=== PATIENT | female | born 1970 | race Caucasian/White ===

== ENCOUNTER 2020-08-29 05:15 | Emergency (ER) | payer OTHER, SELFPAY ==
[2020-08-29 05:47] VITALS: BP 111/71; PULSE 72; RESP 16; TEMP 36.7; O2SAT 99; BMI 33.6
--- NOTE | 2020-08-29 06:23 | ED.URI ---
HPI - URI/Sore Throat General Chief Complaint: Upper Respiratory Symptoms Stated Complaint: Covid symptoms/Asthma Time Seen by Provider: 08/29/20 06:23 Source: patient Mode of arrival: ambulatory Limitations: no limitations History of Present Illness MD elicited complaint: cough, rhinorrhea and nasal congestion Pertinent past history: asthma Onset (ago): day(s) (3) Consistency: constant Severity: moderate Description of mucous: clear Able to tolerate fluids by mouth: Yes Exacerbating factors: nothing Relieving factors: nothing Context: sick contacts (possible works at [employer] and has 2 co workers positive in his area) Associated symptoms: chills, myalgias, headache, rhinorrhea and ear pain Treatments prior to arrival: none Related Data Previous Rx's Medication Instructions Recorded loratadine 10 mg capsule 10 mg PO DAILY 90 Days #90 cap 08/28/20 Allergies Allergy/AdvReac Type Severity Reaction Status Date / Time No Known Allergies Allergy Verified 08/29/20 05:35 N.K.D.A. Allergy Unknown Unknown Uncoded 08/29/20 05:35 Review of Systems Review of Systems: Constitutional : positive Fever, positive Chills, positive fatigue, positive Malaise ENT/Mouth : positive sore throat, positive runny nose Eyes: No Discharge Cardiovascular : No Chest Pain, No SOB Respiratory : positive Cough, No Sputum Gastrointestinal : No Nausea, No Vomiting, No Diarrhea Genitourinary : No Dysuria, No Urinary Frequency Musculoskeletal : positive Myalgia Skin : No rash Neuro : No Headache PMFSH Past Medical History Medical History (Updated 08/29/20 @ 06:33 by Inna Lundberg DO) Asthma Sacroiliac inflammation Social History Social History (Updated 08/29/20 @ 06:34 by Inna Lundberg DO) Smoking Status: Never smoker Use of substances other than those prescribed or required for medical reasons: No Advance Directives: No Physical Exam Vital Signs: Vital Signs: Vital Signs Temp Pulse Resp BP Pulse Ox 08/29/20 05:47 98.1 F 72 16 111/71 99 Body Mass Index 33.6 Appearance: Alert. Oriented X3. No acute distress. Eyes: Pupils equal, round and reactive to light. ENT: Pharynx normal. Ears normal Neck: Normal inspection. Neck supple. CVS: Normal heart rate and rhythm. Pulses normal. Respiratory: No respiratory distress. Breath sounds normal. Abdomen: Soft and nontender. Skin: Skin warm and dry. Normal skin color. Normal skin turgor. Extremities: No lower extremity edema. No calf ttp Neuro: Oriented X 3. No motor deficit. No sensory deficit. MDM - URI/Sore Throat MDM Narrative Medical decision making narrative: 49 yo female not toxic, clear lungs 99% on RA, viral syndrome in nature with positive contacts at this time will need COVID swab and discussed precautions. Discharge Plan Discharge Clinical Impression: Upper respiratory infection Patient Disposition: Home, Self-Care Instructions: Viral Syndrome (ED), COVID-19 (Coronavirus Disease 2019) (ED) Additional Instructions: you were tested for COVID we will call you with results in 2 to 4 days, wear a mask, socially distance Prescriptions: No Action loratadine 10 mg capsule 10 mg PO DAILY 90 Days Qty: 90 RF: 0 Referrals: Bang Wilson, CARPET OR RUG LAYER HELPER-BC [Primary Care Provider] - 2 days (if not better)
== END 2020-08-29 06:55 | disposition home or self-care (01) ==
PROVIDERS: Emergency Provider Emergency Medicine; PCP Nurse Practitioner Family
DX: J06.9 Acute upper respiratory infection, unspecified (principal); Z20.828 Contact with and (suspected) exposure to other viral communicable diseases
CPT/HCPCS: 87635; 99283

== ENCOUNTER 2020-10-17 09:37 | Outpatient (REF) | payer OTHER, SELFPAY ==
--- NOTE | 2020-10-17 09:42 | XR_ITS ---
EXAMINATION: RIGHT KNEE X-RAY CLINICAL INFORMATION: Pain COMPARISON: Previous x-ray June 2018 TECHNIQUE: 4 views right knee FINDINGS: Bone alignment is normal. No fracture or dislocation is seen. There are osteophytes at the patellofemoral joint. Joint spaces are otherwise normal. There is a small joint effusion. XR/XR ankle RT min 3V IMPRESSION: Degenerative changes at the patellofemoral joint and small joint effusion. EXAMINATION: Right ankle x-ray CLINICAL INFORMATION: Pain COMPARISON: None. TECHNIQUE: 3 views right ankle FINDINGS: Bone alignment is normal. No fracture or dislocation is seen. There are small osteophytes at the medial tibiotalar joint. The ankle mortise is otherwise normal. There is a small sclerotic density in the right distal tibia probably representing a bone island. There are calcaneal spurs. Soft tissues are otherwise unremarkable. IMPRESSION: Small osteophytes at the medial tibiotalar joint and calcaneal spurs.
--- NOTE | 2020-10-17 09:42 | XR_ITS ---
EXAMINATION: RIGHT KNEE X-RAY CLINICAL INFORMATION: Pain COMPARISON: Previous x-ray June 2018 TECHNIQUE: 4 views right knee FINDINGS: Bone alignment is normal. No fracture or dislocation is seen. There are osteophytes at the patellofemoral joint. Joint spaces are otherwise normal. There is a small joint effusion. XR/XR knee RT 4V IMPRESSION: Degenerative changes at the patellofemoral joint and small joint effusion. EXAMINATION: Right ankle x-ray CLINICAL INFORMATION: Pain COMPARISON: None. TECHNIQUE: 3 views right ankle FINDINGS: Bone alignment is normal. No fracture or dislocation is seen. There are small osteophytes at the medial tibiotalar joint. The ankle mortise is otherwise normal. There is a small sclerotic density in the right distal tibia probably representing a bone island. There are calcaneal spurs. Soft tissues are otherwise unremarkable. IMPRESSION: Small osteophytes at the medial tibiotalar joint and calcaneal spurs.
== END 2020-10-17 09:38 | disposition home or self-care (01) ==
LOC: HO.HMGCX 09:37
PROVIDERS: PCP Nurse Practitioner Family; Visit Provider Nurse Practitioner Family
DX: M25.571 Pain in right ankle and joints of right foot (principal); M25.561 Pain in right knee
CPT/HCPCS: 73564; 73610

== ENCOUNTER 2020-11-13 10:35 | Inpatient (IN) | payer OTHER, SELFPAY ==
[2020-11-13 10:57] VITALS: BP 108/70; PULSE 75; RESP 18; TEMP 36.8; O2SAT 96; BMI 34.2
--- NOTE | 2020-11-13 11:40 | ED_ITS ---
HPI - Nausea/Vomiting/Diarrhea General Chief complaint: Nausea/Vomiting/Diarrhea Stated complaint: vomiting Time Seen by Provider: 11/13/20 11:38 Source: patient Mode of arrival: ambulatory Limitations: no limitations History of Present Illness HPI Narrative: THIS IS 50 YEARS OLD FEMALE PATIENT WITH CHIEF COMPLAINT NO NAUSEA VOMITING EPIGASTRIC PAIN MD elicited complaint: nausea and vomiting Onset (ago): day(s) (THREE DAYS) Description of vomiting: watery Associated nausea: Yes Associated abdominal pain: Yes Location of pain: epigastric Quality: cramping Related Data Home Medications Medication Instructions Recorded Confirmed atorvastatin 1 tab PO BEDTIME 11/13/20 11/13/20 baclofen 1 tab PO TID 11/13/20 11/13/20 cyclobenzaprine 5 mg PO BEDTIME 11/13/20 11/13/20 furosemide 40 mg PO DAILY 11/13/20 11/13/20 gabapentin 1 - 2 tab PO TID 11/13/20 11/13/20 insulin aspart U-100 [Novolog 2 - 14 unit SUBCUT QIDAS 11/13/20 11/13/20 Flexpen U-100 Insulin] sertraline 3 mg PO DAILY 11/13/20 11/13/20 Previous Rx's Medication Instructions Recorded loratadine 10 mg capsule 10 mg PO DAILY 90 Days #90 cap 08/28/20 Lactobacillus acidophilus 300 mg PO DAILY 30 Days #30 cap 09/01/20 hydrochlorothiazide 25 mg tablet 25 mg PO QAM #90 tab 10/30/20 albuterol sulfate 90 mcg/actuation 2 puff INHALATION Q6H PRN 30 Days 11/09/20 aerosol inhaler #8.5 g Allergies Allergy/AdvReac Type Severity Reaction Status Date / Time No Known Allergies Allergy Verified 09/28/20 12:54 Review of Systems Review of Systems: Yes all other systems are reviewed and are negative Cardiovascular: Cardiovascular: Reports no additional cardiovascular complaints Respiratory: Respiratory: Reports no additional respiratory complaints Gastrointestinal: Gastrointestinal: Reports nausea Neurologic: Reports system reviewed and no additional complaints, except as documented PMF Past Medical History Medical History (Updated 11/13/20 @ 16:09 by Fara Buitrago NP) Asthma Diabetes mellitus FH: HTN (hypertension) Hyperlipidemia Right sided sciatica Sacroiliac inflammation Surgical History History of back surgery History of bilateral tubal ligation Family History Family History (Updated 09/28/20 @ 12:58 by Celina Riojas, IGNACIO, DENTAL PRACTITIONER) Father Cancer Alzheimer's disease Mother HTN (hypertension) Diabetes mellitus Asthma Depression Stroke Cancer Maternal Grandfather No problems noted. Maternal Grandmother No problems noted. Paternal Grandfather No problems noted. Paternal Grandmother No problems noted. Brother No problems noted. Brother No problems noted. Sister Asthma Son No problems noted. Son No problems noted. Daughter No problems noted. Social History Social History Smoking Status: Former smoker Use of substances other than those prescribed or required for medical reasons: No Advance Directives: No Advance Directives Information Provided: Yes Physical Exam Vital Signs: Vital Signs: Last Vital Signs Temp 98.4 F 11/13/20 17:20 Pulse 66 11/14/20 06:44 Resp 16 11/14/20 06:44 BP 100/69 11/14/20 06:44 Pulse Ox 99 11/14/20 06:44 Body Mass Index 34.2 Const: Other: PATIENT IS NOT IN DISTRESS SHE APPEAR COMFORTABLE IN THE STRETCHER Orientation/consciousness: oriented to person, oriented to place, oriented to time and patient oriented x3 HENMT: Head: Yes normal to inspection Eyes: General: appearance normal, both eyes and all related structures Neck: Neck: Yes normal visual inspection, Yes full ROM and Yes no lymphadenopathy Chest: Chest palpation & inspection: normal inspection of the chest and normal palpation of entire chest wall Resp: Effort & Inspection: normal respiratory effort and able to speak in complete sentences Auscultation: clear to auscultation bilaterally Cardio: Jugular venous distension: no JVD Rate: regular rate GI: Inspection: Yes normal to inspection Palpation (GI): Soft to palpation and Tenderness to palpation present (GI) in the epigastrum Skin: General skin exam: no rashes or lesions noted Neuro: General: oriented to person, oriented to place, oriented to time and patient oriented x3 MDM - Nausea/Vomiting/Diarrhea Lab Data Result diagrams: 11/14/20 06:43 11/14/20 06:43 Labs: Lab Results 11/13/20 11/13/20 11/13/20 Range/Units 12:08 12:08 14:29 WBC 11.7 H (4.8-10.8) X10*3/uL RBC 4.85 (4.20-5.50) X10*6/uL Hgb 14.0 (12.0-16.0) g/dl Hct 40.8 (37-47) % MCV 84.1 (80-98) fL MCH 28.9 (27.0-33.0) pg MCHC 34.3 (31.0-35.0) g/dl RDW 12.8 (11.0-16.0) % Plt Count 322 (160-400) X10*3/uL MPV 10.7 (9.4-12.3) fL Immature Gran % (Auto) 0.3 (0.0-0.4) % Neut % (Auto) 74.6 H (45-73) % Lymph % (Auto) 16.1 L (20-40) % [place] % (Auto) 6.6 (2-11) % Eos % (Auto) 2.1 (0-4) % Baso % (Auto) 0.3 (0-2) % Lymph # (Auto) 1.9 (1.2-4.9) X10*3/uL [place] # (Auto) 0.8 (0.1-1.2) X10*3/uL Eos # (Auto) 0.3 (0.0-0.4) X10*3/uL Baso # (Auto) 0.0 (0.0-0.2) X10*3/uL Abs Immat Gran (auto) 0.03 (0.00-0.03) X10*3/uL Absolute Neuts (auto) 8.7 H (2.0-8.3) X10*3/uL Absolute Nucleated RBC 0.000 (0.0-0.012) X10*3/uL Nucleated RBC % (auto) 0.0 (0.0-0.2) /100WBC Sodium 140 (135-145) mmol/L Potassium 2.2 L* 2.3 L* (3.3-5.1) mmol/l Chloride 98 (96-108) mmol/L Carbon Dioxide 29 (22-29) mmol/L Anion Gap 15 (12-20) BUN 53 H (9-16) mg/dL Creatinine 1.52 H (0.5-1.4) mg/dL Estim Creat Clear Calc 37.5 Estimated GFR 36 POC Glucose (60-115) mg/dL Random Glucose 195 H (60-115) mg/dL Calcium 9.7 (8.4-10.2) mg/dL Magnesium 2.8 H (1.6-2.6) mg/dL Total Bilirubin 0.3 (0.0-1.0) mg/dL Direct Bilirubin < 0.2 (0.0-0.5) mg/dL AST 16 (5-31) U/L ALT 26 (0-31) U/L Alkaline Phosphatase 153 H (39-117) U/L Total Protein 8.2 H (6.5-8.0) g/dL Albumin 4.6 (3.5-5.0) g/dL Lipase 89 H (8-78) U/L Urine Color Urine Appearance Urine pH (5.0-8.0) Ur Specific [place] (1.005-1.025) Urine Protein (NEG-TRACE) MG/DL Urine Glucose (UA) (NEG) MG/DL Urine Ketones (NEG) MG/DL Urine Blood (NEG) Urine Nitrite (NEG) Ur Leukocyte Esterase (NEG) Urine Opiates Screen (Not Detect) Ur Barbiturates Screen (Not Detect) Ur Phencyclidine Scrn (Not Detect) Ur Amphetamines Screen (Not Detect) U Benzodiazepines Scrn (Not Detect) Urine Cocaine Screen (Not Detect) U Marijuana (THC) Screen (Not Detect) COVID-19 (MARK) (Negative) COVID-19 Clin Com 11/13/20 11/13/20 11/13/20 Range/Units 14:30 15:05 15:51 WBC (4.8-10.8) X10*3/uL RBC (4.20-5.50) X10*6/uL Hgb (12.0-16.0) g/dl Hct (37-47) % MCV (80-98) fL MCH (27.0-33.0) pg MCHC (31.0-35.0) g/dl RDW (11.0-16.0) % Plt Count (160-400) X10*3/uL MPV (9.4-12.3) fL Immature Gran % (Auto) (0.0-0.4) % Neut % (Auto) (45-73) % Lymph % (Auto) (20-40) % [place] % (Auto) (2-11) % Eos % (Auto) (0-4) % Baso % (Auto) (0-2) % Lymph # (Auto) (1.2-4.9) X10*3/uL [place] # (Auto) (0.1-1.2) X10*3/uL Eos # (Auto) (0.0-0.4) X10*3/uL Baso # (Auto) (0.0-0.2) X10*3/uL Abs Immat Gran (auto) (0.00-0.03) X10*3/uL Absolute Neuts (auto) (2.0-8.3) X10*3/uL Absolute Nucleated RBC (0.0-0.012) X10*3/uL Nucleated RBC % (auto) (0.0-0.2) /100WBC Sodium (135-145) mmol/L Potassium (3.3-5.1) mmol/l Chloride (96-108) mmol/L Carbon Dioxide (22-29) mmol/L Anion Gap (12-20) BUN (9-16) mg/dL Creatinine (0.5-1.4) mg/dL Estim Creat Clear Calc Estimated GFR POC Glucose (60-115) mg/dL Random Glucose (60-115) mg/dL Calcium (8.4-10.2) mg/dL Magnesium (1.6-2.6) mg/dL Total Bilirubin (0.0-1.0) mg/dL Direct Bilirubin (0.0-0.5) mg/dL AST (5-31) U/L ALT (0-31) U/L Alkaline Phosphatase (39-117) U/L Total Protein (6.5-8.0) g/dL Albumin (3.5-5.0) g/dL Lipase (8-78) U/L Urine Color STRAW Urine Appearance CLEAR Urine pH 7.0 (5.0-8.0) Ur Specific [place] 1.010 (1.005-1.025) Urine Protein NEG (NEG-TRACE) MG/DL Urine Glucose (UA) NEG (NEG) MG/DL Urine Ketones NEG (NEG) MG/DL Urine Blood NEG (NEG) Urine Nitrite NEG (NEG) Ur Leukocyte Esterase NEG (NEG) Urine Opiates Screen Not Detected (Not Detect) Ur Barbiturates Screen Not Detected (Not Detect) Ur Phencyclidine Scrn Not Detected (Not Detect) Ur Amphetamines Screen Not Detected (Not Detect) U Benzodiazepines Scrn Not Detected (Not Detect) Urine Cocaine Screen POSITIVE H (Not Detect) U Marijuana (THC) Screen Not Detected (Not Detect) COVID-19 (MARK) Negative (Negative) COVID-19 Clin Com See Note 11/13/20 11/13/20 11/14/20 Range/Units 21:09 22:57 06:43 WBC 7.2 (4.8-10.8) X10*3/uL RBC 4.16 L (4.20-5.50) X10*6/uL Hgb 12.0 (12.0-16.0) g/dl Hct 36.0 L (37-47) % MCV 86.5 (80-98) fL MCH 28.8 (27.0-33.0) pg MCHC 33.3 (31.0-35.0) g/dl RDW 13.2 (11.0-16.0) % Plt Count 253 (160-400) X10*3/uL MPV 10.6 (9.4-12.3) fL Immature Gran % (Auto) 0.4 (0.0-0.4) % Neut % (Auto) 60.4 (45-73) % Lymph % (Auto) 28.2 (20-40) % [place] % (Auto) 7.4 (2-11) % Eos % (Auto) 3.3 (0-4) % Baso % (Auto) 0.3 (0-2) % Lymph # (Auto) 2.0 (1.2-4.9) X10*3/uL [place] # (Auto) 0.5 (0.1-1.2) X10*3/uL Eos # (Auto) 0.2 (0.0-0.4) X10*3/uL Baso # (Auto) 0.0 (0.0-0.2) X10*3/uL Abs Immat Gran (auto) 0.03 (0.00-0.03) X10*3/uL Absolute Neuts (auto) 4.3 (2.0-8.3) X10*3/uL Absolute Nucleated RBC 0.000 (0.0-0.012) X10*3/uL Nucleated RBC % (auto) 0.0 (0.0-0.2) /100WBC Sodium 141 (135-145) mmol/L Potassium 3.1 L D (3.3-5.1) mmol/l Chloride 109 H (96-108) mmol/L Carbon Dioxide 25 (22-29) mmol/L Anion Gap 10 L (12-20) BUN 37 H (9-16) mg/dL Creatinine 1.22 (0.5-1.4) mg/dL Estim Creat Clear Calc 46.8 Estimated GFR 46 POC Glucose 118 H (60-115) mg/dL Random Glucose 129 H (60-115) mg/dL Calcium 8.1 L D (8.4-10.2) mg/dL Magnesium (1.6-2.6) mg/dL Total Bilirubin (0.0-1.0) mg/dL Direct Bilirubin (0.0-0.5) mg/dL AST (5-31) U/L ALT (0-31) U/L Alkaline Phosphatase (39-117) U/L Total Protein (6.5-8.0) g/dL Albumin (3.5-5.0) g/dL Lipase (8-78) U/L Urine Color Urine Appearance Urine pH (5.0-8.0) Ur Specific [place] (1.005-1.025) Urine Protein (NEG-TRACE) MG/DL Urine Glucose (UA) (NEG) MG/DL Urine Ketones (NEG) MG/DL Urine Blood (NEG) Urine Nitrite (NEG) Ur Leukocyte Esterase (NEG) Urine Opiates Screen (Not Detect) Ur Barbiturates Screen (Not Detect) Ur Phencyclidine Scrn (Not Detect) Ur Amphetamines Screen (Not Detect) U Benzodiazepines Scrn (Not Detect) Urine Cocaine Screen (Not Detect) U Marijuana (THC) Screen (Not Detect) COVID-19 (MARK) (Negative) COVID-19 Clin Com 11/14/20 11/14/20 11/14/20 Range/Units 06:43 06:48 07:55 WBC (4.8-10.8) X10*3/uL RBC (4.20-5.50) X10*6/uL Hgb (12.0-16.0) g/dl Hct (37-47) % MCV (80-98) fL MCH (27.0-33.0) pg MCHC (31.0-35.0) g/dl RDW (11.0-16.0) % Plt Count (160-400) X10*3/uL MPV (9.4-12.3) fL Immature Gran % (Auto) (0.0-0.4) % Neut % (Auto) (45-73) % Lymph % (Auto) (20-40) % [place] % (Auto) (2-11) % Eos % (Auto) (0-4) % Baso % (Auto) (0-2) % Lymph # (Auto) (1.2-4.9) X10*3/uL [place] # (Auto) (0.1-1.2) X10*3/uL Eos # (Auto) (0.0-0.4) X10*3/uL Baso # (Auto) (0.0-0.2) X10*3/uL Abs Immat Gran (auto) (0.00-0.03) X10*3/uL Absolute Neuts (auto) (2.0-8.3) X10*3/uL Absolute Nucleated RBC (0.0-0.012) X10*3/uL Nucleated RBC % (auto) (0.0-0.2) /100WBC Sodium 142 (135-145) mmol/L Potassium 3.2 L (3.3-5.1) mmol/l Chloride 113 H (96-108) mmol/L Carbon Dioxide 21 L (22-29) mmol/L Anion Gap 11 L (12-20) BUN 30 H (9-16) mg/dL Creatinine 0.86 (0.5-1.4) mg/dL Estim Creat Clear Calc 66.3 Estimated GFR > 60 POC Glucose 126 H 116 H (60-115) mg/dL Random Glucose 130 H (60-115) mg/dL Calcium 8.1 L (8.4-10.2) mg/dL Magnesium (1.6-2.6) mg/dL Total Bilirubin (0.0-1.0) mg/dL Direct Bilirubin (0.0-0.5) mg/dL AST (5-31) U/L ALT (0-31) U/L Alkaline Phosphatase (39-117) U/L Total Protein (6.5-8.0) g/dL Albumin (3.5-5.0) g/dL Lipase (8-78) U/L Urine Color Urine Appearance Urine pH (5.0-8.0) Ur Specific [place] (1.005-1.025) Urine Protein (NEG-TRACE) MG/DL Urine Glucose (UA) (NEG) MG/DL Urine Ketones (NEG) MG/DL Urine Blood (NEG) Urine Nitrite (NEG) Ur Leukocyte Esterase (NEG) Urine Opiates Screen (Not Detect) Ur Barbiturates Screen (Not Detect) Ur Phencyclidine Scrn (Not Detect) Ur Amphetamines Screen (Not Detect) U Benzodiazepines Scrn (Not Detect) Urine Cocaine Screen (Not Detect) U Marijuana (THC) Screen (Not Detect) COVID-19 (MARK) (Negative) COVID-19 Clin Com ECG Data ECG interpretation time: 14:26 Pacemaker model: NORMAL SINUS RHYTHM A RATE 74 NO ISCHEMIC CHANGES Discharge Plan Discharge Clinical Impression: Hypokalemia, Renal failure, Vomiting Patient Disposition: Admitted As Inpatient
[2020-11-13] MEDS: 0.9 % Sodium Chloride 1,000 ML 999 ML IVCONT ×3 (12:09→14:42)
[2020-11-13] MEDS: ondansetron HCL 4 MG/2 ML VIAL IVPUSH (12:14)
[2020-11-13 12:16] LABS: Basophils Percent Auto 0.3 % (0-2); Eosinophils Absolute Auto 0.3 X10*3/uL (0.0-0.4); Eosinophils Percent Auto 2.1 % (0-4); Hematocrit 40.8 % (37-47); Imm Gran Abs Auto 0.03 X10*3/uL (0.00-0.03); Imm Gran Pct Auto 0.3 % (0.0-0.4); Lymphocytes Absolute Auto 1.9 X10*3/uL (1.2-4.9); Lymphocytes Percent Auto 16.1 % (20-40); MANUAL DIFF FLAG NO; Mean Corpuscular HGB Conc 34.3 g/dl (31.0-35.0); Mean Corpuscular Hemoglobin 28.9 pg (27.0-33.0); Mean Corpuscular Volume 84.1 fL (80-98); Mean Platelet Volume 10.7 fL (9.4-12.3); Monocytes Absolute Auto 0.8 X10*3/uL (0.1-1.2); Monocytes Percent Auto 6.6 % (2-11); Neutrophils Absolute Auto 8.7 X10*3/uL (2.0-8.3); Neutrophils Percent Auto 74.6 % (45-73); Platelet Count 322 X10*3/uL (160-400); Red Blood Count 4.85 X10*6/uL (4.20-5.50); Red Cell Distribution Width 12.8 % (11.0-16.0); White Blood Count 11.7 X10*3/uL (4.8-10.8)
[2020-11-13 12:43] LABS: Alanine Aminotransferase 26 U/L (0-31); Albumin Level 4.6 g/dL (3.5-5.0); Alkaline Phosphatase 153 U/L (39-117); Aspartate Amino Transferase 16 U/L (5-31); Blood Urea Nitrogen 53 mg/dL (9-16); Calcium 9.7 mg/dL (8.4-10.2); Creatinine Clr Calc Pharmacy 37.5; Estimated Glomerular Filt Rate 36; Glucose Random 195 mg/dL (60-115); Total Protein 8.2 g/dL (6.5-8.0)
--- NOTE | 2020-11-13 12:53 | PC.NURSE ---
pt reports that nausea has improved some, no vomiting while in the ed
[2020-11-13 13:03] LABS: Anion Gap 15 (12-20); Bilirubin Direct < 0.2 mg/dL (0.0-0.5); Bilirubin Total 0.3 mg/dL (0.0-1.0); Carbon Dioxide 29 mmol/L (22-29); Chloride 98 mmol/L (96-108); Lipase 89 U/L (8-78); Sodium 140 mmol/L (135-145)
[2020-11-13 13:12] LABS: Potassium 2.2 mmol/l (3.3-5.1)
--- NOTE | 2020-11-13 13:14 | ECG_ITS ---
Test Reason : NAUSEA Blood Pressure : / mmHG Vent. Rate : 074 BPM Atrial Rate : 074 BPM P-R Int : 158 ms QRS Dur : 110 ms QT Int : 476 ms P-R-T Axes : 050 -06 039 degrees QTc Int : 528 ms Normal sinus rhythm Prolonged QT Abnormal ECG When compared with ECG of 25-OCT-2017 07:21, QT has lengthened Referred By: Jose Alejandro Proctor Electronically Signed By:JESSICA RHOADES
--- NOTE | 2020-11-13 13:16 | CT_ITS ---
EXAMINATION: CT ABDOMEN AND PELVIS WITHOUT CONTRAST CLINICAL INFORMATION: Diverticulitis COMPARISON: None TECHNIQUE: Multidetector volumetric imaging was performed from the superior aspect of the liver through the pubic symphysis. Sagittal and coronal reformatted images were obtained on the technologist's workstation. This CT examination was performed using dose optimization techniques as appropriate, variously including the following: *Automated exposure control *Adjustment of mA and/or kV according to patient size (this includes techniques or standardized protocols for targeted exams where dose is matched to indication/reason for exam; i.e. extremities or head) *Use of iterative reconstruction technique DLP: 673 mGy-cm FINDINGS: LUNG BASES: The visualized lung bases are unremarkable. LIVER, GALLBLADDER, AND BILIARY TREE: The liver is normal in size, shape, and attenuation. No focal hepatic lesion or biliary ductal dilatation is present. The gallbladder is unremarkable with no evidence of radiopaque gallstones, gallbladder wall thickening, or obvious pericholecystic inflammatory changes. PANCREAS: Unremarkable. SPLEEN: Unremarkable. ADRENAL GLANDS: Unremarkable. KIDNEYS AND URETERS: The kidneys are normal in size, shape, and attenuation. No hydronephrosis, hydroureter, or calculi seen. No perinephric stranding. BLADDER: Unremarkable. GASTROINTESTINAL TRACT: The small and large bowel are unremarkable. The appendix is unremarkable. ABDOMINAL WALL: No significant hernia is appreciated. LYMPH NODES: Normal. VASCULAR: Unremarkable. PELVIC VISCERA: Unremarkable. OSSEOUS STRUCTURES: Unremarkable. CT/CT abdomen pelvis wo con IMPRESSION: No significant abnormality. No inflammatory changes.
[2020-11-13] MEDS: Potassium Chloride/H20 10 MEQ/100 ML PIGGYBACK 100 MEQ IV ×5 (13:23→22:49)
[2020-11-13] MEDS: Potassium Chloride ER 20 MEQ TAB.ER.PRT PO (13:23)
[2020-11-13 13:26] VITALS: BP 97/62; PULSE 72; RESP 16; O2SAT 96
[2020-11-13 14:36] LABS: Glucose Urine UA NEG (NEG); Leukocyte Esterase Urine NEG (NEG); Nitrite Urine NEG (NEG); Urine Blood NEG (NEG); Urine Ketones NEG (NEG); Urine Protein NEG (NEG-TRACE)
[2020-11-13 14:37] LABS: Appearance Urine CLEAR; Color Urine STRAW
[2020-11-13 14:45] VITALS: BP 93/53; PULSE 73; RESP 16; O2SAT 99
[2020-11-13 14:59] LABS: Magnesium 2.8 mg/dL (1.6-2.6)
[2020-11-13 15:11] LABS: Potassium 2.3 mmol/l (3.3-5.1)
--- NOTE | 2020-11-13 16:01 | PM.IMHP ---
History of Present Illness Date of Service: 11/13/20 <Fara Buitrago NP - Last Filed: 11/13/20 16:18> Chief Complaint: Vomiting <Fara Buitrago NP - Last Filed: 11/13/20 16:18> 50 year old women presenting with nausea and vomiting since . She reported that she had a take out sandwich and after that began to have vomiting. She then developed epigastric pain. She denied fever, chills, diarrhea, alcohol use. In the ED, abd CT was negative for acute abnormality, normal LFT's, potassium was low at 2.2 initially. Creatinine was also mildly elevated. She had been taking Ibuprofen multiple times a day over the last 2 weeks due to back pain. Her blood pressure was noted to be on the lower side with SBP 80-90's. She was given 3 liters of IV fluids as well as oral and IV potassium. She will be admitted for management of gastritis and hypokalemia. <Fara Buitrago NP - Last Filed: 11/13/20 16:18> Review of Systems Review of Systems: Denies any recent fever chills or decrease in appetite respiratory denies any shortness of breath coverage production cardiovascular is adjustment of any PND or edema gastrointestinal See HPI genitourinary denies any dysuria frequency or hematuria musculoskeletal denies any joint pain or swelling neuropsych denies any weakness or seizures all other systems reviewed are negative <Fara Buitrago NP - Last Filed: 11/13/20 16:18> Neurologic: Reports system reviewed and no additional complaints, except as documented <Fara Buitrago NP - Last Filed: 11/13/20 16:18> [facility] Medical History: Medical History (Updated 11/23/20 @ 09:33 by KAREN Jimenez) Asthma Diabetes mellitus FH: HTN (hypertension) Hyperlipidemia Right sided sciatica Sacroiliac inflammation <Fara Buitrago NP - Last Filed: 11/13/20 16:18> Family History: Family History (Updated 09/28/20 @ 12:58 by IGNACIO Palm, [facility]) Father Cancer Alzheimer's disease Mother HTN (hypertension) Diabetes mellitus Asthma Depression Stroke Cancer Maternal Grandfather No problems noted. Maternal Grandmother No problems noted. Paternal Grandfather No problems noted. Paternal Grandmother No problems noted. Brother No problems noted. Brother No problems noted. Sister Asthma Son No problems noted. Son No problems noted. Daughter No problems noted. <Fara Buitrago NP - Last Filed: 11/13/20 16:18> Surgical History: Surgical History History of back surgery History of bilateral tubal ligation <Fara Buitrago NP - Last Filed: 11/13/20 16:18> Social History: Social History Smoking Status: Former smoker <Fara Buitrago NP - Last Filed: 11/13/20 16:18> Meds Allergies/Adverse reactions: Allergies Allergy/AdvReac Type Severity Reaction Status Date / Time No Known Allergies Allergy Verified 09/28/20 12:54 <Fara Buitrago NP - Last Filed: 11/13/20 16:18> Home medications: Home Medications Medication Instructions Recorded Confirmed Type atorvastatin 1 tab PO BEDTIME 11/13/20 11/13/20 History baclofen 1 tab PO TID 11/13/20 11/13/20 History cyclobenzaprine 5 mg PO BEDTIME 11/13/20 11/13/20 History gabapentin 1 - 2 tab PO TID 11/13/20 11/13/20 History insulin aspart U-100 [Novolog 2 - 14 unit SUBCUT QIDACHS 11/13/20 11/13/20 History Flexpen U-100 Insulin] sertraline 3 mg PO DAILY 11/13/20 11/13/20 History <Fara Buitrago NP - Last Filed: 11/13/20 16:18> Physical Exam Vital Signs and Narrative: Vital Signs: Last Vital Signs Temp 98.3 F 11/13/20 10:57 Pulse 73 11/13/20 14:45 Resp 16 11/13/20 14:45 BP 93/53 L 11/13/20 14:45 Pulse Ox 99 11/13/20 14:45 Body Mass Index 34.2 <Fara Buitrago NP - Last Filed: 11/13/20 16:18> Appearing in no acute distress head is normocephalic atraumatic eyes pupils are PERRLA sclera is anicteric mouth throat mucous membranes are intact and moist neck is supple no lymphadenopathy, no JVD noted lung sounds are clear to auscultation heart regular rate rhythm, clear S1, S2 positive bowel sounds, abdomen is soft, nontender neuro patient is alert x3, no focal deficits <Fara Buitrago NP - Last Filed: 11/13/20 16:18> Results Labs CBC and Chem 7: : 11/14/20 06:43 11/14/20 06:43 <Fara Buitrago NP - Last Filed: 11/13/20 16:18> Labs: Laboratory Results - last 24 hr 11/13/20 11/13/20 11/13/20 12:08 12:08 14:30 MCV 84.1 MCH 28.9 MCHC 34.3 RDW 12.8 Plt Count 322 MPV 10.7 Immature Gran % (Auto) 0.3 Neut % (Auto) 74.6 H Lymph % (Auto) 16.1 L [place] % (Auto) 6.6 Eos % (Auto) 2.1 Baso % (Auto) 0.3 Lymph # (Auto) 1.9 [place] # (Auto) 0.8 Eos # (Auto) 0.3 Baso # (Auto) 0.0 Abs Immat Gran (auto) 0.03 Absolute Neuts (auto) 8.7 H Absolute Nucleated RBC 0.000 Nucleated RBC % (auto) 0.0 Anion Gap 15 Estim Creat Clear Calc 37.5 Estimated GFR 36 Random Glucose 195 H Calcium 9.7 Magnesium 2.8 H Total Bilirubin 0.3 Direct Bilirubin < 0.2 AST 16 ALT 26 Alkaline Phosphatase 153 H Total Protein 8.2 H Albumin 4.6 Lipase 89 H Urine Color STRAW Urine Appearance CLEAR Urine pH 7.0 Ur Specific [place] 1.010 Urine Protein NEG Urine Glucose (UA) NEG Urine Ketones NEG Urine Blood NEG Urine Nitrite NEG Ur Leukocyte Esterase NEG <Fara Buitrago NP - Last Filed: 11/13/20 16:18> Imaging Radiologist's Impressions: Impressions Abdomen/Pelvis CT 11/13/20 13:16 IMPRESSION: No significant abnormality. No inflammatory changes. <Fara Buitrago NP - Last Filed: 11/13/20 16:18> Assessment and Plan (1) Hypokalemia: Status: Resolved <Fara Buitrago NP - Last Filed: 11/13/20 16:18> (2) Vomiting: Status: Resolved <Fara Buitrago NP - Last Filed: 11/13/20 16:18> 50 year old women admitted with likely NSAID induced gastritis and hypokalemia. Gastritis. NSAID use at home for back pain. Add PPI, IV fluids. Avoid Nsaids, alcohol. Hypokalemia. Likely from fluid loss vomiting. Replete and follow BMP. Normal mag. Hypotension. Soft blood pressures, hold antihypertensives, IV fluids. Diabetes. Sliding scale, ADA diet. Asthma. No exacerbation. Albuterol. HLD. Continue statin. DVT prophylaxis with mechanical compression boots. Discussed with Dr. Mendoza Full code. <Fara Buitrago NP - Last Filed: 11/13/20 16:18>
[2020-11-13 16:02] LABS: COVID-19 Test Negative (Negative)
[2020-11-13 16:25] LABS: Amphetamine Screen Urine Not Detected (Not Detect); Barbiturates, Urine Not Detected (Not Detect); Benzodiazepines Screen Urine Not Detected (Not Detect); Cannabinoid Screen Urine Not Detected (Not Detect); Cocaine Screen Urine POSITIVE (Not Detect); Opiate Screen Urine Not Detected (Not Detect); Phencyclidine Screen Urine Not Detected (Not Detect)
--- NOTE | 2020-11-13 17:19 | PM.EVENT ---
Event Note Date of Service: 11/13/20 Event Note: Patient seen and examined. Case discussed with Fara Buitrago NP. Agree with her history and physical. This is a 50-year-old female with multiple medical problems who presents to the hospital with complaints of intractable nausea and vomiting of 3 days duration. She has been taking 600 mg of ibuprofen 4 times a day for the last 2-3 weeks for headaches. She denies any rectal bleeding, melena nor any hematemesis or coffee-grounds. She reports feeling significant improvement after fluids and antiemetics in the emergency room. Assessment and plan Gastritis likely secondary to heavy NSAID use PPI and antiemetics. IV fluids. If no improvement will need Gastroenterology evaluation and probable endoscopy. Soft blood pressure, no symptoms of hypotension. Likely hypovolemic from poor oral intake. Aggressive fluid resuscitation. Hypokalemia, severe with EKG changes (Prolonged QT) --- aggressive repletion with 40meq IV and 40 PO now (received only 20+10 in the ED); Mag Normal; Recheck K this evening. Monitor on tele Remainder per H&P
[2020-11-13 17:20] VITALS: BP 110/64; PULSE 70; RESP 18; TEMP 36.9; O2SAT 100
[2020-11-13] MEDS: Potassium Chloride ER 20 MEQ TAB.ER.PRT 40 MEQ PO (17:50)
--- NOTE | 2020-11-13 19:47 | ECG_ITS ---
Test Reason : PROLONGED QT Blood Pressure : / mmHG Vent. Rate : 066 BPM Atrial Rate : 066 BPM P-R Int : 150 ms QRS Dur : 108 ms QT Int : 456 ms P-R-T Axes : 053 -06 036 degrees QTc Int : 478 ms Normal sinus rhythm Normal ECG When compared with ECG of 13-NOV-2020 14:20, QT has shortened Referred By: Fara Buitrago Electronically Signed By:Willie Brewer
[2020-11-13] MEDS: Omeprazole 20 MG CAPSULE.DR PO (20:11)
[2020-11-13 20:16] VITALS: BP 110/76; PULSE 71; RESP 16; O2SAT 100
[2020-11-13 21:53] LABS: Anion Gap 10 (12-20); Blood Urea Nitrogen 37 mg/dL (9-16); Calcium 8.1 mg/dL (8.4-10.2); Carbon Dioxide 25 mmol/L (22-29); Chloride 109 mmol/L (96-108); Creatinine Clr Calc Pharmacy 46.8; Estimated Glomerular Filt Rate 46; Glucose Random 129 mg/dL (60-115); Potassium 3.1 mmol/l (3.3-5.1); Sodium 141 mmol/L (135-145)
[2020-11-13] MEDS: Gabapentin 600 MG TABLET PO (22:49)
[2020-11-13] MEDS: Baclofen 10 MG TABLET PO (22:49)
[2020-11-13] MEDS: Cyclobenzaprine HCl 5 MG TABLET PO (22:49)
[2020-11-13] MEDS: Atorvastatin Calcium 40 MG TABLET PO (22:49)
[2020-11-13] MEDS: 0.9 % Sodium Chloride 1,000 ML 100 ML IVCONT (22:50)
[2020-11-13 23:01] LABS: Glucose, Whole Blood 118 mg/dL (60-115)
[2020-11-13 23:33] VITALS: BP 106/65; PULSE 70; RESP 16; O2SAT 98
[2020-11-14] MEDS: Potassium Chloride/H20 10 MEQ/100 ML PIGGYBACK 100 MEQ IV (01:05)
[2020-11-14] MEDS: 0.9 % Sodium Chloride Flush 3 ML SYRINGE IVFLUSH ×2 (01:06→09:01)
--- NOTE | 2020-11-14 04:10 | PC.NURSE ---
THROUGHOUT THIS SHIFT, PATIENT HAS NEEDED REPEATED ENCOURAGEMENT REGARDING DISCOMFORT WHILE RECEIVING IV POTASSIUM. EACH POTASSIUM CHLORIDE BAG INFUSED WITH NORMAL SALINE 500ML AND ICE APPLIED TO IV SITE FOR COMFORT. PATIENT REPEATEDLY USING CALL MAZARIEGOS CRYING OUT. IV ACCESS IS PATENT AND FUNCTIONAL WITHOUT REDNESS, SWELLING, OR OTHER EVIDENCE OF INFILTRATION/MALFUNCTION. ALL BAGS INFUSED AT SLOWER RATE VIA IV PUMP. ED PROVIDER AND HOSPITALIST AWARE OF PATIENT'S REPEATED COMPLAINTS AND SLOWED POTASSIUM INFUSION RATE. PATIENT HAD BEEN WATCHING TV QUIETLY OTHERWISE THROUGHOUT THE SHIFT. PT SLEEPING AT THIS TIME, WILL CONTINUE TO MONITOR.
[2020-11-14 06:44] VITALS: BP 100/69; PULSE 66; RESP 16; O2SAT 99
[2020-11-14] MEDS: 0.9 % Sodium Chloride 1,000 ML 100 ML IVCONT (06:50)
[2020-11-14] MEDS: Omeprazole 20 MG CAPSULE.DR PO (06:50)
[2020-11-14 06:52] LABS: Glucose, Whole Blood 126 mg/dL (60-115)
[2020-11-14 06:55] LABS: Basophils Percent Auto 0.3 % (0-2); Eosinophils Absolute Auto 0.2 X10*3/uL (0.0-0.4); Eosinophils Percent Auto 3.3 % (0-4); Imm Gran Abs Auto 0.03 X10*3/uL (0.00-0.03); Imm Gran Pct Auto 0.4 % (0.0-0.4); Lymphocytes Percent Auto 28.2 % (20-40); MANUAL DIFF FLAG NO; Mean Corpuscular HGB Conc 33.3 g/dl (31.0-35.0); Mean Corpuscular Hemoglobin 28.8 pg (27.0-33.0); Mean Corpuscular Volume 86.5 fL (80-98); Mean Platelet Volume 10.6 fL (9.4-12.3); Monocytes Absolute Auto 0.5 X10*3/uL (0.1-1.2); Monocytes Percent Auto 7.4 % (2-11); Neutrophils Absolute Auto 4.3 X10*3/uL (2.0-8.3); Neutrophils Percent Auto 60.4 % (45-73); Platelet Count 253 X10*3/uL (160-400); Red Blood Count 4.16 X10*6/uL (4.20-5.50); Red Cell Distribution Width 13.2 % (11.0-16.0); White Blood Count 7.2 X10*3/uL (4.8-10.8)
[2020-11-14 07:23] LABS: Anion Gap 11 (12-20); Blood Urea Nitrogen 30 mg/dL (9-16); Calcium 8.1 mg/dL (8.4-10.2); Carbon Dioxide 21 mmol/L (22-29); Chloride 113 mmol/L (96-108); Creatinine Clr Calc Pharmacy 66.3; Estimated Glomerular Filt Rate > 60; Glucose Random 130 mg/dL (60-115); Potassium 3.2 mmol/l (3.3-5.1); Sodium 142 mmol/L (135-145)
[2020-11-14 07:59] LABS: Glucose, Whole Blood 116 mg/dL (60-115)
[2020-11-14] MEDS: Sertraline HCL 100 MG TABLET PO (08:08)
[2020-11-14] MEDS: Gabapentin 600 MG TABLET PO (08:09)
[2020-11-14] MEDS: Baclofen 10 MG TABLET PO (08:09)
--- NOTE | 2020-11-14 08:54 | PC.NURSE ---
pt ate all of bkfst
[2020-11-14 09:01] VITALS: BP 98/65; PULSE 68; RESP 17; O2SAT 97
[2020-11-14] MEDS: Lactated Ringers 1,000 ML 100 ML IVCONT (09:01)
--- NOTE | 2020-11-14 09:41 | HO.PM.IMPN ---
Subjective Subjective Date of Service: 11/14/20 Interval History: seen and examined this AM awaiting bed in the ED denies n/v abdominal pain denies symptoms of hypotension hoping she can go home later today ROS General - no fevers or chills Cardiovascular - no chest pain Respiratory - no shortness of breath or cough Abdominal- no abdominal pain, nausea, vomiting, diarrhea Physical Exam Vital Signs: Vital Signs: Last Vital Signs Temp 98.4 F 11/13/20 17:20 Pulse 68 11/14/20 09:01 Resp 17 11/14/20 09:01 BP 98/65 11/14/20 09:01 Pulse Ox 97 11/14/20 09:01 Body Mass Index 34.2 Const: Other: General - no acute distress, appears comfortable Cardiovascular - regular rate and rhythm, S1-S2 Lungs - normal respiratory effort, clear to auscultation bilaterally, no wheezing Abdomen - soft, nontender, no rebound or guarding Extremities - no edema bilaterally Neuro - awake and alert, no focal deficits Objective Data Current Medications Generic Name Dose Route Start Last Admin Trade Name Adityaq PRN Reason Stop Dose Admin Acetaminophen 650 mg 11/13/20 20:36 Acetaminophen 325 Mg Tablet PO Q6H PRN Pain, Mild (Pain Scale 1-3) Albuterol Sulfate 2 puff 11/13/20 20:36 Albuterol Sulfate 90 Mcg 8 Gm Inhaler INHALE Q6H PRN shortness of breath or wheezing Atorvastatin Calcium 40 mg 11/13/20 21:00 11/13/20 22:49 Atorvastatin Calcium 40 Mg Tablet PO 40 mg BEDTIME MOIRA Administration Baclofen 10 mg 11/13/20 21:00 11/14/20 08:09 Baclofen 10 Mg Tablet PO 10 mg TID MOIRA Administration Cyclobenzaprine HCl 5 mg 11/13/20 21:00 11/13/20 22:49 Cyclobenzaprine Hcl 5 Mg Tablet PO 5 mg BEDTIME MOIRA Administration Gabapentin 600 - 1,200 mg 11/13/20 21:00 11/14/20 08:09 Gabapentin 600 Mg Tablet PO 600 mg TID MOIRA Administration Lactated Ringer's 1,000 mls @ 100 mls/hr 11/14/20 07:45 11/14/20 09:01 Lr IVCONT 100 mls/hr .Q10H MOIRA Administration Insulin Human Lispro 0 unit 11/13/20 21:00 11/14/20 07:20 Insulin Lispro 100 Unit/Ml 3 Ml Vial SUBCUT Not Given QIDACHS [facility] Protocol Omeprazole 20 mg 11/13/20 17:26 11/14/20 06:50 Omeprazole 20 Mg Capsule. PO 20 mg BID@0630,1630 MOIRA Administration Ondansetron HCl 4 mg 11/13/20 20:36 Ondansetron Hcl 4 Mg/2 Ml Vial IVPUSH Q8H PRN Nausea and Vomiting Sertraline HCl 3 mg 11/14/20 09:00 11/14/20 08:08 Sertraline Hcl 100 Mg Tablet PO 3 mg DAILY MOIRA Administration Sodium Chloride 3 ml 11/14/20 00:00 11/14/20 09:01 0.9 % Sodium Chloride Flush 3 Ml Syringe IVFLUSH 3 ml QSHIFT MOIRA Administration Labs CBC & Chem 7: 11/14/20 06:43 11/14/20 06:43 Assessment and Plan (1) Hypokalemia: Status: Acute Assessment and Plan: This is a 50-year-old diabetic who presented to the hospital with complaints of 3 days of intractable nausea and vomiting and epigastric pain. She reported about 2 weeks of daily NSAID use prior to this. 1. Intractable nausea, vomiting and abdominal pain Suspect gastritis from NSAID use Significant improvement with initiation of PPI Tolerating diet 2. Severe hypokalemia with EKG changes Improved with IV and oral repletion Will recheck EKG to see if QT has improved PO K this morning 3. Hypotension likely hypovoluemic no evidence of sepsis hold antihypertensives 4. DM sliding scale diabetic diet 5. ALEX resolved with IVF due to hypovoluemia Full Code DVT pptx, mechanical due to gastrits and potential for bleeding 6.
[2020-11-14] MEDS: Potassium Chloride ER 20 MEQ TAB.ER.PRT 60 MEQ PO (10:39)
--- NOTE | 2020-11-14 12:38 | PM.DS ---
DS: Providers Provider Date of admission: 11/13/20 16:17 Date of discharge: 11/14/20 Primary care physician: ANDREA ReddyP- Admitting clinician: Sumeet Mendoza Attending physician on admission: Sumeet Mendoza Consults: None Attending physician on discharge: Sumeet Mendoza Discharging clinician: Sumeet Mendoza DS: Diagnosis Discharge Diagnosis (1) Gastritis: Status: Acute (2) Renal failure: Status: Acute (3) Hypokalemia: Status: Acute (4) Hypotension: Status: Acute DS: Medications Discharge Medications Home Medications: Home Medications Medication Instructions Recorded Confirmed atorvastatin 1 tab PO BEDTIME 11/13/20 11/13/20 baclofen 1 tab PO TID 11/13/20 11/13/20 cyclobenzaprine 5 mg PO BEDTIME 11/13/20 11/13/20 gabapentin 1 - 2 tab PO TID 11/13/20 11/13/20 insulin aspart U-100 [Novolog 2 - 14 unit SUBCUT QIDACHS 11/13/20 11/13/20 Flexpen U-100 Insulin] sertraline 3 mg PO DAILY 11/13/20 11/13/20 Previous Rx's Medication Instructions Recorded loratadine 10 mg capsule 10 mg PO DAILY 90 Days #90 cap 08/28/20 Lactobacillus acidophilus 300 mg PO DAILY 30 Days #30 cap 09/01/20 albuterol sulfate 90 mcg/actuation 2 puff INHALATION Q6H PRN 30 Days 11/09/20 aerosol inhaler #8.5 g omeprazole magnesium [Prilosec OTC] 20 mg PO BID #60 tab 11/14/20 DS: Summary Hospital Course Hospital Course: 50 year old women presenting with nausea and vomiting since . She reported that she had a take out sandwich and after that began to have vomiting. She then developed epigastric pain. She denied fever, chills, diarrhea, alcohol use. Sge reported using NSAID over the last 2 weeks for back pain. In the ED, abd CT was negative for acute abnormality, normal LFT's, potassium was low at 2.2 initially. Creatinine was also mildly elevated. She had been taking Ibuprofen multiple times a day over the last 2 weeks due to back pain. Her blood pressure was noted to be on the lower side with SBP 80-90's. She was given 3 liters of IV fluids as well as oral and IV potassium. She will be admitted for management of gastritis and hypokalemia. Gastritis. Treated with ppi, IV fluids. No more nausea or vomiting episodes. Encouraged to avoid NSAIDs. Hypokalemia. Potassium initially 2.2, today 3.2. Received multiple doses of oral 2 potassium with good effect. Received 1 dose of 60 mEq this morning and will have a follow-up is BMP in 1 week. ALEX. Resolved.Secondary to attending, dehydration. Hypotension. No dizziness or lightheadedness. Held Lasix and hydrochlorothiazide, continue to hold and follow-up with primary care provider. Continue all other medications. Discussed with Dr. Mendoza Time Spent with Patient Time attestation: Total time spent providing and/or coordinating discharge services: Quality: AMI Clinical Trial Participant: No Physical Exam Vital Signs: Vital Signs: Last Vital Signs Temp 98.4 F 11/13/20 17:20 Pulse 68 11/14/20 09:01 Resp 17 11/14/20 09:01 BP 98/65 11/14/20 09:01 Pulse Ox 97 11/14/20 09:01 Body Mass Index 34.2 Appearing in no acute distress head is normocephalic atraumatic eyes pupils are PERRLA sclera is anicteric mouth throat mucous membranes are intact and moist neck is supple no lymphadenopathy, no JVD noted lung sounds are clear to auscultation heart regular rate rhythm, clear S1, S2 positive bowel sounds, abdomen is soft, nontender neuro patient is alert x3, no focal deficits DS: Data Data Completed and Pending Labs on day of discharge: Laboratory Last Values WBC 7.2 X10*3/uL (4.8-10.8) 11/14/20 06:43 RBC 4.16 X10*6/uL (4.20-5.50) L 11/14/20 06:43 Hgb 12.0 g/dl (12.0-16.0) 11/14/20 06:43 Hct 36.0 % (37-47) L 11/14/20 06:43 MCV 86.5 fL (80-98) 11/14/20 06:43 MCH 28.8 pg (27.0-33.0) 11/14/20 06:43 MCHC 33.3 g/dl (31.0-35.0) 11/14/20 06:43 RDW 13.2 % (11.0-16.0) 11/14/20 06:43 Plt Count 253 X10*3/uL (160-400) 11/14/20 06:43 MPV 10.6 fL (9.4-12.3) 11/14/20 06:43 Immature Gran % (Auto) 0.4 % (0.0-0.4) 11/14/20 06:43 Neut % (Auto) 60.4 % (45-73) 11/14/20 06:43 Lymph % (Auto) 28.2 % (20-40) 11/14/20 06:43 [place] % (Auto) 7.4 % (2-11) 11/14/20 06:43 Eos % (Auto) 3.3 % (0-4) 11/14/20 06:43 Baso % (Auto) 0.3 % (0-2) 11/14/20 06:43 Lymph # (Auto) 2.0 X10*3/uL (1.2-4.9) 11/14/20 06:43 [place] # (Auto) 0.5 X10*3/uL (0.1-1.2) 11/14/20 06:43 Eos # (Auto) 0.2 X10*3/uL (0.0-0.4) 11/14/20 06:43 Baso # (Auto) 0.0 X10*3/uL (0.0-0.2) 11/14/20 06:43 Abs Immat Gran (auto) 0.03 X10*3/uL (0.00-0.03) 11/14/20 06:43 Absolute Neuts (auto) 4.3 X10*3/uL (2.0-8.3) 11/14/20 06:43 Absolute Nucleated RBC 0.000 X10*3/uL (0.0-0.012) 11/14/20 06:43 Nucleated RBC % (auto) 0.0 /100WBC (0.0-0.2) 11/14/20 06:43 Sodium 142 mmol/L (135-145) 11/14/20 06:43 Potassium 3.2 mmol/l (3.3-5.1) L 11/14/20 06:43 Chloride 113 mmol/L (96-108) H 11/14/20 06:43 Carbon Dioxide 21 mmol/L (22-29) L 11/14/20 06:43 Anion Gap 11 (12-20) L 11/14/20 06:43 BUN 30 mg/dL (9-16) H 11/14/20 06:43 Creatinine 0.86 mg/dL (0.5-1.4) 11/14/20 06:43 Estim Creat Clear Calc 66.3 11/14/20 06:43 Estimated GFR > 60 11/14/20 06:43 POC Glucose 116 mg/dL (60-115) H 11/14/20 07:55 Random Glucose 130 mg/dL (60-115) H 11/14/20 06:43 Calcium 8.1 mg/dL (8.4-10.2) L 11/14/20 06:43 Magnesium 2.8 mg/dL (1.6-2.6) H 11/13/20 12:08 Total Bilirubin 0.3 mg/dL (0.0-1.0) 11/13/20 12:08 Direct Bilirubin < 0.2 mg/dL (0.0-0.5) 11/13/20 12:08 AST 16 U/L (5-31) 11/13/20 12:08 ALT 26 U/L (0-31) 11/13/20 12:08 Alkaline Phosphatase 153 U/L (39-117) H 11/13/20 12:08 Total Protein 8.2 g/dL (6.5-8.0) H 11/13/20 12:08 Albumin 4.6 g/dL (3.5-5.0) 11/13/20 12:08 Lipase 89 U/L (8-78) H 11/13/20 12:08 Urine Color STRAW 11/13/20 14:30 Urine Appearance CLEAR 11/13/20 14:30 Urine pH 7.0 (5.0-8.0) 11/13/20 14:30 Ur Specific [place] 1.010 (1.005-1.025) 11/13/20 14:30 Urine Protein NEG MG/DL (NEG-TRACE) 11/13/20 14:30 Urine Glucose (UA) NEG MG/DL (NEG) 11/13/20 14:30 Urine Ketones NEG MG/DL (NEG) 11/13/20 14:30 Urine Blood NEG (NEG) 11/13/20 14:30 Urine Nitrite NEG (NEG) 11/13/20 14:30 Ur Leukocyte Esterase NEG (NEG) 11/13/20 14:30 Urine Opiates Screen Not Detected (Not Detect) 11/13/20 15:51 Ur Barbiturates Screen Not Detected (Not Detect) 11/13/20 15:51 Ur Phencyclidine Scrn Not Detected (Not Detect) 11/13/20 15:51 Ur Amphetamines Screen Not Detected (Not Detect) 11/13/20 15:51 U Benzodiazepines Scrn Not Detected (Not Detect) 11/13/20 15:51 Urine Cocaine Screen POSITIVE (Not Detect) H 11/13/20 15:51 U Marijuana (THC) Screen Not Detected (Not Detect) 11/13/20 15:51 COVID-19 (MARK) Negative (Negative) 11/13/20 15:05 COVID-19 Clin Com See Note 11/13/20 15:05 Discharge Plan Discharge Anticipated Discharge Date/Time: 11/14/20 12:12 Patient Disposition: Home, Self-Care Referrals: Bang Wilson, [employer] [Primary Care Provider] - 2 days Discharge Medications: New omeprazole magnesium [Prilosec OTC] 20 mg tablet,delayed release (DR/EC) 20 mg PO BID Qty: 60 RF: 0 Continued loratadine 10 mg capsule 10 mg PO DAILY 90 Days Qty: 90 RF: 0 Lactobacillus acidophilus [Acidophilus] Capsule 300 mg PO DAILY 30 Days Qty: 30 RF: 4 albuterol sulfate [ProAir HFA] 90 mcg/actuation HFA aerosol inhaler 2 puff inhalation Q6H PRN (Reason: shortness of breath or wheezing) 30 Days Qty: 8.5 RF: 4 insulin aspart U-100 [Novolog Flexpen U-100 Insulin] 100 unit/mL (3 mL) insulin pen 2 - 14 unit subcut QIDACHS RF: 0 gabapentin 600 mg tablet 1 - 2 tab PO TID RF: 0 baclofen 10 mg tablet 1 tab PO TID RF: 0 sertraline 100 mg tablet 3 mg PO DAILY RF: 0 cyclobenzaprine 5 mg tablet 5 mg PO BEDTIME RF: 0 atorvastatin 40 mg tablet 1 tab PO BEDTIME RF: 0 Discontinued hydrochlorothiazide 25 mg tablet 25 mg PO QAM Qty: 90 RF: 3 furosemide 40 mg tablet 40 mg PO DAILY RF: 0 Discharge Orders: Discharge Order (Routine); Ordered 11/14/20 Ordered By: Fara Buitrago Diet: advance to usual diet Activity on Discharge: As tolerated Other Ambulatory Orders: Basic Metabolic Panel (Routine) Timeframe: 1 Week Facility: [facility] - Location: Laboratory Ordered By: Fara Buitrago Visit Report Forms: Patient Portal Discharge page Care Plan Goals: Full recovery from renal failure and hypokalemia Health Concerns: Renal failure and hypokalemia Plan of Treatment: Follow up with your primary care provider. Stay hydrated. Avoid Nonsteroidal anti-inflammatory drugs such as Motrin, Ibuprofen, Advil, Naprosen. Check lab work in 1 week.
== END 2020-11-14 12:48 | disposition home or self-care (01) | DRG 392 ==
LOC: HO.ED 11-14 11:45 → HO.IMC 11-14 12:10
PROVIDERS: Nurse Practitioner Acute Care; Admitting Provider Family Medicine; Emergency Provider Emergency Medicine; PCP Nurse Practitioner Family; Visit Provider Family Medicine
DX: K29.70 Gastritis, unspecified, without bleeding (principal); N17.9 Acute kidney failure, unspecified; T39.315A Adverse effect of propionic acid derivatives, initial encounter; Y92.009 Unspecified place in unspecified non-institutional (private) residence as the place of occurrence of the external cause; E87.6 Hypokalemia; E78.5 Hyperlipidemia, unspecified; J45.909 Unspecified asthma, uncomplicated; I95.9 Hypotension, unspecified; Z20.828 Contact with and (suspected) exposure to other viral communicable diseases; Z87.891 Personal history of nicotine dependence; Z79.4 Long term (current) use of insulin; Z79.899 Other long term (current) drug therapy
CPT/HCPCS: 36415; 74176; 80048; 80076; 80307; 81003; 82947; 83690; 83735; 84132; 85025; 87635; 93005; 96361; 96374; 96375; 99284; 99285; J2405

== ENCOUNTER 2020-12-06 16:38 | Outpatient (REF) | payer OTHER, SELFPAY | END 2020-12-06 16:39 | disposition home or self-care (01) | LOC: HO.LAB 16:38 | PROVIDERS: Visit Provider Internal Medicine | DX: Z20.822 Contact with and (suspected) exposure to COVID-19 (principal) | CPT/HCPCS: 36415; C9803; U0003 ==

== ENCOUNTER 2020-12-26 10:57 | Outpatient (REF) | payer OTHER, SELFPAY ==
[2020-12-26 13:46] LABS: MANUAL DIFF FLAG NO
[2020-12-26 13:52] LABS: Basophils Percent Auto 0.4 % (0-2); Eosinophils Absolute Auto 0.2 X10*3/uL (0.0-0.4); Eosinophils Percent Auto 2.9 % (0-4); Hematocrit 40.4 % (37-47); Hemoglobin 12.8 g/dl (12.0-16.0); Imm Gran Abs Auto 0.04 X10*3/uL (0.00-0.03); Imm Gran Pct Auto 0.5 % (0.0-0.4); Lymphocytes Absolute Auto 1.8 X10*3/uL (1.2-4.9); Lymphocytes Percent Auto 22.8 % (20-40); Mean Corpuscular HGB Conc 31.7 g/dl (31.0-35.0); Mean Corpuscular Hemoglobin 28.3 pg (27.0-33.0); Mean Corpuscular Volume 89.4 fL (80-98); Mean Platelet Volume 11.3 fL (9.4-12.3); Monocytes Absolute Auto 0.5 X10*3/uL (0.1-1.2); Monocytes Percent Auto 6.4 % (2-11); Neutrophils Absolute Auto 5.3 X10*3/uL (2.0-8.3); Platelet Count 271 X10*3/uL (160-400); Red Blood Count 4.52 X10*6/uL (4.20-5.50); White Blood Count 7.9 X10*3/uL (4.8-10.8)
[2020-12-26 14:09] LABS: Amylase 48 U/L (28-100); Lipase 36 U/L (8-78)
[2020-12-26 14:13] LABS: Alanine Aminotransferase 22 U/L (0-31); Alkaline Phosphatase 128 U/L (39-117); Anion Gap 12 (12-20); Aspartate Amino Transferase 14 U/L (5-31); Bilirubin Total 0.4 mg/dL (0.0-1.0); Blood Urea Nitrogen 13 mg/dL (9-16); Calcium 8.9 mg/dL (8.4-10.2); Carbon Dioxide 27 mmol/L (22-29); Chloride 104 mmol/L (96-108); Estimated Glomerular Filt Rate > 60; Glucose Random 89 mg/dL (60-115); Potassium 4.1 mmol/L (3.3-5.1); Sodium 139 mmol/L (135-145); Total Protein 6.9 g/dL (6.5-8.0)
== END 2020-12-26 10:58 | disposition home or self-care (01) ==
LOC: HO.HMGCLDS 10:57
PROVIDERS: Absent Provider Nurse Practitioner Acute Care; PCP Nurse Practitioner Family; Visit Provider Nurse Practitioner Family
DX: E87.6 Hypokalemia (principal); N19 Unspecified kidney failure; R10.9 Unspecified abdominal pain
CPT/HCPCS: 36415; 80053; 82150; 83690; 85025

== ENCOUNTER 2021-05-05 10:52 | Outpatient (REF) | payer OTHER, SELFPAY ==
--- NOTE | ~2021-05-05 | MM_ITS ---
EXAMINATION: MM SCREENING DIGITAL BREAST TOMOSYNTHESIS, BILATERAL CLINICAL INFORMATION: Screening. Asymptomatic. The lifetime risk of breast cancer based on the Tyrer-Cuzick Model is 4.8%. COMPARISON: Mammography: November 10, 2019 and studies dating back to January 28, 2014 TECHNIQUE: Digital breast tomosynthesis is performed in both the craniocaudal and mediolateral oblique views along with computer-aided detection (CAD). Synthesized 2D images are generated from the tomosynthesis. FINDINGS: There are scattered areas of fibroglandular density (ACR BI-RADS breast composition Category b). There are no significant masses, abnormal calcifications, or other abnormalities. MM/MM tomosynthesis screening BI IMPRESSION: There are no significant changes from prior study. ASSESSMENT: BI-RADS 1: Negative RECOMMENDATION: Routine annual mammography screening. This patient's information was entered into a reminder system with a target due date for their next mammogram.
== END 2021-05-05 10:53 | disposition home or self-care (01) ==
LOC: HO.MAMMO 10:52
PROVIDERS: Visit Provider Nurse Practitioner Family
DX: Z12.31 Encounter for screening mammogram for malignant neoplasm of breast (principal)
CPT/HCPCS: 77063; 77067

== ENCOUNTER 2021-06-09 09:06 | Outpatient (REF) | payer OTHER, SELFPAY ==
--- NOTE | ~2021-06-09 | XR_ITS ---
EXAMINATION: RIGHT WRIST. CLINICAL INFORMATION: Pain right wrist. COMPARISON: Right wrist 07/05/2020. TECHNIQUE: Right wrist 3 views. 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 No visible acute fracture, dislocation or subluxation seen. The soft tissues are normal. XR/XR hand wrist RT IMPRESSION: Unremarkable right wrist exam. No change from 07/05/2020.
--- NOTE | ~2021-06-09 | XR_ITS ---
EXAMINATION: XR FOOT, RIGHT CLINICAL INFORMATION: S99.929A - Unspecified injury of right foot. COMPARISON: None TECHNIQUE: AP, lateral, and oblique views of the right foot. FINDINGS: There is no visible fracture or dislocation. No destructive process. Bony mineralization is normal. The subtalar joint is unremarkable. There are moderate posterior and plantar calcaneal spurs. There is small subchondral cyst first metatarsal head with tiny lateral spur. No erosive change. XR/XR foot RT min 3V IMPRESSION: Moderate posterior and plantar calcaneal spurs. No erosive arthropathy.
== END 2021-06-09 09:07 | disposition home or self-care (01) ==
LOC: HO.HMGCX 09:06
PROVIDERS: PCP Nurse Practitioner Family; Visit Provider Nurse Practitioner Family
DX: S99.921A Unspecified injury of right foot, initial encounter (principal); M25.531 Pain in right wrist
CPT/HCPCS: 73110; 73130; 73630

== ENCOUNTER 2021-07-14 14:03 | Outpatient (REF) | payer OTHER, SELFPAY | END 2021-07-14 14:04 | disposition home or self-care (01) | LOC: HO.LNP 14:03 | PROVIDERS: Visit Provider Hospitalist | DX: Z20.822 Contact with and (suspected) exposure to COVID-19 (principal); J01.90 Acute sinusitis, unspecified | CPT/HCPCS: U0003; U0005 ==

== ENCOUNTER → 2021-07-19 09:27 | Outpatient (BNVA) | payer OTHER, SELFPAY | PROVIDERS: PCP Nurse Practitioner Family; Referring Provider Nurse Practitioner Family; Visit Provider Physician Assistant | DX: K21.9 Gastro-esophageal reflux disease without esophagitis (principal) | CPT/HCPCS: 99202 ==

== ENCOUNTER 2021-08-25 08:15 | Emergency (ER) | payer OTHER, SELFPAY ==
--- NOTE | ~2021-08-25 | XR_ITS ---
EXAMINATION: XR CHEST CLINICAL INFORMATION: Shortness of breath, cough, asthma. COMPARISON: Most recent chest radiograph dated 03/29/2020. TECHNIQUE: Frontal view of the chest was obtained. FINDINGS: The lungs are clear. The cardiomediastinal silhouette is normal in size. There is no pleural effusion or pneumothorax. No acute osseous abnormality. XR/XR chest 1V IMPRESSION: No acute cardiopulmonary findings.
[2021-08-25 09:18] VITALS: BP 123/67; PULSE 83; RESP 16; TEMP 36.5; O2SAT 97; BMI 34.1
--- NOTE | 2021-08-25 09:49 | ED_ITS ---
HPI - Asthma General Chief Complaint: Asthma Stated Complaint: asthma Time Seen by Provider: 08/25/21 09:43 Source: patient Mode of arrival: ambulatory History of Present Illness HPI Narrative: 50-year-old female with a past medical history of asthma, diabetes, HTN, hyperlipidemia, presenting to the ED complaining of productive cough, wheezing, SOB, and chest discomfort when coughing s/p receiving 2nd dose of Moderna COVID vaccine on Saturday. Admits has been using albuterol inhaler q.4 hours without relief. Also reports myalgias, chills, ear pain, and sore throat. Denies fever, recent travel, LE edema, history blood clots, cigarette smoking, calf pain MD complaint: asthma attack and shortness of breath Related Data Home Medications Medication Instructions Recorded Confirmed atorvastatin 40 mg tablet 1 tab PO BEDTIME 11/13/20 07/19/21 baclofen 10 mg tablet 1 tab PO TID 11/13/20 07/19/21 cyclobenzaprine 5 mg tablet 5 mg PO BEDTIME 11/13/20 07/19/21 gabapentin 600 mg tablet 1 - 2 tab PO TID 11/13/20 07/19/21 alprazolam 1 mg tablet 1 mg PO 02/23/21 07/19/21 benzonatate 100 mg capsule 100 mg PO Q8H PRN 02/23/21 07/19/21 blood sugar diagnostic #10 ea 02/23/21 07/19/21 calcium carbonate 500 mg calcium 500 mg PO TID 02/23/21 07/19/21 (1,250 mg) tablet cholecalciferol (vitamin D3) 50 50 mcg PO DAILY 02/23/21 07/19/21 mcg (2,000 unit) capsule furosemide 40 mg tablet 40 mg PO DAILY PRN 02/23/21 07/19/21 hydrochlorothiazide 25 mg tablet 25 mg PO QAM 02/23/21 07/19/21 ibuprofen 600 mg tablet 600 mg PO TID 02/23/21 07/19/21 oxycodone 5 mg tablet 0 mg PO 02/23/21 07/19/21 pen needle, diabetic 32 gauge x #50 ea 02/23/21 07/19/21 1/4 prednisone 10 mg tablet 20 mg PO QAM 02/23/21 07/19/21 sumatriptan succinate 100 mg tablet 100 mg PO 02/23/21 07/19/21 Previous Rx's Medication Instructions Recorded Lactobacillus acidophilus 300 mg PO DAILY 30 Days #30 cap 09/01/20 (Acidophilus) albuterol sulfate 90 mcg/actuation 2 puff INHALATION Q6H PRN 30 Days 11/17/20 aerosol inhaler (ProAir HFA) #8.5 g [id number]-zdlsyfwap-eiqoqqoby 3.5 4 drp OTIC (EAR) RIGHT QID 10 Days 01/18/21 mg/mL-10,000 unit/mL-1 % ear #10 ml solution insulin aspart U-100 100 unit/mL 2 - 14 unit SUBCUT TID 30 Days #15 02/02/21 (3 mL) subcutaneous pen (Novolog ml Flexpen U-100 Insulin aspart) ferrous sulfate 325 mg (65 mg 325 mg PO DAILY 90 Days #90 tab 03/08/21 iron) tablet famotidine 40 mg tablet (Pepcid) 40 mg PO BEDTIME #30 tab 05/19/21 omeprazole 40 mg capsule,delayed 40 mg PO DAILY #30 cap 05/19/21 release cetirizine 10 mg tablet 10 mg PO BID #180 tab 05/30/21 amoxicillin 875 mg-potassium 1 tab PO BID 7 Days #14 tab 06/09/21 clavulanate 125 mg tablet amoxicillin 875 mg-potassium 1 tab PO BID #20 tab 07/14/21 clavulanate 125 mg tablet (Augmentin) prednisone 20 mg tablet 20 mg PO .COMPLEX #18 tab 07/14/21 bisacodyl 5 mg tablet,delayed 10 mg PO ONCE 1 Days #2 tab 08/09/21 release (Dulcolax (bisacodyl)) polyethylene glycol 3350 17 238 g PO ONCE 1 Days #238 g 08/09/21 gram/dose oral powder (Miralax) albuterol sulfate 90 mcg/actuation 2 puff INHALATION Q4-6H PRN #6.7 g 08/25/21 aerosol inhaler benzonatate 100 mg capsule 100 mg PO TID PRN #14 cap 08/25/21 (Tessalon Perles) Allergies Allergy/AdvReac Type Severity Reaction Status Date / Time No Known Allergies Allergy Verified 07/19/21 09:37 Review of Systems Review of Systems: Constitutional: No Fever, + Chills, No Night Sweats, + Fatigue, + Malaise ENT/Mouth: + Ear Pain, No Nasal Congestion, No Sinus Pain, No Hoarseness, + sore throat, + Rhinorrhea, No Swallowing Difficulty Eyes: No Eye Pain, No Discharge, No Vision Changes Cardiovascular: + Chest Pain when coughing + SOB, No Dyspnea on Exertion, No Edema, No Palpitations Respiratory: + Cough, + Sputum, + Wheezing, No Smoke Exposure, No Dyspnea Gastrointestinal: No Nausea, No Vomiting, No Abdominal pain Genitourinary: No irregular bleeding, No Dysuria, No Hematuria,No Flank Pain Musculoskeletal: No joint pain, No Myalgias Skin: No Skin Lesions, No rash Neuro: No Weakness, No Numbness, No Dizziness, No Headache Yes all other systems are reviewed and are negative [facility] Past Medical History Attestation statement: The following information was validated with the patient. Medical History Asthma Diabetes mellitus FH: HTN (hypertension) Hyperlipidemia Right sided sciatica Sacroiliac inflammation Surgical History History of back surgery History of bilateral tubal ligation Family History Family History Father Cancer Alzheimer's disease Mother HTN (hypertension) Diabetes mellitus Asthma Depression Stroke Cancer Maternal Grandfather No problems noted. Maternal Grandmother No problems noted. Paternal Grandfather No problems noted. Paternal Grandmother No problems noted. Brother No problems noted. Brother No problems noted. Sister Asthma Son No problems noted. Son No problems noted. Daughter No problems noted. Social History Social History (Updated 07/19/21 @ 10:05 by Chika Luque PA-C) Household Members: Spouse and Children Alcohol intake: current Alcohol intake frequency: does not drink Patient Tobacco Use Status: Never used Tobacco Advance Directives: No Patient : No Current occupational status: unemployed Physical Exam Vital Signs: Vital Signs: Last Vital Signs Temp 97.7 F 08/25/21 09:18 Pulse 72 08/25/21 10:10 Resp 16 08/25/21 09:18 BP 123/67 08/25/21 09:18 Pulse Ox 97 08/25/21 09:18 Body Mass Index 34.1 Const: General: cooperative, healthy appearing and no acute distress Orientation/consciousness: patient oriented x3 Limitations: no limitations HENMT: Head: Yes normal to inspection Ears: hearing grossly normal bilaterally, external ears normal and TM's normal bilaterally General nose exam: Normal external nose present Face and sinus: Yes normal facial exam Eyes: General: appearance normal, both eyes and all related structures EOM: EOMs intact bilaterally Neck: Neck: Yes normal visual inspection Resp: Effort & Inspection: normal respiratory effort Auscultation: clear to auscultation bilaterally, no rales, no rhonchi and no wheezes Cardio: Rate: regular rate Heart sounds: S1 normal heart sound present and S2 normal heart sound present GI: Inspection: Yes normal to inspection Palpation (GI): Soft to palpation, nontender, no guarding and not rigid Skin: Rashes: no rashes Wounds: no wounds Neuro: General: patient oriented x3 Gait exam (Neuro): Normal gait present Extrem: General: Yes normal to inspection, Yes no pedal edema and Yes no calf tenderness Course Course Course Narrative: -COVID-19 negative. CXR unremarkable MDM - Asthma MDM Narrative Medical decision making narrative: 50-year-old female with a past medical history of asthma, diabetes, HTN, hyperlipidemia, presenting to the ED complaining of productive cough, wheezing, SOB, and chest discomfort when coughing s/p receiving 2nd dose of Moderna COVID vaccine on Saturday. On exam VSS, NAD, lungs CTA, no pedal edema/calf tenderness. Concern for vaccine side effect vs viral syndrome/COVID-19 vs asthma exacerbation. Rule out pneumonia. Low concern for PE/ACS Plan: EKG, CXR, COVID-19 testing, [facility] Medical Records Attestation: I reviewed the patient's medical records. Lab Data Attestation: I reviewed the patient's lab results. 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 You tested negative for COVID-19. Continue to use your asthma medications at home Tessalon Camron is for cough Please follow-up with your primary care doctor Rest Take Tylenol and Motrin Stay hydrated If her symptoms persist or worsen, a dull constant worsening shortness of breath, chest pain, or fever unresolved medications please return to the ED Prescriptions: New albuterol sulfate 90 mcg/actuation HFA aerosol inhaler 2 puff inhalation Q4-6H PRN (Reason: shortness of breath or wheezing) Qty: 6.7 RF: 0 benzonatate [Tessalon Perles] 100 mg capsule 100 mg PO TID PRN (Reason: cough) Qty: 14 RF: 0 No Action Lactobacillus acidophilus [Acidophilus] Capsule 300 mg PO DAILY 30 Days Qty: 30 RF: 4 albuterol sulfate [ProAir HFA] 90 mcg/actuation HFA aerosol inhaler 2 puff inhalation Q6H PRN (Reason: shortness of breath or wheezing) 30 Days Qty: 8.5 RF: 4 alnrmnvo-badilrdbp-GQ 3.5-10,000-1 mg/mL-unit/mL-% solution 4 drp otic (ear) right QID 10 Days Qty: 10 RF: 0 insulin aspart U-100 [Novolog Flexpen U-100 Insulin] 100 unit/mL (3 mL) insulin pen 2 - 14 unit subcut TID 30 Days Qty: 15 RF: 3 cetirizine 10 mg tablet 10 mg PO BID Qty: 180 RF: 1 polyethylene glycol 3350 [Miralax] 17 gram/dose powder 238 g PO ONCE 1 Days Qty: 238 RF: 0 bisacodyl [Dulcolax (bisacodyl)] 5 mg tablet,delayed release (DR/EC) 10 mg PO ONCE 1 Days Qty: 2 RF: 0 gabapentin 600 mg tablet 1 - 2 tab PO TID RF: 0 baclofen 10 mg tablet 1 tab PO TID RF: 0 cyclobenzaprine 5 mg tablet 5 mg PO BEDTIME RF: 0 atorvastatin 40 mg tablet 1 tab PO BEDTIME RF: 0 furosemide 40 mg tablet 40 mg PO DAILY PRN (Reason: edema) RF: 0 hydrochlorothiazide 25 mg tablet 25 mg PO QAM RF: 0 prednisone 10 mg tablet 20 mg PO QAM RF: 0 oxycodone 5 mg tablet 0 mg PO RF: 0 (DME) FreeStyle Lite Strips Strip See Rx Instructions ea Not Applicable QID Qty: 10 RF: 0 alprazolam 1 mg tablet 1 mg PO RF: 0 sumatriptan succinate 100 mg tablet 100 mg PO RF: 0 (DME) pen needle, diabetic 32 gauge x 1/4 needle See Rx Instructions ea subcut QID Qty: 50 RF: 0 calcium carbonate 500 mg calcium (1,250 mg) tablet 500 mg PO TID RF: 0 cholecalciferol (vitamin D3) 50 mcg (2,000 unit) capsule 50 mcg PO DAILY RF: 0 ibuprofen 600 mg tablet 600 mg PO TID RF: 0 benzonatate 100 mg capsule 100 mg PO Q8H PRN (Reason: cough) RF: 0 famotidine [Pepcid] 40 mg tablet 40 mg PO BEDTIME Qty: 30 RF: 0 omeprazole 40 mg capsule,delayed release(DR/EC) 40 mg PO DAILY Qty: 30 RF: 3 amoxicillin-pot clavulanate 875-125 mg tablet 1 tab PO BID 7 Days Qty: 14 RF: 0 ferrous sulfate 325 mg (65 mg iron) tablet 325 mg PO DAILY 90 Days Qty: 90 RF: 1 prednisone 20 mg tablet 20 mg PO .COMPLEX Qty: 18 RF: 0 amoxicillin-pot clavulanate [Augmentin] 875-125 mg tablet 1 tab PO BID Qty: 20 RF: 0 Referrals: Bang Wilson, [employer]OPRESS OPERATOR-BC [Primary Care Provider] - 2 days
[2021-08-25 10:10] VITALS: PULSE 72; O2SAT 96
[2021-08-25] MEDS: Albuterol/Iprat 2.5/0.5MG 3 ML AMPUL.NEB INHALE (10:10)
--- NOTE | 2021-08-25 10:25 | ECG_ITS ---
Test Reason : Cp when coughing Blood Pressure : / mmHG Vent. Rate : 083 BPM Atrial Rate : 083 BPM P-R Int : 140 ms QRS Dur : 094 ms QT Int : 416 ms P-R-T Axes : 058 -11 022 degrees QTc Int : 488 ms Normal sinus rhythm RSR' or QR pattern in V1 suggests right ventricular conduction delay Left axis deviation Borderline ECG When compared with ECG of 13-NOV-2020 20:09, No significant change was found Heart rate has increased Referred By: Mady Thayer Electronically Signed By:LUIS ARMANDO KOEHLER MD
[2021-08-25 10:27] LABS: COVID-19 Test Negative (Negative)
== END 2021-08-25 11:29 | disposition home or self-care (01) ==
PROVIDERS: Physician Assistant; Emergency Provider Emergency Medicine; PCP Nurse Practitioner Family
DX: B34.9 Viral infection, unspecified (principal); J45.909 Unspecified asthma, uncomplicated; I10 Essential (primary) hypertension; E11.9 Type 2 diabetes mellitus without complications; Z20.822 Contact with and (suspected) exposure to COVID-19; Z79.899 Other long term (current) drug therapy
CPT/HCPCS: 36415; 71045; 87635; 93005; 94640; 99283; 99284

== ENCOUNTER 2021-09-20 09:30 | Day surgery (SDC) | payer OTHER, SELFPAY ==
[2021-09-13 15:05] VITALS: BMI 35.1
--- NOTE | 2021-09-19 10:31 | HO.ANESPROP2 ---
Documented by User: Mimi Up NP 09/19/21 12:05 HPI - Anesthesia Eval Consult details Narrative: 50yo F for Upper Endoscopy and Colonoscopy chronic steroids - 20mg QOD PMFSH Active Problems Active Problems: All Active Problems (Updated 09/13/21 @ 15:05 by Helena Deluna, [place]) Urinary incontinence in female (Acute) Cervical radiculopathy (Acute) Knee pain, right (Acute) Ankle pain, right (Acute) Gastritis (Acute) Hypotension (Acute) Otitis media (Acute) Hypokalemia (Acute) Abdominal pain (Acute) Otitis externa (Acute) Acute sinusitis (Acute) Environmental allergies (Acute) Otitis media (Acute) Toe injury (Acute) Wrist pain (Acute) Acute sinusitis (Acute) Acid reflux (Acute) Colonoscopy planned (Acute) Past Medical History Medical History Asthma Diabetes mellitus FH: HTN (hypertension) Hyperlipidemia Right sided sciatica Sacroiliac inflammation Family History Family History Father Cancer Alzheimer's disease Mother HTN (hypertension) Diabetes mellitus Asthma Depression Stroke Cancer Maternal Grandfather No problems noted. Maternal Grandmother No problems noted. Paternal Grandfather No problems noted. Paternal Grandmother No problems noted. Brother No problems noted. Brother No problems noted. Sister Asthma Son No problems noted. Son No problems noted. Daughter No problems noted. Surgical History Surgical History History of back surgery History of bilateral tubal ligation Social History Social History Household Members: Spouse and Children Alcohol intake: current Alcohol intake frequency: holidays/special occasions only Patient Tobacco Use Status: Never used Tobacco Are you DNR?: No Advance Directives: No Advance Directives Information Provided: Yes Advance Directives on File: No Current occupational status: unemployed Meds Allergies Allergy/AdvReac Type Severity Reaction Status Date / Time No Known Allergies Allergy Verified 09/13/21 15:04 Home Medications Medication Instructions Recorded Confirmed Last Taken Type atorvastatin 40 mg tablet 1 tab PO BEDTIME 11/13/20 09/13/21 Unknown History baclofen 10 mg tablet 1 tab PO TID 11/13/20 09/13/21 11/12/20 History cyclobenzaprine 5 mg tablet 5 mg PO BEDTIME 11/13/20 09/13/21 11/12/20 History gabapentin 600 mg tablet 1 - 2 tab PO TID 11/13/20 09/13/21 09/20/21 History alprazolam 1 mg tablet 1 mg PO BEDTIME 02/23/21 09/13/21 Unknown History blood sugar diagnostic #10 ea 02/23/21 07/19/21 Unknown History cholecalciferol (vitamin D3) 50 50 mcg PO DAILY 02/23/21 09/13/21 Unknown History mcg (2,000 unit) capsule furosemide 40 mg tablet 40 mg PO DAILY PRN 02/23/21 09/13/21 Unknown History hydrochlorothiazide 25 mg tablet 25 mg PO QAM 02/23/21 09/13/21 Unknown History pen needle, diabetic 32 gauge x #50 ea 02/23/21 07/19/21 Unknown History / prednisone 10 mg tablet 20 mg PO Q OTHER DAY 02/23/21 09/13/21 09/20/21 History sumatriptan succinate 100 mg tablet 100 mg PO DAILY PRN 02/23/21 09/13/21 Unknown History Exam Exam Date and Time: September 19, 2021 1031 Height,Weight and Vital Signs: Height 4 ft 10 in Weight 76.204 kg Assessment and Plan Assessment Anesthesia Assessment: Chart Reviewed Documented by User: Ruthie Hutchinson MD 09/20/21 11:20 [facility] Past Medical History Medical History Asthma Diabetes mellitus FH: HTN (hypertension) Hyperlipidemia Right sided sciatica Sacroiliac inflammation Functional capacity: independent ambulation Family History Family History Father Cancer Alzheimer's disease Mother HTN (hypertension) Diabetes mellitus Asthma Depression Stroke Cancer Maternal Grandfather No problems noted. Maternal Grandmother No problems noted. Paternal Grandfather No problems noted. Paternal Grandmother No problems noted. Brother No problems noted. Brother No problems noted. Sister Asthma Son No problems noted. Son No problems noted. Daughter No problems noted. Family history of problems with anesthesia: No Surgical History Surgical History History of back surgery History of bilateral tubal ligation History of Problems with Anesthesia: No Social History Social History Household Members: Spouse and Children Alcohol intake: current Alcohol intake frequency: holidays/special occasions only Patient Tobacco Use Status: Never used Tobacco Are you DNR?: No Advance Directives: No Advance Directives Information Provided: Yes Advance Directives on File: No Current occupational status: unemployed Meds Allergies Allergy/AdvReac Type Severity Reaction Status Date / Time No Known Allergies Allergy Verified 09/13/21 15:04 Home Medications Medication Instructions Recorded Confirmed Last Taken Type atorvastatin 40 mg tablet 1 tab PO BEDTIME 11/13/20 09/13/21 Unknown History baclofen 10 mg tablet 1 tab PO TID 11/13/20 09/13/21 11/12/20 History cyclobenzaprine 5 mg tablet 5 mg PO BEDTIME 11/13/20 09/13/21 11/12/20 History gabapentin 600 mg tablet 1 - 2 tab PO TID 11/13/20 09/13/21 09/20/21 History alprazolam 1 mg tablet 1 mg PO BEDTIME 02/23/21 09/13/21 Unknown History blood sugar diagnostic #10 ea 02/23/21 07/19/21 Unknown History cholecalciferol (vitamin D3) 50 50 mcg PO DAILY 02/23/21 09/13/21 Unknown History mcg (2,000 unit) capsule furosemide 40 mg tablet 40 mg PO DAILY PRN 02/23/21 09/13/21 Unknown History hydrochlorothiazide 25 mg tablet 25 mg PO QAM 02/23/21 09/13/21 Unknown History pen needle, diabetic 32 gauge x #50 ea 02/23/21 07/19/21 Unknown History 1/4 prednisone 10 mg tablet 20 mg PO Q OTHER DAY 02/23/21 09/13/21 09/20/21 History sumatriptan succinate 100 mg tablet 100 mg PO DAILY PRN 02/23/21 09/13/21 Unknown History Exam Airway Mallampati Class: III TM Dist: >3cm Neck ROM: Full Heart: RRR Lungs: CTA Assessment and Plan Final Anesthetic Review Family History of Problems with Anesthesia: No History of Problems with Anesthesia: No ASA Class: II Final Preanesthetic Review: No Changes in Pt Med Stat Patient Risk: Low Procedure Risk: Low Anesthetic Plan Anesthetic Plan: MAC: Disposition: Standard PACU
[2021-09-20 09:45] VITALS: BP 125/89; PULSE 82; RESP 16; TEMP 36.1; O2SAT 98
[2021-09-20] MEDS: Lactated Ringers 1,000 ML 100 ML IVCONT (10:04)
--- NOTE | 2021-09-20 10:32 | P.HPSUR_ITS ---
Pre-Procedural Eval Section A Date of Service: 09/20/21 Section B Chief Complaint: screening,reflux disease Relevant Family History (Specify if Yes): No Relevant Social History: None Present Medications: see Short Stay Collaborative assessment Medical History: Significant History (Asthma Diabetes mellitus FH: HTN (hypertension) Hyperlipidemia Right sided sciatica Sacroiliac inflammation) History of Previous Operations: Relevant previous surgery/procedure and date(s) (tubal ligation) Allergies: Allergies Allergy/AdvReac Type Severity Reaction Status Date / Time No Known Allergies Allergy Verified 09/13/21 15:04 Review of Systems Sugical H&P ROS: Negative: Constitution, Cardiovascular, Respiratory, Neurological, Psychiatric, Hem-Onc, Allergic/Immunologic, Gastrointestinal, Genitourinary, Musculoskeletal, Integumentary, Endocrine and Eyes/Ears/Nose/Th roat Exam Surgical H&P Exam: Normal: HEENT, Normal: Heart, Normal: Lungs, Normal: Extremities, Normal: Abdomen, Normal: Skin and Normal: Neurological Plan Diagnosis/Plan: Unchanged I have reviewed the history and physical and performed a pertinent physical examination on my patient. No changes have occurred unless specified.
--- NOTE | 2021-09-20 10:44 | PM.OP ---
Brief Operative Note Date of Service: 09/20/21 Pre-op diagnosis: GERD, colon screening Post-op diagnosis: same Procedure: see op note Surgeon: Jessica Ramos MD Anesthesia: MAC Was an Highway Maintenance Crew Worker used for this Procedure?: No Estimated blood loss (mL): 0 Condition: stable Disposition: PACU
--- NOTE | 2021-09-20 10:45 | W.PM.OPN ---
Operative Note Operative Note Date of Service: 09/20/21 Narrative: Operative Information Procedure Description: EGD, Colonoscopy FLEXIBLE TRANSORAL UPPER GASTROINTESTINAL ENDOSCOPY AND COLONOSCOPY PROCEDURE NOTE UPPER ENDOSCOPY Consent: Indications for the procedure and potential complications of bleeding, perforation, reaction to medications and missed diagnosis were discussed with the patient and informed consent was obtained. Instrument: Olympus GIF H 190 J mid size upper endoscope Monitoring: Vital signs and clinical assessment, continuous EKG monitoring, Pulse oximetry, Carbon Dioxide monitoring and blood pressure monitoring were done throughout the procedure. Procedure: The patient was placed in the left lateral decubitis position and pre-procedure medications were administered and a bite block was placed. The endoscope was inserted into the mouth and advanced under direct vision to the third part of duodenum. A careful inspection was made as the upper endoscope was withdrawn including a retroflexed examination of the proximal stomach; Findings and interventions are described below. Findings: Larynx:normal Esophagus: GE junction at 35 cm, diaphragm hiatus at 35 cm, esophageal inlet patch noted in proximal esophagus, islands of salmon pink tissue at the GEJ, bx taken fro suspected barretts esophagus, random esophagus bx also taken Stomach: Patchy erythema. Biopsies were obtained. Grade 2 flap valve on retroflexed examination of the cardia. Duodenum: Normal bulb and descending duodenum, Intervention: Biopsies as noted above COLONOSCOPY Instrument: Olympus variable stiffness pediatric scope 190L Colonoscopy Monitoring: Vital signs and clinical assessment, continuous EKG monitoring, Pulse oximetry, Carbon Dioxide monitoring and blood pressure monitoring were done throughout the procedure. Colon withdrawal time was 13 minutes. Procedure: The patient was placed in the left lateral decubitis position and pre-procedure medications were administered. After a digital rectal examination of the ano-rectum, the video colonoscope was inserted into the rectum and advanced through the colon to the cecum/TI. The colonoscope was slowly withdrawn in a retrograde panoramic fashion and the colon mucosa was carefully examined including a retroflexed view of the rectum. Findings and interventions are described below. Procedure Difficulty:easy Findings: Terminal Ileum-normal Cecum:normal Ascending Colon: normal Transverse Colon -normal Descending Colon:normal Sigmoid Colon: normal Rectum: Retroflexion with small internal hemorrhoids, grade I, 4-5 mm sessile polyp removed with forceps Anorectum - normal Colon preparation: [place] Bowel Preparation Scale Right colon; 1 Transverse colon: 2 Left colon; 2 (borderline 2) (0 = Unprepared colon segment with mucosa not seen due to solid stool that cannot be cleared. 1 = Portion of mucosa of the colon segment seen, but other areas of the colon segment not well seen due to staining, residual stool and/or opaque liquid. 2 = Minor amount of residual staining, small fragments of stool and/or opaque liquid, but mucosa of colon segment seen well. 3 = Entire mucosa of colon segment seen well with no residual staining, small fragments of stool or opaque liquid) Impression and Post Procedure Diagnosis: Endoscopy Findings: suspected barretts gastritis Colonoscopy Findings: internal hemorrhoids polyp Plan: Await Pathology results Repeat Colonoscopy in 5 years due to prep or earlier if clinically indicated High fiber diet leaflet avoid straining at stool, epsom salts and sitz bath, anusol supps or cream if barretts confirmed then repeat EGD in 1-2 yrs with WATS brushings, optimize reflux control Above findings were reviewed with the patient and relevant handouts were provided if indicated.
[2021-09-20 11:30] VITALS: BP 151/91; PULSE 83; RESP 16; TEMP 36.3; O2SAT 96
[2021-09-20 11:35] VITALS: BP 123/80; PULSE 68; RESP 16; O2SAT 100
[2021-09-20 11:40] VITALS: BP 106/86; PULSE 74; RESP 16; O2SAT 100
[2021-09-20 11:50] VITALS: BP 133/93; PULSE 97; RESP 16; TEMP 36.1; O2SAT 97
[2021-09-21 06:03] LABS: Glucose, Whole Blood 116 mg/dL (60-115)
== END 2021-09-20 12:47 | disposition home or self-care (01) ==
PROVIDERS: PCP Nurse Practitioner Family; Visit Provider Internal Medicine Gastroenterology
PROC: (CPT 45380; principal; 2021-09-20 10:20)
DX: Z12.11 Encounter for screening for malignant neoplasm of colon (principal); K62.1 Rectal polyp; K64.0 First degree hemorrhoids; K21.9 Gastro-esophageal reflux disease without esophagitis; K29.50 Unspecified chronic gastritis without bleeding; K22.70 Barrett's esophagus without dysplasia; Q39.8 Other congenital malformations of esophagus; K44.9 Diaphragmatic hernia without obstruction or gangrene; J45.909 Unspecified asthma, uncomplicated; E78.5 Hyperlipidemia, unspecified; I10 Essential (primary) hypertension; E11.9 Type 2 diabetes mellitus without complications; Z79.4 Long term (current) use of insulin; Z79.899 Other long term (current) drug therapy
CPT/HCPCS: 45380; 43239; 82947; 88305; 88342; J2370

== ENCOUNTER 2021-10-07 12:15 | Outpatient (REF) | payer OTHER, SELFPAY ==
[2021-10-07 13:22] LABS: Appearance Urine CLEAR; Color Urine YELLOW; Glucose Urine UA NEG (NEG); Leukocyte Esterase Urine NEG (NEG); Nitrite Urine NEG (NEG); PH 6.5 (5.0-8.0); Specific Gravity - Urine 1.025 (1.005-1.025); UACC Culture Trigger NO; Urine Blood 3+ (NEG); Urine Ketones NEG (NEG); Urine Protein TRACE MG/DL (NEG-TRACE)
[2021-10-07 13:32] LABS: Mucus Urine TRACE /LPF; RBC Urine 30-49 /HPF (0); Squamous Epithelial Cell Urine 1+ /LPF; WBC Urine 0 /HPF (0-4)
[2021-10-07 13:36] LABS: Creatinine Urine 214.81 mg/dL; Microalbum/Creatinine Ratio Ur 12.1 ug/mg cr
[2021-10-07 13:39] LABS: Estimated Average Glucose 126 mg/dL; Hemoglobin A1C 150.5027 umol/L
[2021-10-07 14:04] LABS: Alanine Aminotransferase 125 U/L (0-31); Albumin Level 4.4 g/dL (3.5-5.0); Alkaline Phosphatase 200 U/L (39-117); Anion Gap 15 (12-20); Aspartate Amino Transferase 67 U/L (5-31); Bilirubin Total 0.5 mg/dL (0.0-1.0); Blood Urea Nitrogen 21 mg/dL (9-16); Calcium 9.6 mg/dL (8.4-10.2); Carbon Dioxide 29 mmol/L (22-29); Chloride 100 mmol/L (96-108); Cholesterol 236 mg/dL; Estimated Glomerular Filt Rate 51; Glucose Fasting 105 mg/dL (60-99); HDL Cholesterol 42 mg/dL; LDL Cholesterol Calculated 120 mg/dl; Potassium 3.1 mmol/L (3.3-5.1); Sodium 141 mmol/L (135-145); TSH reflex Free T4 1.76 uIU/mL (0.32-4.0); Total Protein 7.8 g/dL (6.5-8.0); Triglycerides 372 mg/dL
[2021-10-07 14:34] LABS: Vitamin D 25-OH Total 24.3 ng/mL (>30)
== END 2021-10-07 12:16 | disposition home or self-care (01) ==
LOC: HO.HMGCLDS 12:15
PROVIDERS: PCP Nurse Practitioner Family; Visit Provider Nurse Practitioner Family
DX: Z00.00 Encounter for general adult medical examination without abnormal findings (principal); E11.9 Type 2 diabetes mellitus without complications; Z78.0 Asymptomatic menopausal state
CPT/HCPCS: 36415; 80053; 80061; 81001; 81003; 82043; 82306; 83036; 84443

== ENCOUNTER 2021-11-02 09:47 | Outpatient (REF) | payer OTHER, SELFPAY ==
--- NOTE | ~2021-11-02 | US_ITS ---
EXAMINATION: US ABDOMEN COMPLETE CLINICAL INFORMATION: Abnormal levels as well as serum enzymes. COMPARISON: CT abdomen and pelvis 11/13/2020. Abdominal ultrasound 01/12/2020. TECHNIQUE: Real-time imaging of the abdominal viscera. FINDINGS: PANCREAS: Normal. ABDOMINAL AORTA: The proximal, mid, and distal segments are normal in caliber. INFERIOR VENA CAVA: Visualized portions are normal. LIVER: Normal. The liver is normal in size. The liver contour is normal. Parenchymal echogenicity is normal. No focal hepatic lesion. There is no intrahepatic biliary duct dilatation seen. GALLBLADDER: The gallbladder is physiologically distended without evidence of stones, sludge, wall thickening or pericholecystic fluid. Again demonstrated is a polyp in the gallbladder, which now measures 0.4 cm, previously 0.2 cm. COMMON BILE DUCT: Normal in caliber measuring 0.4 cm in diameter. RIGHT KIDNEY: Normal. No hydronephrosis. No renal calculi or focal parenchymal lesions. The kidney measures 10.0 cm in maximum dimension. LEFT KIDNEY: No hydronephrosis. No renal calculi or focal parenchymal lesions. The kidney measures 10.8 cm in maximum dimension. SPLEEN: Normal. The spleen measures 9.2 cm in maximum dimension. FREE FLUID: None. US/US abdomen complete IMPRESSION: Gallbladder polyp measures 4 mm, previously 2 mm. Otherwise normal abdominal ultrasound.
== END 2021-11-02 09:48 | disposition home or self-care (01) ==
LOC: HO.US 09:47
PROVIDERS: PCP Nurse Practitioner Family; Visit Provider Nurse Practitioner Family
DX: R74.8 Abnormal levels of other serum enzymes (principal)
CPT/HCPCS: 76700

== ENCOUNTER 2021-11-21 11:36 | Outpatient (REF) | payer OTHER, SELFPAY ==
[2021-11-22 14:38] LABS: CT PCR NOT DETECTED (Not Detect.); NG PCR NOT DETECTED (Not Detect.)
[2021-11-23 09:10] LABS: BV Int Neg Control Negative (Negative)
[2021-11-23 09:11] LABS: BV Int Pos Control Positive (Positive)
[2021-11-25 16:31] LABS: HPV mRNA E6/E7 rflx Not Detected (Not Detected)
== END 2021-11-21 11:37 | disposition home or self-care (01) ==
LOC: HO.LAB 11:36
PROVIDERS: Visit Provider Advanced Practice Midwife
DX: Z01.419 Encounter for gynecological examination (general) (routine) without abnormal findings (principal); N95.1 Menopausal and female climacteric states; Z11.3 Encounter for screening for infections with a predominantly sexual mode of transmission; Z11.8 Encounter for screening for other infectious and parasitic diseases; Z11.51 Encounter for screening for human papillomavirus (HPV); Z11.59 Encounter for screening for other viral diseases; E11.9 Type 2 diabetes mellitus without complications; E78.5 Hyperlipidemia, unspecified; Z79.52 Long term (current) use of systemic steroids; Z79.899 Other long term (current) drug therapy
CPT/HCPCS: 87480; 87491; 87510; 87591; 87624; 87660; 88142

== ENCOUNTER → 2021-12-05 10:55 | Outpatient (BNVA) | payer OTHER, SELFPAY | PROVIDERS: PCP Nurse Practitioner Family; Visit Provider Physician Assistant | DX: K29.00 Acute gastritis without bleeding (principal); K59.00 Constipation, unspecified | CPT/HCPCS: 99212 ==

== ENCOUNTER → 2021-12-26 08:35 | Outpatient (BNVA) | payer OTHER, SELFPAY | PROVIDERS: PCP Nurse Practitioner Family; Visit Provider Obstetrics & Gynecology | DX: R87.610 Atypical squamous cells of undetermined significance on cytologic smear of cervix (ASC-US) (principal) | CPT/HCPCS: 57454 ==

== ENCOUNTER 2021-12-28 08:48 | Outpatient (REF) | payer OTHER, SELFPAY ==
[2021-12-28 09:26] LABS: Binax Internal Control QC Valid; Binax Now Covid-19 Ag Negative (Negative)
== END 2021-12-28 08:49 | disposition home or self-care (01) ==
LOC: HO.HMGCLDS 08:48
PROVIDERS: Visit Provider Physician Assistant
DX: Z13.89 Encounter for screening for other disorder (principal)

== ENCOUNTER 2022-01-09 12:43 | Outpatient (REF) | payer OTHER, SELFPAY | END 2022-01-09 12:44 | disposition home or self-care (01) | LOC: HO.LNP 12:43 | PROVIDERS: PCP Nurse Practitioner Family; Visit Provider Obstetrics & Gynecology | DX: R87.610 Atypical squamous cells of undetermined significance on cytologic smear of cervix (ASC-US) (principal) | CPT/HCPCS: 88305 ==

== ENCOUNTER → 2022-01-15 14:28 | Outpatient (BNVA) | payer OTHER, SELFPAY | PROVIDERS: Visit Provider Obstetrics & Gynecology | DX: R87.610 Atypical squamous cells of undetermined significance on cytologic smear of cervix (ASC-US) (principal); R87.810 Cervical high risk human papillomavirus (HPV) DNA test positive; E11.9 Type 2 diabetes mellitus without complications; I10 Essential (primary) hypertension; E78.5 Hyperlipidemia, unspecified; Z98.51 Tubal ligation status | CPT/HCPCS: Q3014 ==

== ENCOUNTER 2022-01-24 09:00 | Outpatient (REF) | payer OTHER, SELFPAY ==
[2022-01-24 11:16] LABS: Appearance Urine CLEAR; Color Urine YELLOW; Glucose Urine UA NEG (NEG); Leukocyte Esterase Urine NEG (NEG); Nitrite Urine NEG (NEG); Specific Gravity - Urine 1.015 (1.005-1.025); Urine Blood NEG (NEG); Urine Ketones NEG (NEG); Urine Protein NEG (NEG-TRACE)
[2022-01-24 11:42] LABS: Hematocrit 40.3 % (37.0-47.0); Hemoglobin 13.6 g/dl (12.0-16.0); Mean Corpuscular HGB Conc 33.7 g/dl (31.0-35.0); Mean Corpuscular Hemoglobin 28.6 pg (27.0-33.0); Mean Corpuscular Volume 84.7 fL (80.0-98.0); Platelet Count 343 X10*3/uL (160-400); Red Blood Count 4.76 X10*6/uL (4.20-5.50); Red Cell Distribution Width 12.8 % (11.0-16.0)
[2022-01-24 12:06] LABS: Alanine Aminotransferase 36 U/L (0-31); Albumin Level 4.3 g/dL (3.5-5.0); Alkaline Phosphatase 185 U/L (39-117); Anion Gap 14 (12-20); Aspartate Amino Transferase 23 U/L (5-31); Bilirubin Direct < 0.2 mg/dL (0.0-0.5); Bilirubin Total 0.4 mg/dL (0.0-1.0); Blood Urea Nitrogen 25 mg/dL (9-16); C Reactive Protein 1.28 mg/dL (< or = 0.50); Calcium 10.1 mg/dL (8.4-10.2); Carbon Dioxide 30 mmol/L (22-29); Chloride 97 mmol/L (96-108); Cholesterol 317 mg/dL; Estimated Glomerular Filt Rate 42; Glucose Fasting 129 mg/dL (60-99); HDL Cholesterol 46 mg/dL; LDL Cholesterol Calculated 210 mg/dl; Sodium 138 mmol/L (135-145); Total Protein 7.8 g/dL (6.5-8.0); Triglycerides 308 mg/dL
[2022-01-24 12:16] LABS: Thyroid Stimulating Hormone 1.36 uIU/mL (0.32-4.0)
[2022-01-24 12:21] LABS: HBc Num1 0.27 S/CO (0.00-0.79); Hepatitis A Antibody IgM 0.52 Index (0-0.79); Hepatitis B Core Antibody Nonreactive (Nonreactive); ~HepC Num1 0.19 S/CO (0.00-0.79); ~Hepatitis A Antibody IgM Nonreactive (Nonreactive); ~Hepatitis B Surface Antibody NONREACTIVE (Nonreactive); ~Hepatitis C Antibody Nonreactive (Nonreactive)
[2022-01-24 12:26] LABS: HBsAGNum1 0.19 S/CO (0.00-0.99); Hepatitis B Surface Antigen Negative (Negative)
[2022-01-24 12:29] LABS: TSH reflex Free T4 1.51 uIU/mL (0.32-4.0)
== END 2022-01-24 09:01 | disposition home or self-care (01) ==
LOC: HO.LAB 09:00
PROVIDERS: PCP Nurse Practitioner Family; Visit Provider Internal Medicine
DX: Z00.00 Encounter for general adult medical examination without abnormal findings (principal); R10.9 Unspecified abdominal pain; E87.6 Hypokalemia; R74.8 Abnormal levels of other serum enzymes
CPT/HCPCS: 36415; 80053; 80061; 81003; 82248; 84443; 85027; 86140; 86704; 86706; 86709; 86803; 87340

== ENCOUNTER → 2022-01-30 11:00 | Outpatient (BNVA) | payer OTHER, SELFPAY | PROVIDERS: PCP Nurse Practitioner Family; Referring Provider Nurse Practitioner Family; Visit Provider Physician Assistant | DX: K21.9 Gastro-esophageal reflux disease without esophagitis (principal); R10.9 Unspecified abdominal pain | CPT/HCPCS: 99212 ==

== ENCOUNTER → 2022-03-07 10:24 | Outpatient (BNVA) | payer OTHER, SELFPAY | PROVIDERS: PCP Nurse Practitioner Family; Referring Provider Nurse Practitioner Family; Visit Provider Surgery | DX: K82.4 Cholesterolosis of gallbladder (principal); E11.9 Type 2 diabetes mellitus without complications; K29.00 Acute gastritis without bleeding; R32 Unspecified urinary incontinence; K59.00 Constipation, unspecified | CPT/HCPCS: 99202 ==

== ENCOUNTER → 2022-03-20 09:18 | Outpatient (REF) | payer OTHER, SELFPAY ==
--- NOTE | 2022-03-20 09:47 | CA_ITS ---
Transthoracic Echocardiogram Patient (Last, First, Middle): Robert Babcock, Gender: Female Date of : 1970 Age: 51 Procedure Date: 03/20/2022 Procedure Type: Transthoracic Echocardiogram Location: OP Height: 147.32 cm Weight: 72.58 kg BSA: 1.66 m2 Heart Rate: bpm BP: 118 / 56 mmHg Unit Aide Tech: Referring MD: Bang Wilson [facility] Global Safety Officer: Macario Oscar MD Symptoms: R01.1 - Cardiac murmur, unspecified Study Quality: Fair ECG Rhythm: Sinus Conclusions: - Essentially normal study Findings Left Ventricle Normal left ventricular size, thickness, and systolic function. The visually estimated ejection fraction is between 60-65%. Spectral Doppler is indicative of a normal filling pattern. Right Ventricle Normal right ventricular cavity size and systolic function. Atria Both atria are normal in size. Interatrial shunt cannot be excluded. Aortic Valve Normal aortic valve structure and function. There is no aortic valve stenosis. There is no aortic valve regurgitation. Mitral Valve Normal mitral valve structure and function. There is trace mitral valve regurgitation. There is no mitral valve stenosis. Pulmonic Valve The pulmonic valve was not well visualized. Tricuspid Valve There is trace tricuspid valve regurgitation. Normal right atrial pressure. There is no evidence of pulmonary hypertension. Great Vessels All visible segments of the aorta are normal in size. The pulmonary artery was not well visualized. Venous The inferior vena cava is normal in size and collapses greater than 50% with inspiration. Pericardium/Pleural There is no evidence of pericardial effusion. Measurements 2D Linear Measurements IVSd: 1.08 0.6-0.9/0.6-1.0 cm LVIDd: 3.68 3.9-5.3/4.2-5.9 cm LVIDd Index: 2.22 2.4-3.2/2.2-3.1 cm/m2 LVIDs: 2.20 2.0-3.6 cm LVPWd: 1.02 0.7-1.1 cm Ao Root: 2.80 2.1-3.5 cm LA Diam: 3.20 2.7-3.8/3.0-4.0 cm LAIDs Index: 1.93 1.5-2.3 cm/m2 LV Mass: 149.00 67-162/88-224 g LV Mass Index: 89.76 43-95/49-115 g/m2 LVOT Diam: 2.10 3.0+(-)1.3 cm Mitral Valve MV Pk E: 0.51 MV PK A: 0.53 MV Decel Time: 213.00 E/A: 1.00 E'Lateral: 6.42 E'Medial: 4.57 E/E' Med: 11.20 E/E' Lat: 8.00 PHT: 62.00 MVA PHT: 3.55 Decel Noble: 2.42 Aortic Valve AoV Pk Myron: 1.38 AoV Mn Myron: 0.83 AoV VTI: 0.24 AoV Pk Grad: 8.00 Aov Mn Grad: 3.00 JOMAR Cont.VTI: 2.71 LVOT LVOT Pk Myron: 0.88 LVOT Mn Myron: 0.61 LVOT VTI: 0.19 LVOT Pk Grad: 3.00 LVOT Mn Grad: 2.00 LVOT Diam: 2.10 LVOT Area: 3.46 Diastolic Function MV Pk E: 0.51 MV Pk A: 0.53 E/A: 1.00 E'Medial: 4.57 E/E' Med: 11.20 E' Laterial: 6.42 E/E' Lat: 8.00 Right Ventricle TAPSE (mm): 17.00 TVS' Myron: 9.00 Tricuspid Valve TR Pk Myron: 1.86 TR Pk Grad: 14.00 RA Press: 3.00 RVSP: 17.00 Great Vessels Aorta Ao Root-2D: 2.80 2.0-3.7 cm Ao Asc: 3.40 2.1-3.4 cm Pulmonary Valve PV Pk Myron: 1.07 Peak PV Grad: 5.00 Updated in Other Vendor System with Status of Final Macario Oscar MD electronically signed on 03/20/2022 6:02:19 PM with status of Final
== END ==
LOC: HO.CARD 09:18
PROVIDERS: PCP Nurse Practitioner Family; Visit Provider Nurse Practitioner Family
DX: R01.1 Cardiac murmur, unspecified (principal)
CPT/HCPCS: 93306; J2250; J3010

== ENCOUNTER → 2022-03-21 08:58 | Day surgery (SDC) | payer OTHER, SELFPAY ==
[2022-03-15 11:55] VITALS: BMI 34.0
--- NOTE | 2022-03-20 09:50 | P.CONAN_ITS ---
HPI - Anesthesia Eval Consult details Narrative: Cx'd DOS d/t +cocaine 51yo F for Cholecystectomy Laparoscopic,possible open,possible bile duct x-ray Chronic hypokalemia - daily K supplement Chronic steroids - prednisone 10mg QOD PMFSH Active Problems Active Problems: All Active Problems (Updated 03/01/22 @ 14:09 by Bang Wilson, [facility]) Systolic murmur (Acute) Elevated alkaline phosphatase level (Acute) Otitis externa of both ears (Acute) Abdominal pain (Acute) Dermatitis of ear canal (Acute) URI (upper respiratory infection) (Acute) ASCUS of cervix with negative high risk HPV (Acute) Constipation (Acute) Hx of abnormal cervical Pap smear (Acute) Well woman exam with routine gynecological exam (Acute) Perimenopausal (Acute) Gallbladder polyp (Acute) Hypokalemia (Acute) Elevated liver enzymes (Acute) Post-menopausal (Acute) Pain of back and left lower extremity (Acute) Diabetes mellitus (Acute) Physical exam (Acute) Urinary incontinence in female (Acute) Cervical radiculopathy (Acute) Knee pain, right (Acute) Ankle pain, right (Acute) Gastritis (Acute) Hypotension (Acute) Otitis media (Acute) Hypokalemia (Acute) Abdominal pain (Acute) Otitis externa (Acute) Acute sinusitis (Acute) Environmental allergies (Acute) Otitis media (Acute) Toe injury (Acute) Wrist pain (Acute) Acute sinusitis (Acute) Acid reflux (Acute) Colonoscopy planned (Acute) Past Medical History Medical History (Updated 03/20/22 @ 09:58 by Mimi Up NP) Asthma Diabetes mellitus FH: HTN (hypertension) Hyperlipidemia Hypokalemia Right sided sciatica Sacroiliac inflammation Family History Family History Father Cancer Alzheimer's disease Mother HTN (hypertension) Diabetes mellitus Asthma Depression Stroke Cancer Maternal Grandfather No problems noted. Maternal Grandmother No problems noted. Paternal Grandfather No problems noted. Paternal Grandmother No problems noted. Brother No problems noted. Brother No problems noted. Sister Asthma Son No problems noted. Son No problems noted. Daughter No problems noted. Family history of problems with anesthesia: No Surgical History Surgical History History of back surgery History of bilateral tubal ligation Hx of colonoscopy Hx of esophagogastroduodenoscopy History of Problems with Anesthesia: No Social History Social History Household Members: Spouse and Children Housing: House Alcohol intake: current Alcohol intake frequency: holidays/special occasions only Patient Tobacco Use Status: Never used Tobacco e-Cigarette/Vaping Use: Never Used service: No Current occupational status: disabled Cognitive needs: No Hearing needs: No Vision needs: No Meds Allergies Allergy/AdvReac Type Severity Reaction Status Date / Time No Known Allergies Allergy Verified 03/21/22 09:31 Home Medications Medication Instructions Recorded Confirmed Last Taken Type baclofen 10 mg tablet 1 tab PO TID 11/13/20 03/15/22 11/12/20 History cyclobenzaprine 5 mg tablet 5 mg PO BEDTIME 11/13/20 03/15/22 11/12/20 History gabapentin 600 mg tablet 1 - 2 tab PO TID 11/13/20 03/21/22 03/21/22 08:15 History alprazolam 1 mg tablet 1 mg PO BEDTIME 02/23/21 03/15/22 Unknown History blood sugar diagnostic #10 ea 02/23/21 01/24/22 Unknown History sumatriptan succinate 100 mg tablet 100 mg PO DAILY PRN 02/23/21 03/15/22 Unknown History lancets 28 gauge (FreeStyle 10/04/21 01/24/22 Unknown History Lancets) sertraline 100 mg tablet 100 mg PO QAM 01/04/22 03/15/22 03/21/22 08:15 History atorvastatin 40 mg tablet 40 mg PO BEDTIME 03/01/22 03/15/22 Unknown History prednisone 10 mg tablet 10 mg PO Q OTHER DAY tab 03/01/22 03/15/22 03/21/22 08:15 History Exam Exam Date and Time: March 20, 2022 0950 Height,Weight and Vital Signs: Height 4 ft 10 in Weight 73.936 kg Pertinent Lab Results Pertinent Lab Results: Laboratory Tests 01/24/22 09:19 WBC 12.0 H Hgb 13.6 Hct 40.3 Plt Count 343 Assessment and Plan Assessment Anesthesia Assessment: Chart Reviewed Final Anesthetic Review Family History of Problems with Anesthesia: No History of Problems with Anesthesia: No
--- NOTE | 2022-03-21 | ECG_ITS ---
Test Reason : preop Blood Pressure : / mmHG Vent. Rate : 076 BPM Atrial Rate : 076 BPM P-R Int : 148 ms QRS Dur : 102 ms QT Int : 458 ms P-R-T Axes : 041 -22 053 degrees QTc Int : 515 ms Normal sinus rhythm Moderate voltage criteria for LVH, may be normal variant ( R in aVL , Jossue product ) Prolonged QT Abnormal ECG When compared with ECG of 25-AUG-2021 10:25, No significant change was found Referred By: Mimi Up Electronically Signed By:MAHESH SALAS MD
[2022-03-21 09:40] VITALS: BMI 33.4
[2022-03-21 09:47] VITALS: BP 134/86; PULSE 81; RESP 16; TEMP 36.2; O2SAT 97
[2022-03-21 09:47] LABS: Glucose, Whole Blood 152 mg/dL (60-115)
[2022-03-21 09:50] LABS: Amphetamine Screen Urine Not Detected (Not Detect); Barbiturates, Urine Not Detected (Not Detect); Benzodiazepines Screen Urine Not Detected (Not Detect); Cannabinoid Screen Urine Not Detected (Not Detect); Cocaine Screen Urine POSITIVE (Not Detect); Fentanyl, urine Not Detected (Not Detect); Opiate Screen Urine Not Detected (Not Detect); Phencyclidine Screen Urine Not Detected (Not Detect)
--- NOTE | 2022-03-21 10:09 | MHC.SHP ---
Pre-Procedural Eval Section A Date of Service: 03/21/22 The patient is an INPATIENT: No The History & Physical has been completed within 30 days and I have reviewed it.: Yes Section B Chief Complaint: gallstones Allergies: Allergies Allergy/AdvReac Type Severity Reaction Status Date / Time No Known Allergies Allergy Verified 03/21/22 09:31 Plan I have reviewed the history and physical and performed a pertinent physical examination on my patient. No changes have occurred unless specified.
--- NOTE | 2022-03-21 10:15 | PC.NURSE ---
Addendum entered by Lena Merino 03/21/22 10:34: This nurse notified that after discussion with Dr. Mcneill, case cancelled due to risks with positive utox. Dr. Mattson aware that preop Heparin SQ was already given. Per her, this is okay. IV removed, patent tolerated well. Patient sent home. Original Note: Patient Utox came back positive for cocaine. Dr. Mcneill and Dr. Mattson made aware. Dr. Mattson at bedside to discuss with patient. Patient states I last did coke this weekend . Per Dr. Mattson, may proceed with procedure.
[2022-03-21] MEDS: Heparin Sodium,Porcine 5,000 UNIT/ML VIAL 5000 UNIT SUBCUT (10:17)
[2022-03-21] MEDS: Lactated Ringers 1,000 ML 100 ML IVCONT (10:25)
== END ==
PROVIDERS: Nurse Practitioner; PCP Nurse Practitioner Family; Visit Provider Surgery
DX: K82.4 Cholesterolosis of gallbladder (principal); Z53.09 Procedure and treatment not carried out because of other contraindication; E11.9 Type 2 diabetes mellitus without complications; I10 Essential (primary) hypertension
CPT/HCPCS: 80307; 82947; 93005; J2250; J3010

== ENCOUNTER → 2022-04-02 10:07 | Outpatient (BNVA) | payer OTHER, SELFPAY | PROVIDERS: PCP Nurse Practitioner Family; Referring Provider Nurse Practitioner Family; Visit Provider Surgery | DX: K82.4 Cholesterolosis of gallbladder (principal); R10.9 Unspecified abdominal pain; R74.8 Abnormal levels of other serum enzymes; E11.9 Type 2 diabetes mellitus without complications; F14.10 Cocaine abuse, uncomplicated | CPT/HCPCS: 99202 ==

== ENCOUNTER 2022-04-04 09:53 | Outpatient (REF) | payer OTHER, SELFPAY ==
[2022-04-04 10:08] LABS: MANUAL DIFF FLAG NO
[2022-04-04 11:06] LABS: Basophils Absolute Auto 0.1 X10*3/uL (0.0-0.2); Basophils Percent Auto 0.7 % (0-2); Eosinophils Absolute Auto 0.4 X10*3/uL (0.0-0.4); Eosinophils Percent Auto 4.3 % (0-4); Hematocrit 40.9 % (37.0-47.0); Hemoglobin 13.7 g/dl (12.0-16.0); Imm Gran Abs Auto 0.03 X10*3/uL (0.00-0.03); Imm Gran Pct Auto 0.3 % (0.0-0.4); Lymphocytes Percent Auto 21.8 % (20-40); Mean Corpuscular HGB Conc 33.5 g/dl (31.0-35.0); Mean Corpuscular Hemoglobin 28.6 pg (27.0-33.0); Mean Corpuscular Volume 85.4 fL (80.0-98.0); Mean Platelet Volume 11.1 fL (9.4-12.3); Monocytes Absolute Auto 0.6 X10*3/uL (0.1-1.2); Neutrophils Percent Auto 65.9 % (45-73); Platelet Count 293 X10*3/uL (160-400); Red Blood Count 4.79 X10*6/uL (4.20-5.50); Red Cell Distribution Width 12.5 % (11.0-16.0); White Blood Count 9.1 X10*3/uL (4.8-10.8)
[2022-04-04 11:27] LABS: Estimated Average Glucose 166 mg/dL; Hemoglobin A1c % 7.4 %
[2022-04-04 11:50] LABS: Alanine Aminotransferase 30 U/L (0-31); Albumin Level 4.1 g/dL (3.5-5.0); Alkaline Phosphatase 154 U/L (39-117); Anion Gap 14 (12-20); Aspartate Amino Transferase 18 U/L (5-31); Bilirubin Total 0.6 mg/dL (0.0-1.0); Blood Urea Nitrogen 20 mg/dL (9-16); Calcium 9.3 mg/dL (8.4-10.2); Carbon Dioxide 25 mmol/L (22-29); Chloride 102 mmol/L (96-108); Estimated Glomerular Filt Rate > 60; Glucose Fasting 145 mg/dL (60-99); Potassium 3.3 mmol/L (3.3-5.1); Sodium 138 mmol/L (135-145); Total Protein 7.3 g/dL (6.5-8.0)
[2022-04-04 11:54] LABS: TSH reflex Free T4 1.21 uIU/mL (0.32-4.0)
[2022-04-04 12:12] LABS: Gamma Glutamyl Transpeptidase 468 U/L (7-33)
== END 2022-04-04 09:54 | disposition home or self-care (01) ==
LOC: HO.LAB 09:53
PROVIDERS: PCP Nurse Practitioner Family; Visit Provider Surgery
DX: R10.9 Unspecified abdominal pain (principal); E11.9 Type 2 diabetes mellitus without complications; R74.8 Abnormal levels of other serum enzymes; E87.6 Hypokalemia; K82.4 Cholesterolosis of gallbladder
CPT/HCPCS: 36415; 80053; 82977; 83036; 84443; 85025

== ENCOUNTER 2022-05-10 08:49 | Outpatient (REF) | payer OTHER, SELFPAY ==
--- NOTE | ~2022-05-10 | US_ITS ---
EXAMINATION: US ABDOMEN LIMITED CLINICAL INFORMATION: Cholesterolosis of gallbladder. COMPARISON: Ultrasound abdomen complete 11/02/2021 and 01/12/2020. CT abdomen and pelvis 11/13/2020. TECHNIQUE: Real-time imaging of the right upper quadrant abdominal viscera. FINDINGS: PANCREAS: Normal. LIVER: Normal. The liver is normal in size. The liver contour is normal. Parenchymal echogenicity is normal. No focal hepatic lesion. There is no intrahepatic biliary duct dilatation seen. GALLBLADDER: There is a stable 4 mm gallbladder polyp present. The gallbladder is physiologically distended without evidence of stones, sludge, wall thickening or pericholecystic fluid. COMMON BILE DUCT: Normal in caliber measuring 0.3 cm in diameter. RIGHT KIDNEY: Normal. No hydronephrosis. No renal calculi or focal parenchymal lesions. The kidney measures 10.4 cm in maximum dimension. FREE FLUID: None. US/US abdomen limited IMPRESSION: Stable 4 mm gallbladder polyp.
== END 2022-05-10 08:50 | disposition home or self-care (01) ==
LOC: HO.US 08:49
PROVIDERS: PCP Nurse Practitioner Family; Visit Provider Nurse Practitioner Family
DX: K82.4 Cholesterolosis of gallbladder (principal)
CPT/HCPCS: 76705

== ENCOUNTER 2022-06-21 11:58 | Outpatient (REF) | payer OTHER, SELFPAY ==
[2022-06-21 12:55] LABS: Influenza A PCR NEGATIVE (Negative); Influenza B PCR NEGATIVE (Negative); Resp Syncy Virus RNA Qual PCR NEGATIVE (Negative); SARS COV2 PCR INHOUSE NEGATIVE (Negative)
== END 2022-06-21 11:59 | disposition home or self-care (01) ==
LOC: HO.LNP 11:58
PROVIDERS: Visit Provider Internal Medicine
DX: Z20.822 Contact with and (suspected) exposure to COVID-19 (principal); R09.89 Other specified symptoms and signs involving the circulatory and respiratory systems
CPT/HCPCS: 0241U

== ENCOUNTER 2022-07-20 08:08 | Outpatient (REF) | payer OTHER, SELFPAY ==
--- NOTE | ~2022-07-20 | CT_ITS ---
EXAMINATION: CT HEAD WITHOUT CONTRAST CLINICAL INFORMATION: Headache. COMPARISON: None TECHNIQUE: Contiguous axial imaging was performed from the skull base to vertex without intravenous administration of contrast. This CT examination was performed using dose optimization techniques as appropriate, variously including the following: *Automated exposure control *Adjustment of mA and/or kV according to patient size (this includes techniques or standardized protocols for targeted exams where dose is matched to indication/reason for exam; i.e. extremities or head) *Use of iterative reconstruction technique DLP: 677 mGy-cm FINDINGS: There is no acute intra-axial, extra-axial bleed, masses, collection or midline shift. No mass effect or edema. There is no acute infarction in evolution. The lateral ventricles are symmetrical in size and configuration without enlargement. Bone windows reveal no calvarial abnormality. Bilateral paranasal sinuses and mastoid air cells are well aerated. CT/CT head/brain wo IV con IMPRESSION: No acute intracranial process seen.
== END 2022-07-20 08:09 | disposition home or self-care (01) ==
LOC: HO.CT 08:08
PROVIDERS: Visit Provider Nurse Practitioner Family
DX: R51.9 Headache, unspecified (principal)
CPT/HCPCS: 70450

== ENCOUNTER 2022-10-23 12:45 | Outpatient (REF) | payer OTHER, SELFPAY ==
[2022-10-23 14:17] LABS: Influenza A PCR NEGATIVE (Negative); Influenza B PCR NEGATIVE (Negative); Resp Syncy Virus RNA Qual PCR NEGATIVE (Negative); SARS COV2 PCR INHOUSE NEGATIVE (Negative)
== END 2022-10-23 12:46 | disposition home or self-care (01) ==
LOC: HO.LNP 12:45
PROVIDERS: Visit Provider Physician Assistant
DX: Z20.822 Contact with and (suspected) exposure to COVID-19 (principal)
CPT/HCPCS: 0241U

== ENCOUNTER 2022-11-27 10:37 | Outpatient (REF) | payer OTHER, SELFPAY ==
--- NOTE | ~2022-11-27 | MM_ITS ---
EXAMINATION: MM SCREENING DIGITAL BREAST TOMOSYNTHESIS, BILATERAL CLINICAL INFORMATION: Screening. Asymptomatic. The lifetime risk of breast cancer based on the Tyrer-Cuzick Model is 5%. COMPARISON: Mammography: 05/05/2021, 11/10/2019, 10/08/2018 TECHNIQUE: Digital breast tomosynthesis is performed in both the craniocaudal and mediolateral oblique views along with computer-aided detection (CAD). Synthesized 2D images are generated from the tomosynthesis. FINDINGS: There are scattered areas of fibroglandular density (ACR BI-RADS breast composition Category b). There are no significant masses, abnormal calcifications, or other abnormalities. Parenchymal pattern is similar to prior studies. There is no developing density or architectural abnormality. The axilla and skin contours are unremarkable. No significant changes. MM/MM tomosynthesis screening BI IMPRESSION: No mammographic evidence of malignancy. ASSESSMENT: BI-RADS 1: Negative RECOMMENDATION: Routine annual mammography screening. This patient's information was entered into a reminder system with a target due date for their next mammogram.
== END 2022-11-27 10:38 | disposition home or self-care (01) ==
LOC: HO.MAMMO 10:37
PROVIDERS: PCP Nurse Practitioner Family; Visit Provider Nurse Practitioner Family
DX: Z12.31 Encounter for screening mammogram for malignant neoplasm of breast (principal)
CPT/HCPCS: 77063; 77067

== ENCOUNTER 2023-01-02 11:02 | Outpatient (REF) | payer OTHER, SELFPAY | END 2023-01-02 11:03 | disposition home or self-care (01) | LOC: HO.LAB 11:02 | PROVIDERS: Visit Provider Nurse Practitioner Family | DX: Z13.89 Encounter for screening for other disorder (principal) ==

== ENCOUNTER 2023-01-02 17:34 | Outpatient (REF) | payer OTHER, SELFPAY ==
[2023-01-02 18:31] LABS: Influenza A PCR NEGATIVE (Negative); Influenza B PCR NEGATIVE (Negative); Resp Syncy Virus RNA Qual PCR NEGATIVE (Negative); SARS COV2 PCR INHOUSE NEGATIVE (Negative)
== END 2023-01-02 17:35 | disposition home or self-care (01) ==
LOC: HO.LNP 17:34
PROVIDERS: Visit Provider Nurse Practitioner Family
DX: Z20.822 Contact with and (suspected) exposure to COVID-19 (principal); R05.9 Cough, unspecified
CPT/HCPCS: 0241U

== ENCOUNTER 2023-02-20 09:35 | Outpatient (REF) | payer OTHER, SELFPAY ==
[2023-02-20 15:08] LABS: CT PCR NOT DETECTED (Not Detect.); NG PCR NOT DETECTED (Not Detect.)
[2023-02-21 09:18] LABS: BV Int Neg Control Negative (Negative); BV Int Pos Control Positive (Positive)
[2023-02-21 22:23] LABS: HPV mRNA E6/E7 rflx Not Detected (Not Detected)
== END 2023-02-20 09:36 | disposition home or self-care (01) ==
LOC: HO.LNP 09:35
PROVIDERS: PCP Nurse Practitioner Family; Visit Provider Advanced Practice Midwife
DX: Z01.419 Encounter for gynecological examination (general) (routine) without abnormal findings (principal); E11.9 Type 2 diabetes mellitus without complications; N93.9 Abnormal uterine and vaginal bleeding, unspecified; R87.610 Atypical squamous cells of undetermined significance on cytologic smear of cervix (ASC-US); Z98.51 Tubal ligation status; Z87.42 Personal history of other diseases of the female genital tract; Z79.4 Long term (current) use of insulin; Z79.899 Other long term (current) drug therapy; Z20.2 Contact with and (suspected) exposure to infections with a predominantly sexual mode of transmission; Z12.39 Encounter for other screening for malignant neoplasm of breast
CPT/HCPCS: 0353U; 87480; 87510; 87624; 87660; 88142

== ENCOUNTER 2023-03-07 13:13 | Outpatient (REF) | payer OTHER, SELFPAY ==
--- NOTE | ~2023-03-07 | US_ITS ---
EXAMINATION: US PELVIS CLINICAL INFORMATION: Abnormal uterine and vaginal bleeding. COMPARISON: CT abdomen and pelvis 11/13/2020. TECHNIQUE: Ultrasound of the pelvis is performed using both transabdominal and transvaginal transducers along with Doppler. Transvaginal imaging is performed due to inadequate visualization transabdominally. FINDINGS: Uterus: The uterus is anteverted and measures 8.0 x 3.3 x 3.7 cm. Nabothian cysts in the cervix. The double wall endometrial thickness is 8 mm. The uterus is smooth in contour and has normal myometrial echogenicity. There is a 1.2 cm posterior broad-based subserosal fundal fibroid. Adnexa: Both ovaries are visualized. There is normal color flow to the adnexa. There is no ovarian torsion. There is no pelvic ascites or fluid collection. Right ovary measures 1.5 x 1.1 x 1.4 cm. Volume 1.2 mL. Left ovary measures 1.9 x 1.3 x 2.0 cm. Volume 2.6 mL. US/US pelvic and transvaginal IMPRESSION: 1.2 cm uterine fibroid.
== END 2023-03-07 13:14 | disposition home or self-care (01) ==
LOC: HO.US 13:13
PROVIDERS: PCP Nurse Practitioner Family; Visit Provider Advanced Practice Midwife
DX: N93.9 Abnormal uterine and vaginal bleeding, unspecified (principal); Z87.42 Personal history of other diseases of the female genital tract; Z98.51 Tubal ligation status
CPT/HCPCS: 76830; 76856

== ENCOUNTER 2023-04-01 07:13 | Outpatient (REF) | payer OTHER, SELFPAY ==
[2023-04-01 07:27] LABS: MANUAL DIFF FLAG NO
[2023-04-01 08:04] LABS: Basophils Absolute Auto 0.1 X10*3/uL (0.0-0.2); Basophils Percent Auto 0.5 % (0-2); Eosinophils Absolute Auto 0.1 X10*3/uL (0.0-0.4); Eosinophils Percent Auto 0.4 % (0-4); Hematocrit 40.9 % (37.0-47.0); Hemoglobin 13.3 g/dl (12.0-16.0); Imm Gran Abs Auto 0.06 X10*3/uL (0.00-0.03); Imm Gran Pct Auto 0.5 % (0.0-0.4); Lymphocytes Absolute Auto 1.6 X10*3/uL (1.2-4.9); Lymphocytes Percent Auto 13.9 % (20-40); Mean Corpuscular HGB Conc 32.5 g/dl (31.0-35.0); Mean Corpuscular Hemoglobin 28.2 pg (27.0-33.0); Mean Corpuscular Volume 86.7 fL (80.0-98.0); Mean Platelet Volume 10.7 fL (9.4-12.3); Monocytes Absolute Auto 0.6 X10*3/uL (0.1-1.2); Neutrophils Percent Auto 79.7 % (45-73); Platelet Count 305 X10*3/uL (160-400); Red Blood Count 4.72 X10*6/uL (4.20-5.50); Red Cell Distribution Width 13.3 % (11.0-16.0); White Blood Count 11.2 X10*3/uL (4.8-10.8)
[2023-04-01 08:38] LABS: Estimated Average Glucose 154 mg/dL
[2023-04-01 08:44] LABS: Alanine Aminotransferase 32 U/L (0-31); Albumin Level 3.9 g/dL (3.5-5.0); Alkaline Phosphatase 171 U/L (39-117); Anion Gap 12 (12-20); Aspartate Amino Transferase 21 U/L (5-31); Bilirubin Total 0.3 mg/dL (0.0-1.0); Blood Urea Nitrogen 15 mg/dL (9-16); Calcium 9.2 mg/dL (8.4-10.2); Carbon Dioxide 28 mmol/L (22-29); Chloride 105 mmol/L (96-108); Cholesterol 270 mg/dL; Estimated Glomerular Filt Rate > 60; Glucose Fasting 134 mg/dL (60-99); HDL Cholesterol 40 mg/dL; Potassium 5.2 mmol/L (3.3-5.1); Sodium 140 mmol/L (135-145); Total Protein 6.8 g/dL (6.5-8.0); Triglycerides 465 mg/dL
[2023-04-01 09:00] LABS: TSH reflex Free T4 0.87 uIU/mL (0.32-4.0)
== END 2023-04-01 07:14 | disposition home or self-care (01) ==
LOC: HO.LAB 07:13
PROVIDERS: PCP Nurse Practitioner Family; Visit Provider Nurse Practitioner Family
DX: E11.9 Type 2 diabetes mellitus without complications (principal)
CPT/HCPCS: 36415; 80053; 80061; 83036; 84443; 85025

== ENCOUNTER 2023-05-16 09:11 | Outpatient (REF) | payer OTHER, SELFPAY | END 2023-05-16 09:12 | disposition home or self-care (01) | LOC: HO.LNP 09:11 | PROVIDERS: PCP Nurse Practitioner Family; Visit Provider Advanced Practice Midwife | DX: N93.9 Abnormal uterine and vaginal bleeding, unspecified (principal) | CPT/HCPCS: 58100; 81025; 88305; 99212 ==

== ENCOUNTER 2023-05-23 08:32 | Outpatient (AMB) | payer OTHER, SELFPAY ==
[2023-05-23 08:36] VITALS: BMI 34.3
--- NOTE | 2023-05-23 08:36 | A.OFFVIS_ITS ---
Intake Vital Signs 05/23/23 08:36 Height 4 ft 10 in Weight 164 lb 4 oz BMI 34.3 Blood Pressure Location Lt brachial Position Sitting Intake Visit Reasons: EMB follow up/Per Viry Cable Technician Required: No Accompanied by: Self / Same As Patient Allergies mold Allergy (Mild, Verified 05/23/23 08:37) Unknown blue cheese Allergy (Mild, Uncoded 05/23/23 08:37) itchy throat HPI EMB follow up/Per Viry HPI Details Patient is here to discuss her endometrial biopsy results her endometrial biopsy was done last week. There was very scant sampling obtained at the time she has had irregular bleeding and is concerned she has of small fibroid and the lining of her uterus was thin on ultrasound done in February. She is tired of the irregular bleeding and would like to just have everything taken out discussion as taken place about possibility if everything is okay with a the biopsy of using a Mirena IU S but she would like to discuss more fully what her options are with Dr. Bender. I did review the ultrasound with her again in detail and I also reviewed the endometrial biopsy results which so scant sampling though currently benign findings and no atypia however it is insufficient for a full evaluation. I discussed with the patient that it really would be recommended for us to repeat it so that we do our best not to miss anything. She is in agreement with this plan but she is leaving for [place] this coming week and will be away for 3 weeks she is in agreement with coming back and having an endometrial biopsy repeated at that time and since she wants to discuss further options down the road with Dr. Bender and she has had a biopsy with him in the past her the appointment will be made with Dr. Bender when she returns from [place] all of the issues were discussed to the best of my ability and patient had no further questions. She is not bleeding now the bleeding stops soon after the biopsy and before the next visit she is going to take extra Tylenol before coming she can not take ibuprofen. [facility] Medical History Asthma Diabetes mellitus FH: HTN (hypertension) Hyperlipidemia Hypokalemia Right sided sciatica Sacroiliac inflammation Surgical History History of back surgery History of bilateral tubal ligation Hx of colonoscopy Hx of esophagogastroduodenoscopy Family History Father Cancer Alzheimer's disease Mother HTN (hypertension) Diabetes mellitus Asthma Depression Stroke Cancer Maternal Grandfather No problems noted. Maternal Grandmother No problems noted. Paternal Grandfather No problems noted. Paternal Grandmother No problems noted. Brother No problems noted. Brother No problems noted. Sister Asthma Son No problems noted. Son No problems noted. Daughter No problems noted. Social History Household Members: Spouse and Children Housing: House Alcohol intake: current Alcohol intake frequency: holidays/special occasions only Patient Tobacco Use Status: Never used Tobacco e-Cigarette/Vaping Use: Never Used Second Hand Smoke Exposure: No service: No Current occupational status: disabled Cognitive needs: No Hearing needs: No Vision needs: No Female Reproductive History Menstrual Age of Menarche: 10 Date of last menstrual period: 04/29/23 Date of last pap smear: 02/18/23 Physical Exam Vital Signs: BMI result Body Mass Index 34.3 Results Reviewed Results Reviewed: Name:?Robert Babcock Age/Sex: 52/F Attending: Viry Ojeda CNM : 1970 Submitted by: Viyr Ojeda CNM Copies to: Bang Wilson [facility]- MR #: [id number] ? Status: DEP REF Collected: 05/16/23 Location: [facility] Received: 05/16/23 Diagnosis Endometrium, biopsy:? Scant superficial fragments of benign endometrium and inflamed endocervical/lower uterine segment endometrium; no atypia identified.? See comment. COMMENT:? The endometrium is not well represented.? Consider resampling, as clinically appropriate. Clinical History AUB Microscopic Description Microscopic sections reviewed. Material Received Endometrial bx Gross Description Received in formalin is a 0.5 cc aggregate of pal-red wispy soft tissue within mixed clotted blood, filtered and entirely submitted in cassette A1.? (DTL) Copies To ?? LilipiaBang dan [facility]- ?? [address] ?? [place] [address] ?? [phone] ?? Viry Ojeda [facility] ?? [address] ?? [place] [address] ?? [phone] NOTE:? Some or all of the immunohistochemical tests reported herein may have been developed and their performance characteristics determined by [facility].? They have not been cleared or approved by the U.S. Food and Drug Administration (FDA).? However, the FDA has determined that such clearance or approval is not necessary.? This laboratory is certified under the Clinical Laboratory Improvement Amendments of 1988 (CLIA) as qualified to perform high complexity clinical laboratory testing. Electronically Signed By: Rome Vyas MD ? 05/17/23 1211 Assessment & Plan Assessment & Plan (1) Abnormal uterine bleeding (AUB): Code(s): N93.9 - Abnormal uterine and vaginal bleeding, unspecified (2) History of bilateral tubal ligation: Code(s): Z98.51 - Tubal ligation status (3) Fibroids: Comment: 1.2 cm seen on ultrasound 03/07/2023. Code(s): D21.9 - Benign neoplasm of connective and other soft tissue, unspecified Plan Patient is here to discuss her endometrial biopsy results her endometrial biopsy was done last week. There was very scant sampling obtained at the time she has had irregular bleeding and is concerned she has of small fibroid and the lining of her uterus was thin on ultrasound done in February. She is tired of the irregular bleeding and would like to just have everything taken out discussion as taken place about possibility if everything is okay with a the biopsy of using a Mirena IU S but she would like to discuss more fully what her options ar e with Dr. Bender. I did review the ultrasound with her again in detail and I also reviewed the endometrial biopsy results which so scant sampling though currently benign findings and no atypia however it is insufficient for a full evaluation. I discussed with the patient that it really would be recommended for us to repeat it so that we do our best not to miss anything. She is in agreement with this plan but she is leaving for [place] this coming week and will be away for 3 weeks she is in agreement with coming back and having an endometrial biopsy repeated at that time and since she wants to discuss further options down the road with Dr. Bender and she has had a biopsy with him in the past her the appointment will be made with Dr. Bender when she returns from [place] all of the issues were discussed to the best of my ability and patient had no further questions. She is not bleeding now the bleeding stops soon after the biopsy and before the next visit she is going to take extra Tylenol before coming she can not take ibuprofen. Coding Level of Care Code Est Pt Level 3 (02304) Diagnoses Abnormal uterine bleeding (AUB) N93.9 History of bilateral tubal ligation Z98.51 Fibroids D21.9
== END 2023-05-23 09:33 | disposition home or self-care (01) ==
LOC: HO.HWS 08:32
PROVIDERS: PCP Nurse Practitioner Family; Visit Provider Advanced Practice Midwife
DX: N93.9 Abnormal uterine and vaginal bleeding, unspecified (principal); Z98.51 Tubal ligation status; D21.9 Benign neoplasm of connective and other soft tissue, unspecified
CPT/HCPCS: 99213

== ENCOUNTER → 2023-05-23 08:32 | Outpatient (BNVA) | payer OTHER, SELFPAY | PROVIDERS: PCP Nurse Practitioner Family; Visit Provider Advanced Practice Midwife | DX: N93.9 Abnormal uterine and vaginal bleeding, unspecified (principal); D21.9 Benign neoplasm of connective and other soft tissue, unspecified; Z98.51 Tubal ligation status | CPT/HCPCS: 99212 ==

== ENCOUNTER 2023-06-14 08:14 | Outpatient (REF) | payer OTHER, SELFPAY ==
[2023-06-14 11:24] LABS: Appearance Urine Cloudy; Color Urine Yellow; Glucose Urine UA Negative (Negative); Leukocyte Esterase Urine Trace (Negative); Nitrite Urine Negative (Negative); PH 7.5 (5.0-9.0); UMIC TRIGGER UACC YES; Urine Blood Negative (Negative); Urine Ketones Negative (Negative); Urine Protein Negative (Neg-Trace)
[2023-06-14 11:30] LABS: Bacteria Urine None Seen (None Seen); Hyaline Casts Urine 0-2 /LPF (0-2); RBC Urine 0-2 /HPF (0-2); Squamous Epithelial Cell Urine 0-2 /HPF (0-2); WBC Urine 0-5 /HPF (0-5)
[2023-06-14 13:49] LABS: Microalbumin Urine < 5.0 mg/L
[2023-06-14 19:39] LABS: Amphetamine Screen Urine Not Detected (Not Detect); Barbiturates, Urine Not Detected (Not Detect); Benzodiazepines Screen Urine Not Detected (Not Detect); Cannabinoid Screen Urine Not Detected (Not Detect); Cocaine Screen Urine Not Detected (Not Detect); Fentanyl, urine Not Detected (Not Detect); Opiate Screen Urine Not Detected (Not Detect); Phencyclidine Screen Urine Not Detected (Not Detect)
== END 2023-06-14 08:15 | disposition home or self-care (01) ==
LOC: HO.HMGCLNP 08:14
PROVIDERS: PCP Nurse Practitioner Family; Visit Provider Nurse Practitioner Family
DX: E11.9 Type 2 diabetes mellitus without complications (principal); F33.9 Major depressive disorder, recurrent, unspecified; F19.11 Other psychoactive substance abuse, in remission
CPT/HCPCS: 80307; 81001; 82043

== ENCOUNTER 2023-07-02 10:29 | Outpatient (AMB) | payer OTHER, SELFPAY ==
--- NOTE | 2023-07-02 10:55 | MHC.PC.OV ---
Vital Signs 07/02/23 10:58 Height 4 ft 10 in Weight 162 lb BMI 33.9 BP 136/88 Blood Pressure Location Lt brachial Position Sitting Pulse 91 Pulse Source Pulse Oximeter Pulse Oximetry (%) 99 Oxygen Delivery Method Room Air Intake Visit Reasons: 3M follow up Allergies mold Allergy (Mild, Verified 07/02/23 12:10) Unknown blue cheese Allergy (Mild, Uncoded 07/02/23 12:10) itchy throat Tobacco use date assessed: 07/02/23 Dental Screening Dental Screen Date: 07/02/23 Did you have a dental visit in the last 12 months?: No Did you have a dental problem in the last 6 months where you did not have access to dental care?: No Was dental information given to patient?: Patient has dentist HPI 3M follow up HPI Details Pt is a diabetic, on a statin. A1C in office today is 6.8. Microalbumin is up to date. Denies polyuria, polydipsia, does report intermittent neuropathy to her left foot. Pt denies any signs and symptoms of hypoglycemia and does know how to correct it. Pt has not checked her blood sugar in over a week, but before this it was in the 90s. Eye exam is scheduled. Pt c/o lower back pain with radicular symptoms to her buttocks. She has had a previous xr, missing results. Pt has also been to PT with no relief. Will order MRI. Denies any signs of cauda equina. [facility] Medical History Asthma Diabetes mellitus FH: HTN (hypertension) Hyperlipidemia Hypokalemia Right sided sciatica Sacroiliac inflammation Surgical History History of back surgery History of bilateral tubal ligation Hx of colonoscopy Hx of esophagogastroduodenoscopy Family History Father Cancer Alzheimer's disease Mother HTN (hypertension) Diabetes mellitus Asthma Depression Stroke Cancer Maternal Grandfather No problems noted. Maternal Grandmother No problems noted. Paternal Grandfather No problems noted. Paternal Grandmother No problems noted. Brother No problems noted. Brother No problems noted. Sister Asthma Son No problems noted. Son No problems noted. Daughter No problems noted. Social History Household Members: Spouse and Children Housing: House Alcohol intake: current Alcohol intake frequency: holidays/special occasions only Patient Tobacco Use Status: Never used Tobacco e-Cigarette/Vaping Use: Never Used Second Hand Smoke Exposure: No service: No Current occupational status: disabled Cognitive needs: No Hearing needs: No Vision needs: No Female Reproductive History Menstrual Age of Menarche: 10 Questionnaire Thrive Questionnaire Date Thrive assessed: 01/02/23 JESSI-7 AMB Questionnaire JESSI-7 Date JESSI - 7 assessed: 01/02/23 Source: Developed by Drs. Jaylen oJhns, Cary Chavez, Omar Olmedo and colleagues, with an educational [place] from [employer]. Review of Systems Const Reports as per HPI Physical exam (Primary Care) Vital Signs: Last Vital Signs Pulse 91 07/02/23 10:58 BP 136/88 07/02/23 10:58 Pulse Ox 99 07/02/23 10:58 Oxygen Delivery Method Room Air 07/02/23 10:58 BMI result Body Mass Index 33.9 Tobacco/Smoking Status: Tobacco use Status Tobacco use date assessed 07/02/23 07/02/23 11:05 Patient Tobacco Use Status Never used Tobacco 07/02/23 10:56 e-Cigarette/Vaping Use Never Used 07/02/23 10:56 Thrive Assessment: Date of Thrive Assessment Date Thrive assessed 01/02/23 07/02/23 10:56 Const General: cooperative Nutritional Appearance: obese Orientation/consciousness: patient oriented x3 Resp Effort & Inspection: normal respiratory effort Auscultation: clear to auscultation bilaterally Cardio Rate: regular rate Rhythm: regular rhythm Heart sounds: S1 normal heart sound present and S2 normal heart sound present Back/Spine/Pelvis Other: with heel walking, exacerbation of lower back pain with radicular symptoms down LLE. Same noted with pt in supine position, performing knee to chest raises and entire LLE raises (radiculopathy noted) Neuro General: patient oriented x3 Extrem Other: bilat feet: + sensation with use of monofilament, feet intact Psych Appearance: grossly normal Mental Status: mental status grossly normal Speech and movement: Normal speech and movement present Affect: normal affect Attitude: cooperative Thought process: Normal thought process present Thought content: Normal thought content present Insight: Good insight present (Psych) Judgement: Good judgement present (Psych) Results AMB Hemoglobin A1c AMB Hemoglobin A1c 6.8 % Last Edit by Thelma Landa CMA on 07/02/23 11:24 Results Reviewed Results Reviewed: Laboratory Last Values Hgb A1c (Clinic) 6.8 % (4.0-6.0) H 07/02/23 11:22 Assessment and Plan Assessment & Plan (1) Diabetes mellitus: Code(s): E11.9 - Type 2 diabetes mellitus without complications (2) Pain of back and left lower extremity: Code(s): M54.9 - Dorsalgia, unspecified; M79.605 - Pain in left leg Plan The patient agreed to the use of a pesticide use medical coordinator for this encounter. Scribed for ALICIA Dawkins by Daphnie Neumann pesticide use medical coordinator, on 07/02/2023 at 11:05 EST. Orders: Orders Comprehensive [place]. Panel Fast Today E11.9 - Type 2 diabetes mellitus without complications Lipid Panel Today E11.9 - Type 2 diabetes mellitus without complications Complete Blood Count Auto Diff Today E11.9 - Type 2 diabetes mellitus without complications UA CC w/rflx Micro + Cult Today E11.9 - Type 2 diabetes mellitus without complications MR lumbar spine wo con Today M54.9 - Dorsalgia, unspecified, M79.605 - Pain in left leg AMB Hemoglobin A1c Today E11.9 - Type 2 diabetes mellitus without complications Medications: Refilled albuterol sulfate 90 mcg/actuation 2 puffs inhalation Q6H PRN 6.7 grams 0RF shortness of breath or wheezing insulin aspart U-100 (Novolog FlexPen U-100 Insulin aspart) 2 - 14 units (0.02 - 0.14 mL) subcut TID 15 mL 3RF 30 days Coding Level of Care Code Est Pt Level 3 (06588) Diagnoses Diabetes mellitus E11.9 Pain of back and left lower extremity M54.9; M79.605
[2023-07-02 10:58] VITALS: BP 136/88; PULSE 91; O2SAT 99; BMI 33.9
== END 2023-07-02 12:04 | disposition home or self-care (01) ==
PROVIDERS: PCP Nurse Practitioner Family; Visit Provider Nurse Practitioner Family
DX: E11.9 Type 2 diabetes mellitus without complications (principal); M54.9 Dorsalgia, unspecified; M79.605 Pain in left leg
CPT/HCPCS: 83036; 99213

== ENCOUNTER 2023-07-08 11:29 | Outpatient (AMB) | payer OTHER, SELFPAY ==
--- NOTE | 2023-07-08 11:55 | A.OFFVIS_ITS ---
Intake Vital Signs 07/08/23 11:56 Height 4 ft 10 in Weight 164 lb BMI 34.3 BP 135/82 Blood Pressure Location Lt brachial Position Sitting Pulse 72 Intake Visit Reasons: Follow up Abnormal levels of other serum enzymes Intake Note: Patient follow up for abnormal lab results. Patient denies any GI issues. Special Investigation Unit Investigator Required: No Accompanied by: Self / Same As Patient Allergies mold Allergy (Mild, Verified 07/08/23 11:54) Unknown blue cheese Allergy (Mild, Uncoded 07/02/23 12:10) itchy throat Medication List - Last Reconciled 07/08/23 by Chika Luque PA-C albuterol sulfate 5 mg inhalation Q4H PRN albuterol sulfate 90 mcg/actuation 2 puffs inhalation Q6H PRN alprazolam 1 mg PO BEDTIME baclofen 1 tab PO TID bisacodyl (Dulcolax (bisacodyl)) 10 mg FL DAILY PRN blood sugar diagnostic As directed blood sugar diagnostic (Freestyle [employer] strips) bid blood sugar diagnostic (Freestyle [employer] Test Strips) bid blood-glucose meter (Freestyle [employer] meter) bid testing cetirizine 10 mg PO BID cholecalciferol (vitamin D3) 50 mcg PO DAILY 90 days clotrimazole 1% mL topical cyclobenzaprine 10 mg PO BEDTIME PRN docusate sodium (Colace) 100 mg PO DAILY 90 days ferrous sulfate 325 mg PO DAILY 90 days fluticasone propionate 50 mcg/actuation (Allergy Relief (fluticasone)) 1 spray intranasal Q12H 30 days furosemide 40 mg PO DAILY PRN 90 days gabapentin 1 - 2 tabs PO TID hydrochlorothiazide 25 mg PO QAM insulin aspart U-100 (Novolog FlexPen U-100 Insulin aspart) 2 - 14 units (0.02 - 0.14 mL) subcut TID 30 days Lactobacillus acidophilus (Acidophilus capsule) 300 mg PO DAILY 30 days lancets (FreeStyle Lancets) As directed lansoprazole 30 mg PO DAILY methylcellulose (laxative) (Citrucel) 500 mg PO BID ondansetron HCl 4 mg PO Q8H PRN 7 days pen needle, diabetic As directed polyethylene glycol 3350 (Miralax) 17 grams PO DAILY potassium chloride ER 10 mEq PO DAILY 30 days rosuvastatin 40 mg PO DAILY sertraline 100 mg PO QAM sumatriptan succinate 100 mg PO DAILY PRN HPI HPI Comments History of Present Illness Details A 52 y/o female here -firstly she wants her GB removed- she says she was to have it done last year and cx- Hx GB polyp 4mm Elevated alk phos Though Barretts not confirmed repeat EGD from 2020 She is following with associate property manager-for abnormal bleeding Appetite is good her bowels are normal Blood sugars fluctuate PPI for acid reflux fairly good coverage-intermittent right upper quadrant pain she says is the same pain she had when she saw the surgeon She is not typically use ondansetron for nausea She has no GI or general complaints otherwise No nausea, vomiting, hematemesis, hematochezia fever chills PFSH Medical History (Updated 07/08/23 @ 13:30 by Chika Luque PA-C) Asthma Diabetes mellitus Esophagitis FH: HTN (hypertension) Hyperlipidemia Hypokalemia Right sided sciatica Sacroiliac inflammation Surgical History History of back surgery History of bilateral tubal ligation Hx of colonoscopy Hx of esophagogastroduodenoscopy Family History Father Cancer Alzheimer's disease Mother HTN (hypertension) Diabetes mellitus Asthma Depression Stroke Cancer Maternal Grandfather No problems noted. Maternal Grandmother No problems noted. Paternal Grandfather No problems noted. Paternal Grandmother No problems noted. Brother No problems noted. Brother No problems noted. Sister Asthma Son No problems noted. Son No problems noted. Daughter No problems noted. Social History Household Members: Spouse and Children Housing: House Alcohol intake: current Alcohol intake frequency: holidays/special occasions only Patient Tobacco Use Status: Never used Tobacco e-Cigarette/Vaping Use: Never Used Second Hand Smoke Exposure: No service: No Current occupational status: disabled Cognitive needs: No Hearing needs: No Vision needs: No Female Reproductive History Menstrual Age of Menarche: 10 Review of Systems Const All systems reviewed & are unremarkable except as noted in HPI and below Card Denies chest pain and Denies dyspnea Resp Denies dyspnea GI Reports abdominal pain (Intermittent right upper quadrant, comes and goes), Denies change in bowel habits and Denies heartburn Reports abnormal menses Physical Exam Vital Signs: Last Vital Signs Pulse 72 07/08/23 11:56 BP 135/82 07/08/23 11:56 BMI result Body Mass Index 34.3 Const General: cooperative, healthy appearing, comfortable and no acute distress Orientation/consciousness: patient oriented x3 Limitations: no limitations Resp Effort & Inspection: normal respiratory effort and able to speak in complete sentences Auscultation: clear to auscultation bilaterally, no rales, no rhonchi and no wheezes Cardio Rate: regular rate Rhythm: regular rhythm Heart sounds: Murmur heart sound present (?) GI Palpation (GI): Soft to palpation and nontender Auscultation: normal bowel sounds Skin General skin exam: no rashes or lesions noted Neuro General: patient oriented x3 Extrem General: Yes full ROM Psych Appearance: well kempt Mental Status: mental status grossly normal Speech and movement: Normal speech and movement present and Clear speech present Affect: normal affect Attitude: cooperative Thought process: Normal thought process present Thought content: Normal thought content present Insight: Good insight present (Psych) Judgement: Good judgement present (Psych) Results Reviewed Results Reviewed: 09/2021- Dr. Ramos Endoscopy Findings: suspected barretts gastritis Colonoscopy Findings: internal hemorrhoids polyp Plan: Await Pathology results Repeat Colonoscopy in 5 years due to prep or earlier if clinically indicated High fiber diet leaflet avoid straining at stool, epsom salts and sitz bath, anusol supps or cream if barretts confirmed then repeat EGD in 1-2 yrs with WATS brushings, optimize reflux control raisa:?Robert Babcock Age/Sex: 50/F Attending: Jessica Ramos MD : 1970 Submitted by: Jessica Ramos MD Copies to: Bang Wilson [facility] MR #: [id number] ? Status: [facility] Collected: 09/20/21 Location: [facility] Received: 09/20/21 Diagnosis A.? Stomach, biopsy:? Antral-type and oxyntic mucosa with mild chronic inactive inflammation; no Helicobacter organisms seen. B.? GE junction, biopsy: - Cardiac-type mucosa with moderate chronic inactive inflammation; no intestinal metaplasia seen. - Active esophagitis (maximum eosinophil count 15 per high powered field). C.? Esophagus, random, biopsy:? Squamous epithelium within normal limits; no inflammation seen. D.? Rectum, polypectomy:? Hyperplastic mucosal polyp with prominent lymphoid aggregate. Above findings were reviewed with the patient and relevant handouts US/US abdomen limited IMPRESSION: Stable 4 mm gallbladder polyp.- saw Dr. Mcneill- 03/2022 Assessment & Plan Assessment & Plan (1) Gallbladder polyp: Comment: 4mm Code(s): K82.4 - Cholesterolosis of gallbladder Plan: Update ultrasound- (2) Gastritis: Comment: Continue PPI avoid culprits Code(s): K29.70 - Gastritis, unspecified, without bleeding Qualifiers: Chronicity: acute Gastritis bleeding: without bleeding Gastritis type: unspecified gastritis Qualified Code(s): K29.00 - Acute gastritis without bleeding (3) Elevated alkaline phosphatase level: Code(s): R74.8 - Abnormal levels of other serum enzymes Plan: Abdominal ultrasound (4) Esophagitis: Code(s): K20.90 - Esophagitis, unspecified without bleeding Plan: Continue PPI Reflux precautions Repeat EGD (5) Abdominal pain: Comment: Return 1-2 years for repeat EGD-sooner if indicated Continue PPI Code(s): R10.9 - Unspecified abdominal pain Orders: Orders EDG - GI Use Only Today K20.90 - Esophagitis, unspecified without bleeding US abdomen complete Today K29.70 - Gastritis, unspecified, without bleeding, K82.4 - Cholesterolosis of gallbladder, R74.8 - Abnormal levels of other serum enzymes Referrals General Surgery Referral K82.4 - Cholesterolosis of gallbladder, R10.9 - Unspecified abdominal pain Patient Instructions: 52-year-old female-follows up with acid reflux,-EGD 2020-no Pugh's confirmed however may be sampling error was recommended repeat EGD Discussed procedure, rare risk a need for escorted She will take half dose insulin evening before as well no diabetes medication morning of procedure she agrees to proceed Reflux precaution Continue usual medication Will send her back to surgery she would like to rediscuss plan with surgeon Coding Level of Care Code Est Pt Level 3 (76877) Diagnoses Gallbladder polyp K82.4 Gastritis K29.00 Chronicity: acute Gastritis bleeding: without bleeding Gastritis type: unspecified gastritis Elevated alkaline phosphatase level R74.8 Esophagitis K20.90 Abdominal pain R10.9 Time Spent (min) 35
[2023-07-08 11:56] VITALS: BP 135/82; PULSE 72; BMI 34.3
== END 2023-07-08 14:39 | disposition home or self-care (01) ==
PROVIDERS: PCP Nurse Practitioner Family; Visit Provider Physician Assistant
DX: K82.4 Cholesterolosis of gallbladder (principal); K29.00 Acute gastritis without bleeding; R74.8 Abnormal levels of other serum enzymes; K20.90 Esophagitis, unspecified without bleeding; R10.9 Unspecified abdominal pain
CPT/HCPCS: 99213

== ENCOUNTER → 2023-07-08 11:29 | Outpatient (BNVA) | payer OTHER, SELFPAY | PROVIDERS: PCP Nurse Practitioner Family; Visit Provider Physician Assistant | DX: K82.4 Cholesterolosis of gallbladder (principal); R74.8 Abnormal levels of other serum enzymes; K29.00 Acute gastritis without bleeding; K20.90 Esophagitis, unspecified without bleeding; R10.11 Right upper quadrant pain | CPT/HCPCS: 99212 ==

== ENCOUNTER 2023-07-25 07:55 | Outpatient (AMB) | payer OTHER, SELFPAY ==
--- NOTE | 2023-07-25 07:56 | MHC.OFFVIS ---
Intake Vital Signs 07/25/23 08:02 Height 4 ft 10 in Weight 163 lb 2.273 oz BMI 34.1 BP 126/74 Intake Visit Reasons: EMB per Viry/DO NOT RS Gallery Or Museum Attendant Required: No Information Interpreted: non-clinical & clinical Guest Relations Associate: Guest Relations Associate Present (Danielle PIERRE) Accompanied by: Self / Same As Patient Allergies mold Allergy (Mild, Verified 07/25/23 08:04) Unknown blue cheese Allergy (Mild, Uncoded 07/25/23 08:04) itchy throat Is last menstrual period known: Yes Last menstrual period: 09/08/20 Post menopausal: Yes Patient : No Do you need a note to return to daycare/school/sports/work: Yes (for surgery on saturday) HPI HPI Comments History of Present Illness Details Patient is presenting referred from Ana Ojeda CNM for endometrial biopsy, last EMB showed insufficient tissue for diagnosis under presented of the endometrium. The patient has been having irregular menstrual cycle over the last few months the following workup was done over the last few months: H&H= 13.3/40.9 GC and chlamydia were negative. Endometrial biopsy pathology showed : Scant superficial fragments of benign endometrium and inflamed endocervical/ lower uterine segment endometrium; no atypia identified. See comment. COMMENT: The endometrium is not well represented. Consider resampling, as clinically appropriate Co testing was done was negative. Mammogram in 12/03 was BI-RADS 1. Pelvic ultrasound showed the following: Uterus: The uterus is anteverted and measures 8.0 x 3.3 x 3.7 cm. Nabothian cysts in the cervix. The double wall endometrial thickness is 8 mm. The uterus is smooth in contour and has normal myometrial echogenicity. There is a 1.2 cm posterior broad-based subserosal fundal fibroid. Adnexa: Both ovaries are visualized. There is normal color flow to the adnexa. There is no ovarian torsion. There is no pelvic ascites or fluid collection. Right ovary measures 1.5 x 1.1 x 1.4 cm. Volume 1.2 mL. Left ovary measures 1.9 x 1.3 x 2.0 cm. Volume 2.6 mL PFSH Medical History Esophagitis Hypokalemia Hyperlipidemia FH: HTN (hypertension) Diabetes mellitus Right sided sciatica Asthma Sacroiliac inflammation Surgical History Hx of esophagogastroduodenoscopy Hx of colonoscopy History of back surgery History of bilateral tubal ligation Family History Father Cancer Alzheimer's disease Mother HTN (hypertension) Diabetes mellitus Asthma Depression Stroke Cancer Maternal Grandfather No problems noted. Maternal Grandmother No problems noted. Paternal Grandfather No problems noted. Paternal Grandmother No problems noted. Brother No problems noted. Brother No problems noted. Sister Asthma Son No problems noted. Son No problems noted. Daughter No problems noted. Social History Household Members: Spouse and Children Housing: House Alcohol intake: current Alcohol intake frequency: holidays/special occasions only Patient Tobacco Use Status: Never used Tobacco e-Cigarette/Vaping Use: Never Used Second Hand Smoke Exposure: No service: No Current occupational status: disabled Cognitive needs: No Hearing needs: No Vision needs: No Female Reproductive History Menstrual Age of Menarche: 10 Date of last menstrual period: 09/08/20 Total pregnancies: 2 Full term: 2 Review of Systems Card Reports as per HPI and Reports no additional complaints Resp Reports as per HPI and Reports no additional complaints GI Reports as per HPI and Reports no additional complaints Reports as per HPI Physical Exam Vital Signs: Last Vital Signs BP 126/74 07/25/23 08:02 BMI result Body Mass Index 34.1 Const General: cooperative, healthy appearing and comfortable Chest Chest palpation & inspection: normal inspection of the chest and normal palpation of entire chest wall Breast/axilla inspection: normal inspection of the breasts and normal inspection of the axillae Breast/axilla palpation: normal palpation of the breasts, normal palpation of the axillae and no axillary lymphadenopathy Resp Effort & Inspection: normal respiratory effort Auscultation: clear to auscultation bilaterally Percussion: percussion normal Cardio Palpation: normal PMI Rate: regular rate Rhythm: regular rhythm Heart sounds: no murmurs and no rubs Peripheral pulses: Peripheral pulses 2+ throughout GI Inspection: Yes normal to inspection Palpation (GI): Soft to palpation, nontender, no guarding, not rigid and No hepatosplenomegaly present Percussion: Yes normal to percussion Auscultation: normal bowel sounds Rectal Exam - Female: deferred Assessment & Plan Assessment & Plan (1) Abnormal uterine bleeding (AUB): Code(s): N93.9 - Abnormal uterine and vaginal bleeding, unspecified Plan: Attempted an office endometrial biopsy, the patient asked to abort the procedure secondary to pain. Recommended hysteroscopy D&C possible polypectomy/myomectomy. Discussed with the patient the procedure , all benefits and risks including but not limited to inability to complete the procedure , bleeding, infection, possible need for blood transfusion with all its risk ( HIV,syphilis, Hepatitis, anaphylaxis shock, others..), injury to bladder, rectum, possible need for laparoscopy/laparotomy or hysterectomy. The patient verbalized understanding and signed the consent. Instructions given the patient to schedule a 2 week postoperative appointment Coding Level of Care Code Est Pt Level 3 (56957) Diagnoses Abnormal uterine bleeding (AUB) N93.9
[2023-07-25 08:02] VITALS: BP 126/74; BMI 34.1
== END 2023-07-25 08:30 | disposition home or self-care (01) ==
PROVIDERS: PCP Nurse Practitioner Family; Visit Provider Obstetrics & Gynecology
DX: N93.9 Abnormal uterine and vaginal bleeding, unspecified (principal)
CPT/HCPCS: 99213

== ENCOUNTER → 2023-07-25 07:55 | Outpatient (BNVA) | payer OTHER, SELFPAY | PROVIDERS: PCP Nurse Practitioner Family; Visit Provider Obstetrics & Gynecology | DX: N93.9 Abnormal uterine and vaginal bleeding, unspecified (principal) | CPT/HCPCS: 99212 ==

== ENCOUNTER 2023-08-01 08:21 | Outpatient (AMB) | payer OTHER, SELFPAY ==
--- NOTE | 2023-08-01 08:26 | MHC.OFFVIS ---
Intake Vital Signs 08/01/23 08:36 Height 4 ft 10 in Weight 159 lb 2 oz BMI 33.3 BP 122/70 Blood Pressure Location Lt brachial Position Sitting Intake Visit Reasons: Cholesterolosis of gallbladder Intake Note: Patient is seen in office for evaluation and treatment of cholesterolosis of the gallbladder. 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: No Accompanied by: Self / Same As Patient Allergies mold Allergy (Mild, Verified 08/01/23 08:32) Unknown blue cheese Allergy (Mild, Uncoded 08/01/23 08:32) itchy throat Medication List - Last Reconciled 08/01/23 by Bang Mcdaniels MD albuterol sulfate 5 mg inhalation Q4H PRN albuterol sulfate 90 mcg/actuation 2 puffs inhalation Q6H PRN alprazolam 1 mg PO BEDTIME baclofen 1 tab PO TID bisacodyl (Dulcolax (bisacodyl)) 10 mg DE DAILY PRN blood sugar diagnostic As directed blood sugar diagnostic (Freestyle [employer] strips) bid blood sugar diagnostic (Freestyle [employer] Test Strips) bid blood-glucose meter (Freestyle [employer] meter) bid testing cetirizine 10 mg PO BID cholecalciferol (vitamin D3) 50 mcg PO DAILY 90 days clotrimazole 1% mL topical cyclobenzaprine 10 mg PO BEDTIME PRN docusate sodium (Colace) 100 mg PO DAILY 90 days ferrous sulfate 325 mg PO DAILY 90 days fluticasone propionate 50 mcg/actuation (Allergy Relief (fluticasone)) 1 spray intranasal Q12H 30 days furosemide 40 mg PO DAILY PRN 90 days gabapentin 1 - 2 tabs PO TID hydrochlorothiazide 25 mg PO QAM insulin aspart U-100 (Novolog FlexPen U-100 Insulin aspart) 2 - 14 units (0.02 - 0.14 mL) subcut TID 30 days Lactobacillus acidophilus (Acidophilus capsule) 300 mg PO DAILY 30 days lancets (FreeStyle Lancets) As directed lansoprazole 30 mg PO DAILY methylcellulose (laxative) (Citrucel) 500 mg PO BID ondansetron HCl 4 mg PO Q8H PRN 7 days pen needle, diabetic As directed polyethylene glycol 3350 (Miralax) 17 grams PO DAILY potassium chloride ER 10 mEq PO DAILY 30 days rosuvastatin 40 mg PO DAILY sertraline 100 mg PO QAM sumatriptan succinate 100 mg PO DAILY PRN HPI HPI Comments History of Present Illness Details 52-year-old female patient presenting with complaints of epigastric and right upper quadrant abdominal pain associated with nausea and vomiting. The symptoms occur almost every other day and seem to be made worse with eating. She has avoided fried/greasy foods but continues to have the abdominal pain. Pain is also associated with diarrhea without bleeding. Workup with ultrasound of the abdomen revealed a 4 mm gallbladder wall polyp. This has not changed significantly in the past year. She is due for a follow-up ultrasound next week. She presents to discuss possible laparoscopic cholecystectomy. She denies a previous history of abdominal surgery. [facility] Medical History Esophagitis Hypokalemia Hyperlipidemia FH: HTN (hypertension) Diabetes mellitus Right sided sciatica Asthma Sacroiliac inflammation Surgical History Hx of esophagogastroduodenoscopy Hx of colonoscopy History of back surgery History of bilateral tubal ligation Family History Father Cancer Alzheimer's disease Mother HTN (hypertension) Diabetes mellitus Asthma Depression Stroke Cancer Maternal Grandfather No problems noted. Maternal Grandmother No problems noted. Paternal Grandfather No problems noted. Paternal Grandmother No problems noted. Brother No problems noted. Brother No problems noted. Sister Asthma Son No problems noted. Son No problems noted. Daughter No problems noted. Social History Household Members: Spouse and Children Housing: House Alcohol intake: current Alcohol intake frequency: holidays/special occasions only Patient Tobacco Use Status: Never used Tobacco e-Cigarette/Vaping Use: Never Used Second Hand Smoke Exposure: No service: No Current occupational status: disabled Cognitive needs: No Hearing needs: No Vision needs: No Female Reproductive History Menstrual Age of Menarche: 10 Review of Systems Const All systems reviewed & are unremarkable except as noted in HPI and below Denies chills, Denies fever(s), Denies headache(s), Denies poor appetite and Denies weakness ENT Denies headache(s) Card Denies chest pain, Denies irregular heart rhythm, Denies palpitations and Denies dyspnea Resp Denies cough, Denies excessive phlegm production and Denies dyspnea GI Reports abdominal pain, Denies bloating, Denies change in bowel habits, Denies constipation, Denies heartburn, Reports diarrhea, Reports nausea, Reports vomiting and Denies hematemesis Denies urinary frequency Musc Reports back pain, Denies muscle weakness and Denies numbness Skin/Breast Denies changing lesions and Denies unusual bruising Neuro Denies headache(s), Denies numbness, Denies paresthesias and Denies weakness Psych Denies anxiety and Denies depression Endo Denies palpitations Guero/Lymph Denies lymphadenopathy Physical Exam Const General: cooperative and no acute distress Nutritional Appearance: well nourished Orientation/consciousness: patient oriented x3 Limitations: no limitations HEENT Head: Yes normocephalic and Yes atraumatic Ears: hearing grossly normal bilaterally Resp Effort & Inspection: normal respiratory effort, no audible wheezes, no cough and no respiratory distress Cardio Jugular venous distension: no JVD GI Inspection: Yes normal to inspection Palpation (GI): Soft to palpation, Tenderness to palpation present (GI) in the epigastrum and in the RUQ; Smyth's sign negative and with no rebound tenderness, no guarding and not rigid Percussion: Yes normal to percussion Auscultation: normal bowel sounds Rectal Exam - Female: deferred Skin Other: Warm, dry, no rash Neuro General: patient oriented x3 Extrem General: Yes no clubbing, cyanosis or edema Assessment & Plan Assessment & Plan (1) Recurrent biliary colic: Code(s): K80.50 - Calculus of bile duct without cholangitis or cholecystitis without obstruction (2) Gallbladder polyp: Comment: 4mm Code(s): K82.4 - Cholesterolosis of gallbladder Plan 52-year-old female patient presenting with a symptomatic gallbladder polyp with complaints of epigastric and right upper quadrant abdominal pain associated with nausea/vomiting/diarrhea. Workup with ultrasound revealed a gallbladder wall polyp which does not appear suspicious. Patient has requested cholecystectomy as her symptoms appear to be worsening. I reviewed the procedure, risks, and alternatives and she consents to a laparoscopic or possible open cholecystectomy. Coding Level of Care Code New Pt Level 4 (12264) Diagnoses Recurrent biliary colic K80.50 Gallbladder polyp K82.4
[2023-08-01 08:36] VITALS: BP 122/70; BMI 33.3
== END 2023-08-01 08:42 | disposition home or self-care (01) ==
PROVIDERS: PCP Nurse Practitioner Family; Referring Provider Physician Assistant; Visit Provider Surgery
DX: K80.50 Calculus of bile duct without cholangitis or cholecystitis without obstruction (principal)
CPT/HCPCS: 99204

== ENCOUNTER → 2023-08-01 08:21 | Outpatient (BNVA) | payer OTHER, SELFPAY | PROVIDERS: PCP Nurse Practitioner Family; Referring Provider Physician Assistant; Visit Provider Surgery ==

== ENCOUNTER 2023-08-15 08:56 | Emergency (ER) | payer OTHER, SELFPAY ==
[2023-08-15 09:13] VITALS: BP 137/89; PULSE 87; RESP 18; TEMP 36.7; O2SAT 96; BMI 32.6
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
[2023-08-15 11:24] VITALS: BP 140/89; PULSE 77; RESP 18; O2SAT 98
== END 2023-08-15 11:25 | disposition home or self-care (01) ==
PROVIDERS: Emergency Provider Emergency Medicine; PCP Nurse Practitioner Family
DX: S06.0X0A Concussion without loss of consciousness, initial encounter (principal); S13.4XXA Sprain of ligaments of cervical spine, initial encounter; V43.62XA Car passenger injured in collision with other type car in traffic accident, initial encounter; M79.641 Pain in right hand; E11.9 Type 2 diabetes mellitus without complications; I10 Essential (primary) hypertension; Z79.899 Other long term (current) drug therapy; Z79.4 Long term (current) use of insulin; Y93.89 Activity, other specified; Y92.410 Unspecified street and highway as the place of occurrence of the external cause; Y99.9 Unspecified external cause status
CPT/HCPCS: 70450; 72125; 73130; 99283; 99284

== ENCOUNTER 2023-08-22 08:02 | Outpatient (AMB) | payer OTHER, SELFPAY ==
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
[2023-08-22 08:09] VITALS: BP 122/72; PULSE 76; TEMP 36.6; O2SAT 96; BMI 33.2
== END 2023-08-22 08:24 | disposition home or self-care (01) ==
PROVIDERS: PCP Nurse Practitioner Family; Visit Provider Physician Assistant
DX: M54.2 Cervicalgia (principal); F07.81 Postconcussional syndrome
CPT/HCPCS: 99213

== ENCOUNTER 2023-09-02 08:14 | Outpatient (AMB) | payer OTHER, SELFPAY ==
[2023-09-02 09:02] VITALS: BP 128/70; PULSE 83; TEMP 36.7; O2SAT 97; BMI 33.6
--- NOTE | 2023-09-02 09:02 | MHC.OFFWIV ---
Intake Vital Signs 09/02/23 09:02 Height 4 ft 10 in Weight 161 lb BMI 33.6 BP 128/70 Blood Pressure Location Rt brachial Position Sitting Pulse 83 Pulse Source Pulse Oximeter Temp 98.1 F Pulse Oximetry (%) 97 Oxygen Delivery Method Room Air Intake Visit Reasons: EP, headache Intake Note: pt is here today for headache Patient Tobacco Use Status: Never used Tobacco Allergies mold Allergy (Mild, Verified 09/02/23 09:43) Unknown blue cheese Allergy (Mild, Uncoded 09/02/23 09:43) itchy throat Medication List - Last Reconciled 09/02/23 by Brandon Peacock MD acetaminophen (Tylenol) 650 mg (2 x 325 mg) PO QID PRN albuterol sulfate 5 mg inhalation Q4H PRN albuterol sulfate 90 mcg/actuation 2 puffs inhalation Q6H PRN alprazolam 1 mg PO BEDTIME baclofen 1 tab PO TID bisacodyl (Dulcolax (bisacodyl)) 10 mg AR DAILY PRN blood sugar diagnostic As directed blood sugar diagnostic (Freestyle [employer] strips) bid blood sugar diagnostic (Freestyle [employer] Test Strips) bid blood-glucose meter (Freestyle [employer] meter) bid testing cetirizine 10 mg PO BID cholecalciferol (vitamin D3) 50 mcg PO DAILY 90 days clotrimazole 1% 1 appl topical DAILY cyclobenzaprine 10 mg PO BEDTIME PRN docusate sodium (Colace) 100 mg PO DAILY 90 days ferrous sulfate 325 mg PO DAILY 90 days fluticasone propionate 50 mcg/actuation (Allergy Relief (fluticasone)) 1 spray intranasal Q12H 30 days furosemide 40 mg PO DAILY PRN 90 days gabapentin 1 - 2 tabs PO TID hydrochlorothiazide 25 mg PO QAM insulin aspart U-100 (Novolog FlexPen U-100 Insulin aspart) 2 - 14 units (0.02 - 0.14 mL) subcut TID 30 days Lactobacillus acidophilus (Acidophilus capsule) 300 mg PO DAILY 30 days lancets (FreeStyle Lancets) As directed lansoprazole 30 mg PO DAILY lidocaine 5% 1 patch topical DAILY PRN methylcellulose (laxative) (Citrucel) 500 mg PO BID ondansetron HCl 4 mg PO Q8H PRN 7 days pen needle, diabetic As directed polyethylene glycol 3350 (Miralax) 17 grams PO DAILY potassium chloride ER 10 mEq PO DAILY 30 days rosuvastatin 40 mg PO DAILY sertraline 100 mg PO QAM sumatriptan succinate 100 mg PO DAILY PRN Do you need a note to return to daycare/school/sports/work: No HPI EP, headache HPI Details Patient presents for a sick visit. Reporting symptoms of sinus congestion, sore throat and difficulty swallowing. Low-grade fever. No family member is sick. No recent travel. Patient reports symptoms of malaise and fatigue. [facility] Medical History Neck pain Heart murmur Depression Esophagitis Hypokalemia Hyperlipidemia FH: HTN (hypertension) Diabetes mellitus Right sided sciatica Asthma Sacroiliac inflammation Surgical History Hx of esophagogastroduodenoscopy Hx of colonoscopy History of back surgery History of bilateral tubal ligation Family History Father Cancer Alzheimer's disease Mother HTN (hypertension) Diabetes mellitus Asthma Depression Stroke Cancer Maternal Grandfather No problems noted. Maternal Grandmother No problems noted. Paternal Grandfather No problems noted. Paternal Grandmother No problems noted. Brother No problems noted. Brother No problems noted. Sister Asthma Son No problems noted. Son No problems noted. Daughter No problems noted. Social History Household Members: Spouse and Children Housing: House Alcohol intake: current Alcohol intake frequency: holidays/special occasions only Patient Tobacco Use Status: Never used Tobacco e-Cigarette/Vaping Use: Never Used Second Hand Smoke Exposure: No service: No Current occupational status: disabled Cognitive needs: No Hearing needs: No Vision needs: No Female Reproductive History Menstrual Age of Menarche: 10 Physical Exam Vital Signs: Last Vital Signs Temp 98.1 F 09/02/23 09:02 Pulse 83 09/02/23 09:02 BP 128/70 09/02/23 09:02 Pulse Ox 97 09/02/23 09:02 Oxygen Delivery Method Room Air 09/02/23 09:02 BMI result Body Mass Index 33.6 Const General: cooperative and healthy appearing Nutritional Appearance: well nourished Orientation/consciousness: patient oriented x3 Limitations: no limitations HEENT Head: Yes normal to inspection Eyes General: appearance normal, both eyes and all related structures Neck Neck: Yes normal visual inspection Chest Chest palpation & inspection: normal palpation of entire chest wall Resp Effort & Inspection: normal respiratory effort Neuro General: patient oriented x3 Assessment & Plan Assessment & Plan (1) URI (upper respiratory infection): Code(s): J06.9 - Acute upper respiratory infection, unspecified Plan: Increase fluid intake. Tylenol for aches and pains. If symptoms worsen, follow-up here for a recheck. Flonase added to the regimen. No antibiotics needed. Coding Level of Care Code Est Pt Level 3 (88144) Diagnoses URI (upper respiratory infection) J06.9
== END 2023-09-02 09:53 | disposition home or self-care (01) ==
PROVIDERS: PCP Nurse Practitioner Family; Visit Provider Internal Medicine
DX: J06.9 Acute upper respiratory infection, unspecified (principal)
CPT/HCPCS: 99213

== ENCOUNTER 2023-09-04 10:56 | Outpatient (AMB) | payer OTHER, SELFPAY ==
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
[2023-09-04 11:00] VITALS: BP 130/100; PULSE 84; O2SAT 97
[2023-09-04 12:00] VITALS: BP 128/84
== END 2023-09-04 14:32 | disposition home or self-care (01) ==
PROVIDERS: PCP Nurse Practitioner Family; Visit Provider Nurse Practitioner Family
DX: S13.4XXA Sprain of ligaments of cervical spine, initial encounter (principal); V89.2XXA Person injured in unspecified motor-vehicle accident, traffic, initial encounter; R51.9 Headache, unspecified
CPT/HCPCS: 99213

== ENCOUNTER 2023-09-19 10:00 | Outpatient (AMB) | payer OTHER, SELFPAY ==
--- NOTE | 2023-09-19 10:02 | AM.OFFWIN_ITS ---
Intake Vital Signs 09/19/23 10:03 Height 4 ft 10 in Weight 162 lb BMI 33.9 BP 126/82 Blood Pressure Location Rt brachial Position Sitting Pulse 76 Pulse Source Pulse Oximeter Temp 97.8 F Temp Source Temporal Artery Scan Pulse Oximetry (%) 98 Intake Visit Reasons: EP Rt ear pain/chills/lft leg pain Intake Note: pt is here for c/o left ear pain, chills and left leg pain Patient Tobacco Use Status: Never used Tobacco Allergies mold Allergy (Mild, Verified 09/19/23 10:05) Unknown blue cheese Allergy (Mild, Uncoded 09/04/23 11:01) itchy throat Do you need a note to return to daycare/school/sports/work: Yes HPI EP Rt ear pain/chills/lft leg pain HPI Details 52-year-old female patient presents toda y with right ear pain x3 days. Reports having the chills, however no fever. Denies any shortness of breath or other sick symptoms. Also would like to discuss her left knee pain. This has been ongoing for several weeks. Pain is all over the front of her knee, and is worsened particularly with stairs. No prior injury. [facility] Medical History Neck pain Heart murmur Depression Esophagitis Hypokalemia Hyperlipidemia FH: HTN (hypertension) Diabetes mellitus Right sided sciatica Asthma Sacroiliac inflammation Surgical History Hx of esophagogastroduodenoscopy Hx of colonoscopy History of back surgery History of bilateral tubal ligation Family History Father Cancer Alzheimer's disease Mother HTN (hypertension) Diabetes mellitus Asthma Depression Stroke Cancer Maternal Grandfather No problems noted. Maternal Grandmother No problems noted. Paternal Grandfather No problems noted. Paternal Grandmother No problems noted. Brother No problems noted. Brother No problems noted. Sister Asthma Son No problems noted. Son No problems noted. Daughter No problems noted. Social History Household Members: Spouse and Children Housing: House Alcohol intake: current Alcohol intake frequency: holidays/special occasions only Patient Tobacco Use Status: Never used Tobacco e-Cigarette/Vaping Use: Never Used Second Hand Smoke Exposure: No service: No Current occupational status: disabled Cognitive needs: No Hearing needs: No Vision needs: No Female Reproductive History Menstrual Age of Menarche: 10 Review of Systems Const All systems reviewed & are unremarkable except as noted in HPI and below Physical Exam Const General: cooperative, healthy appearing, comfortable and no acute distress HEENT Head: Yes normal to inspection Ears: hearing grossly normal bilaterally, external ears normal, TM normal on the left and TM abnormal (right TM bulging, erythematous) General nose exam: Normal external nose present Mouth: Normal oral and palatal mucosa present Throat: Yes posterior oropharynx normal Neck Neck: Yes no lymphadenopathy Resp Effort & Inspection: normal respiratory effort and able to speak in complete sentences Auscultation: clear to auscultation bilaterally Cardio Jugular venous distension: no JVD Palpation: normal PMI Rate: regular rate Rhythm: regular rhythm Skin General skin exam: no rashes or lesions noted Extrem General: Yes capillary refill normal Left lower extremity: knee (Mild retropatellar tenderness, no swelling, normal, ligaments appear stable) Psych Appearance: grossly normal Mental Status: mental status grossly normal Speech and movement: Normal speech and movement present Assessment & Plan Assessment & Plan (1) Right nonsuppurative otitis media: Code(s): H65.91 - Unspecified nonsuppurative otitis media, right ear Plan: Augmentin for right OM. Reviewed indications, use, possible side effects. Advised Tylenol as needed. If she does not improve with treatment, she should return to the clinic for further evaluation. (2) Left anterior knee pain: Code(s): M25.562 - Pain in left knee Plan: She has some mild retropatellar tenderness. No injury. I am guessing she has a component osteoarthritis. X-ray ordered. Advised to follow with PCP. Recommended, ice, lidocaine topically as needed. Patient cannot take NSAIDs. Orders: Orders XR knee LT 2V Today M25.562 - Pain in left knee Medications: New amoxicillin-pot clavulanate 875-125 mg 1 tab PO BID 14 tabs 0RF 7 days H65.92 - Unspecified nonsuppurative otitis media, left ear Coding Level of Care Code Est Pt Level 3 (33505) Diagnoses Right nonsuppurative otitis media H65.91 Left anterior knee pain M25.562
[2023-09-19 10:03] VITALS: BP 126/82; PULSE 76; TEMP 36.6; O2SAT 98; BMI 33.9
== END 2023-09-19 10:16 | disposition home or self-care (01) ==
PROVIDERS: PCP Nurse Practitioner Family; Visit Provider Nurse Practitioner Family
DX: H65.91 Unspecified nonsuppurative otitis media, right ear (principal); M25.562 Pain in left knee
CPT/HCPCS: 99213

== ENCOUNTER 2023-09-24 08:00 | Outpatient (RCR) | payer OTHER, SELFPAY ==
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
--- NOTE | 2023-10-08 08:19 | MHC.OT.DC ---
[address] [phone] F: [phone] Occupational Therapy Discharge Note Patient Name: Robert aBbcock Provider: Bang Wilson Diagnosis: Pain in right hand Date of Surgery: Date of Evaluation: 09/20/23 Date of Discharge: Treatments to Date: 2 Cancellations to Date: 1 No Shows to Date: 3 Discharge Status: Visit Non-compliance Discharge Summary: Please see eval for details. Last visit 2 weeks ago. Pt with con't mild edema noted. Pt reports some dec in pain with MCP flexion block at night Electronically Signed By: Soniya Nicole OT CHT CLT Reviewed/agree with student documentation: Therapist: Please Sign and return to therapist, thank you for your referral.
== END 2023-10-08 08:20 | disposition home or self-care (01) ==
LOC: HO.OT 08:00
PROVIDERS: PCP Nurse Practitioner Family; Visit Provider Nurse Practitioner Family
DX: M79.641 Pain in right hand (principal)
CPT/HCPCS: 97035; 97110; 97165; 97760

== ENCOUNTER 2023-09-24 09:04 | Outpatient (REF) | payer OTHER, SELFPAY ==
--- NOTE | ~2023-09-24 | XR_ITS ---
EXAMINATION: XR KNEE, LEFT CLINICAL INFORMATION: Knee pain COMPARISON: None available. TECHNIQUE: Frontal, lateral and bilateral oblique views were acquired. Views of the left knee. FINDINGS: No fracture or bone lesion. Alignment is anatomic. Joint spaces are maintained. No abnormal soft tissue calcification. There is a small suprapatellar effusion. XR/XR knee LT 4V IMPRESSION: 1. Small suprapatellar effusion of the left knee.
== END 2023-09-24 09:05 | disposition home or self-care (01) ==
LOC: HO.HMGCX 09:04
PROVIDERS: PCP Nurse Practitioner Family; Visit Provider Nurse Practitioner Family
DX: M25.562 Pain in left knee (principal)
CPT/HCPCS: 73564

== ENCOUNTER 2023-10-01 07:09 | Outpatient (REF) | payer OTHER, SELFPAY ==
--- NOTE | ~2023-10-01 | MR_ITS ---
EXAMINATION: MR LUMBAR SPINE WITHOUT CONTRAST CLINICAL INFORMATION: Lower back pain COMPARISON: MRI lumbar spine 09/08/2020 TECHNIQUE: MRI of the lumbar spine was obtained using routine sequences without contrast. FINDINGS: Slight progression of grade 1 anterolisthesis of L4 on L5, previously trace and now measuring proximally 4 mm. No suspicious marrow signal or focal osseous lesion. Mild type II endplate marrow signal changes at L4-L5 The vertebral body heights are maintained. The intervertebral discs are of normal height and signal. The conus medullaris terminates at the level of T12-L1. The distal spinal cord is normal in appearance. The cauda equina nerve roots appear normal. No significant abnormalities of the paraspinal musculature. Limited evaluation of the intra-abdominal structures without significant abnormalities. The abdominal aorta is of normal contour and caliber. SPINAL LEVELS: T12-L1: No significant spinal canal or neural foraminal narrowing L1-L2: No significant spinal canal or neuroforaminal narrowing. L2-L3: No significant spinal canal or neuroforaminal narrowing. L3-L4: No significant spinal canal or neuroforaminal narrowing. Minimal disc bulge and mild facet arthropathy. L4-L5: Anterolisthesis with posterior disc uncovering, severe facet arthropathy. No significant central spinal canal stenosis. Stable subarticular zone narrowing. There is slight progression of moderate to severe bilateral neural foraminal narrowing. L5-S1: No significant spinal canal or neuroforaminal narrowing. Minimal disc bulge and mild facet arthropathy. MR/MR lumbar spine wo con IMPRESSION: 1. Slight progression of grade 1 anterolisthesis of L4 on L5 related to severe facet arthropathy. There is stable subarticular zone narrowing and slight worsening of moderate to severe bilateral neural foraminal narrowing at this level. 2. Otherwise mild degenerative changes of the lumbar spine have not significantly progressed compared to MRI from 09/08/2020.
== END 2023-10-01 07:10 | disposition home or self-care (01) ==
LOC: HO.MRI 07:09
PROVIDERS: PCP Nurse Practitioner Family; Visit Provider Nurse Practitioner Family
DX: M54.9 Dorsalgia, unspecified (principal); M79.605 Pain in left leg
CPT/HCPCS: 72148

== ENCOUNTER 2023-10-17 07:45 | Outpatient (AMB) | payer OTHER, SELFPAY ==
--- NOTE | 2023-10-17 07:48 | MHC.OFFVIS ---
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 She canceled previously and is here for rescheduling the procedure [facility] Medical History Neck pain Heart murmur Depression Esophagitis Hypokalemia Hyperlipidemia FH: HTN (hypertension) Diabetes mellitus Right sided sciatica Asthma Sacroiliac inflammation Surgical History Hx of esophagogastroduodenoscopy Hx of colonoscopy History of back surgery History of bilateral tubal ligation Family History Father Cancer Alzheimer's disease Mother HTN (hypertension) Diabetes mellitus Asthma Depression Stroke Cancer Maternal Grandfather No problems noted. Maternal Grandmother No problems noted. Paternal Grandfather No problems noted. Paternal Grandmother No problems noted. Brother No problems noted. Brother No problems noted. Sister Asthma Son No problems noted. Son No problems noted. Daughter No problems noted. Social History Household Members: Spouse and Children Housing: House Alcohol intake: current Alcohol intake frequency: holidays/special occasions only Patient Tobacco Use Status: Never used Tobacco e-Cigarette/Vaping Use: Never Used Second Hand Smoke Exposure: No service: No Current occupational status: disabled Cognitive needs: No Hearing needs: No Vision needs: No Female Reproductive History Menstrual Age of Menarche: 10 Date of last menstrual period: 09/08/20 Total pregnancies: 2 Full term: 2 Review of Systems Card Reports as per HPI and Reports no additional complaints Resp Reports as per HPI and Reports no additional complaints GI Reports as per HPI and Reports no additional complaints Reports as per HPI Physical Exam Const General: cooperative, healthy appearing and comfortable Chest Chest palpation & inspection: normal inspection of the chest and normal palpation of entire chest wall Breast/axilla inspection: normal inspection of the breasts and normal inspection of the axillae Breast/axilla palpation: normal palpation of the breasts, normal palpation of the axillae and no axillary lymphadenopathy Resp Effort & Inspection: normal respiratory effort Auscultation: clear to auscultation bilaterally Percussion: percussion normal Cardio Palpation: normal PMI Rate: regular rate Rhythm: regular rhythm Heart sounds: no murmurs and no rubs Peripheral pulses: Peripheral pulses 2+ throughout GI Inspection: Yes normal to inspection Palpation (GI): Soft to palpation, nontender, no guarding, not rigid and No hepatosplenomegaly present Percussion: Yes normal to percussion Auscultation: normal bowel sounds Rectal Exam - Female: deferred Assessment & Plan Assessment & Plan (1) Abnormal uterine bleeding (AUB): Code(s): N93.9 - Abnormal uterine and vaginal bleeding, unspecified Plan: Will schedule hysteroscopy D&C possible polypectomy/myomectomy. Discussed with the patient the procedure , all benefits and risks including but not limited to inability to complete the procedure , bleeding, infection, possible need for blood transfusion with all its risk ( HIV,syphilis, Hepatitis, anaphylaxis shock, others..), injury to bladder, rectum, possible need for laparoscopy/laparotomy or hysterectomy. The patient verbalized understanding and signed the consent. Instructions given the patient to schedule a 2 week postoperative appointment Coding Level of Care Code Est Pt Level 3 (15643) Diagnoses Abnormal uterine bleeding (AUB) N93.9
== END 2023-10-17 08:10 | disposition home or self-care (01) ==
PROVIDERS: PCP Nurse Practitioner Family; Visit Provider Obstetrics & Gynecology
DX: N93.9 Abnormal uterine and vaginal bleeding, unspecified (principal)
CPT/HCPCS: 99213

== ENCOUNTER → 2023-10-17 07:45 | Outpatient (BNVA) | payer OTHER, SELFPAY | PROVIDERS: PCP Nurse Practitioner Family; Visit Provider Obstetrics & Gynecology | DX: N93.9 Abnormal uterine and vaginal bleeding, unspecified (principal) | CPT/HCPCS: 99212 ==

== ENCOUNTER 2023-11-15 08:34 | Outpatient (AMB) | payer OTHER, SELFPAY ==
[2023-11-15 08:34] VITALS: BP 118/80; PULSE 84; TEMP 36.4; O2SAT 97; BMI 33.0
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
== END 2023-11-15 08:59 | disposition home or self-care (01) ==
PROVIDERS: PCP Nurse Practitioner Family; Visit Provider Nurse Practitioner Family
DX: H65.93 Unspecified nonsuppurative otitis media, bilateral (principal); M25.562 Pain in left knee
CPT/HCPCS: 99213

== ENCOUNTER 2023-11-15 08:54 | Outpatient (REF) | payer OTHER, SELFPAY | END 2023-11-15 08:55 | disposition home or self-care (01) | LOC: HO.XRAY 08:54 | PROVIDERS: PCP Nurse Practitioner Family; Visit Provider Nurse Practitioner Family | DX: M25.562 Pain in left knee (principal); H65.93 Unspecified nonsuppurative otitis media, bilateral; Z11.52 Encounter for screening for COVID-19; Z20.828 Contact with and (suspected) exposure to other viral communicable diseases | CPT/HCPCS: 0241U; 73560 ==

== ENCOUNTER 2023-11-25 15:40 | Outpatient (AMB) | payer OTHER, SELFPAY ==
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
[2023-11-25 15:50] VITALS: BP 130/98; PULSE 66; O2SAT 98
== END 2023-11-25 16:45 | disposition home or self-care (01) ==
PROVIDERS: PCP Nurse Practitioner Family; Visit Provider Nurse Practitioner Family
DX: M79.643 Pain in unspecified hand (principal); S13.4XXA Sprain of ligaments of cervical spine, initial encounter; V89.2XXA Person injured in unspecified motor-vehicle accident, traffic, initial encounter
CPT/HCPCS: 99213

== ENCOUNTER 2023-12-05 12:59 | Outpatient (AMB) | payer OTHER, SELFPAY ==
[2023-12-05 13:05] VITALS: BP 124/80; BMI 32.3
--- NOTE | 2023-12-05 13:05 | MHC.OFFVIS ---
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 Allergies mold Allergy (Mild, Verified 11/25/23 16:36) Unknown blue cheese Allergy (Mild, Uncoded 11/25/23 15:53) itchy throat Is last menstrual period known: Yes Last menstrual period: 09/08/20 Post menopausal: No Patient : No Do you need a note to return to daycare/school/sports/work: Yes (for surgery on saturday) HPI HPI Comments History of Present Illness Details Presenting to discuss the procedure hysteroscopy D&C possible polypectomy/myomectomy, the patient had EMB was insufficient tissues to rule out endometrial pathology, the patient was counseled about options of treatment including repeat EMB versus hysteroscopy D&C possible polypectomy/myomectomy and elected to proceed with the latter. No complaints PFSH Medical History Neck pain Heart murmur Depression Esophagitis Hypokalemia Hyperlipidemia FH: HTN (hypertension) Diabetes mellitus Right sided sciatica Asthma Sacroiliac inflammation Surgical History Hx of esophagogastroduodenoscopy Hx of colonoscopy History of back surgery History of bilateral tubal ligation Family History Father Cancer Alzheimer's disease Mother HTN (hypertension) Diabetes mellitus Asthma Depression Stroke Cancer Maternal Grandfather No problems noted. Maternal Grandmother No problems noted. Paternal Grandfather No problems noted. Paternal Grandmother No problems noted. Brother No problems noted. Brother No problems noted. Sister Asthma Son No problems noted. Son No problems noted. Daughter No problems noted. Social History Household Members: Spouse and Children Housing: House Alcohol intake: current Alcohol intake frequency: holidays/special occasions only Patient Tobacco Use Status: Never used Tobacco e-Cigarette/Vaping Use: Never Used Second Hand Smoke Exposure: No service: No Current occupational status: disabled Cognitive needs: No Hearing needs: No Vision needs: Yes Female Reproductive History Menstrual Age of Menarche: 10 Date of last menstrual period: 09/08/20 Total pregnancies: 2 Full term: 2 Review of Systems Card Reports as per HPI and Reports no additional complaints Resp Reports as per HPI and Reports no additional complaints GI Reports as per HPI and Reports no additional complaints Reports as per HPI Physical Exam Vital Signs: Last Vital Signs BP 124/80 12/05/23 13:05 BMI result Body Mass Index 32.3 Const General: cooperative, healthy appearing and comfortable Resp Effort & Inspection: normal respiratory effort Auscultation: clear to auscultation bilaterally Percussion: percussion normal Cardio Palpation: normal PMI Rate: regular rate Rhythm: regular rhythm Heart sounds: no murmurs and no rubs Peripheral pulses: Peripheral pulses 2+ throughout GI Inspection: Yes normal to inspection Palpation (GI): Soft to palpation, nontender, no guarding, not rigid and No hepatosplenomegaly present Percussion: Yes normal to percussion Auscultation: normal bowel sounds Rectal Exam - Female: deferred Assessment & Plan Assessment & Plan (1) Abnormal uterine bleeding (AUB): Code(s): N93.9 - Abnormal uterine and vaginal bleeding, unspecified Plan: Will schedule hysteroscopy D&C possible polypectomy/myomectomy. Discussed with the patient the procedure , all benefits and risks including but not limited to inability to complete the procedure , bleeding, infection, possible need for blood transfusion with all its risk ( HIV,syphilis, Hepatitis, anaphylaxis shock, others..), injury to bladder, rectum, possible need for laparoscopy/laparotomy or hysterectomy. The patient verbalized understanding and signed the consent. Instructions given the patient to schedule a 2 week postoperative appointment Coding Level of Care Code Est Pt Level 3 (39725) Diagnoses Abnormal uterine bleeding (AUB) N93.9
== END 2023-12-05 14:51 | disposition home or self-care (01) ==
PROVIDERS: PCP Nurse Practitioner Family; Visit Provider Obstetrics & Gynecology
DX: N93.9 Abnormal uterine and vaginal bleeding, unspecified (principal)
CPT/HCPCS: 99213

== ENCOUNTER → 2023-12-05 12:59 | Outpatient (BNVA) | payer OTHER, SELFPAY | PROVIDERS: PCP Nurse Practitioner Family; Visit Provider Obstetrics & Gynecology | DX: N93.9 Abnormal uterine and vaginal bleeding, unspecified (principal) | CPT/HCPCS: 99212 ==

== ENCOUNTER 2023-12-09 16:01 | Outpatient (REF) | payer OTHER, SELFPAY | END 2023-12-09 16:02 | disposition home or self-care (01) | LOC: HO.MAMMO 16:01 | PROVIDERS: PCP Nurse Practitioner Family; Visit Provider Nurse Practitioner Family | DX: Z12.31 Encounter for screening mammogram for malignant neoplasm of breast (principal) | CPT/HCPCS: 77063; 77067 ==

== ENCOUNTER → 2023-12-09 16:30 | Outpatient (BNV) | payer OTHER, SELFPAY | PROVIDERS: PCP Nurse Practitioner Family; Visit Provider Radiology Diagnostic Radiology | DX: Z12.31 Encounter for screening mammogram for malignant neoplasm of breast (principal) | CPT/HCPCS: 77063; 77067 ==

== ENCOUNTER 2023-12-17 08:05 | Outpatient (AMB) | payer OTHER, SELFPAY ==
[2023-12-17 08:13] VITALS: BP 122/80; PULSE 94; TEMP 36.6; O2SAT 96; BMI 33.9
--- NOTE | 2023-12-17 08:13 | AM.OFFWIN_ITS ---
Intake Vital Signs 12/17/23 08:13 Height 4 ft 10 in Weight 162 lb BMI 33.9 BP 122/80 Blood Pressure Location Lt brachial Position Sitting Pulse 94 Pulse Source Pulse Oximeter Temp 97.9 F Temp Source Oral Pulse Oximetry (%) 96 Intake Visit Reasons: EST/right knee swelling (lobby) Intake Note: pt is here for c.o right knee swelling for 2 weeks, pt denies injury Patient Tobacco Use Status: Never used Tobacco Allergies mold Allergy (Severe, Verified 12/17/23 08:34) itchy throat blue cheese Allergy (Severe, Uncoded 12/17/23 08:34) itchy throat Medication List - Last Reconciled 12/17/23 by Brandon Peacock MD acetaminophen (Tylenol) 650 mg (2 x 325 mg) PO QID PRN albuterol sulfate 5 mg inhalation Q4H PRN albuterol sulfate 90 mcg/actuation 2 puffs inhalation Q6H PRN alprazolam 1 mg PO BEDTIME bisacodyl (Dulcolax (bisacodyl)) 10 mg [place] DAILY PRN blood sugar diagnostic As directed blood sugar diagnostic (Freestyle [employer] strips) bid blood sugar diagnostic (Freestyle [employer] Test Strips) bid blood-glucose meter (Freestyle [employer] meter) bid testing cetirizine 10 mg PO BID cholecalciferol (vitamin D3) 50 mcg PO DAILY 90 days cyclobenzaprine 10 mg PO BEDTIME PRN docusate sodium (Colace) 100 mg PO DAILY 90 days ferrous sulfate 325 mg PO DAILY 90 days fluticasone propionate 50 mcg/actuation (Allergy Relief (fluticasone)) 1 spray intranasal Q12H 30 days fluticasone propionate 50 mcg/actuation (Children's Flonase Allergy Relief) 1 spray intranasal DAILY furosemide 40 mg PO DAILY PRN 90 days gabapentin 1 - 2 tabs PO TID hydrochlorothiazide 25 mg PO QAM insulin aspart U-100 (Novolog FlexPen U-100 Insulin aspart) 2 - 14 units (0.02 - 0.14 mL) subcut TID 30 days Lactobacillus acidophilus (Acidophilus capsule) 300 mg PO DAILY 30 days lancets (FreeStyle Lancets) As directed lansoprazole 30 mg PO DAILY lidocaine 5% 1 patch topical DAILY PRN losartan 25 mg PO DAILY magnesium oxide 400 mg PO DAILY magnesium oxide 400 mg PO DAILY methylcellulose (laxative) (Citrucel) 500 mg PO BID ondansetron HCl 4 mg PO Q8H PRN 7 days pen needle, diabetic As directed polyethylene glycol 3350 (Miralax) 17 grams PO DAILY potassium chloride ER 10 mEq PO DAILY 30 days riboflavin (vitamin B2) 400 mg PO DAILY rosuvastatin 40 mg PO DAILY sertraline 100 mg PO QAM sumatriptan succinate 150 mg PO DAILY PRN Do you need a note to return to daycare/school/sports/work: No HPI EST/right knee swelling (lobby) HPI Details 53-year-old female presents to [facility] for a sick visit. She has 2 complaints. Patient is complaining of pain and swelling in the right knee for the past few days. She has trouble bearing weight on the right leg. Does not recall any fall or injury. Walking with a limp. Pain is more pronounced on climbing stairs. She is also complaining of itchy ears for the past few days. No cold symptoms. [facility] Medical History (Updated 12/17/23 @ 08:41 by Brandon Peacock MD) Anxiety INGRID (obstructive sleep apnea) Neck pain Heart murmur Depression Esophagitis Hypokalemia Hyperlipidemia FH: HTN (hypertension) Diabetes mellitus Right sided sciatica Asthma Sacroiliac inflammation Surgical History (Updated 12/13/23 @ 16:24 by Helena Deluna RN) S/p bilateral carpal tunnel release Hx of esophagogastroduodenoscopy Hx of colonoscopy History of back surgery History of bilateral tubal ligation Family History Father Cancer Alzheimer's disease Mother HTN (hypertension) Diabetes mellitus Asthma Depression Stroke Cancer Maternal Grandfather No problems noted. Maternal Grandmother No problems noted. Paternal Grandfather No problems noted. Paternal Grandmother No problems noted. Brother No problems noted. Brother No problems noted. Sister Asthma Son No problems noted. Son No problems noted. Daughter No problems noted. Social History Household Members: Spouse and Children Housing: House Are you a primary client care coordinator to a significant other at home: No Do you presently have visiting nurse or other home services: No Alcohol intake: current Alcohol intake frequency: holidays/special occasions only Patient Tobacco Use Status: Never used Tobacco e-Cigarette/Vaping Use: Never Used Second Hand Smoke Exposure: No service: No Current occupational status: disabled Cognitive needs: No Hearing needs: No Vision needs: Yes Female Reproductive History Menstrual Age of Menarche: 10 Physical Exam Vital Signs: Last Vital Signs Temp 97.9 F 12/17/23 08:13 Pulse 94 12/17/23 08:13 BP 122/80 12/17/23 08:13 Pulse Ox 96 12/17/23 08:13 BMI result Body Mass Index 33.9 Const General: cooperative and healthy appearing Nutritional Appearance: well nourished Orientation/consciousness: patient oriented x3 Limitations: no limitations HEENT Other: Right and left ear canals: Ear canal is congested, no wax. Tympanic membrane is visualized Head: Yes normal to inspection Eyes General: appearance normal, both eyes and all related structures Neck Neck: Yes normal visual inspection Chest Chest palpation & inspection: normal palpation of entire chest wall Resp Effort & Inspection: normal respiratory effort Neuro General: patient oriented x3 Extrem Other: Patient was examined with a drape around her upper legs. And the knee is exposed. Right knee: Minimal swelling and tenderness along the joint line on the medial side. Full range of motion. Assessment & Plan Assessment & Plan (1) Bilateral external ear infections: Comment: Cortisporin ear drops prescribed. Code(s): H60.93 - Unspecified otitis externa, bilateral (2) Sprain of right knee: Code(s): S83.91XA - Sprain of unspecified site of right knee, initial encounter Plan Meloxicam called in. X-ray images of the right knee personally reviewed by me. pt has a knee brace Coding Level of Care Code Est Pt Level 4 (06562) Diagnoses Bilateral external ear infections H60.93 Sprain of right knee S83.91XA
== END 2023-12-17 08:59 | disposition home or self-care (01) ==
PROVIDERS: PCP Nurse Practitioner Family; Visit Provider Internal Medicine
DX: H60.93 Unspecified otitis externa, bilateral (principal); S83.91XA Sprain of unspecified site of right knee, initial encounter
CPT/HCPCS: 99214

== ENCOUNTER 2023-12-17 08:34 | Outpatient (REF) | payer OTHER, SELFPAY ==
--- NOTE | ~2023-12-17 | XR_ITS ---
EXAMINATION: XR KNEE, RIGHT CLINICAL INFORMATION: Sprain of unspecified site of right knee, initial encounter COMPARISON: None available. TECHNIQUE: Four views of the right knee. FINDINGS: There is mild soft tissue swelling inferior to the patella. There is increased density in Hoffa's fat pad. No fracture. Small joint effusion. Alignment is anatomic. Joint spaces are maintained. Tricompartment marginal osteophytes are noted. No abnormal soft tissue calcification. XR/XR knee RT 4V IMPRESSION: 1. No acute bony abnormality. 2. Small joint effusion. 3. Increased density in Hoffa's fat pad.
== END 2023-12-17 08:35 | disposition home or self-care (01) ==
LOC: HO.HMGCX 08:34
PROVIDERS: PCP Nurse Practitioner Family; Visit Provider Internal Medicine
DX: S83.91XA Sprain of unspecified site of right knee, initial encounter (principal)
CPT/HCPCS: 73564

== ENCOUNTER 2023-12-20 12:47 | Day surgery (SDC) | payer OTHER, SELFPAY ==
[2023-08-28 11:27] VITALS: BMI 34.1
--- NOTE | 2023-08-29 10:39 | HO.ANESPROP2 ---
HPI - Anesthesia Eval Consult details Narrative: 52yo F for D&C Hysteroscopy,poss myomectomy,poss polypectomy, 09/27/23 Hx of cancel d/t + utox PMFSH Active Problems Active Problems: All Active Problems (Updated 08/28/23 @ 11:25 by Maureen Anderson, [place]) Recurrent biliary colic (Acute) Fibroids (Acute) Leukocytosis (Acute) Women's annual routine gynecological examination (Acute) Breast cancer screening (Acute) Abnormal uterine bleeding (AUB) (Acute) Pharyngitis with viral syndrome (Acute) Cough (Acute) Sciatica (Acute) Viral syndrome (Acute) Chronic otitis media of right ear with effusion (Acute) Right otitis media (Acute) Depression, major, recurrent (Acute) New onset headache (Acute) Cocaine abuse (Acute) Systolic murmur (Acute) Elevated alkaline phosphatase level (Acute) Otitis externa of both ears (Acute) Abdominal pain (Acute) Dermatitis of ear canal (Acute) URI (upper respiratory infection) (Acute) ASCUS of cervix with negative high risk HPV (Acute) Constipation (Acute) Hx of abnormal cervical Pap smear (Acute) Well woman exam with routine gynecological exam (Acute) Perimenopausal (Acute) Gallbladder polyp (Acute) Elevated liver enzymes (Acute) Post-menopausal (Acute) Pain of back and left lower extremity (Acute) Physical exam (Acute) Colonoscopy planned (Acute) Acid reflux (Acute) Acute sinusitis (Acute) Wrist pain (Acute) Toe injury (Acute) Otitis media (Acute) Environmental allergies (Acute) Acute sinusitis (Acute) Otitis externa (Acute) Abdominal pain (Acute) Hypokalemia (Acute) Otitis media (Acute) Hypotension (Acute) Gastritis (Acute) Ankle pain, right (Acute) Knee pain, right (Acute) Cervical radiculopathy (Acute) Urinary incontinence in female (Acute) Neck pain (Acute) Esophagitis (Acute) Right sided sciatica (Acute) History of bilateral tubal ligation (Acute) Asthma (Acute) Diabetes mellitus (Acute) Past Medical History Medical History Neck pain Heart murmur Depression Esophagitis Hypokalemia Hyperlipidemia FH: HTN (hypertension) Diabetes mellitus Right sided sciatica Asthma Sacroiliac inflammation Family History Family History Father Cancer Alzheimer's disease Mother HTN (hypertension) Diabetes mellitus Asthma Depression Stroke Cancer Maternal Grandfather No problems noted. Maternal Grandmother No problems noted. Paternal Grandfather No problems noted. Paternal Grandmother No problems noted. Brother No problems noted. Brother No problems noted. Sister Asthma Son No problems noted. Son No problems noted. Daughter No problems noted. Family history of problems with anesthesia: No Surgical History Surgical History Hx of esophagogastroduodenoscopy Hx of colonoscopy History of back surgery History of bilateral tubal ligation History of Problems with Anesthesia: No Social History Social History Household Members: Spouse and Children Housing: House Alcohol intake: current Alcohol intake frequency: holidays/special occasions only Patient Tobacco Use Status: Never used Tobacco e-Cigarette/Vaping Use: Never Used Second Hand Smoke Exposure: No service: No Current occupational status: disabled Cognitive needs: No Hearing needs: No Vision needs: No Meds Allergies Allergy/AdvReac Type Severity Reaction Status Date / Time mold Allergy Mild Unknown Verified 09/04/23 11:01 blue cheese Allergy Mild itchy Uncoded 09/04/23 11:01 throat Home Medications Medication Instructions Recorded Confirmed Last Taken Type baclofen 10 mg tablet 1 tab PO TID 11/13/20 09/04/23 11/12/20 History gabapentin 600 mg tablet 1 - 2 tab PO TID 11/13/20 09/04/23 03/21/22 08:15 History alprazolam 1 mg tablet 1 mg PO BEDTIME 02/23/21 09/04/23 Unknown History blood sugar diagnostic #10 ea 02/23/21 09/04/23 Unknown History lancets 28 gauge (FreeStyle 10/04/21 09/04/23 Unknown History Lancets) sertraline 100 mg tablet 100 mg PO QAM 01/04/22 09/04/23 03/21/22 08:15 History clotrimazole 1 % topical solution 1 appl topical DAILY 10/23/22 09/04/23 Unknown History sumatriptan succinate 100 mg tablet 150 mg PO DAILY PRN Headache 09/04/23 09/04/23 Unknown History Exam Exam Date and Time: August 29, 2023 1039 Height,Weight and Vital Signs: Height 4 ft 10 in Weight 73.936 kg Assessment and Plan Assessment Anesthesia Assessment: Chart Reviewed Final Anesthetic Review Family History of Problems with Anesthesia: No History of Problems with Anesthesia: No
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
[2023-12-11 08:59] VITALS: BMI 32.4
--- NOTE | 2023-12-12 10:34 | P.CONAN_ITS ---
Documented by User: Mimi Up NP 12/19/23 09:23 HPI - Anesthesia Eval Consult details Narrative: 53yo F for Dilation and Curettage Hysteroscopy possible myometomy/polypectomy Previous DOS cancel for + utox PMFSH Active Problems Active Problems: All Active Problems (Updated 11/25/23 @ 16:22 by Bang Wilson, [facility]) Hand pain (Acute) Left knee pain (Acute) Headache (Acute) Whiplash injury (Acute) Recurrent biliary colic (Acute) Fibroids (Acute) Leukocytosis (Acute) Women's annual routine gynecological examination (Acute) Breast cancer screening (Acute) Abnormal uterine bleeding (AUB) (Acute) Pharyngitis with viral syndrome (Acute) Cough (Acute) Sciatica (Acute) Viral syndrome (Acute) Chronic otitis media of right ear with effusion (Acute) Right otitis media (Acute) Depression, major, recurrent (Acute) New onset headache (Acute) Cocaine abuse (Acute) Systolic murmur (Acute) Elevated alkaline phosphatase level (Acute) Otitis externa of both ears (Acute) Abdominal pain (Acute) Dermatitis of ear canal (Acute) URI (upper respiratory infection) (Acute) ASCUS of cervix with negative high risk HPV (Acute) Constipation (Acute) Hx of abnormal cervical Pap smear (Acute) Well woman exam with routine gynecological exam (Acute) Perimenopausal (Acute) Gallbladder polyp (Acute) Elevated liver enzymes (Acute) Post-menopausal (Acute) Pain of back and left lower extremity (Acute) Physical exam (Acute) Colonoscopy planned (Acute) Acid reflux (Acute) Acute sinusitis (Acute) Wrist pain (Acute) Toe injury (Acute) Otitis media (Acute) Environmental allergies (Acute) Acute sinusitis (Acute) Otitis externa (Acute) Abdominal pain (Acute) Hypokalemia (Acute) Otitis media (Acute) Hypotension (Acute) Gastritis (Acute) Ankle pain, right (Acute) Knee pain, right (Acute) Cervical radiculopathy (Acute) Urinary incontinence in female (Acute) Neck pain (Acute) Esophagitis (Acute) Right sided sciatica (Acute) History of bilateral tubal ligation (Acute) Asthma (Acute) Diabetes mellitus (Acute) Past Medical History Medical History (Updated 12/17/23 @ 08:41 by Brandon Peacock MD) Anxiety INGRID (obstructive sleep apnea) Neck pain Heart murmur Depression Esophagitis Hypokalemia Hyperlipidemia FH: HTN (hypertension) Diabetes mellitus Right sided sciatica Asthma Sacroiliac inflammation Family History Family History Father Cancer Alzheimer's disease Mother HTN (hypertension) Diabetes mellitus Asthma Depression Stroke Cancer Maternal Grandfather No problems noted. Maternal Grandmother No problems noted. Paternal Grandfather No problems noted. Paternal Grandmother No problems noted. Brother No problems noted. Brother No problems noted. Sister Asthma Son No problems noted. Son No problems noted. Daughter No problems noted. Family history of problems with anesthesia: No Surgical History Surgical History (Updated 12/13/23 @ 16:24 by Helena Deluna RN) S/p bilateral carpal tunnel release Hx of esophagogastroduodenoscopy Hx of colonoscopy History of back surgery History of bilateral tubal ligation History of Problems with Anesthesia: No Social History Social History Household Members: Spouse and Children Housing: House Are you a primary vehicle care specialist to a significant other at home: No Do you presently have visiting nurse or other home services: No Alcohol intake: current Alcohol intake frequency: holidays/special occasions only Patient Tobacco Use Status: Never used Tobacco e-Cigarette/Vaping Use: Never Used Second Hand Smoke Exposure: No Have you been hit, kicked, punched, or otherwise hurt by someone within the past year? If so, by whom?: No Are you DNR?: No Advance Directives: No Advance Directives Information Provided: Yes Advance Directives on File: No Recently lost weight without trying: No Nutrition Risks: No Nutritional Risk Patient : No FDLMP: unknown-irregular : No service: No Current occupational status: disabled Cognitive needs: No Hearing needs: No Vision needs: Yes Meds Allergies Allergy/AdvReac Type Severity Reaction Status Date / Time mold Allergy Severe itchy Verified 12/17/23 08:34 throat blue cheese Allergy Severe itchy Uncoded 12/17/23 08:34 throat Home Medications Medication Instructions Recorded Confirmed Last Taken Type gabapentin 600 mg tablet 1 - 2 tab PO TID 11/13/20 12/13/23 03/21/22 08:15 History alprazolam 1 mg tablet 1 mg PO BEDTIME 02/23/21 12/13/23 Unknown History blood sugar diagnostic #10 ea 02/23/21 11/25/23 Unknown History lancets 28 gauge (FreeStyle 10/04/21 11/25/23 Unknown History Lancets) sertraline 100 mg tablet 100 mg PO QAM 01/04/22 12/13/23 03/21/22 08:15 History sumatriptan succinate 100 mg tablet 150 mg PO DAILY PRN Headache 09/04/23 12/13/23 Unknown History Exam Height,Weight and Vital Signs: Height 4 ft 10 in Weight 70.307 kg Assessment and Plan Assessment Anesthesia Assessment: Chart Reviewed Final Anesthetic Review Family History of Problems with Anesthesia: No History of Problems with Anesthesia: No Documented by User: Roberta Bradley MD 12/20/23 13:19 [facility] Past Medical History Medical History (Updated 12/17/23 @ 08:41 by Brandon Peacock MD) Anxiety INGRID (obstructive sleep apnea) Neck pain Heart murmur Depression Esophagitis Hypokalemia Hyperlipidemia FH: HTN (hypertension) Diabetes mellitus Right sided sciatica Asthma Sacroiliac inflammation Family History Family History Father Cancer Alzheimer's disease Mother HTN (hypertension) Diabetes mellitus Asthma Depression Stroke Cancer Maternal Grandfather No problems noted. Maternal Grandmother No problems noted. Paternal Grandfather No problems noted. Paternal Grandmother No problems noted. Brother No problems noted. Brother No problems noted. Sister Asthma Son No problems noted. Son No problems noted. Daughter No problems noted. Surgical History Surgical History (Updated 12/13/23 @ 16:24 by Heelna Deluna RN) S/p bilateral carpal tunnel release Hx of esophagogastroduodenoscopy Hx of colonoscopy History of back surgery History of bilateral tubal ligation Social History Social History Household Members: Spouse and Children Housing: House Are you a primary vehicle care specialist to a significant other at home: No Do you presently have visiting nurse or other home services: No Alcohol intake: current Alcohol intake frequency: holidays/special occasions only Patient Tobacco Use Status: Never used Tobacco e-Cigarette/Vaping Use: Never Used Second Hand Smoke Exposure: No Have you been hit, kicked, punched, or otherwise hurt by someone within the past year? If so, by whom?: No Are you DNR?: No Advance Directives: No Advance Directives Information Provided: Yes Advance Directives on File: No Recently lost weight without trying: No Nutrition Risks: No Nutritional Risk Patient : No FDLMP: unknown-irregular : No service: No Current occupational status: disabled Cognitive needs: No Hearing needs: No Vision needs: Yes Meds Allergies Allergy/AdvReac Type Severity Reaction Status Date / Time mold Allergy Severe itchy Verified 12/17/23 08:34 throat blue cheese Allergy Severe itchy Uncoded 12/17/23 08:34 throat Home Medications Medication Instructions Recorded Confirmed Last Taken Type gabapentin 600 mg tablet 1 - 2 tab PO TID 11/13/20 12/13/23 03/21/22 08:15 History alprazolam 1 mg tablet 1 mg PO BEDTIME 02/23/21 12/13/23 Unknown History blood sugar diagnostic #10 ea 02/23/21 11/25/23 Unknown History lancets 28 gauge (FreeStyle 10/04/21 11/25/23 Unknown History Lancets) sertraline 100 mg tablet 100 mg PO QAM 01/04/22 12/13/23 03/21/22 08:15 History sumatriptan succinate 100 mg tablet 150 mg PO DAILY PRN Headache 09/04/23 12/13/23 Unknown History Exam Airway Mallampati Class: II TM Dist: >3cm Neck ROM: Full Partial: Lower Heart: rrr Lungs: cta Assessment and Plan Assessment Anesthesia Assessment: Anesthesia Plan Discussed Final Anesthetic Review NPO: Yes ASA Class: III Final Preanesthetic Review: No Changes in Pt Med Stat, Meds/Allgs Chart Reviewed and Consent Obtained/Reviewed Patient Risk: Intermediate Procedure Risk: Intermediate Anesthetic Plan Anesthetic Plan: GA Disposition: Standard PACU
[2023-12-20] VITALS (7 sets, daily range): BP systolic 119–157; BP diastolic 57–105; PULSE 71–81; RESP 15–16; TEMP 36.3–36.7; O2SAT 95–98; BMI 33.0
[2023-12-20 13:48] LABS: Glucose, Whole Blood 114 mg/dL (60-115)
[2023-12-20] MEDS: Lactated Ringers 1,000 ML 100 ML IVCONT (13:51)
--- NOTE | 2023-12-20 13:54 | PC.NURSE ---
pt admitted to cocaine use 1 week ago, unable to provide a urine sample for urine tox. ivf bolus started. dr riggs from anesthesia aware and ok'd to proceed without urine sample.
--- NOTE | 2023-12-20 14:10 | PC.NURSE ---
pt had about 600 ml ivf, not able to void
--- NOTE | 2023-12-20 14:28 | MHC.SHP ---
Pre-Procedural Eval Section A - 24 Hr Update-Section A only Date of Service: 12/20/23 Section B - Complete if H&P > 30 days Chief Complaint: Abnormal uterine and vaginal bleeding, unspecified Allergies: Allergies Allergy/AdvReac Type Severity Reaction Status Date / Time mold Allergy Severe itchy Verified 12/20/23 13:30 throat blue cheese Allergy Severe itchy Uncoded 12/17/23 08:34 throat Plan I have reviewed the history and physical and performed a pertinent physical examination on my patient. No changes have occurred unless specified. Time Spent With Patient Time: Total time managing care of this patient today ____ minutes.
--- NOTE | 2023-12-20 14:31 | PC.NURSE ---
1423 Dr. Bender requested bladder scan, completed with 87ml residual. and Dr. Mosqueda aware and confirmed OK to proceed without urine specimen. Dr. Bender anticipates draining bladder intraoperatively.
--- NOTE | 2023-12-20 15:14 | P.OP_ITS ---
Operative Note Operative Note Date of Service: 12/20/23 Narrative: Preop Diagnosis: Abnormal uterine bleeding Operation: Diagnostic Hysteroscopy, Dilataion & Curettage and polypectomy Post Op Diagnosis: Endometrial Polyp QBL: Minimal Anesthesia: GLMA Surgeon: Marino Bender MD Scheduling Specialist: None Complication: None Pathology: Endometrial Scrapings, Endometrial polyp Procedure: The patient was put in the dorsal lithotomy position, scrubbed, and draped in the usual manner. A sterile speculum was inserted in the patient's vagina. The anterior lip of the cervix was grasped with a single tooth tenaculum. The cervix was dilated up to 5 mm, then the scope was inserted in the patient's uterus. Inspection revealed endometrial polyp. The Myosure Reach device was used; it was introduced through the operative channel and polypectomy done with no complications. The scope was then taken out from the uterine cavity, sharp curettings was carried on with minimal amount of tissues retrieved. At the end of the procedure, all instruments were taken out of the patient uterine and vaginal cavity. The single tooth tenaculum was removed and homeostasis was assured using pressure,. The patient tolerated the procedure well and was transferred to the PACU in a stable condition.
--- NOTE | 2023-12-20 15:14 | PM.OP ---
Brief Operative Note Date of Service: 12/20/23 Pre-op diagnosis: Abnormal uterine bleeding Post-op diagnosis: same (Endometrial polyp) Procedure: Hysteroscopy D&C, Polypectomy Surgeon: Marino Bender MD Anesthesia: GLMA Was an Marketing And Outreach Coordinator used for this Procedure?: No Estimated blood loss (mL): 0 Pathology: other (Endometrial Scrapping. Polyp) Condition: stable Disposition: PACU
--- NOTE | 2023-12-20 15:23 | HO.ANESPROP2 ---
HPI - Anesthesia Eval Consult details Narrative: for D&C, hysteroscopy PMFSH Active Problems Active Problems: All Active Problems (Updated 12/20/23 @ 13:29 by Melania Bailey, RN) Hand pain (Acute) Left knee pain (Acute) Headache (Acute) Whiplash injury (Acute) Recurrent biliary colic (Acute) Fibroids (Acute) Leukocytosis (Acute) Women's annual routine gynecological examination (Acute) Breast cancer screening (Acute) Abnormal uterine bleeding (AUB) (Acute) Pharyngitis with viral syndrome (Acute) Cough (Acute) Sciatica (Acute) Viral syndrome (Acute) Chronic otitis media of right ear with effusion (Acute) Right otitis media (Acute) Depression, major, recurrent (Acute) New onset headache (Acute) Cocaine abuse (Acute) Systolic murmur (Acute) Elevated alkaline phosphatase level (Acute) Otitis externa of both ears (Acute) Abdominal pain (Acute) Dermatitis of ear canal (Acute) URI (upper respiratory infection) (Acute) ASCUS of cervix with negative high risk HPV (Acute) Constipation (Acute) Hx of abnormal cervical Pap smear (Acute) Well woman exam with routine gynecological exam (Acute) Perimenopausal (Acute) Gallbladder polyp (Acute) Elevated liver enzymes (Acute) Post-menopausal (Acute) Pain of back and left lower extremity (Acute) Physical exam (Acute) Colonoscopy planned (Acute) Acid reflux (Acute) Acute sinusitis (Acute) Wrist pain (Acute) Toe injury (Acute) Otitis media (Acute) Environmental allergies (Acute) Acute sinusitis (Acute) Otitis externa (Acute) Abdominal pain (Acute) Hypokalemia (Acute) Otitis media (Acute) Hypotension (Acute) Gastritis (Acute) Ankle pain, right (Acute) Knee pain, right (Acute) Cervical radiculopathy (Acute) Urinary incontinence in female (Acute) Neck pain (Acute) Esophagitis (Acute) Right sided sciatica (Acute) History of bilateral tubal ligation (Acute) Asthma (Acute) Diabetes mellitus (Acute) Past Medical History Medical History HTN (hypertension) Anxiety INGRID (obstructive sleep apnea) Neck pain Heart murmur Depression Esophagitis Hypokalemia Hyperlipidemia FH: HTN (hypertension) Diabetes mellitus Right sided sciatica Asthma Sacroiliac inflammation Patient : No (tubal) Family History Family History Father Cancer Alzheimer's disease Mother HTN (hypertension) Diabetes mellitus Asthma Depression Stroke Cancer Maternal Grandfather No problems noted. Maternal Grandmother No problems noted. Paternal Grandfather No problems noted. Paternal Grandmother No problems noted. Brother No problems noted. Brother No problems noted. Sister Asthma Son No problems noted. Son No problems noted. Daughter No problems noted. Family history of problems with anesthesia: No Surgical History Surgical History S/p bilateral carpal tunnel release Hx of esophagogastroduodenoscopy Hx of colonoscopy History of back surgery History of bilateral tubal ligation History of Problems with Anesthesia: No Social History Social History Household Members: Spouse and Children Housing: House Are you a primary director long term care to a significant other at home: No Do you presently have visiting nurse or other home services: No Alcohol intake: current Alcohol intake frequency: holidays/special occasions only Patient Tobacco Use Status: Never used Tobacco e-Cigarette/Vaping Use: Never Used Second Hand Smoke Exposure: No Have you been hit, kicked, punched, or otherwise hurt by someone within the past year? If so, by whom?: No Are you DNR?: No Advance Directives: No Advance Directives Information Provided: Yes Advance Directives on File: No Recently lost weight without trying: No Nutrition Risks: No Nutritional Risk Patient : No FDLMP: unknown-irregular : No service: No Current occupational status: disabled Cognitive needs: No Hearing needs: No Vision needs: Yes Meds Allergies Allergy/AdvReac Type Severity Reaction Status Date / Time mold Allergy Severe itchy Verified 12/20/23 13:30 throat blue cheese Allergy Severe itchy Uncoded 12/17/23 08:34 throat Active Medications: Current Medications Albuterol Sulfate (Albuterol Sulfate (0.083%) 2.5 Mg/3 Ml Vial.Neb) 2.5 mg INHALE ONCE PRN PRN Reason: Shortness of Breath/Wheezing Fentanyl (Fentanyl Citrate/Pf 100 Mcg/2 Ml Vial) 50 mcg IVPUSH Q5M PRN; Protocol PRN Reason: Pain, Severe (Pain Scale 7-10) Lactated Ringer's (Lr) 1,000 mls @ 100 mls/hr IVCONT .Q10H MOIRA Last Admin: 12/20/23 13:51 Dose: 100 mls/hr Oxycodone HCl (Oxycodone Hcl Immed Release 5 Mg Tablet) 5 mg PO ONCE PRN PRN Reason: Pain, Severe (Pain Scale 7-10) Home Medications Medication Instructions Recorded Confirmed Last Taken Type gabapentin 600 mg tablet 1 - 2 tab PO TID 11/13/20 12/20/23 12/20/23 07:00 History alprazolam 1 mg tablet 1 mg PO BEDTIME 02/23/21 12/20/23 Unknown History blood sugar diagnostic #10 ea 02/23/21 12/20/23 Unknown History lancets 28 gauge (FreeStyle 10/04/21 12/20/23 Unknown History Lancets) sertraline 100 mg tablet 100 mg PO QAM 01/04/22 12/20/23 12/20/23 07:00 History sumatriptan succinate 100 mg tablet 150 mg PO DAILY PRN Headache 09/04/23 12/20/23 Unknown History Exam Height,Weight and Vital Signs: Height 4 ft 10 in Weight 71.668 kg Last Vital Signs Temp 98.1 F 12/20/23 13:40 Pulse 81 12/20/23 13:40 Resp 15 12/20/23 13:40 BP 119/73 12/20/23 13:40 Pulse Ox 95 12/20/23 13:40 O2 Del Method Room Air 12/20/23 13:40 Pertinent Lab Results Pertinent Lab Results: Laboratory Tests 12/20/23 13:44 POC Glucose 114 Airway Mallampati Class: II TM Dist: >3cm Neck ROM: Full Partial: Lower Heart: ok Lungs: ok Assessment and Plan Assessment Anesthesia Assessment: Anesthesia Plan Discussed and Chart Reviewed Final Anesthetic Review Family History of Problems with Anesthesia: No History of Problems with Anesthesia: No NPO: Yes ASA Class: III Final Preanesthetic Review: No Changes in Pt Med Stat, Meds/Allgs Chart Reviewed, Consent Obtained/Reviewed and Anes Risks/Benef Reviewed Patient Risk: Intermediate Procedure Risk: Low Anesthetic Plan Anesthetic Plan: GA and Agree w/ Assess. and Plan Disposition: Standard PACU
== END 2023-12-20 16:16 | disposition home or self-care (01) ==
PROVIDERS: PCP Nurse Practitioner Family; Visit Provider Obstetrics & Gynecology
PROC: 0UDB8ZZ Extraction of Endometrium, Via Natural or Artificial Opening Endoscopic (ICD-10-PCS; CPT 58558; principal; 2023-12-20 14:50)
DX: N84.0 Polyp of corpus uteri (principal); N93.9 Abnormal uterine and vaginal bleeding, unspecified; E11.9 Type 2 diabetes mellitus without complications; E78.5 Hyperlipidemia, unspecified; Z79.02 Long term (current) use of antithrombotics/antiplatelets; Z79.4 Long term (current) use of insulin; Z79.899 Other long term (current) drug therapy
CPT/HCPCS: 58558; 82947; 88305

== ENCOUNTER → 2023-12-20 12:47 | Outpatient (BNV) | payer OTHER, SELFPAY | PROVIDERS: PCP Nurse Practitioner Family; Visit Provider Obstetrics & Gynecology | DX: N84.0 Polyp of corpus uteri (principal); N93.9 Abnormal uterine and vaginal bleeding, unspecified | CPT/HCPCS: 58558 ==

== ENCOUNTER → 2023-12-20 12:50 | Day surgery (SDC) | payer OTHER, SELFPAY ==
[2023-08-15 15:22] VITALS: BMI 33.2
--- NOTE | 2023-08-20 09:15 | HO.ANESPROP2 ---
HPI - Anesthesia Eval Consult details Narrative: 52yo F for Cholecystectomy Laparoscopic, poss open Previously cx'd for + tox screen Chronic hypokalemia - daily K supplement Chronic steroids - prednisone 10mg QOD PMFSH Active Problems Active Problems: All Active Problems (Updated 08/16/23 @ 00:02 by Background Charlie) Recurrent biliary colic (Acute) Fibroids (Acute) Leukocytosis (Acute) Women's annual routine gynecological examination (Acute) Breast cancer screening (Acute) Abnormal uterine bleeding (AUB) (Acute) Pharyngitis with viral syndrome (Acute) Cough (Acute) Sciatica (Acute) Viral syndrome (Acute) Chronic otitis media of right ear with effusion (Acute) Right otitis media (Acute) Depression, major, recurrent (Acute) New onset headache (Acute) Cocaine abuse (Acute) Systolic murmur (Acute) Elevated alkaline phosphatase level (Acute) Otitis externa of both ears (Acute) Abdominal pain (Acute) Dermatitis of ear canal (Acute) URI (upper respiratory infection) (Acute) ASCUS of cervix with negative high risk HPV (Acute) Constipation (Acute) Hx of abnormal cervical Pap smear (Acute) Well woman exam with routine gynecological exam (Acute) Perimenopausal (Acute) Gallbladder polyp (Acute) Elevated liver enzymes (Acute) Post-menopausal (Acute) Pain of back and left lower extremity (Acute) Physical exam (Acute) Colonoscopy planned (Acute) Acid reflux (Acute) Acute sinusitis (Acute) Wrist pain (Acute) Toe injury (Acute) Otitis media (Acute) Environmental allergies (Acute) Acute sinusitis (Acute) Otitis externa (Acute) Abdominal pain (Acute) Hypokalemia (Acute) Otitis media (Acute) Hypotension (Acute) Gastritis (Acute) Ankle pain, right (Acute) Knee pain, right (Acute) Cervical radiculopathy (Acute) Urinary incontinence in female (Acute) Esophagitis (Acute) Right sided sciatica (Acute) History of bilateral tubal ligation (Acute) Asthma (Acute) Diabetes mellitus (Acute) Past Medical History Medical History (Updated 08/16/23 @ 00:02 by Background Charlie) Heart murmur Depression Esophagitis Hypokalemia Hyperlipidemia FH: HTN (hypertension) Diabetes mellitus Right sided sciatica Asthma Sacroiliac inflammation Family History Family History Father Cancer Alzheimer's disease Mother HTN (hypertension) Diabetes mellitus Asthma Depression Stroke Cancer Maternal Grandfather No problems noted. Maternal Grandmother No problems noted. Paternal Grandfather No problems noted. Paternal Grandmother No problems noted. Brother No problems noted. Brother No problems noted. Sister Asthma Son No problems noted. Son No problems noted. Daughter No problems noted. Family history of problems with anesthesia: No Surgical History Surgical History Hx of esophagogastroduodenoscopy Hx of colonoscopy History of back surgery History of bilateral tubal ligation History of Problems with Anesthesia: No Social History Social History Household Members: Spouse and Children Housing: House Alcohol intake: current Alcohol intake frequency: holidays/special occasions only Patient Tobacco Use Status: Never used Tobacco e-Cigarette/Vaping Use: Never Used Second Hand Smoke Exposure: No service: No Current occupational status: disabled Cognitive needs: No Hearing needs: No Vision needs: No Meds Allergies Allergy/AdvReac Type Severity Reaction Status Date / Time mold Allergy Mild Unknown Verified 08/01/23 08:32 blue cheese Allergy Mild itchy Uncoded 08/01/23 08:32 throat Home Medications Medication Instructions Recorded Confirmed Last Taken Type baclofen 10 mg tablet 1 tab PO TID 11/13/20 08/15/23 11/12/20 History gabapentin 600 mg tablet 1 - 2 tab PO TID 11/13/20 08/15/23 03/21/22 08:15 History alprazolam 1 mg tablet 1 mg PO BEDTIME 02/23/21 08/15/23 Unknown History blood sugar diagnostic #10 ea 02/23/21 08/01/23 Unknown History sumatriptan succinate 100 mg tablet 100 mg PO DAILY PRN Headache 02/23/21 08/15/23 Unknown History lancets 28 gauge (FreeStyle 10/04/21 08/01/23 Unknown History Lancets) sertraline 100 mg tablet 100 mg PO QAM 01/04/22 08/15/23 03/21/22 08:15 History clotrimazole 1 % topical solution 1 appl topical DAILY 10/23/22 08/15/23 Unknown History Exam Exam Date and Time: August 20, 2023 0915 Height,Weight and Vital Signs: Height 4 ft 10 in Weight 72.121 kg Pertinent Lab Results Pertinent Lab Results: Laboratory Tests 04/01/23 07:24 WBC 11.2 H Hgb 13.3 Hct 40.9 Plt Count 305 BUN 15 Creatinine 0.73 Narrative Narrative: ECHO 2021 Conclusions: - Essentially normal study Assessment and Plan Assessment Anesthesia Assessment: Chart Reviewed Final Anesthetic Review Family History of Problems with Anesthesia: No History of Problems with Anesthesia: No
[2023-12-13 16:19] VITALS: BMI 32.6
[2023-12-13 16:20] VITALS: BMI 32.6
== END ==
PROVIDERS: PCP Nurse Practitioner Family; Visit Provider Surgery
DX: K80.50 Calculus of bile duct without cholangitis or cholecystitis without obstruction (principal); Z53.8 Procedure and treatment not carried out for other reasons

== ENCOUNTER 2023-12-31 13:56 | Outpatient (AMB) | payer OTHER, SELFPAY ==
--- NOTE | 2023-12-31 14:00 | MHC.OFFVIS ---
Intake Vital Signs 12/31/23 14:04 Height 4 ft 10 in Weight 154 lb BMI 32.2 BP 130/84 Intake Visit Reasons: post op Allergies mold Allergy (Severe, Verified 12/20/23 13:30) itchy throat blue cheese Allergy (Severe, Uncoded 12/17/23 08:34) itchy throat HPI HPI Comments History of Present Illness Details The patient is presenting post hysteroscopy D&C no complaints minimal vaginal bleeding no feverishness chills or abdominal pain. The pathology showed the following: A. Endometrial polyp, resection: Endometrial polyp fragments of benign endometrial polyp and benign endocervical polyp; no atypia or carcinoma. B. Endometrium, curettage: Very scant benign atrophic endometrium and benign endocervical glandular and squamous epithelium The following workup was done for AUB over the last few months: H&H= 13.3/40.9 GC and chlamydia were negative. Endometrial biopsy pathology showed : Scant superficial fragments of benign endometrium and inflamed endocervical/ lower uterine segment endometrium; no atypia identified. See comment. COMMENT: The endometrium is not well represented. Consider resampling, as clinically appropriate Co testing was done was negative. Mammogram in 12/04 was BI-RADS 1. Pelvic ultrasound showed the following: Uterus: The uterus is anteverted and measures 8.0 x 3.3 x 3.7 cm. Nabothian cysts in the cervix. The double wall endometrial thickness is 8 mm. The uterus is smooth in contour and has normal myometrial echogenicity. There is a 1.2 cm posterior broad-based subserosal fundal fibroid. Adnexa: Both ovaries are visualized. There is normal color flow to the adnexa. There is no ovarian torsion. There is no pelvic ascites or fluid collection. Right ovary measures 1.5 x 1.1 x 1.4 cm. Volume 1.2 mL. Left ovary measures 1.9 x 1.3 x 2.0 cm. Volume 2.6 mL PFSH Medical History HTN (hypertension) Anxiety INGRID (obstructive sleep apnea) Neck pain Heart murmur Depression Esophagitis Hypokalemia Hyperlipidemia FH: HTN (hypertension) Diabetes mellitus Right sided sciatica Asthma Sacroiliac inflammation Surgical History S/p bilateral carpal tunnel release Hx of esophagogastroduodenoscopy Hx of colonoscopy History of back surgery History of bilateral tubal ligation Family History Father Cancer Alzheimer's disease Mother HTN (hypertension) Diabetes mellitus Asthma Depression Stroke Cancer Maternal Grandfather No problems noted. Maternal Grandmother No problems noted. Paternal Grandfather No problems noted. Paternal Grandmother No problems noted. Brother No problems noted. Brother No problems noted. Sister Asthma Son No problems noted. Son No problems noted. Daughter No problems noted. Social History Household Members: Spouse and Children Housing: House Are you a primary memory care program resident to a significant other at home: No Do you presently have visiting nurse or other home services: No Alcohol intake: current Alcohol intake frequency: holidays/special occasions only Patient Tobacco Use Status: Never used Tobacco e-Cigarette/Vaping Use: Never Used Second Hand Smoke Exposure: No service: No Current occupational status: disabled Cognitive needs: No Hearing needs: No Vision needs: Yes Female Reproductive History Menstrual Age of Menarche: 10 Date of last menstrual period: 12/28/23 Review of Systems Const All systems reviewed & are unremarkable except as noted in HPI and below Reports as per HPI and Reports no additional complaints GI Reports no additional complaints Reports no additional complaints Physical Exam Vital Signs: Last Vital Signs BP 130/84 12/31/23 14:04 BMI result Body Mass Index 32.2 Assessment & Plan Assessment & Plan (1) Abnormal uterine bleeding (AUB): Code(s): N93.9 - Abnormal uterine and vaginal bleeding, unspecified Plan: Discussed with the patient the results of the work up done and options of treatment including but not limited to BCP's, cyclic Progesterone, Mirena IUD, endometrial ablation and hysterectomy. All pros, cons, risks and benefits of each option were discussed with the patient and the patient decided to go ahead with cyclic Provera, so a more detailed discussion re: Progesterone treatment including mechanism of action, benefits (regular menses, endometrial protection form unopposed estrogen and reduction in the risk of endometrial hyperplasia and/or cancer ...), risks (Thrombosis, mood changes, weight gain, breast soreness, ? increased breast ca, others). Instructions were given to use a back- up method for contraception since this is not a method control, take the medication 1 tablet daily starting day 15-24 and to schedule a 3 months follow-up appointment; patient verbalized understanding and agreed with the plan. Medications: New medroxyprogesterone (Provera) start Provera 1 tablet daily from day 15-24 cyclically every months, day 1 being 1st day of menses 10 mg PO DAILY 30 tabs 0RF 10 days Coding Level of Care Code Est Pt Level 3 (73528) Diagnoses Abnormal uterine bleeding (AUB) N93.9
[2023-12-31 14:04] VITALS: BP 130/84; BMI 32.2
== END 2023-12-31 14:39 | disposition home or self-care (01) ==
LOC: HO.HWS 13:56
PROVIDERS: PCP Nurse Practitioner Family; Visit Provider Obstetrics & Gynecology
DX: N93.9 Abnormal uterine and vaginal bleeding, unspecified (principal)
CPT/HCPCS: 99213

== ENCOUNTER → 2023-12-31 13:56 | Outpatient (BNVA) | payer OTHER, SELFPAY | PROVIDERS: PCP Nurse Practitioner Family; Visit Provider Obstetrics & Gynecology | DX: N93.9 Abnormal uterine and vaginal bleeding, unspecified (principal) | CPT/HCPCS: 99212 ==

== ENCOUNTER 2024-01-14 08:10 | Outpatient (AMB) | payer OTHER, SELFPAY ==
[2024-01-14 09:09] VITALS: BP 128/80; PULSE 94; TEMP 36.5; O2SAT 97; BMI 32.8
--- NOTE | 2024-01-14 09:09 | AM.OFFWIN_ITS ---
Intake Vital Signs 01/14/24 09:09 Height 4 ft 10 in Weight 157 lb BMI 32.8 BP 128/80 Blood Pressure Location Lt brachial Position Sitting Pulse 94 Pulse Source Pulse Oximeter Temp 97.7 F Temp Source Temporal Artery Scan Pulse Oximetry (%) 97 Oxygen Delivery Method Room Air Intake Visit Reasons: EST/pain belly button/ headaches ([phone]) Intake Note: pt is here today for pain belly button headache started1 week ago Patient Tobacco Use Status: Never used Tobacco Allergies mold Allergy (Severe, Verified 01/14/24 09:11) itchy throat blue cheese Allergy (Severe, Uncoded 12/17/23 08:34) itchy throat Do you need a note to return to daycare/school/sports/work: No HPI HPI Comments History of Present Illness Details Patient is a 53-year-old female here for a sick visit. Patient states that for the past week she has developed symptoms of intermittent abdominal pain. Patient has longstanding history of reflux. Denies chest pain, shortness a breath, dizziness, numbness, diarrhea, constipation She has a past medical history significant for diabetes type 2, hypertension, hyperlipidemia. Patient states that she also has an itchy left ear that feels full. She has been using [id number] ear drops with little effect. [facility] Medical History HTN (hypertension) Anxiety INGRID (obstructive sleep apnea) Neck pain Heart murmur Depression Esophagitis Hypokalemia Hyperlipidemia FH: HTN (hypertension) Diabetes mellitus Right sided sciatica Asthma Sacroiliac inflammation Surgical History S/p bilateral carpal tunnel release Hx of esophagogastroduodenoscopy Hx of colonoscopy History of back surgery History of bilateral tubal ligation Family History Father Cancer Alzheimer's disease Mother HTN (hypertension) Diabetes mellitus Asthma Depression Stroke Cancer Maternal Grandfather No problems noted. Maternal Grandmother No problems noted. Paternal Grandfather No problems noted. Paternal Grandmother No problems noted. Brother No problems noted. Brother No problems noted. Sister Asthma Son No problems noted. Son No problems noted. Daughter No problems noted. Social History Household Members: Spouse and Children Housing: House Are you a primary daycare provider to a significant other at home: No Do you presently have visiting nurse or other home services: No Alcohol intake: current Alcohol intake frequency: holidays/special occasions only Patient Tobacco Use Status: Never used Tobacco e-Cigarette/Vaping Use: Never Used Second Hand Smoke Exposure: No service: No Current occupational status: disabled Cognitive needs: No Hearing needs: No Vision needs: Yes Female Reproductive History Menstrual Age of Menarche: 10 Review of Systems Const Details: Constitutional : No Weight loss, No Fever, Admits some Chills, No Fatigue, No Malaise ENT/Mouth : No sore throat, No Rhinorrhea, Admits ear fullness. Eyes: No Eye Pain, No Swelling, No Redness Cardiovascular : No Chest Pain, No SOB, No Dyspnea on Exertion, No Orthopnea, No Edema, No Palpitations Respiratory : No Cough, No Sputum, No Wheezing Gastrointestinal : No Nausea, No Vomiting, No Diarrhea, No Constipation, Admits abdominal Pain, No Hematochezia, No Melena Genitourinary : No Dysuria, No Urinary Frequency, No Hematuria, Musculoskeletal : No joint pain, No Myalgias, No Joint Swelling Skin : No Skin Lesions, No rash Neuro : No Weakness, No Numbness, No Dizziness, No Headache Psych : No Anxiety/Panic, No Depression Heme/Lymph: No Bruising, No Bleeding,No Lymphadenopathy Endocrine : No Polyuria, No Polydipsia All other systems reviewed and are negative Physical Exam Vital Signs: Last Vital Signs Temp 97.7 F 01/14/24 09:09 Pulse 94 01/14/24 09:09 BP 128/80 01/14/24 09:09 Pulse Ox 97 01/14/24 09:09 Oxygen Delivery Method Room Air 01/14/24 09:09 BMI result Body Mass Index 32.8 Vital signs reviewed stable Const Other: Appearance: Alert.? Oriented X3.? No acute distress.? Head: Normocephalic, atraumatic. Eyes: Pupils equal, round and reactive to light.? ENT: Pharynx normal.?TM intact and pearly leone. Effusion with no erythema in left ear. Left ear canal has skin flaking. Neck: Normal inspection.? Neck supple.? CVS: Normal heart rate and rhythm.? Pulses normal.? Respiratory: No respiratory distress.? Breath sounds normal.? Abdomen: Tender to palpation LUQ and umbilical area. Skin: Skin warm and dry.? Normal skin color.? Normal skin turgor.? Extremities: No lower extremity edema.? No calf ttp. 5/5 strength to bilateral upper and lower extremities Back: No midline tenderness, no C-spine tenderness, full range of motion, no CVA tenderness bilaterally Neuro: Oriented X 3.? No motor deficit.? No sensory deficit. CN 2-12 intact Assessment & Plan Assessment & Plan (1) Abdominal pain: Comment: Will draw labs which will include CBC, CMP, ESR, lipase, amylase. Patient will be given dicyclomine. Patient has been instructed on the side effects of these medications Code(s): R10.9 - Unspecified abdominal pain Qualifiers: Abdominal location: periumbilical Qualified Code(s): R10.33 - Periumbilical pain Plan: Follow-up with PCP. (2) Sensation of fullness in left ear: Comment: Patient will be given prednisone to be taken as directed. Code(s): H93.8X2 - Other specified disorders of left ear Plan: Take your medications as prescribed. If you were prescribed antibiotics today, it is important that you take your medication to their entirety, do not skip any doses, do not finish them early. Follow-up with your primary care provider this week. Return to the emergency department with new or worsening symptoms. Such as fevers, chills, chest pain, shortness of breath, nausea, vomiting, dizziness, headache, vision changes, lethargy In case of emergency call 911 Plan Follow-up with PCP. Orders: Orders Complete Blood Count Auto Diff Today D72.829 - Elevated white blood cell count, unspecified Amylase Today R10.9 - Unspecified abdominal pain Lipase Today R10.9 - Unspecified abdominal pain Erythrocyte Sedimentation Rate Today R10.9 - Unspecified abdominal pain Comprehensive Met. Panel Today Z91.89 - Other specified personal risk factors, not elsewhere classified Medications: New dicyclomine 10 mg PO BID 14 caps 0RF prednisone 20 mg PO DAILY 5 tabs 0RF Coding Level of Care Code Est Pt Level 3 (62108) Diagnoses Periumbilical abdominal pain R10.33 Abdominal location: periumbilical Sensation of fullness in left ear H93.8X2 Time Spent (min) 20
== END 2024-01-14 11:45 | disposition home or self-care (01) ==
PROVIDERS: PCP Nurse Practitioner Family; Visit Provider Nurse Practitioner Primary Care
DX: R10.33 Periumbilical pain (principal); H93.8X2 Other specified disorders of left ear
CPT/HCPCS: 99213

== ENCOUNTER 2024-02-05 11:27 | Outpatient (AMB) | payer OTHER, SELFPAY ==
[2024-02-05 11:29] VITALS: BP 132/80; PULSE 78; O2SAT 98; BMI 33.4
--- NOTE | 2024-02-05 11:29 | A.OFFPC_ITS ---
Vital Signs 02/05/24 11:29 Height 4 ft 10 in Weight 160 lb BMI 33.4 BP 132/80 Blood Pressure Location Lt brachial Position Sitting Pulse 78 Pulse Source Pulse Oximeter Pulse Oximetry (%) 98 Oxygen Delivery Method Room Air Intake Visit Reasons: PE Intake Note: pt is here for annual exam Water Meter Reader Required: No Accompanied by: Self / Same As Patient Allergies mold Allergy (Severe, Verified 02/05/24 12:45) itchy throat blue cheese Allergy (Severe, Uncoded 02/05/24 12:45) itchy throat Medication List - Last Reconciled 02/05/24 by KOFI Serrano- acetaminophen (Tylenol) 650 mg (2 x 325 mg) PO QID PRN albuterol sulfate 5 mg inhalation Q4H PRN albuterol sulfate 90 mcg/actuation 2 puffs inhalation Q6H PRN alprazolam 1 mg PO BEDTIME blood sugar diagnostic As directed blood sugar diagnostic (Freestyle [employer] strips) bid blood sugar diagnostic (Freestyle [employer] Test Strips) bid blood-glucose meter (Freestyle [employer] meter) bid testing cetirizine 10 mg PO BID cholecalciferol (vitamin D3) 50 mcg PO DAILY 90 days cyclobenzaprine 10 mg PO BEDTIME PRN dicyclomine 10 mg PO BID docusate sodium (Colace) 100 mg PO DAILY 90 days ferrous sulfate 325 mg PO DAILY 90 days fluticasone propionate 50 mcg/actuation (Children's Flonase Allergy Relief) 1 spray intranasal DAILY furosemide 40 mg PO DAILY PRN 90 days gabapentin 1 - 2 tabs PO TID hydrochlorothiazide 25 mg PO QAM insulin aspart U-100 (Novolog FlexPen U-100 Insulin aspart) 2 - 14 units (0.02 - 0.14 mL) subcut TID 30 days Lactobacillus acidophilus (Acidophilus capsule) 300 mg PO DAILY 30 days lancets (FreeStyle Lancets) As directed lansoprazole 30 mg PO DAILY lidocaine 5% 1 patch topical DAILY PRN losartan 25 mg PO DAILY magnesium oxide 400 mg PO DAILY medroxyprogesterone (Provera) 10 mg PO DAILY 10 days meloxicam 15 mg PO DAILY methylcellulose (laxative) (Citrucel) 500 mg PO BID ondansetron HCl 4 mg PO Q8H PRN 7 days pen needle, diabetic As directed polyethylene glycol 3350 (Miralax) 17 grams PO DAILY potassium chloride ER 10 mEq PO DAILY 30 days prednisone 20 mg PO DAILY riboflavin (vitamin B2) 400 mg PO DAILY rosuvastatin 40 mg PO DAILY sertraline 100 mg PO QAM sumatriptan succinate 150 mg PO DAILY PRN Tobacco use date assessed: 11/25/23 Dental Screening Dental Screen Date: 02/05/24 Did you have a dental visit in the last 12 months?: Yes Did you have a dental problem in the last 6 months where you did not have access to dental care?: No Was dental information given to patient?: Patient has dentist HPI PE HPI Details Pt is here for a PE. Will order labs. Colon screen is up to date. Mammo is up to date. Has a plastic boat patcher. Pt is a diabetic, on an ARB and a statin. A1C in office today is 6.9. Microalbumin is up to date. Denies polyuria, polydipsia, and neuropathy. Pt denies any signs and symptoms of hypoglycemia and does know how to correct it. [facility] Medical History HTN (hypertension) Anxiety INGRID (obstructive sleep apnea) Neck pain Heart murmur Depression Esophagitis Hypokalemia Hyperlipidemia FH: HTN (hypertension) Diabetes mellitus Right sided sciatica Asthma Sacroiliac inflammation Surgical History S/p bilateral carpal tunnel release Hx of esophagogastroduodenoscopy Hx of colonoscopy History of back surgery History of bilateral tubal ligation Family History Father Cancer Alzheimer's disease Mother HTN (hypertension) Diabetes mellitus Asthma Depression Stroke Cancer Maternal Grandfather No problems noted. Maternal Grandmother No problems noted. Paternal Grandfather No problems noted. Paternal Grandmother No problems noted. Brother No problems noted. Brother No problems noted. Sister Asthma Son No problems noted. Son No problems noted. Daughter No problems noted. Social History Household Members: Spouse and Children Housing: House Are you a primary career development associate to a significant other at home: No Do you presently have visiting nurse or other home services: No Alcohol intake: current Alcohol intake frequency: holidays/special occasions only Patient Tobacco Use Status: Never used Tobacco e-Cigarette/Vaping Use: Never Used Second Hand Smoke Exposure: No service: No Current occupational status: disabled Cognitive needs: No Hearing needs: No Vision needs: Yes Female Reproductive History Menstrual Age of Menarche: 10 Questionnaire PHQ-9 Over the last 2 weeks, how often have you been bothered by any of the following problems? 32457 - PHQ-9 Billing: Patient declined-do not bill Source: Developed by Drs. Jaylen Johns, Cayr Chavez, Omar Olmedo and colleagues, with an educational orlando from [employer]. Thrive Questionnaire Date Thrive assessed: 11/25/23 I am a: Patient What is your living situation today?: I have a steady place to live Within the past 12 months, did the food you bought not last and you didn't have the money to get more?: Never true Within the past 12 months, did you worry whether your food would run out before you got money to buy more?: Never true Do you have trouble paying for medicines?: No Do you have trouble getting transportation to medical appointments?: No Do you have trouble paying your heating and electricity bill?: No Do you have trouble taking care of your child, family member or friend?: No Do you have trouble with day-to-day activities such as bathing, preparing meals, shopping, managing finances, etc.?: No Are you currently unemployed and looking for a job?: No Are you interested in more education?: No Please select the resources that you would like help with: None Currently or been in a relationship where the following occur: no concerns reported THRIVE Score: 0 AUDIT C Alcohol Use Questionnaire (AUDIT-C) 1. How often do you have a drink containing alcohol?: Monthly or less 2. How many drinks containing alcohol do you have on a typical day when you are drinking?: 1 or 2 3. How often do you have six or more drinks on one occasion?: Never Total Score: 1 Score Reviewed/Action Taken: Yes JESSI-7 AMB Questionnaire JESSI-7 Date JESSI - 7 assessed: 11/25/23 Source: Developed by Drs. Jaylen Johns, Cary Chavez, Omar Olmedo and colleagues, with an educational orlando from [employer]. JESSI-7 Assessment Billing JESSI-7 Assessment Tool: pt declined-do not bill Review of Systems Const Denies chills and Denies fever(s) Eyes Denies blurry vision ENT Denies vertigo, Denies dizziness and Denies sore throat Card Denies chest pain at rest, Denies chest pain with activity, Denies diaphoresis, Denies dyspnea and Denies dyspnea on exertion Resp Denies cough, Denies dyspnea, Denies dyspnea on exertion and Denies wheezing GI Denies abdominal pain, Denies melena, Denies hematochezia, Denies constipation, Denies diarrhea and Denies loose stools Denies hematuria Musc Denies numbness and Denies tingling Skin/Breast Denies lesions Neuro Denies vertigo, Denies dizziness, Denies numbness and Denies tingling Psych Denies anxiety, Denies depression, Denies homicidal ideation, Denies suicidal ideation and Denies other (substance abuse) Aller/Immun Denies wheezing Physical exam (Primary Care) Vital Signs: Last Vital Signs Pulse 78 02/05/24 11:29 BP 132/80 02/05/24 11:29 Pulse Ox 98 02/05/24 11:29 Oxygen Delivery Method Room Air 02/05/24 11:29 BMI result Body Mass Index 33.4 Tobacco/Smoking Status: Tobacco use Status Tobacco use date assessed 11/25/23 02/05/24 11:30 Patient Tobacco Use Status Never used Tobacco 02/05/24 11:30 e-Cigarette/Vaping Use Never Used 02/05/24 11:30 Thrive Assessment: Date of Thrive Assessment Date Thrive assessed 11/25/23 02/05/24 11:30 Currently or been in a relationship where the following occur: no concerns reported Const General: cooperative Nutritional Appearance: obese Orientation/consciousness: patient oriented x3 HENMT Head: Yes normal to inspection, Yes normocephalic and Yes atraumatic Ears: TM's normal bilaterally Eyes General: appearance normal, both eyes and all related structures Alignment and Position: alignment normal and position normal Neck Neck: Yes normal visual inspection and Yes no lymphadenopathy Thyroid: Thyroid normal Resp Effort & Inspection: normal respiratory effort Auscultation: clear to auscultation bilaterally Cardio Rate: regular rate Rhythm: regular rhythm Heart sounds: S1 normal heart sound present, S2 normal heart sound present and no murmurs GI Palpation (GI): Soft to palpation and nontender Auscultation: normal bowel sounds Skin Rashes: no rashes Neuro General: patient oriented x3, moves all extremities, no focal motor deficits and deep tendon reflexes 2+ bilaterally Romberg Test: Negative Extrem Other: bilat feet: + sensation with use of monofilament, feet intact Psych Appearance: grossly normal Mental Status: mental status grossly normal Speech and movement: Normal speech and movement present Affect: normal affect Attitude: cooperative Thought process: Normal thought process present Thought content: Normal thought content present Insight: Good insight present (Psych) Judgement: Good judgement present (Psych) Results AMB Hemoglobin A1c AMB Hemoglobin A1c 6.9 % Last Edit by Matty Farris CMA on 02/05/24 11: 49 Assessment and Plan Assessment & Plan (1) Physical exam: Code(s): Z00.00 - Encounter for general adult medical examination without abnormal findings Plan: Labs ordered (2) Diabetes mellitus: Comment: taking novolog insulin TID w/meals Code(s): E11.9 - Type 2 diabetes mellitus without complications Plan: Labs ordered Plan The patient agreed to the use of a certified ophthalmic medical technician for this encounter. Scribed for ALICIA Dawkins by Daphnie Neumann certified ophthalmic medical technician, on 02/05/2024 at 11:45 EST. Orders: Orders Complete Blood Count Auto Diff Today E11.9 - Type 2 diabetes mellitus without complications, Z00.00 - Encounter for general adult medical examination without abnormal findings TSH reflex Free T4 Today E11.9 - Type 2 diabetes mellitus without complications, Z00.00 - Encounter for general adult medical examination without abnormal findings Comprehensive [place]. Panel Fast Today E11.9 - Type 2 diabetes mellitus without complications, Z00.00 - Encounter for general adult medical examination without abnormal findings UA CC w/rflx Micro + Cult Today E11.9 - Type 2 diabetes mellitus without complications, Z00.00 - Encounter for general adult medical examination without abnormal findings Lipid Panel Today E11.9 - Type 2 diabetes mellitus without complications, Z00.00 - Encounter for general adult medical examination without abnormal findings AMB Hemoglobin A1c Today Z13.9 - Encounter for screening, unspecified Coding Level of Care Code Est Pt Prev Care 40-64y(35683) Diagnoses Physical exam Z00.00 Diabetes mellitus E11.9
== END 2024-02-05 12:03 | disposition home or self-care (01) ==
PROVIDERS: PCP Nurse Practitioner Family; Visit Provider Nurse Practitioner Family
DX: Z00.00 Encounter for general adult medical examination without abnormal findings (principal); E11.9 Type 2 diabetes mellitus without complications; Z13.9 Encounter for screening, unspecified
CPT/HCPCS: 83036; 99396

== ENCOUNTER 2024-03-09 08:13 | Outpatient (REF) | payer OTHER, SELFPAY ==
--- NOTE | ~2024-03-09 | US_ITS ---
EXAMINATION: US ABDOMEN COMPLETE CLINICAL INFORMATION: Cholesterolosis of gallbladder. COMPARISON: Limited abdominal ultrasound dated 05/10/2022; abdominal ultrasound dated 11/02/2021; CT abdomen and pelvis dated 11/13/2020. TECHNIQUE: Real-time imaging of the abdominal viscera. FINDINGS: PANCREAS: Normal. ABDOMINAL AORTA: The proximal, mid, and distal segments are normal in caliber. INFERIOR VENA CAVA: Visualized portions are normal. LIVER: Normal. The liver is normal in size. The liver contour is normal. Parenchymal echogenicity is normal. No focal hepatic lesion. There is no intrahepatic biliary duct dilatation seen. GALLBLADDER: A 4 mm nonmobile gallbladder polyp is seen. The gallbladder is physiologically distended without evidence of stones, sludge, wall thickening or pericholecystic fluid. COMMON BILE DUCT: Normal in caliber measuring 0.4 cm in diameter. RIGHT KIDNEY: There is an extrarenal pelvis, without la hydronephrosis. No renal calculi or focal parenchymal lesions. The kidney measures 10.2 cm in maximum dimension. LEFT KIDNEY: There is an extrarenal pelvis, without la hydronephrosis. No renal calculi or focal parenchymal lesions. The kidney measures 10.7 cm in maximum dimension. SPLEEN: Normal. The spleen measures 11.6 cm in maximum dimension. FREE FLUID: None. US/US abdomen complete IMPRESSION: A 4 mm nonmobile gallbladder polyp is incidentally noted. The examination is otherwise unremarkable.
== END 2024-03-09 08:14 | disposition home or self-care (01) ==
LOC: HO.US 08:13
PROVIDERS: PCP Nurse Practitioner Family; Visit Provider Physician Assistant
DX: K82.4 Cholesterolosis of gallbladder (principal); K29.70 Gastritis, unspecified, without bleeding; R74.8 Abnormal levels of other serum enzymes
CPT/HCPCS: 76700

== ENCOUNTER 2024-04-08 08:07 | Outpatient (AMB) | payer OTHER, SELFPAY ==
[2024-04-08 08:40] VITALS: BP 130/72; PULSE 81; TEMP 36.3; O2SAT 95; BMI 32.8
--- NOTE | 2024-04-08 08:40 | AM.OFFWIN_ITS ---
Intake Vital Signs 04/08/24 08:40 Height 4 ft 10 in Weight 157 lb BMI 32.8 BP 130/72 Blood Pressure Location Lt brachial Position Sitting Pulse 81 Pulse Source Pulse Oximeter Temp 97.3 F Temp Source Temporal Artery Scan Pulse Oximetry (%) 95 Oxygen Delivery Method Room Air Intake Visit Reasons: EST/ ear paain (lobby) Intake Note: pt is here today for ear pain started 1 week ago Patient Tobacco Use Status: Never used Tobacco Allergies mold Allergy (Severe, Verified 04/08/24 08:44) itchy throat blue cheese Allergy (Severe, Uncoded 02/05/24 12:45) itchy throat Do you need a note to return to daycare/school/sports/work: Yes HPI EST/ ear paain (lobby) HPI Details 53-year-old female patient presents toda with report of bilateral ear pain and pressure for the last week. She reports history of frequent ear infections. Has an ENT appointment in May. Denies any fever, chills, or upper respiratory symptoms. Takes cetirizine and Flonase regularly. [facility] Medical History HTN (hypertension) Anxiety INGRID (obstructive sleep apnea) Neck pain Heart murmur Depression Esophagitis Hypokalemia Hyperlipidemia FH: HTN (hypertension) Diabetes mellitus Right sided sciatica Asthma Sacroiliac inflammation Surgical History S/p bilateral carpal tunnel release Hx of esophagogastroduodenoscopy Hx of colonoscopy History of back surgery History of bilateral tubal ligation Family History Father Cancer Alzheimer's disease Mother HTN (hypertension) Diabetes mellitus Asthma Depression Stroke Cancer Maternal Grandfather No problems noted. Maternal Grandmother No problems noted. Paternal Grandfather No problems noted. Paternal Grandmother No problems noted. Brother No problems noted. Brother No problems noted. Sister Asthma Son No problems noted. Son No problems noted. Daughter No problems noted. Social History Household Members: Spouse and Children Housing: House Are you a primary care management coordinator to a significant other at home: No Do you presently have visiting nurse or other home services: No Alcohol intake: current Alcohol intake frequency: holidays/special occasions only Patient Tobacco Use Status: Never used Tobacco e-Cigarette/Vaping Use: Never Used Second Hand Smoke Exposure: No service: No Current occupational status: disabled Cognitive needs: No Hearing needs: No Vision needs: Yes Female Reproductive History Menstrual Age of Menarche: 10 Review of Systems Const All systems reviewed & are unremarkable except as noted in HPI and below Physical Exam Vital Signs: Last Vital Signs Temp 97.3 F 04/08/24 08:40 Pulse 81 04/08/24 08:40 BP 130/72 04/08/24 08:40 Pulse Ox 95 04/08/24 08:40 Oxygen Delivery Method Room Air 04/08/24 08:40 BMI result Body Mass Index 32.8 Const General: cooperative, healthy appearing and no acute distress HEENT Head: Yes normal to inspection Ears: hearing grossly normal bilaterally, external ears normal and TM abnormal wth effusion purulent bilateral, erythematous bilateral and with fluid behind the TM bilateral General nose exam: Normal external nose present Mouth: Normal oral and palatal mucosa present Throat: Yes posterior oropharynx normal Neck Neck: Yes no lymphadenopathy Resp Effort & Inspection: normal respiratory effort Auscultation: clear to auscultation bilaterally Cardio Rate: regular rate Rhythm: regular rhythm Skin General skin exam: no rashes or lesions noted Extrem General: Yes capillary refill normal and Yes no clubbing, cyanosis or edema Psych Appearance: grossly normal Mental Status: mental status grossly normal Speech and movement: Normal speech and movement present Assessment & Plan Assessment & Plan (1) Bilateral otitis media with effusion: Code(s): H65.93 - Unspecified nonsuppurative otitis media, bilateral Plan: Augmentin for b/l OM. Reviewed indications, use, possible side effects of medication. Encouraged to follow up as scheduled with ENT in May. May take Tylenol/Motrin as needed for any ongoing discomfort. Encouraged to continue allergy medication. If she does not improve with treatment prior to her ENT visit, she can certainly return to the clinic or follow up with PCP. She verbalizes understanding and agrees to plan. Work note provided. Medications: New amoxicillin-pot clavulanate 875-125 mg 1 tab PO BID 7 days 14 tabs 0RF H65.93 - Unspecified nonsuppurative otitis media, bilateral Coding Level of Care Code Est Pt Level 4 (12815) Diagnoses Bilateral otitis media with effusion H65.93
== END 2024-04-08 09:02 | disposition home or self-care (01) ==
PROVIDERS: PCP Nurse Practitioner Family; Visit Provider Nurse Practitioner Family
DX: H65.93 Unspecified nonsuppurative otitis media, bilateral (principal)
CPT/HCPCS: 99214

== ENCOUNTER 2024-04-30 08:07 | Outpatient (AMB) | payer OTHER, SELFPAY ==
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
[2024-04-30 08:10] VITALS: BP 132/74; PULSE 76; TEMP 36.6; O2SAT 98; BMI 32.8
== END 2024-04-30 08:46 | disposition home or self-care (01) ==
PROVIDERS: PCP Nurse Practitioner Family; Visit Provider Physician Assistant
DX: R07.81 Pleurodynia (principal); M25.511 Pain in right shoulder
CPT/HCPCS: 99214

== ENCOUNTER 2024-04-30 08:36 | Outpatient (REF) | payer OTHER, SELFPAY ==
--- NOTE | ~2024-04-30 | XR_ITS ---
EXAMINATION: PA AND LATERAL CHEST, RIGHT SHOULDER CLINICAL INFORMATION: Pleurodynia and right shoulder pain COMPARISON: Right shoulder 09/02/2015, chest radiograph 03/29/2020 TECHNIQUE: 3 views right shoulder, 2 views chest FINDINGS: No bone, joint or soft tissue abnormality seen in the right shoulder. The chest radiograph is unremarkable without evidence of infiltrates, effusions or lung masses. Heart size normal. Mild degenerative changes are seen in the spine. XR/XR shoulder RT min 2V IMPRESSION: 1. No acute intrathoracic disease. 2. No abnormality seen in the right shoulder.
--- NOTE | ~2024-04-30 | XR_ITS ---
EXAMINATION: PA AND LATERAL CHEST, RIGHT SHOULDER CLINICAL INFORMATION: Pleurodynia and right shoulder pain COMPARISON: Right shoulder 09/02/2015, chest radiograph 03/29/2020 TECHNIQUE: 3 views right shoulder, 2 views chest FINDINGS: No bone, joint or soft tissue abnormality seen in the right shoulder. The chest radiograph is unremarkable without evidence of infiltrates, effusions or lung masses. Heart size normal. Mild degenerative changes are seen in the spine. XR/XR chest 2V IMPRESSION: 1. No acute intrathoracic disease. 2. No abnormality seen in the right shoulder.
== END 2024-04-30 08:37 | disposition home or self-care (01) ==
LOC: HO.HMGCX 08:36
PROVIDERS: PCP Nurse Practitioner Family; Visit Provider Physician Assistant
DX: M25.511 Pain in right shoulder (principal); R07.81 Pleurodynia
CPT/HCPCS: 71046; 73030

== ENCOUNTER 2024-05-20 08:03 | Outpatient (AMB) | payer OTHER, SELFPAY ==
[2024-05-20 08:05] VITALS: BP 126/74; PULSE 84; TEMP 36.5; O2SAT 96; BMI 32.0
--- NOTE | 2024-05-20 08:05 | MHC.OFFWIV ---
Intake Vital Signs 05/20/24 08:05 Height 4 ft 10 in Weight 153 lb 4 oz BMI 32.0 BP 126/74 Blood Pressure Location Rt brachial Position Sitting Pulse 84 Pulse Source Pulse Oximeter Temp 97.7 F Temp Source Temporal Artery Scan Pulse Oximetry (%) 96 Intake Visit Reasons: EP rt lung pain/throbbing Intake Note: pt is here for right lung pain, throbbing Patient Tobacco Use Status: Never used Tobacco Allergies mold Allergy (Severe, Verified 05/20/24 08:07) itchy throat blue cheese Allergy (Severe, Uncoded 02/05/24 12:45) itchy throat Do you need a note to return to daycare/school/sports/work: No HPI HPI Comments History of Present Illness Details Patient is a 53-year-old female complaining of continued right shoulder pain, this is a continued issue that she is going to physical therapy for. She states she is currently going 2 days a week and has an appointment tomorrow. She states she has pain in her right upper shoulder that is worse with movement. She has had a few spinal surgeries and the pain has been there since the surgeries. She did come to this clinic on April 30 where we did a right shoulder x-ray and a chest x-ray and both x-rays showed nothing acute. She is also complaining of ear itchiness in both ears, she states she does take cetirizine daily which she has taken for years. [facility] Medical History HTN (hypertension) Anxiety INGRID (obstructive sleep apnea) Neck pain Heart murmur Depression Esophagitis Hypokalemia Hyperlipidemia FH: HTN (hypertension) Diabetes mellitus Right sided sciatica Asthma Sacroiliac inflammation Surgical History S/p bilateral carpal tunnel release Hx of esophagogastroduodenoscopy Hx of colonoscopy History of back surgery History of bilateral tubal ligation Family History Father Cancer Alzheimer's disease Mother HTN (hypertension) Diabetes mellitus Asthma Depression Stroke Cancer Maternal Grandfather No problems noted. Maternal Grandmother No problems noted. Paternal Grandfather No problems noted. Paternal Grandmother No problems noted. Brother No problems noted. Brother No problems noted. Sister Asthma Son No problems noted. Son No problems noted. Daughter No problems noted. Social History Household Members: Spouse and Children Housing: House Are you a primary customer care consultant to a significant other at home: No Do you presently have visiting nurse or other home services: No Alcohol intake: current Alcohol intake frequency: holidays/special occasions only Patient Tobacco Use Status: Never used Tobacco e-Cigarette/Vaping Use: Never Used Second Hand Smoke Exposure: No service: No Current occupational status: disabled Cognitive needs: No Hearing needs: No Vision needs: Yes Female Reproductive History Menstrual Age of Menarche: 10 Review of Systems Const All systems reviewed & are unremarkable except as noted in HPI and below Physical Exam Vital Signs: Last Vital Signs Temp 97.7 F 05/20/24 08:05 Pulse 84 05/20/24 08:05 BP 126/74 05/20/24 08:05 Pulse Ox 96 05/20/24 08:05 BMI result Body Mass Index 32.0 Const General: cooperative, healthy appearing and comfortable Orientation/consciousness: patient oriented x3 HEENT Head: Yes normal to inspection General nose exam: Normal external nose present Face and sinus: Yes normal facial exam Eyes General: appearance normal, both eyes and all related structures Resp Effort & Inspection: normal respiratory effort and able to speak in complete sentences Back/Spine/Pelvis Cervical Spine: other (surgical scar present) Neuro General: patient oriented x3 Extrem Right upper extremity: shoulder/upper arm Details: tenderness (posterior shoulder) and abnormal ROM Details: pain with active ROM Details: in internal rotation; no swelling, no abrasions, no lacerations, no ecchymosis and no deformity Assessment & Plan Assessment & Plan (1) Shoulder pain, right: Code(s): M25.511 - Pain in right shoulder Qualifiers: Chronicity: acute Qualified Code(s): M25.511 - Pain in right shoulder Plan: Educated patient on continuing physical therapy and perhaps increasing it to 3 times a week if physical therapy thinks she needs it based on her complaints. Explained she needs to talk to PT and explained to them where her pain is so they can help her appropriately. Educated patient that she needs to exhaust physical therapy's options and if she is still in pain, talk to her PCP about possible pain management referral. (2) Seasonal allergies: Code(s): J30.2 - Other seasonal allergic rhinitis Plan: Recommended changing daily allergy pill for a few weeks and seeing if that helps as she has been taking cetirizine for a very long time. Coding Level of Care Code Est Pt Level 3 (48784) Diagnoses Acute pain of right shoulder M25.511 Chronicity: acute Seasonal allergies J30.2
== END 2024-05-20 08:54 | disposition home or self-care (01) ==
PROVIDERS: PCP Nurse Practitioner Family; Visit Provider Physician Assistant
DX: M25.511 Pain in right shoulder (principal); J30.2 Other seasonal allergic rhinitis
CPT/HCPCS: 99213

== ENCOUNTER 2024-05-21 10:26 | Outpatient (AMB) | payer OTHER, SELFPAY ==
--- NOTE | 2024-05-21 10:31 | A.OFFVIS_ITS ---
Vital Signs 05/21/24 10:32 Height 4 ft 10 in Weight 152 lb 1.903 oz BMI 31.8 Intake Visit Reasons: Medication follow up Telephone Technician Required: Yes Telephone Technician Language: Craft Coordinator Services: Telephone Technician Present (in person) Telephone Technician Name: Danielle PIERRE Information Interpreted: non-clinical & clinical Accompanied by: Self / Same As Patient Allergies mold Allergy (Severe, Verified 05/21/24 10:32) itchy throat blue cheese Allergy (Severe, Uncoded 05/21/24 10:32) itchy throat Post menopausal: Yes HPI Comments Details: Presenting for follow-up Provera. The patient has not been taking Provera has not been amenorrheic over the last 6 months with hot flash, no other complaint PFSH Medical History HTN (hypertension) Anxiety INGRID (obstructive sleep apnea) Neck pain Heart murmur Depression Esophagitis Hypokalemia Hyperlipidemia FH: HTN (hypertension) Diabetes mellitus Right sided sciatica Asthma Sacroiliac inflammation Surgical History S/p bilateral carpal tunnel release Hx of esophagogastroduodenoscopy Hx of colonoscopy History of back surgery History of bilateral tubal ligation Family History Father Cancer Alzheimer's disease Mother HTN (hypertension) Diabetes mellitus Asthma Depression Stroke Cancer Maternal Grandfather No problems noted. Maternal Grandmother No problems noted. Paternal Grandfather No problems noted. Paternal Grandmother No problems noted. Brother No problems noted. Brother No problems noted. Sister Asthma Son No problems noted. Son No problems noted. Daughter No problems noted. Social History Household Members: Spouse and Children Housing: House Are you a primary housekeeper child care to a significant other at home: No Do you presently have visiting nurse or other home services: No Alcohol intake: current Alcohol intake frequency: holidays/special occasions only Patient Tobacco Use Status: Never used Tobacco e-Cigarette/Vaping Use: Never Used Second Hand Smoke Exposure: No service: No Current occupational status: disabled Cognitive needs: No Hearing needs: No Vision needs: Yes Female Reproductive History Menstrual Age of Menarche: 10 Review of Systems Const All systems reviewed & are unremarkable except as noted in HPI and below Reports as per HPI and Reports no additional complaints GI Reports no additional complaints Reports no additional complaints Physical Exam Vital Signs: BMI result Body Mass Index 31.8 Assessment & Plan Assessment & Plan (1) Menopause: Code(s): Z78.0 - Asymptomatic menopausal state Category: Medical Plan: Instructions given the patient to call in case of vaginal bleeding otherwise schedule annual exam. All questions answered, the patient verbalized understanding Coding Level of Care Code Est Pt Level 3 (54520) Diagnoses Menopause Z78.0
[2024-05-21 10:32] VITALS: BMI 31.8
== END 2024-05-21 10:57 | disposition home or self-care (01) ==
LOC: HO.HWS 10:26
PROVIDERS: PCP Nurse Practitioner Family; Visit Provider Obstetrics & Gynecology
DX: Z78.0 Asymptomatic menopausal state (principal)
CPT/HCPCS: 99213

== ENCOUNTER → 2024-05-21 10:26 | Outpatient (BNVA) | payer OTHER, SELFPAY | PROVIDERS: PCP Nurse Practitioner Family; Visit Provider Obstetrics & Gynecology | DX: Z78.0 Asymptomatic menopausal state (principal) | CPT/HCPCS: 99212 ==

== ENCOUNTER 2024-06-26 08:03 | Outpatient (AMB) | payer OTHER, SELFPAY ==
--- NOTE | 2024-06-26 08:04 | MHC.OFFWIV ---
Intake Vital Signs 06/26/24 08:06 Height 4 ft 10 in Weight 151 lb BMI 31.6 BP 120/80 Blood Pressure Location Rt brachial Position Sitting Pulse 80 Pulse Source Pulse Oximeter Pulse Oximetry (%) 98 Oxygen Delivery Method Room Air Intake Visit Reasons: EP- LT hip pain, RT ribs pain Intake Note: Patient here for lower back that radiates down the left leg. Patient Tobacco Use Status: Never used Tobacco Allergies mold Allergy (Severe, Verified 06/26/24 08:05) itchy throat blue cheese Allergy (Severe, Uncoded 06/26/24 08:05) itchy throat Do you need a note to return to daycare/school/sports/work: No HPI HPI Comments History of Present Illness Details 53 yo female patient who presents to the walk in clinic with c/o left lower back pain that radiates down to left hip and lower leg. She uses a walk for ambulation due to pain. States that she saw Ortho 2 years ago, had Steroid shots that did not work. Here today asking for imaging, since she believes she has pinched nerve. Currently receiving Physical therapy with no relief. [facility] Medical History HTN (hypertension) Anxiety INGRID (obstructive sleep apnea) Neck pain Heart murmur Depression Esophagitis Hypokalemia Hyperlipidemia FH: HTN (hypertension) Diabetes mellitus Right sided sciatica Asthma Sacroiliac inflammation Surgical History S/p bilateral carpal tunnel release Hx of esophagogastroduodenoscopy Hx of colonoscopy History of back surgery History of bilateral tubal ligation Family History Father Cancer Alzheimer's disease Mother HTN (hypertension) Diabetes mellitus Asthma Depression Stroke Cancer Maternal Grandfather No problems noted. Maternal Grandmother No problems noted. Paternal Grandfather No problems noted. Paternal Grandmother No problems noted. Brother No problems noted. Brother No problems noted. Sister Asthma Son No problems noted. Son No problems noted. Daughter No problems noted. Social History Household Members: Spouse and Children Housing: House Are you a primary health care marketing specialist to a significant other at home: No Do you presently have visiting nurse or other home services: No Alcohol intake: current Alcohol intake frequency: holidays/special occasions only Patient Tobacco Use Status: Never used Tobacco e-Cigarette/Vaping Use: Never Used Second Hand Smoke Exposure: No service: No Current occupational status: disabled Cognitive needs: No Hearing needs: No Vision needs: Yes Female Reproductive History Menstrual Age of Menarche: 10 Review of Systems Const All systems reviewed & are unremarkable except as noted in HPI and below Physical Exam Vital Signs: Last Vital Signs Pulse 80 06/26/24 08:06 BP 120/80 06/26/24 08:06 Pulse Ox 98 06/26/24 08:06 Oxygen Delivery Method Room Air 06/26/24 08:06 BMI result Body Mass Index 31.6 Const Orientation/consciousness: patient oriented x3 Skin General skin exam: no rashes or lesions noted Neuro General: patient oriented x3 and moves all extremities Extrem Other: Left sided hip/back tenderness with palpation. Limited ROM due to pain. Walks with a walker with slight limp Psych Speech and movement: Normal speech and movement present Assessment & Plan Assessment & Plan (1) Pain of back and left lower extremity: Code(s): M54.9 - Dorsalgia, unspecified; M79.605 - Pain in left leg Plan: Pt was seen at [facility] and would like to go back Acetaminophen for pain relief Continue with PT F/U with PCP. Medications: Refilled cyclobenzaprine 10 mg PO BEDTIME PRN 14 tabs 0RF muscle spasm M54.9 - Dorsalgia, unspecified, M79.605 - Pain in left leg acetaminophen (Tylenol) 650 mg (2 x 325 mg) PO QID PRN 60 tabs 0RF pain M54.9 - Dorsalgia, unspecified, M79.605 - Pain in left leg Coding Level of Care Code Est Pt Level 3 (85395) Diagnoses Pain of back and left lower extremity M54.9; M79.605 Time Spent (min) 15
[2024-06-26 08:06] VITALS: BP 120/80; PULSE 80; O2SAT 98; BMI 31.6
== END 2024-06-26 08:52 | disposition home or self-care (01) ==
PROVIDERS: PCP Nurse Practitioner Family; Visit Provider Nurse Practitioner Family
DX: M54.9 Dorsalgia, unspecified (principal); M79.605 Pain in left leg
CPT/HCPCS: 99213

== ENCOUNTER 2024-07-15 08:05 | Outpatient (AMB) | payer OTHER, SELFPAY ==
--- NOTE | 2024-07-15 08:08 | AM.OFFWIN_ITS ---
Intake Vital Signs 07/15/24 08:09 Height 4 ft 10 in Weight 154 lb BMI 32.2 BP 120/82 Blood Pressure Location Rt brachial Position Sitting Pulse 81 Pulse Source Pulse Oximeter Temp 98.6 F Temp Source Oral Pulse Oximetry (%) 98 Oxygen Delivery Method Room Air Intake Visit Reasons: EP sore throat/loss of voice/ear Intake Note: Sore throat, loss of voice and ear pain. Started Patient Tobacco Use Status: Never used Tobacco Allergies mold Allergy (Severe, Verified 07/15/24 08:26) itchy throat blue cheese Allergy (Severe, Uncoded 07/15/24 08:26) itchy throat Do you need a note to return to daycare/school/sports/work: Yes HPI EP sore throat/loss of voice/ear HPI Details This note is constructed using voice recognition software. While every effort has been made to ensure accuracy, supervisor painting shipyard errors may have been included. The patient is a 53 year old female who presents to the clinic today with 4 day history of cough, congestion, body aches, fever initially, bilateral ear pain, sore throat. She denies shortness of breath. [facility] Medical History HTN (hypertension) Anxiety INGRID (obstructive sleep apnea) Neck pain Heart murmur Depression Esophagitis Hypokalemia Hyperlipidemia FH: HTN (hypertension) Diabetes mellitus Right sided sciatica Asthma Sacroiliac inflammation Surgical History S/p bilateral carpal tunnel release Hx of esophagogastroduodenoscopy Hx of colonoscopy History of back surgery History of bilateral tubal ligation Family History Father Cancer Alzheimer's disease Mother HTN (hypertension) Diabetes mellitus Asthma Depression Stroke Cancer Maternal Grandfather No problems noted. Maternal Grandmother No problems noted. Paternal Grandfather No problems noted. Paternal Grandmother No problems noted. Brother No problems noted. Brother No problems noted. Sister Asthma Son No problems noted. Son No problems noted. Daughter No problems noted. Social History Household Members: Spouse and Children Housing: House Are you a primary career based intervention coordinator to a significant other at home: No Do you presently have visiting nurse or other home services: No Alcohol intake: current Alcohol intake frequency: holidays/special occasions only Patient Tobacco Use Status: Never used Tobacco e-Cigarette/Vaping Use: Never Used Second Hand Smoke Exposure: No service: No Current occupational status: disabled Cognitive needs: No Hearing needs: No Vision needs: Yes Female Reproductive History Menstrual Age of Menarche: 10 Review of Systems Const All systems reviewed & are unremarkable except as noted in HPI and below Physical Exam Vital Signs: Last Vital Signs Temp 98.6 F 07/15/24 08:09 Pulse 81 07/15/24 08:09 BP 120/82 07/15/24 08:09 Pulse Ox 98 07/15/24 08:09 Oxygen Delivery Method Room Air 07/15/24 08:09 BMI result Body Mass Index 32.2 Const General: cooperative, healthy appearing, comfortable and no acute distress Orientation/consciousness: patient oriented x3 Limitations: no limitations HEENT Head: Yes normal to inspection Ears: hearing grossly normal bilaterally, external ears normal and TM's normal bilaterally General nose exam: Normal external nose present, Normal nares present and No nasal discharge present Face and sinus: Yes normal facial exam and Yes sinuses nontender Mouth: Normal oral and palatal mucosa present and moist mucous membranes Throat: Yes tonsils normal, Yes uvula midline and Yes posterior oropharynx abnormal (Erythema) Eyes General: appearance normal, both eyes and all related structures Neck Neck: Yes normal visual inspection Resp Effort & Inspection: normal respiratory effort, able to speak in complete sentences, Actively coughing, no respiratory distress, not tachypneic, no tripod positioning and no use of accessory muscles Auscultation: clear to auscultation bilaterally Cardio Jugular venous distension: no JVD Rate: regular rate Rhythm: regular rhythm Heart sounds: S1 normal heart sound present, S2 normal heart sound present, no click, no gallops, no murmurs and no rubs Skin General skin exam: no rashes or lesions noted, elasticity normal and turgor normal Neuro General: patient oriented x3 Extrem General: Yes normal to inspection and Yes no clubbing, cyanosis or edema Results AMB Rapid Strep AMB Rapid Strep Negative Last Edit by Rohit Avery CMA on 07/15/24 08:44 Results Reviewed Results Reviewed: Laboratory Last Values Strep Scn Rapid Clinic Negative 07/15/24 08:29 Assessment & Plan Assessment & Plan (1) URI (upper respiratory infection): Code(s): J06.9 - Acute upper respiratory infection, unspecified Qualifiers: URI type: unspecified URI Qualified Code(s): J06.9 - Acute upper respiratory infection, unspecified Plan: In office rapid strep test negative. Viral swab obtained to rule out Covid based on symptoms. Advised mask wearing while symptomatic and quarantine per current CDC guidelines. Reviewed at home support methods including hydration, humidification, vix vapor rub, sinus rinse. Discussed treatment with antiviral therapy for covid with paxlovid including appropriate use and side effects, and need to start medication within 5 day of symptom onset, preferably within 48 hours of symptom onset. Patient wishes to proceed with paxlovid, if her test is positive. Advised follow up with worsening symptoms such as dyspnea at rest, which would r equire emergent evaluation. Letter provided to remain out of her day program through this week. Plan See above for full details and plan. Orders: Orders AMB Rapid Strep Screen Today Z13.9 - Encounter for screening, unspecified SARS-CoV2/FLU/RSV Today J06.9 - Acute upper respiratory infection, unspecified Coding Level of Care Code Est Pt Level 3 (71328) Diagnoses Upper respiratory tract infection, unspecified type J06.9 URI type: unspecified URI
[2024-07-15 08:09] VITALS: BP 120/82; PULSE 81; TEMP 37; O2SAT 98; BMI 32.2
== END 2024-07-15 09:18 | disposition home or self-care (01) ==
PROVIDERS: PCP Nurse Practitioner Family; Visit Provider Registered Nurse
DX: J06.9 Acute upper respiratory infection, unspecified (principal)
CPT/HCPCS: 87880; 99213

== ENCOUNTER 2024-07-15 08:29 | Outpatient (REF) | payer OTHER, SELFPAY ==
[2024-07-15 12:47] LABS: Influenza A PCR NEGATIVE (Negative); Influenza B PCR NEGATIVE (Negative); Resp Syncy Virus RNA Qual PCR NEGATIVE (Negative); SARS COV2 PCR INHOUSE NEGATIVE (Negative)
== END 2024-07-15 08:30 | disposition home or self-care (01) ==
LOC: HO.LAB 08:29
PROVIDERS: Visit Provider Registered Nurse
DX: J06.9 Acute upper respiratory infection, unspecified (principal)
CPT/HCPCS: 0241U

== ENCOUNTER 2024-07-29 08:32 | Outpatient (AMB) | payer OTHER, SELFPAY ==
[2024-07-29 08:42] VITALS: BP 120/70; PULSE 78; TEMP 36.9; O2SAT 95; BMI 32.2
--- NOTE | 2024-07-29 08:42 | MHC.OFFWIV ---
Intake Vital Signs 07/29/24 08:42 Height 4 ft 10 in Weight 154 lb BMI 32.2 BP 120/70 Blood Pressure Location Rt brachial Position Sitting Pulse 78 Pulse Source Pulse Oximeter Temp 98.4 F Temp Source Oral Pulse Oximetry (%) 95 Oxygen Delivery Method Room Air Intake Visit Reasons: EP-rt shoulder pain, lt breast pain Intake Note: pt c/o LT shoulder and breast pain started 3 weeks ago, LT side facial numbness started this morning. Patient Tobacco Use Status: Never used Tobacco Allergies mold Allergy (Severe, Verified 07/29/24 08:43) itchy throat blue cheese Allergy (Severe, Uncoded 07/29/24 08:43) itchy throat Do you need a note to return to daycare/school/sports/work: No HPI HPI Comments History of Present Illness Details Patient is a 53-year-old female with multiple complaints. Her 1st complaint is that her right shoulder is hurting her, she denies any trauma to the area. She states it has been hurting for the last few days. She has not tried any medications to make it feel better. Her 2nd complaint is that her left breast is hurting. She states it feels heavy and she has to hold it for pain relief. She states that the pain is inside and it is hard to describe. She denies any changes to the skin, she denies feeling any lumps or bumps in her breast during self-breast exams and she denies any bleeding or discharge from her nipple. She states she did just have a mammogram in November which was normal. She denies a personal or family history of breast cancer but she states her mother did pass away from a different cancer. Her 3rd complaint is that she woke up this morning and felt like her left side of her face was numb, she denies any tingling or weakness in the face. She denies any word-finding difficulties, dizziness, weakness in any of her extremities, mumbling her words does not endorse a headache. She states that the headache is just a normal headache. [facility] Medical History HTN (hypertension) Anxiety INGRID (obstructive sleep apnea) Neck pain Heart murmur Depression Esophagitis Hypokalemia Hyperlipidemia FH: HTN (hypertension) Diabetes mellitus Right sided sciatica Asthma Sacroiliac inflammation Surgical History S/p bilateral carpal tunnel release Hx of esophagogastroduodenoscopy Hx of colonoscopy History of back surgery History of bilateral tubal ligation Family History Father Cancer Alzheimer's disease Mother HTN (hypertension) Diabetes mellitus Asthma Depression Stroke Cancer Maternal Grandfather No problems noted. Maternal Grandmother No problems noted. Paternal Grandfather No problems noted. Paternal Grandmother No problems noted. Brother No problems noted. Brother No problems noted. Sister Asthma Son No problems noted. Son No problems noted. Daughter No problems noted. Social History Household Members: Spouse and Children Housing: House Are you a primary career transition specialist to a significant other at home: No Do you presently have visiting nurse or other home services: No Alcohol intake: current Alcohol intake frequency: holidays/special occasions only Patient Tobacco Use Status: Never used Tobacco e-Cigarette/Vaping Use: Never Used Second Hand Smoke Exposure: No service: No Current occupational status: disabled Cognitive needs: No Hearing needs: No Vision needs: Yes Female Reproductive History Menstrual Age of Menarche: 10 Review of Systems Const All systems reviewed & are unremarkable except as noted in HPI and below Neuro Denies Abnormal speech present Physical Exam Vital Signs: Last Vital Signs Temp 98.4 F 07/29/24 08:42 Pulse 78 07/29/24 08:42 BP 120/70 07/29/24 08:42 Pulse Ox 95 07/29/24 08:42 Oxygen Delivery Method Room Air 07/29/24 08:42 BMI result Body Mass Index 32.2 Const General: cooperative, healthy appearing, comfortable, no acute distress and well developed Orientation/consciousness: patient oriented x3 Limitations: no limitations HEENT Head: Yes normal to inspection Ears: hearing grossly normal bilaterally and TM's normal bilaterally General nose exam: Normal external nose present Face and sinus: Yes normal facial exam and Yes face symmetric Eyes General: appearance normal, both eyes and all related structures Neck Neck: Yes normal visual inspection and Yes full ROM Chest Breast/axilla palpation: normal palpation of the breasts (left, no discharge, no skin changes), normal palpation of the axillae (left) and no axillary lymphadenopathy (left) Resp Effort & Inspection: normal respiratory effort and able to speak in complete sentences Auscultation: clear to auscultation bilaterally Cardio Rate: regular rate Rhythm: regular rhythm Heart sounds: normal S1 and S2 GI Inspection: Yes normal to inspection Palpation (GI): Soft to palpation and nontender Skin General skin exam: no rashes or lesions noted Neuro General: patient oriented x3 Cranial nerves: Yes CN's II-XII intact bilaterally Cognition (Neuro): normal cognition Speech: No Abnormal speech present Gait exam (Neuro): Normal gait present Motor exam (neuro): 5/5 motor strength present throughout, Pronator motor function not present, no tremor noted, no asterixis, Motor fasciculations not present and Normal motor muscle tone present throughout Extrem General: Yes normal to inspection Assessment & Plan Assessment & Plan (1) Acute breast pain: Code(s): N64.4 - Mastodynia Plan: Physical exam was unremarkable. Sent note to PCP for further imaging (2) Shoulder pain, right: Code(s): M25.511 - Pain in right shoulder Qualifiers: Chronicity: acute Qualified Code(s): M25.511 - Pain in right shoulder Plan: Recommended she rest her right shoulder use ice and Aleve as needed for pain as there was no trauma, could be she slept wrong or over use. If no resolution in her symptoms, she can follow up with her PCP. (3) Numbness and tingling of left side of face: Code(s): R20.0 - Anesthesia of skin; R20.2 - Paresthesia of skin Plan: Vital signs are stable, physical exam was unremarkable, no focal neurological deficits, patient is very well-appearing. I did educate patient and reviewed a list of red flag warning signs/ stoke s/s and when to go to the emergency department and recommended she use a low threshold to call 911 if her symptoms should worsen or change. Plan See above Coding Level of Care Code Est Pt Level 4 (69669) Diagnoses Acute breast pain N64.4 Acute pain of right shoulder M25.511 Chronicity: acute Numbness and tingling of left side of face R20.0; R20.2
== END 2024-07-29 09:58 | disposition home or self-care (01) ==
PROVIDERS: PCP Nurse Practitioner Family; Visit Provider Physician Assistant
DX: N64.4 Mastodynia (principal); M25.511 Pain in right shoulder; R20.0 Anesthesia of skin; R20.2 Paresthesia of skin

== ENCOUNTER → 2024-07-29 08:32 | Outpatient (BNVA) | payer OTHER, SELFPAY | PROVIDERS: PCP Nurse Practitioner Family ==

== ENCOUNTER 2024-07-29 09:46 | Outpatient (REF) | payer OTHER, SELFPAY ==
[2024-07-29 13:12] LABS: MANUAL DIFF FLAG NO
[2024-07-29 13:17] LABS: Basophils Percent Auto 0.6 % (0-2); Eosinophils Absolute Auto 0.4 X10*3/uL (0.0-0.4); Eosinophils Percent Auto 5.5 % (0-4); Hematocrit 39.9 % (37.0-47.0); Hemoglobin 12.8 g/dl (12.0-16.0); Imm Gran Abs Auto 0.02 X10*3/uL (0.00-0.03); Imm Gran Pct Auto 0.3 % (0.0-0.4); Lymphocytes Absolute Auto 1.7 X10*3/uL (1.2-4.9); Lymphocytes Percent Auto 24.6 % (20-40); Mean Corpuscular HGB Conc 32.1 g/dl (31.0-35.0); Mean Corpuscular Hemoglobin 27.1 pg (27.0-33.0); Mean Corpuscular Volume 84.5 fL (80.0-98.0); Mean Platelet Volume 11.3 fL (9.4-12.3); Monocytes Absolute Auto 0.4 X10*3/uL (0.1-1.2); Monocytes Percent Auto 6.4 % (2-11); Neutrophils Absolute Auto 4.3 x10*3/uL (2.0-8.3); Neutrophils Percent Auto 62.6 % (45-73); Platelet Count 267 X10*3/uL (160-400); Red Blood Count 4.72 X10*6/uL (4.20-5.50); Red Cell Distribution Width 13.5 % (11.0-16.0); White Blood Count 6.9 X10*3/uL (4.8-10.8)
[2024-07-29 13:38] LABS: Appearance Urine Clear; Color Urine Dark Yellow; Glucose Urine UA Negative (Negative); Leukocyte Esterase Urine Negative (Negative); Nitrite Urine Negative (Negative); PH 6.5 (5.0-9.0); Specific Gravity - Urine 1.015 (1.005-1.025); Urine Blood Negative (Negative); Urine Ketones Negative (Negative); Urine Protein Negative (Neg-Trace)
[2024-07-29 14:13] LABS: Erythrocyte Sedimentation Rate 18 MM/HR (0-20)
[2024-07-29 14:32] LABS: Alanine Aminotransferase 24 U/L (0-31); Albumin Level 3.9 g/dL (3.5-5.0); Alkaline Phosphatase 157 U/L (39-117); Anion Gap 11 (12-20); Aspartate Amino Transferase 19 U/L (5-31); Bilirubin Total 0.4 mg/dL (0.0-1.0); Blood Urea Nitrogen 13 mg/dL (9-16); Calcium 9.6 mg/dL (8.4-10.2); Carbon Dioxide 29 mmol/L (22-29); Chloride 106 mmol/L (96-108); Cholesterol 221 mg/dL (<200); Estimated Glomerular Filt Rate > 60; Glucose Fasting 113 mg/dL (60-99); HDL Cholesterol 39 mg/dL (>40); LDL Cholesterol Calculated 138 mg/dL (<100); Lipase 19 U/L (8-78); Potassium 4.5 mmol/L (3.3-5.1); Sodium 141 mmol/L (135-145); Total Protein 7.3 g/dL (6.5-8.0); Triglycerides 223 mg/dL (<150)
[2024-07-29 14:33] LABS: TSH reflex Free T4 1.54 uIU/mL (0.32-4.0)
[2024-07-29 15:20] LABS: Amylase 50 U/L (28-100)
== END 2024-07-29 09:47 | disposition home or self-care (01) ==
LOC: HO.HMGCLDS 09:46
PROVIDERS: Nurse Practitioner Primary Care; PCP Nurse Practitioner Family; Visit Provider Nurse Practitioner Family
DX: Z00.00 Encounter for general adult medical examination without abnormal findings (principal); E11.9 Type 2 diabetes mellitus without complications; R10.9 Unspecified abdominal pain; N64.4 Mastodynia; M25.511 Pain in right shoulder; R20.0 Anesthesia of skin; R20.2 Paresthesia of skin; D72.829 Elevated white blood cell count, unspecified; Z91.89 Other specified personal risk factors, not elsewhere classified
CPT/HCPCS: 36415; 80053; 80061; 81003; 82150; 83690; 84443; 85025; 85652; 99212

== ENCOUNTER 2024-08-04 05:18 | Emergency (ER) | payer OTHER, SELFPAY ==
--- NOTE | ~2024-08-04 | XR_ITS ---
EXAMINATION: XR CHEST CLINICAL INFORMATION: Left-sided chest pain COMPARISON: None available. TECHNIQUE: 2 views of the chest were obtained. FINDINGS: Lungs clear. No pleural effusions. Heart and pulmonary vessels are normal. XR/XR chest 2V IMPRESSION: No active disease. Electronically signed by: Thai Ashley MD 08/04/2024 10:12 AM EDT
[2024-08-04 05:27] VITALS: BP 128/74; PULSE 79; RESP 18; TEMP 36.3; O2SAT 97; BMI 32.4
--- NOTE | 2024-08-04 06:36 | ED.GENADULT ---
HPI - General Adult General Chief complaint: General Medical Stated complaint: gen med Time Seen by Provider: 08/04/24 06:30 Source: patient Mode of arrival: ambulatory Limitations: no limitations History of Present Illness ED Provider: Cheyenne Andres PA-C HPI narrative: 53 yo female with history of HTN, anxiety, INGRID, depression, DM, asthma who presents to the ER for evaluation of left sided chest pain that has been present for over a month. She reports the pain started in the left breast and was relieved when she would hold/lift the breast up. She reports the pain is now deeper inside the chest, under the breast itself. It does not radiate and it is sharp. It is constant. She report being seen by her PCP last week for this and she is getting a mammogram next month. She denies any skin changes, nipple drainage, fever, chills, N/V/D or abdominal pain. No SOB or difficulty breathing. MD complaint: left sided chest pain Onset (ago): month(s) (1) Location: chest Radiation: non-radiation Severity: severe Severity scale (1-10): 8 Quality: sharp Pain Consistency: constant Relieving factors: other (lifting breast) Exacerbating factors: none Associated symptoms: denies other symptoms Treatments prior to arrival: none Related Data Home Medications ?Medication ?Instructions ?Recorded ?Confirmed alprazolam 1 mg tablet 1 mg PO BEDTIME 02/23/21 02/05/24 blood sugar diagnostic #10 ea 02/23/21 02/05/24 lancets 28 gauge (FreeStyle 10/04/21 02/05/24 Lancets) sertraline 100 mg tablet 100 mg PO QAM 01/04/22 02/05/24 sumatriptan succinate 100 mg tablet 150 mg PO DAILY PRN Headache 09/04/23 02/05/24 hydroxyzine HCl 25 mg tablet 25 mg PO BID 06/26/24 magnesium oxide 400 mg PO DAILY 06/26/24 trazodone 100 mg tablet 100 mg PO BEDTIME 06/26/24 Previous Rx's ?Medication ?Instructions ?Recorded Lactobacillus acidophilus 300 mg PO DAILY 30 days #30 caps 09/01/20 (Acidophilus capsule) albuterol sulfate 2.5 mg/0.5 mL 5 mg inhalation Q4H PRN shortness 08/25/21 solution for nebulization of breath or wheezing #30 ea blood sugar diagnostic (Freestyle #50 ea 10/04/21 Insu[employer]x strips) blood-glucose meter (Freestyle #1 ea 10/04/21 [employer] meter) cholecalciferol (vitamin D3) 50 50 mcg PO DAILY 90 days #90 caps 10/04/21 mcg (2,000 unit) capsule pen needle, diabetic 32 gauge x #100 ea 10/04/21 1/4 methylcellulose (laxative) 500 mg 500 mg PO BID #60 tabs 12/05/21 tablet (Citrucel) polyethylene glycol 3350 17 gram 17 g PO DAILY #30 ea 12/05/21 oral powder packet (Miralax) blood sugar diagnostic (Freestyle #100 ea 08/15/22 Insu[employer]x Test Strips) lidocaine 5 % topical patch 1 patch topical DAILY PRN pain #15 08/15/23 ea fluticasone propionate 50 1 spray intranasal DAILY #16 grams 09/02/23 mcg/actuation nasal spray,suspension (Children's Flonase Allergy Relief) cetirizine 10 mg tablet 10 mg PO BID #180 tabs 04/17/24 ferrous sulfate 325 mg (65 mg 325 mg PO DAILY 90 days #90 tabs 04/17/24 iron) tablet hydrochlorothiazide 25 mg tablet 25 mg PO QAM #90 tabs 04/17/24 magnesium oxide 400 mg PO DAILY #30 caps 05/01/24 ondansetron HCl 4 mg tablet 4 mg PO Q8H PRN nausea and 05/07/24 vomiting 7 days #14 tabs insulin aspart U-100 100 unit/mL 2 - 14 unit (0.02 - 0.14 mL) 05/29/24 (3 mL) subcutaneous pen (Novolog subcut TID 30 days #15 mL FlexPen U-100 Insulin aspart) docusate sodium 100 mg capsule 100 mg PO DAILY 90 days #90 caps 05/30/24 (Colace) losartan 25 mg tablet 25 mg PO DAILY #90 tabs 06/23/24 riboflavin (vitamin B2) 400 mg 400 mg PO DAILY #90 tabs 06/23/24 tablet acetaminophen 325 mg tablet 650 mg (2 x 325 mg) PO QID PRN 06/26/24 (Tylenol) pain #60 tabs albuterol sulfate 90 mcg/actuation 2 puff inhalation Q6H PRN 06/28/24 aerosol inhaler shortness of breath or wheezing #6.7 grams medroxyprogesterone 10 mg tablet 10 mg PO DAILY 10 days #30 tabs 06/30/24 (Provera) lansoprazole 30 mg capsule,delayed 30 mg PO DAILY #90 caps 07/01/24 release cyclobenzaprine 10 mg tablet 10 mg PO BEDTIME PRN muscle spasm 07/09/24 #14 tabs furosemide 40 mg tablet 40 mg PO DAILY PRN edema 90 days 07/20/24 #30 tabs potassium chloride 10 mEq 10 meq PO DAILY 30 days #30 tabs 07/20/24 tablet,extended release ezetimibe 10 mg-rosuvastatin 40 mg 1 tab PO DAILY #90 tabs 07/30/24 tablet Allergies Allergy/AdvReac Type Severity Reaction Status Date / Time mold Allergy Severe itchy Verified 08/04/24 05:27 throat blue cheese Allergy Severe itchy Uncoded 08/04/24 05:27 throat Review of Systems Review of Systems: Yes all other systems are reviewed and are negative PMFSH Past Medical History Medical History HTN (hypertension) Anxiety INGRID (obstructive sleep apnea) Neck pain Heart murmur Depression Esophagitis Hypokalemia Hyperlipidemia FH: HTN (hypertension) Diabetes mellitus Right sided sciatica Asthma Sacroiliac inflammation Surgical History S/p bilateral carpal tunnel release Hx of esophagogastroduodenoscopy Hx of colonoscopy History of back surgery History of bilateral tubal ligation Family History Family History Father Cancer Alzheimer's disease Mother HTN (hypertension) Diabetes mellitus Asthma Depression Stroke Cancer Maternal Grandfather No problems noted. Maternal Grandmother No problems noted. Paternal Grandfather No problems noted. Paternal Grandmother No problems noted. Brother No problems noted. Brother No problems noted. Sister Asthma Son No problems noted. Son No problems noted. Daughter No problems noted. Social History Social History Household Members: Spouse and Children Housing: House Are you a primary rn care manager to a significant other at home: No Do you presently have visiting nurse or other home services: No Alcohol intake: current Alcohol intake frequency: holidays/special occasions only Patient Tobacco Use Status: Never used Tobacco Smoked in Last 30 Days: No e-Cigarette/Vaping Use: Never Used Second Hand Smoke Exposure: No Use of substances other than those prescribed or required for medical reasons: No Advance Directives: No Advance Directives Information Provided: No Do you have a plan to hurt others: No Plan Patient : No service: No Current occupational status: disabled Cognitive needs: No Hearing needs: No Vision needs: Yes Physical Exam ED Vital Signs: Vital Signs - 24 hr 08/04/24 05:27 Temperature 97.4 F Pulse Rate 79 Respiratory Rate 18 Blood Pressure 128/74 Pulse Oximetry 97 Oxygen Delivery Method Room Air BMI result Body Mass Index 32.4 Appearance: Alert. Oriented X3. No acute distress. Head: normocephalic, atraumatic. Eyes: Pupils equal, round and reactive to light. ENT: Pharynx normal. No tonsillar swelling or exudate. Neck: Normal inspection. Neck supple. CVS: Normal heart rate and rhythm. Pulses normal. Respiratory: No respiratory distress. Breath sounds normal. Chest: normal inspection and palpation of bilateral breasts, no masses, no erythema. Abdomen: Soft and nontender. +BS x4 Skin: Skin warm and dry. Normal skin color. Normal skin turgor. No rashes. Extremities: No lower extremity edema. No joint swelling. Neuro/psych: Oriented X 3. No motor deficit. No sensory deficit. CN II-XII intact. Normal speech and cognition. Medical Decision Making Medical Decision Making MDM Narrative: 53 yo female with history of HTN, anxiety, INGRID, depression, DM, asthma who presents to the ER for evaluation of left sided chest pain that has been present for over a month. She recently saw her PCP and is scheduled for a mammogram next month, as well as initially related to the left breast, now feels like it is deeper inside the chest. Her vital signs are stable on arrival. Her physical exam is unremarkable. Cardiac workup revealed negative troponin, unremarkable EKG, chest x-ray was clear. Patient comfortable and knitting hat in the treatment room, no significant distress or pain. We discussed the results of her workup. She endorses significant anxiety lately, she states she had 5 panic attacks the other day. She is wondering if her pains could be from anxiety. Advised outpatient follow-up and she is going to call her PCP. Comfortable discharge home Differential Diagnosis Differential Diagnoses: The differential diagnosis associated with the presentation includes ACS, PE, pneumonia, myocarditis, pericarditis, anxiety, breast cancer Admission/Observation Consideration of admission/observation: Escalation of care including admission/observation considered Lab Data MDM Lab Attestation statement: I reviewed the patient's lab results. Negative troponin, reassuring workup with no major metabolic derangement 08/04/24 07:19 08/04/24 07:19 Labs: Lab Results 08/04/24 08/04/24 Range/Units 07:19 07:51 WBC 6.9 (4.8-10.8) X10*3/uL RBC 4.59 (4.20-5.50) X10*6/uL Hgb 12.4 (12.0-16.0) g/dl Hct 38.1 (37.0-47.0) % MCV 83.0 (80.0-98.0) fL MCH 27.0 (27.0-33.0) pg MCHC 32.5 (31.0-35.0) g/dl RDW 13.4 (11.0-16.0) % Plt Count 237 (160-400) X10*3/uL MPV 10.4 (9.4-12.3) fL Immature Gran % (Auto) 0.1 (0.0-0.4) % Neut % (Auto) 55.6 (45-73) % Lymph % (Auto) 30.0 (20-40) % [place] % (Auto) 7.0 (2-11) % Eos % (Auto) 6.4 H (0-4) % Baso % (Auto) 0.9 (0-2) % Lymph # (Auto) 2.1 (1.2-4.9) X10*3/uL [place] # (Auto) 0.5 (0.1-1.2) X10*3/uL Eos # (Auto) 0.4 (0.0-0.4) X10*3/uL Baso # (Auto) 0.1 (0.0-0.2) X10*3/uL Abs Immat Gran (auto) 0.01 (0.00-0.03) X10*3/uL Absolute Neuts (auto) 3.8 (2.0-8.3) x10*3/uL Absolute Nucleated RBC 0.000 (0.0-0.012) X10*3/uL Nucleated RBC % (auto) 0.0 (0.0-0.2) /100WBC Sodium 142 (135-145) mmol/L Potassium 4.0 (3.3-5.1) mmol/L Chloride 108 (96-108) mmol/L Carbon Dioxide 27 (22-29) mmol/L Anion Gap 11 L (12-20) BUN 16 (9-16) mg/dL Creatinine 0.80 (0.5-1.4) mg/dL Estim Creat Clear Calc 66.8 Estimated GFR > 60 Random Glucose 115 (60-115) mg/dL Calcium 9.8 (8.4-10.2) mg/dL Magnesium 2.1 (1.6-2.6) mg/dL Total Bilirubin 0.4 (0.0-1.0) mg/dL Direct Bilirubin 0.1 (0.0-0.5) mg/dL AST 15 (5-31) U/L ALT 20 (0-31) U/L Alkaline Phosphatase 161 H (39-117) U/L Troponin I High Sens < 2.7 (<3.5-17.0) ng/L Total Protein 7.6 (6.5-8.0) g/dL Albumin 4.1 (3.5-5.0) g/dL Urine Color Yellow Urine Appearance Clear Urine pH 6.5 (5.0-9.0) Ur Specific [place] <= 1.005 (1.005-1.025) Urine Protein Negative (Neg-Trace) mg/dL Urine Glucose (UA) Negative (Negative) mg/dL Urine Ketones Negative (Negative) mg/dL Urine Blood Negative (Negative) Urine Nitrite Negative (Negative) Ur Leukocyte Esterase Negative (Negative) Independent Interpretation I performed an independent interpretation of an: EKG and Plain X-Ray Interpretation: Chest x-ray clear, no focal infiltrate EKG with normal sinus rhythm, ventricular rate 73 beats per minute, Q-wave in lead 3, no ST segment elevations or depressions. Normal QRS, normal QTC. Radiology Impression Discussion of test interpretation with radiology: I have reviewed the radiologist's reading. Radiologist Impression: EXAMINATION: XR CHEST CLINICAL INFORMATION: Left-sided chest pain COMPARISON: None available. TECHNIQUE: 2 views of the chest were obtained. FINDINGS: Lungs clear. No pleural effusions. Heart and pulmonary vessels are normal. XR/XR chest 2V IMPRESSION: No active disease. External Record Review External record reviewed: Outpatient record, Prior outpatient labs and Prior outpatient radiology Prescription Management I considered prescription management with: Pain Medication Chronic Conditions Patient?s care impacted by: Other (Anxiety) Scores Heart Score History: -0- slightly suspicious ECG: -0- normal Age: -1- >45 - <65 Risk factory: -1- 1 or 2 risk factors Troponin: -0- < or = normal limit Score: 2 Risk: 1.7% Critical Care Time Critical Care Time Critical Care Time: No Discharge Plan Discharge Clinical Impression: Atypical chest pain Patient Disposition: Home, Self-Care Instructions: Noncardiac Chest Pain (ED) Additional Instructions: Your lab work, EKG, chest x-ray today were all reassuring. Recommend following up with her primary care doctor. If you develop new or worsening symptoms call 911 or come back to the ER for further evaluation. Prescriptions: No Action Lactobacillus acidophilus [Acidophilus] Capsule 300 mg PO DAILY 30 Days Qty: 30 4RF Rx Instructions: give 30 min before meal/food (DME) lancets [FreeStyle Lancets] 28 gauge misc See Rx Instructions .Route Rx Instructions: As directed (DME) blood-glucose meter [Freestyle [employer]x] Misc See Rx Instructions .Route Qty: 1 0RF Rx Instructions: bid testing (DME) Freestyle [employer] Strip See Rx Instructions .Route Qty: 50 2RF Rx Instructions: bid (DME) Freestyle [employer] Test Strips Strip See Rx Instructions .Route Qty: 100 1RF Rx Instructions: bid ferrous sulfate 325 mg (65 mg iron) tablet 325 mg PO DAILY 90 Days Qty: 90 1RF cetirizine 10 mg tablet 10 mg PO BID Qty: 180 1RF hydrochlorothiazide 25 mg tablet 25 mg PO QAM Qty: 90 1RF magnesium oxide 400 mg magnesium capsule 400 mg PO DAILY Qty: 30 2RF ondansetron HCl 4 mg tablet 4 mg PO Q8H PRN (Reason: nausea and vomiting) 7 Days Qty: 14 0RF insulin aspart U-100 [Novolog FlexPen U-100 Insulin] 100 unit/mL (3 mL) insulin pen 2 - 14 unit subcut TID 30 Days Qty: 15 3RF docusate sodium [Colace] 100 mg capsule 100 mg PO DAILY 90 Days Qty: 90 0RF losartan 25 mg tablet 25 mg PO DAILY Qty: 90 1RF riboflavin (vitamin B2) 400 mg tablet 400 mg PO DAILY Qty: 90 1RF albuterol sulfate 90 mcg/actuation HFA aerosol inhaler 2 puff inhalation Q6H PRN (Reason: shortness of breath or wheezing) Qty: 6.7 0RF medroxyprogesterone [Provera] 10 mg tablet 10 mg PO DAILY 10 Days Qty: 30 0RF Rx Instructions: start Provera 1 tablet daily from day 15-24 cyclically every months, day 1 being 1st day of menses lansoprazole 30 mg capsule,delayed release(DR/EC) 30 mg PO DAILY Qty: 90 1RF cyclobenzaprine 10 mg tablet 10 mg PO BEDTIME PRN (Reason: muscle spasm) Qty: 14 0RF furosemide 40 mg tablet 40 mg PO DAILY PRN (Reason: edema) 90 Days Qty: 30 2RF potassium chloride 10 mEq tablet extended release 10 meq PO DAILY 30 Days Qty: 30 2RF ezetimibe-rosuvastatin 10-40 mg tablet 1 tab PO DAILY Qty: 90 0RF albuterol sulfate 2.5 mg/0.5 mL solution for nebulization 5 mg inhalation Q4H PRN (Reason: shortness of breath or wheezing) Qty: 30 0RF lidocaine 5 % adhesive patch,medicated 1 patch topical DAILY PRN (Reason: pain) Qty: 15 0RF Rx Instructions: leave on most painful area for up to 12 hrs (DME) FreeStyle Lite Strips Strip See Rx Instructions Not Applicable QID Qty: 10 Rx Instructions: As directed alprazolam 1 mg tablet 1 mg PO BEDTIME sumatriptan succinate 100 mg tablet 150 mg PO DAILY PRN (Reason: Headache) (DME) pen needle, diabetic 32 gauge x 1/4 needle See Rx Instructions subcut QID Qty: 100 2RF Rx Instructions: As directed cholecalciferol (vitamin D3) 50 mcg (2,000 unit) capsule 50 mcg PO DAILY 90 Days Qty: 90 8RF sertraline 100 mg tablet 100 mg PO QAM fluticasone propionate [Children's Flonase Allergy Rlf] 50 mcg/actuation spray,suspension 1 spray intranasal DAILY Qty: 16 0RF Rx Instructions: administer into each nostril magnesium oxide 400 mg magnesium tablet 400 mg PO DAILY hydroxyzine HCl 25 mg tablet 25 mg PO BID trazodone 100 mg tablet 100 mg PO BEDTIME acetaminophen [Tylenol] 325 mg tablet 650 mg PO QID PRN (Reason: pain) Qty: 60 0RF polyethylene glycol 3350 [Miralax] 17 gram powder in packet 17 g PO DAILY Qty: 30 5RF Citrucel 500 mg tablet 500 mg PO BID Qty: 60 5RF Print Language: Korean
--- NOTE | 2024-08-04 06:51 | ECG_ITS ---
Test Reason : CP Blood Pressure : / mmHG Vent. Rate : 073 BPM Atrial Rate : 073 BPM P-R Int : 150 ms QRS Dur : 094 ms QT Int : 398 ms P-R-T Axes : 021 -19 012 degrees QTc Int : 438 ms Normal sinus rhythm Minimal voltage criteria for LVH, may be normal variant ( R in aVL ) Possible Anterior infarct , age undetermined Abnormal ECG When compared with ECG of 21-MAR-2022 09:29, QT has shortened Referred By: Ting Andres Electronically Signed By:JERED PINEDA
[2024-08-04 07:22] LABS: MANUAL DIFF FLAG NO
[2024-08-04 07:25] LABS: Basophils Absolute Auto 0.1 X10*3/uL (0.0-0.2); Basophils Percent Auto 0.9 % (0-2); Eosinophils Absolute Auto 0.4 X10*3/uL (0.0-0.4); Eosinophils Percent Auto 6.4 % (0-4); Hematocrit 38.1 % (37.0-47.0); Hemoglobin 12.4 g/dl (12.0-16.0); Imm Gran Abs Auto 0.01 X10*3/uL (0.00-0.03); Imm Gran Pct Auto 0.1 % (0.0-0.4); Lymphocytes Absolute Auto 2.1 X10*3/uL (1.2-4.9); Mean Corpuscular HGB Conc 32.5 g/dl (31.0-35.0); Mean Platelet Volume 10.4 fL (9.4-12.3); Monocytes Absolute Auto 0.5 X10*3/uL (0.1-1.2); Neutrophils Absolute Auto 3.8 x10*3/uL (2.0-8.3); Neutrophils Percent Auto 55.6 % (45-73); Platelet Count 237 X10*3/uL (160-400); Red Blood Count 4.59 X10*6/uL (4.20-5.50); Red Cell Distribution Width 13.4 % (11.0-16.0); White Blood Count 6.9 X10*3/uL (4.8-10.8)
[2024-08-04 07:47] LABS: Alanine Aminotransferase 20 U/L (0-31); Albumin Level 4.1 g/dL (3.5-5.0); Alkaline Phosphatase 161 U/L (39-117); Anion Gap 11 (12-20); Aspartate Amino Transferase 15 U/L (5-31); Bilirubin Direct 0.1 mg/dL (0.0-0.5); Bilirubin Total 0.4 mg/dL (0.0-1.0); Blood Urea Nitrogen 16 mg/dL (9-16); Calcium 9.8 mg/dL (8.4-10.2); Carbon Dioxide 27 mmol/L (22-29); Chloride 108 mmol/L (96-108); Creatinine Clr Calc Pharmacy 66.8; Estimated Glomerular Filt Rate > 60; Glucose Random 115 mg/dL (60-115); Magnesium 2.1 mg/dL (1.6-2.6); Sodium 142 mmol/L (135-145); Total Protein 7.6 g/dL (6.5-8.0)
[2024-08-04 07:57] LABS: Troponin-I High Sensitivity < 2.7 ng/L (<3.5-17.0)
[2024-08-04 07:58] LABS: Appearance Urine Clear; Color Urine Yellow; Glucose Urine UA Negative (Negative); Leukocyte Esterase Urine Negative (Negative); Nitrite Urine Negative (Negative); PH 6.5 (5.0-9.0); Specific Gravity - Urine <= 1.005 (1.005-1.025); Urine Blood Negative (Negative); Urine Ketones Negative (Negative); Urine Protein Negative (Neg-Trace)
--- NOTE | 2024-08-04 08:00 | PC.NURSE ---
Pt reports headaches, left breast pain and general malaise for the past couple of days worsening. Reports she went to doctors on saturday and they assessed her. Pt is alert and oriented, breathing even and unlabored. Reports pain is 10/10 in head and left breast. 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
[2024-08-04 10:38] VITALS: BP 128/74; PULSE 79; RESP 18; TEMP 36.3; O2SAT 97
== END 2024-08-04 10:39 | disposition home or self-care (01) ==
PROVIDERS: Physician Assistant; Emergency Provider Emergency Medicine; PCP Nurse Practitioner Family
DX: R07.89 Other chest pain (principal); G47.33 Obstructive sleep apnea (adult) (pediatric); N64.4 Mastodynia; E11.9 Type 2 diabetes mellitus without complications; Z79.899 Other long term (current) drug therapy; Z79.4 Long term (current) use of insulin
CPT/HCPCS: 36415; 71046; 80048; 80076; 81003; 83735; 84484; 85025; 93005; 99283; 99284

== ENCOUNTER 2024-08-31 08:47 | Outpatient (AMB) | payer OTHER, SELFPAY ==
--- OUTSIDE RECORDS SUMMARY | 2024-08-31 08:48 | XMS_ITS | Continuity of Care Document ---
Author Organization [facility] ter Address [address] [place] [id number]- Care Team Providers Care Hand Tube Bender Name Role Phone Viki MINOR, Bassem Ortiz Primary Care Physician Encounter 08/09/24 - 08/10/[address] [id number] Attending Physician: Not on Staff, Attending MD Referring Physician: Not on Staff, Referring MD Allergies, Adverse Reactions, Alerts No Known Allergies Medications Albuterol 0 Refills, Maintenance, 09/03/14 14:58:23 Start Date: 09/03/14 Status: Ordered amlodipine 5 mg oral tablet 1 tablet = 5 mg, By Mouth, Daily, # 30 tablet, 0 Refills, Maintenance, 06/03/14 9:27:49, Tablet Start Date: 06/03/14 Status: Ordered Baclofen = 10 mg, By Mouth, 3 times a day, 0 Refills, Maintenance, 09/03/14 14:57:54 Start Date: 09/03/14 Status: Ordered bifidobacterium-lactobacillus By Mouth, Daily, 0 Refills, Maintenance, 09/03/14 15:03:00 Start Date: 09/03/14 Status: Ordered Claritin 10 mg oral tablet 10 mg, 1, tablet, By Mouth, Daily, # 30 tablet, Refills 0, Maintenance, 02/06/17 14:16:05 Start Date: 02/06/17 Status: Ordered Colace sodium 100 mg oral capsule 1 capsule = 100 mg, By Mouth, 2 times a day, 0 Refills, Maintenance, 06/03/14 9:30:43 Start Date: 06/03/14 Status: Ordered cyclobenzaprine 5 mg oral tablet 1 tablet = 5 mg, By Mouth, 3 times a day, 0 Refills, Maintenance, 06/03/14 9:31:54 Start Date: 06/03/14 Status: Ordered Ferrous Sulfate ER Refills 0, Maintenance, 03/04/18 15:03:49 EDT Start Date: 03/04/18 Status: Ordered Flonase 50 mcg/inh nasal spray 1 sprays, Daily, 0 Refills, Maintenance, 06/03/14 9:29:29 Start Date: 06/03/14 Status: Ordered furosemide 40 mg oral tablet 40 mg, 1, tablet, By Mouth, Daily, # 30 tablet, Refills 0, Maintenance, 02/06/17 14:15:37 Start Date: 02/06/17 Status: Ordered gabapentin 600 mg oral tablet 1 tablet = 600 mg, By Mouth, 3 times a day, 0 Refills, Maintenance, 06/03/14 9:31:10 Start Date: 06/03/14 Status: Ordered HumaLOG KwikPen (Concentrated) Subcutaneous Infusion, 0 Refills, Maintenance, 02/06/17 14:16:55 Start Date: 02/06/17 Status: Ordered Humalog Mix 75/25 Pen Subcutaneous Infusion, 0 Refills, Maintenance, 02/06/17 14:16:35 Start Date: 02/06/17 Status: Ordered Hydrochlorothiazide = 25 mg, By Mouth, Daily, 0 Refills, Maintenance, 06/03/14 9:29:58 Start Date: 06/03/14 Status: Ordered meclizine 25 mg oral tablet 1 tablet = 25 mg, By Mouth, 3 times a day, 0 Refills, Maintenance, 03/04/18 15:03:57 EDT Start Date: 03/04/18 Status: Ordered OsCal 500 = 1,250 mg, By Mouth, 3 times a day, 0 Refills, Maintenance, 09/03/14 14:56:21 Start Date: 09/03/14 Status: Ordered pantoprazole 40 mg oral granule 1 each = 40 mg, By Mouth, Daily, 0 Refills, Maintenance, 03/04/18 15:03:34 EDT Start Date: 03/04/18 Status: Ordered prednisone 10 mg oral tablet 1 tablet = 10 mg, By Mouth, Daily, # 14 tablet, 0 Refills, Maintenance, 06/03/14 12:27:38, Tablet Start Date: 06/03/14 Stop Date: 06/17/14 Status: Ordered Sertraline = 75 mg, By Mouth, Daily, 0 Refills, Maintenance, 06/03/14 9:30:28 Start Date: 06/03/14 Status: Ordered simvastatin 40 mg oral tablet 40 mg, 1, tablet, By Mouth, Daily at bedtime, # 30 tablet, Refills 0, Maintenance, 02/06/17 14:16:25 Start Date: 02/06/17 Status: Ordered spironolactone 50 mg oral tablet 1 tablet = 50 mg, By Mouth, 2 times a day, # 60 tablet, 0 Refills, Maintenance, 02/06/17 14:17:37, Tablet Start Date: 02/06/17 Status: Ordered Vitamin C 500 mg oral tablet 1 tablet = 500 mg, By Mouth, Daily, # 30 tablet, 0 Refills, Maintenance, 06/03/14 9:28:23, Tablet Start Date: 06/03/14 Status: Ordered Vitamin D3 = 2,000 International_Units, By Mouth, 0 Refills, Maintenance, 09/03/14 14:54:34 Start Date: 09/03/14 Status: Ordered Problem List Condition Confirmation Course Effective Dates Status Health St atus Informant Nonspecific (Abnormal) Findings on Radiological and Other Examination of Lung Field Confirmed 02/09/11 Active Obesity Confirmed Active Unspecified Pleural Effusion Confirmed 02/09/11 Active Social History Social History Type Response Smoking Status Never smoker; Tobacc o user in household: No entered on: 11/01/14 Sex Patient Care team information Care Team Personnel Name: Bassem Drew MD Position: [facility] Physician (General Medicine) Member Role: PCP Address: Address: [address] [place] [address]- Care Team Related Persons Name: SANDRA HUFF Address: home [address] [place] [address] Name: ABHISHEK MCCABE Address: home [address] [address]
[2024-08-31 08:56] VITALS: BP 130/90; PULSE 74; O2SAT 98; BMI 31.8
--- NOTE | 2024-08-31 08:56 | AM.OFFWIN_ITS ---
Intake Vital Signs 08/31/24 08:56 Height 4 ft 10 in Weight 152 lb BMI 31.8 BP 130/90 H Blood Pressure Location Lt brachial Position Sitting Pulse 74 Pulse Source Pulse Oximeter Pulse Oximetry (%) 98 Oxygen Delivery Method Room Air Intake Visit Reasons: EP RT arm pain Intake Note: Patient here for right arm shoulder pain, she states this has been going on for awhile and would like to have an xray done. She states she has gone to PT for it but has not helped. Patient Tobacco Use Status: Never used Tobacco Allergies mold Allergy (Severe, Verified 08/31/24 08:58) itchy throat blue cheese Allergy (Severe, Uncoded 08/31/24 08:58) itchy throat Do you need a note to return to daycare/school/sports/work: No HPI EP RT arm pain HPI Details This note is constructed using voice recognition software. While every effort has been made to ensure accuracy, mold making supervisor errors may have been included. The patient is a 53 year old female who presents to the clinic today with right shoulder pain for the past several months. She notes that the pain is seemingly inside the shoulder, worse when she rotates, she has already been to physical therapy and it has helped some but has not resolve. She is interested in an x- ray. She has not had any new injuries to the area, no injuries prior to starting physical therapy. She reports that she occasionally gets some numbness and tingling into her arm in the forearm, but it does not make it to the fingers. [facility] Medical History HTN (hypertension) Anxiety INGRID (obstructive sleep apnea) Neck pain Heart murmur Depression Esophagitis Hypokalemia Hyperlipidemia FH: HTN (hypertension) Diabetes mellitus Right sided sciatica Asthma Sacroiliac inflammation Surgical History S/p bilateral carpal tunnel release Hx of esophagogastroduodenoscopy Hx of colonoscopy History of back surgery History of bilateral tubal ligation Family History Father Cancer Alzheimer's disease Mother HTN (hypertension) Diabetes mellitus Asthma Depression Stroke Cancer Maternal Grandfather No problems noted. Maternal Grandmother No problems noted. Paternal Grandfather No problems noted. Paternal Grandmother No problems noted. Brother No problems noted. Brother No problems noted. Sister Asthma Son No problems noted. Son No problems noted. Daughter No problems noted. Social History Household Members: Spouse and Children Housing: House Are you a primary senior care manager to a significant other at home: No Do you presently have visiting nurse or other home services: No Alcohol intake: current Alcohol intake frequency: holidays/special occasions only Patient Tobacco Use Status: Never used Tobacco e-Cigarette/Vaping Use: Never Used Second Hand Smoke Exposure: No service: No Current occupational status: disabled Cognitive needs: No Hearing needs: No Vision needs: Yes Female Reproductive History Menstrual Age of Menarche: 10 Review of Systems Const All systems reviewed & are unremarkable except as noted in HPI and below Physical Exam Vital Signs: Last Vital Signs Pulse 74 08/31/24 08:56 BP 130/90 H 08/31/24 08:56 Pulse Ox 98 08/31/24 08:56 Oxygen Delivery Method Room Air 08/31/24 08:56 BMI result Body Mass Index 31.8 Const General: cooperative, healthy appearing, comfortable, no acute distress and well developed Orientation/consciousness: patient oriented x3 Limitations: no limitations Resp Effort & Inspection: normal respiratory effort and able to speak in complete sentences Neuro General: patient oriented x3 Extrem Other: Strength 4/5 on the right arm. Positive empty can. Right shoulder sitting visibly lower than left. Near normal range of motion passively., however she does have pain on abduction and adduction. Distal neurovascular exam intact. Assessment & Plan Assessment & Plan (1) Shoulder pain, right: Code(s): M25.511 - Pain in right shoulder Qualifiers: Chronicity: acute Qualified Code(s): M25.511 - Pain in right shoulder Plan: X-ray today to rule out any contributing etiology. Advised patient to continue with physical therapy, she needs a repeat referral, message sent to primary care provider to facilitate treatment plan. Advised follow up with PCP with worsening or failure to resolve. Prednisone sent for anti-inflammatory effects. Plan See above for full details and plan. Orders: Orders XR shoulder RT min 2V Today M25.511 - Pain in right shoulder Medications: New prednisone 40 mg (2 x 20 mg) PO DAILY 3 days 6 tabs 0RF Coding Level of Care Code Est Pt Level 3 (25665) Diagnoses Acute pain of right shoulder M25.511 Chronicity: acute
== END 2024-08-31 09:17 | disposition home or self-care (01) ==
PROVIDERS: PCP Nurse Practitioner Family; Visit Provider Registered Nurse
DX: M25.511 Pain in right shoulder (principal)

== ENCOUNTER → 2024-08-31 08:47 | Outpatient (BNVA) | payer OTHER, SELFPAY | PROVIDERS: PCP Nurse Practitioner Family ==

== ENCOUNTER 2024-08-31 09:15 | Outpatient (REF) | payer OTHER, SELFPAY ==
--- NOTE | ~2024-08-31 | XR_ITS ---
EXAMINATION: XR SHOULDER, RIGHT CLINICAL INFORMATION: Pain in right shoulder. COMPARISON: 04/30/2024. TECHNIQUE: Three views of the right shoulder. FINDINGS: Acromioclavicular and glenohumeral alignment preserved. Mild dextroscoliosis with degenerative changes in the partially imaged upper thoracic spine. XR/XR shoulder RT min 2V IMPRESSION: Acromioclavicular and glenohumeral alignment preserved. Mild degenerative changes in the partially imaged upper thoracic spine. This study was presented today, August 31, 2024, for interpretation. Stat results provided at this time as requested by referring provider. Electronically signed by: Yeimy Anderson MD 08/31/2024 12:53 PM EDT
== END 2024-08-31 09:16 | disposition home or self-care (01) ==
LOC: HO.HMGCX 09:15
PROVIDERS: PCP Nurse Practitioner Family; Visit Provider Registered Nurse
DX: M25.511 Pain in right shoulder (principal)
CPT/HCPCS: 73030; 99212

== ENCOUNTER 2024-09-10 08:39 | Outpatient (REF) | payer OTHER, SELFPAY ==
--- NOTE | ~2024-09-10 | MM_ITS ---
EXAMINATION: MM DIAGNOSTIC DIGITAL BREAST TOMOSYNTHESIS, LEFT US BREAST LIMITED, LEFT MAMMOGRAPHY: CLINICAL INFORMATION: 53 year female complaining of left breast pain , upper outer quadrant. COMPARISON: Mammography: 12/09/2023, 11/27/2022, 05/05/2021, dating back to 2018. TECHNIQUE: Digital left breast tomosynthesis is performed in both the craniocaudal and mediolateral oblique views along with computer-aided detection (CAD). Synthesized 2D images are generated from the tomosynthesis. In addition to standard views, full field 3-D left mediolateral view was also obtained. FINDINGS: There are scattered areas of fibroglandular density (ACR BI-RADS breast composition Category b). Marker has been placed in the upper outer quadrant of the anterior left breast, indicating area of pain. There is no underlying mammographic abnormality. There are no suspicious masses, suspicious grouped calcifications, or areas of architectural distortion in the left breast. The parenchymal pattern is stable from prior exams. There is no skin or axillary abnormality. ULTRASOUND: CLINICAL INFORMATION: As above. COMPARISON: None relevant. TECHNIQUE: Targeted sonographic evaluation was performed using a high frequency linear transducer. Left breast was interrogated from 1:00 to 5:00 to include the area of pain. Selected archived documentation. FINDINGS: LEFT BREAST: There is a mixture of fatty and fibroglandular tissue. No suspicious mass is seen. There is no pathologic acoustic shadowing. There are no cystic abnormalities. There is no architectural abnormality. MM/MM tomosynthesis diagnostic LT IMPRESSION: No findings left breast suspicious for malignancy. -No mammographic or sonographic correlate to region of breast pain upper outer left breast. Recommend clinical management and follow-up. -Otherwise, recommend the patient resume routine annual screening mammography. OVERALL ASSESSMENT: Mammography: BI-RADS 1 - Negative Ultrasound: BI-RADS 1 - Negative RECOMMENDATION: 1. Patient should be managed based on the clinical impression. 2. Otherwise, routine annual screening mammography. Electronically signed by: Fredis Barahona MD 09/10/2024 01:46 PM EDT
== END 2024-09-10 08:40 | disposition home or self-care (01) ==
LOC: HO.MAMMO 08:39
PROVIDERS: PCP Nurse Practitioner Family; Visit Provider Nurse Practitioner Family
DX: N64.4 Mastodynia (principal)
CPT/HCPCS: 76642; 77061; 77065

== ENCOUNTER → 2024-09-10 09:00 | Outpatient (BNV) | payer OTHER, SELFPAY | PROVIDERS: PCP Nurse Practitioner Family; Visit Provider Radiology Diagnostic Radiology | DX: N64.4 Mastodynia (principal) | CPT/HCPCS: 76642; 77065; G0279 ==

== ENCOUNTER 2024-09-14 08:02 | Outpatient (AMB) | payer OTHER, SELFPAY ==
[2024-09-14 08:05] VITALS: BP 122/80; PULSE 80; TEMP 36.7; O2SAT 98; BMI 31.8
--- NOTE | 2024-09-14 08:05 | AM.OFFWIN_ITS ---
Intake Vital Signs 09/14/24 08:05 Height 4 ft 10 in Weight 152 lb BMI 31.8 BP 122/80 Blood Pressure Location Rt brachial Position Sitting Pulse 80 Pulse Source Pulse Oximeter Temp 98.0 F Temp Source Oral Pulse Oximetry (%) 98 Intake Visit Reasons: EP pain on both ears & headache Intake Note: pt is here for pain in bilateral eas with headache Patient Tobacco Use Status: Never used Tobacco Allergies mold Allergy (Severe, Verified 09/14/24 08:05) itchy throat blue cheese Allergy (Severe, Uncoded 08/31/24 08:58) itchy throat Do you need a note to return to daycare/school/sports/work: No HPI HPI Comments History of Present Illness Details Patient is a 53-year-old female complaining of a couple of weeks of ear pain in both ears. She also tells me she has a headache and a slight dry cough. She denies any change in her hearing, fevers shortness of breath. She has not tried to take any medications for her ear pain or her cough. She tells me she gets frequent ear infections and had an appointment with an personnel research psychologist but was in [place] and missed the appointment. [facility] Medical History HTN (hypertension) Anxiety INGRID (obstructive sleep apnea) Neck pain Heart murmur Depression Esophagitis Hypokalemia Hyperlipidemia FH: HTN (hypertension) Diabetes mellitus Right sided sciatica Asthma Sacroiliac inflammation Surgical History S/p bilateral carpal tunnel release Hx of esophagogastroduodenoscopy Hx of colonoscopy History of back surgery History of bilateral tubal ligation Family History Father Cancer Alzheimer's disease Mother HTN (hypertension) Diabetes mellitus Asthma Depression Stroke Cancer Maternal Grandfather No problems noted. Maternal Grandmother No problems noted. Paternal Grandfather No problems noted. Paternal Grandmother No problems noted. Brother No problems noted. Brother No problems noted. Sister Asthma Son No problems noted. Son No problems noted. Daughter No problems noted. Social History Household Members: Spouse and Children Housing: House Are you a primary hospice spiritual care coordinator to a significant other at home: No Do you presently have visiting nurse or other home services: No Alcohol intake: current Alcohol intake frequency: holidays/special occasions only Patient Tobacco Use Status: Never used Tobacco e-Cigarette/Vaping Use: Never Used Second Hand Smoke Exposure: No service: No Current occupational status: disabled Cognitive needs: No Hearing needs: No Vision needs: Yes Female Reproductive History Menstrual Age of Menarche: 10 Review of Systems Const All systems reviewed & are unremarkable except as noted in HPI and below Physical Exam Vital Signs: Last Vital Signs Temp 98.0 F 09/14/24 08:05 Pulse 80 09/14/24 08:05 BP 122/80 09/14/24 08:05 Pulse Ox 98 09/14/24 08:05 BMI result Body Mass Index 31.8 Const General: cooperative, healthy appearing, comfortable and no acute distress Orientation/consciousness: patient oriented x3 Limitations: no limitations HEENT Head: Yes normal to inspection Ears: hearing grossly normal bilaterally, external ears normal and TM abnormal (Bilateral) dull, wth effusion, erythematous and with loss of landmarks General nose exam: Normal external nose present, Normal nares present and No nasal discharge present Face and sinus: Yes normal facial exam and Yes sinuses nontender Mouth: Normal oral and palatal mucosa present and moist mucous membranes Throat: Yes tonsils normal, Yes uvula midline and Yes posterior oropharynx abnormal (Erythema) Eyes General: appearance normal, both eyes and all related structures Neck Neck: Yes normal visual inspection Resp Effort & Inspection: normal respiratory effort, able to speak in complete sentences, no respiratory distress, not tachypneic, no tripod positioning and no use of accessory muscles Skin General skin exam: no rashes or lesions noted Neuro General: patient oriented x3 Extrem General: Yes normal to inspection and Yes no clubbing, cyanosis or edema Assessment & Plan Assessment & Plan (1) Bilateral otitis media: Code(s): H66.93 - Otitis media, unspecified, bilateral Qualifiers: Chronicity: acute Otitis media type: suppurative Recurrence: recurrent Spontaneous tympanic membrane rupture: without spontaneous rupture Qualified Code(s): H66.006 - Acute suppurative otitis media without spontaneous rupture of ear drum, recurrent, bilateral Plan: We will treat for 7 days as it is both ears infected. Sent prescription to pharmacy. Encouraged patient to follow up with ENT Plan See above Medications: New amoxicillin 875 mg PO Q12H 14 tabs 0RF Coding Level of Care Code Est Pt Level 3 (89556) Diagnoses Recurrent acute suppurative otitis media without spontaneous rupture of tympanic membrane of both sides H66.006 Chronicity: acute Otitis media type: suppurative Recurrence: recurrent Spontaneous tympanic membrane rupture: without spontaneous rupture
== END 2024-09-14 08:33 | disposition home or self-care (01) ==
PROVIDERS: PCP Nurse Practitioner Family; Visit Provider Physician Assistant
DX: H66.006 Acute suppurative otitis media without spontaneous rupture of ear drum, recurrent, bilateral (principal)

== ENCOUNTER → 2024-09-14 08:02 | Outpatient (BNVA) | payer OTHER, SELFPAY | PROVIDERS: PCP Nurse Practitioner Family; Visit Provider Physician Assistant | DX: H66.006 Acute suppurative otitis media without spontaneous rupture of ear drum, recurrent, bilateral (principal) | CPT/HCPCS: 99212 ==

== ENCOUNTER 2024-10-07 02:58 | Emergency (ER) | payer OTHER, SELFPAY ==
[2024-10-07 03:01] VITALS: BP 142/97; PULSE 76; RESP 20; TEMP 36.7; O2SAT 96; BMI 29.8
--- NOTE | 2024-10-07 03:16 | ECG_ITS ---
Test Reason : ABD PAIN Blood Pressure : / mmHG Vent. Rate : 071 BPM Atrial Rate : 071 BPM P-R Int : 148 ms QRS Dur : 090 ms QT Int : 396 ms P-R-T Axes : 033 -19 024 degrees QTc Int : 430 ms Normal sinus rhythm Minimal voltage criteria for LVH, may be normal variant ( R in aVL ) Possible Anterior infarct (cited on or before 04-AUG-2024) Abnormal ECG When compared with ECG of 04-AUG-2024 06:51, No significant change was found Referred By: Gayla Lundberg Electronically Signed By:JESSICA RHOADES
[2024-10-07 03:21] LABS: Basophils Absolute Auto 0.1 X10*3/uL (0.0-0.2); Basophils Percent Auto 0.6 % (0-2); Eosinophils Absolute Auto 0.2 X10*3/uL (0.0-0.4); Eosinophils Percent Auto 2.1 % (0-4); Hematocrit 42.4 % (37.0-47.0); Hemoglobin 14.3 g/dl (12.0-16.0); Imm Gran Abs Auto 0.02 X10*3/uL (0.00-0.03); Imm Gran Pct Auto 0.2 % (0.0-0.4); Lymphocytes Absolute Auto 2.1 X10*3/uL (1.2-4.9); Mean Corpuscular HGB Conc 33.7 g/dl (31.0-35.0); Mean Corpuscular Hemoglobin 27.3 pg (27.0-33.0); Mean Corpuscular Volume 81.1 fL (80.0-98.0); Mean Platelet Volume 10.8 fL (9.4-12.3); Monocytes Absolute Auto 0.6 X10*3/uL (0.1-1.2); Monocytes Percent Auto 6.5 % (2-11); Neutrophils Absolute Auto 5.9 x10*3/uL (2.0-8.3); Neutrophils Percent Auto 66.6 % (45-73); Platelet Count 301 X10*3/uL (160-400); Red Blood Count 5.23 X10*6/uL (4.20-5.50); Red Cell Distribution Width 13.2 % (11.0-16.0); White Blood Count 8.9 X10*3/uL (4.8-10.8)
[2024-10-07 03:22] LABS: MANUAL DIFF FLAG NO
[2024-10-07 03:46] LABS: Alanine Aminotransferase 59 U/L (0-31); Alkaline Phosphatase 190 U/L (39-117); Anion Gap 14 (12-20); Aspartate Amino Transferase 49 U/L (5-31); Bilirubin Direct 0.1 mg/dL (0.0-0.5); Bilirubin Total 0.5 mg/dL (0.0-1.0); Blood Urea Nitrogen 12 mg/dL (9-16); Calcium 9.7 mg/dL (8.4-10.2); Carbon Dioxide 25 mmol/L (22-29); Chloride 107 mmol/L (96-108); Creatinine Clr Calc Pharmacy 62.3; Estimated Glomerular Filt Rate > 60; Ethanol < 10 mg/dL; Glucose Random 122 mg/dL (60-115); Lipase 61 U/L (8-78); Magnesium 2.1 mg/dL (1.6-2.6); Potassium 4.4 mmol/L (3.3-5.1); Sodium 142 mmol/L (135-145); Total Protein 7.5 g/dL (6.5-8.0); Troponin-I High Sensitivity < 2.7 ng/L (<3.5-17.0)
--- NOTE | 2024-10-07 04:16 | ED.ABDPAIN ---
HPI - Abdominal Pain General Chief Complaint: Abdominal Pain Stated Complaint: n/v/d Time Seen by Provider: 10/07/24 04:12 Source: patient and old records reviewed Mode of arrival: ambulatory Limitations: no limitations History of Present Illness ED Provider: ZEUS VAZQUEZ narrative: 53 yo female with PMH Of HLD, uterine fibroids, depression, GERD not compliant with PPI, gastritis, asthma, DM here with c/o upper epigastric pain and burning with some n/v x 2 days. No diarrhea, no fevers, no radiation. She does not take her PPI. No NSAIDS, no black or bloody stools. Feels the burn up in her chest. Made worse with eating MD elicited complaint: abdominal pain Pertinent past history: gastritis Onset (ago): day(s) (2) Pain Consistency: intermittent Location: epigastric Severity: moderate Quality: burning Radiation: none Migration to: no migration Exacerbating factors: eating Relieving factors: nothing Context: history of similar episodes Associated symptoms: nausea and vomiting Related Data Home Medications ?Medication ?Instructions ?Recorded ?Confirmed alprazolam 1 mg tablet 1 mg PO BEDTIME 02/23/21 02/05/24 blood sugar diagnostic #10 ea 02/23/21 02/05/24 lancets 28 gauge (FreeStyle 10/04/21 02/05/24 Lancets) sertraline 100 mg tablet 100 mg PO QAM 01/04/22 02/05/24 sumatriptan succinate 100 mg tablet 150 mg PO DAILY PRN Headache 09/04/23 02/05/24 hydroxyzine HCl 25 mg tablet 25 mg PO BID 06/26/24 magnesium oxide 400 mg PO DAILY 06/26/24 trazodone 100 mg tablet 100 mg PO BEDTIME 06/26/24 Previous Rx's ?Medication ?Instructions ?Recorded Lactobacillus acidophilus 300 mg PO DAILY 30 days #30 caps 09/01/20 (Acidophilus capsule) albuterol sulfate 2.5 mg/0.5 mL 5 mg inhalation Q4H PRN shortness 08/25/21 solution for nebulization of breath or wheezing #30 ea blood sugar diagnostic (Freestyle #50 ea 10/04/21 InsuLinx strips) blood-glucose meter (Freestyle #1 ea 10/04/21 In[employer]x meter) cholecalciferol (vitamin D3) 50 50 mcg PO DAILY 90 days #90 caps 10/04/21 mcg (2,000 unit) capsule pen needle, diabetic 32 gauge x #100 ea 10/04/21 1/4 methylcellulose (laxative) 500 mg 500 mg PO BID #60 tabs 12/05/21 tablet (Citrucel) polyethylene glycol 3350 17 gram 17 g PO DAILY #30 ea 12/05/21 oral powder packet (Miralax) blood sugar diagnostic (Freestyle #100 ea 08/15/22 InsuLinx Test Strips) lidocaine 5 % topical patch 1 patch topical DAILY PRN pain #15 08/15/23 ea fluticasone propionate 50 1 spray intranasal DAILY #16 grams 09/02/23 mcg/actuation nasal spray,suspension (Children's Flonase Allergy Relief) cetirizine 10 mg tablet 10 mg PO BID #180 tabs 04/17/24 ferrous sulfate 325 mg (65 mg 325 mg PO DAILY 90 days #90 tabs 04/17/24 iron) tablet hydrochlorothiazide 25 mg tablet 25 mg PO QAM #90 tabs 04/17/24 ondansetron HCl 4 mg tablet 4 mg PO Q8H PRN nausea and 05/07/24 vomiting 7 days #14 tabs insulin aspart U-100 100 unit/mL 2 - 14 unit (0.02 - 0.14 mL) 05/29/24 (3 mL) subcutaneous pen (Novolog subcut TID 30 days #15 mL FlexPen U-100 Insulin aspart) losartan 25 mg tablet 25 mg PO DAILY #90 tabs 06/23/24 riboflavin (vitamin B2) 400 mg 400 mg PO DAILY #90 tabs 06/23/24 tablet acetaminophen 325 mg tablet 650 mg (2 x 325 mg) PO QID PRN 06/26/24 (Tylenol) pain #60 tabs albuterol sulfate 90 mcg/actuation 2 puff inhalation Q6H PRN 06/28/24 aerosol inhaler shortness of breath or wheezing #6.7 grams lansoprazole 30 mg capsule,delayed 30 mg PO DAILY #90 caps 07/01/24 release furosemide 40 mg tablet 40 mg PO DAILY PRN edema 90 days 07/20/24 #30 tabs potassium chloride 10 mEq 10 meq PO DAILY 30 days #30 tabs 07/20/24 tablet,extended release ezetimibe 10 mg tablet 10 mg PO DAILY #90 tabs 08/07/24 rosuvastatin 40 mg tablet 40 mg PO BEDTIME #90 tabs 08/07/24 medroxyprogesterone 10 mg tablet 10 mg PO DAILY 10 days #30 tabs 08/10/24 (Provera) docusate sodium 100 mg capsule 100 mg PO DAILY 90 days #90 caps 08/18/24 (Colace) magnesium oxide 400 mg PO DAILY #90 caps 08/18/24 prednisone 20 mg tablet 40 mg (2 x 20 mg) PO DAILY 3 days 08/31/24 #6 tabs cyclobenzaprine 10 mg tablet 10 mg PO BEDTIME PRN muscle spasm 09/01/24 #14 tabs amoxicillin 875 mg tablet 875 mg PO Q12H #14 tabs 09/14/24 ondansetron 4 mg disintegrating 4 mg PO Q8H PRN nausea and 10/07/24 tablet vomiting #20 tabs Allergies Allergy/AdvReac Type Severity Reaction Status Date / Time mold Allergy Severe itchy Verified 10/07/24 03:03 throat blue cheese Allergy Severe itchy Uncoded 10/07/24 03:03 throat Review of Systems Review of Systems Constitutional : No Weight loss, No Fever, No Chills ENT/Mouth : No sore throat, No Rhinorrhea Eyes: No Swelling, No Redness Cardiovascular : No Chest Pain, No SOB, NoEdema Respiratory : No Cough, No Sputum, No Wheezing Gastrointestinal : Positive Nausea, Positive Vomiting, no Diarrhea, positive abdominal Pain, No Hematochezia, No Melena Genitourinary : No Dysuria, No Urinary Frequency, No Hematuria, No Urgency Musculoskeletal : No joint pain, No Myalgias, No Joint Swelling Skin : No Skin Lesions, No rash Neuro : No Weakness, No Numbness, No Dizziness, No Headache All other systems reviewed and are negative. [facility] Past Medical History Attestation statement: The following information was validated with the patient. Source: old records reviewed Medical History HTN (hypertension) Anxiety INGRID (obstructive sleep apnea) Neck pain Heart murmur Depression Esophagitis Hypokalemia Hyperlipidemia FH: HTN (hypertension) Diabetes mellitus Right sided sciatica Asthma Sacroiliac inflammation Surgical History S/p bilateral carpal tunnel release Hx of esophagogastroduodenoscopy Hx of colonoscopy History of back surgery History of bilateral tubal ligation Family History Family History Father Cancer Alzheimer's disease Mother HTN (hypertension) Diabetes mellitus Asthma Depression Stroke Cancer Maternal Grandfather No problems noted. Maternal Grandmother No problems noted. Paternal Grandfather No problems noted. Paternal Grandmother No problems noted. Brother No problems noted. Brother No problems noted. Sister Asthma Son No problems noted. Son No problems noted. Daughter No problems noted. Social History Social History Household Members: Spouse and Children Housing: House Are you a primary critical care physician assistant to a significant other at home: No Do you presently have visiting nurse or other home services: No Alcohol intake: current Alcohol intake frequency: does not drink Patient Tobacco Use Status: Never used Tobacco Smoked in Last 30 Days: No e-Cigarette/Vaping Use: Never Used Second Hand Smoke Exposure: No Use of substances other than those prescribed or required for medical reasons: No Advance Directives: No Advance Directives Information Provided: Yes Patient : No service: No Current occupational status: disabled Cognitive needs: No Hearing needs: No Vision needs: Yes Physical Exam ED Vital Signs: Vital Signs - 24 hr 10/07/24 03:01 10/07/24 04:53 Temperature 98.0 F 97.5 F Pulse Rate 76 68 Respiratory Rate 20 14 Blood Pressure 142/97 H 133/97 H Pulse Oximetry 96 97 Oxygen Delivery Method Room Air Room Air BMI result Body Mass Index 29.8 Appearance: Alert. Oriented X3. No acute distress. Eyes: Pupils equal, round and reactive to light. ENT: Pharynx normal. Neck: Normal inspection. Neck supple. CVS: Normal heart rate and rhythm. Pulses normal. Respiratory: No respiratory distress. Breath sounds normal. Abdomen: Soft and very mild epigastric ttp no rebound or guarding Skin: Skin warm and dry. Normal skin color. Normal skin turgor. Extremities: No lower extremity edema. No calf ttp Neuro: Oriented X 3. No motor deficit. No sensory deficit. Medical Decision Making Medical Decision Making MDM Narrative: 53 yo female with PMH Of HLD, uterine fibroids, depression, GERD, gastritis, asthma, DM here with c/o 2 days of epigastric pain and burning with n/v - not compliant with PPI, no GIB symptosm reported, pain on exam is in the middle of abdomen no RUQ pain - suspect that this is gastritis / GERD will obtain EKG, basic labs and start on PPI, GI cocktail Differential Diagnosis Differential Diagnoses: The differential diagnosis associated with the presentation includes GERD, gastritis Admission/Observation Consideration of admission/observation: Escalation of care including admission/observation considered labs reassuring feels much better stable for DC Lab Data MDM Lab Attestation statement: I reviewed the patient's lab results. 10/07/24 03:15 10/07/24 03:15 Labs: Lab Results 10/07/24 10/07/24 Range/Units 03:15 04:58 WBC 8.9 (4.8-10.8) X10*3/uL RBC 5.23 (4.20-5.50) X10*6/uL Hgb 14.3 (12.0-16.0) g/dl Hct 42.4 (37.0-47.0) % MCV 81.1 (80.0-98.0) fL MCH 27.3 (27.0-33.0) pg MCHC 33.7 (31.0-35.0) g/dl RDW 13.2 (11.0-16.0) % Plt Count 301 D (160-400) X10*3/uL MPV 10.8 (9.4-12.3) fL Immature Gran % (Auto) 0.2 (0.0-0.4) % Neut % (Auto) 66.6 (45-73) % Lymph % (Auto) 24.0 (20-40) % [place] % (Auto) 6.5 (2-11) % Eos % (Auto) 2.1 (0-4) % Baso % (Auto) 0.6 (0-2) % Lymph # (Auto) 2.1 (1.2-4.9) X10*3/uL [place] # (Auto) 0.6 (0.1-1.2) X10*3/uL Eos # (Auto) 0.2 (0.0-0.4) X10*3/uL Baso # (Auto) 0.1 (0.0-0.2) X10*3/uL Abs Immat Gran (auto) 0.02 (0.00-0.03) X10*3/uL Absolute Neuts (auto) 5.9 (2.0-8.3) x10*3/uL Absolute Nucleated RBC 0.000 (0.0-0.012) X10*3/uL Nucleated RBC % (auto) 0.0 (0.0-0.2) /100WBC Sodium 142 (135-145) mmol/L Potassium 4.4 (3.3-5.1) mmol/L Chloride 107 (96-108) mmol/L Carbon Dioxide 25 (22-29) mmol/L Anion Gap 14 (12-20) BUN 12 (9-16) mg/dL Creatinine 0.82 (0.5-1.4) mg/dL Estim Creat Clear Calc 62.3 Estimated GFR > 60 Random Glucose 122 H (60-115) mg/dL Calcium 9.7 (8.4-10.2) mg/dL Magnesium 2.1 (1.6-2.6) mg/dL Total Bilirubin 0.5 (0.0-1.0) mg/dL Direct Bilirubin 0.1 (0.0-0.5) mg/dL AST 49 H (5-31) U/L ALT 59 H (0-31) U/L Alkaline Phosphatase 190 H (39-117) U/L Troponin I High Sens < 2.7 (<3.5-17.0) ng/L Total Protein 7.5 (6.5-8.0) g/dL Albumin 4.0 (3.5-5.0) g/dL Lipase 61 (8-78) U/L Urine Color Yellow Urine Appearance Clear Urine pH 6.0 (5.0-9.0) Ur Specific [place] 1.020 (1.005-1.025) Urine Protein Negative (Neg-Trace) mg/dL Urine Glucose (UA) Negative (Negative) mg/dL Urine Ketones Negative (Negative) mg/dL Urine Blood Negative (Negative) Urine Nitrite Negative (Negative) Ur Leukocyte Esterase Negative (Negative) Ethyl Alcohol < 10 mg/dL Independent Interpretation I performed an independent interpretation of an: EKG Interpretation: Rate: 71 Rhythm: NSR [place]: left, LVH Normal P waves. Normal RADHA. Normal QRS complex. ST T wave : normal no SHARMILA qTC:430 prior studies: no acute ischemia The study has been interpreted contemporaneously by me. . Independent Historian Clinical information obtained from an independent historian. History obtained from or confirmed by: Spouse External Record Review External record reviewed: Outpatient record Prescription Management I considered prescription management with: Other Medications Administered Discontinued Medications Generic Name Dose Route Start Last Admin Trade Name Freq PRN Reason Stop Dose Admin Al Hydroxide/Mg Hydroxide 15 ml 10/07/24 04:21 10/07/24 04:47 Magnesium Hydrox/Alum Hydrox 30 Ml Oral.Susp PO 10/07/24 04:22 15 ml ONCE ONE Administration Lidocaine HCl 15 ml 10/07/24 04:21 10/07/24 04:47 Lidocaine Hcl Viscous 2 % 15 Ml Solution MUCOUS MEM 10/07/24 04:22 15 ml ONCE ONE Administration Omeprazole 20 mg 10/07/24 04:21 10/07/24 04:48 Omeprazole 20 Mg Capsule.Dr PO 10/07/24 04:22 20 mg ONCE ONE Administration Ondansetron HCl 4 mg 10/07/24 04:21 10/07/24 04:48 Ondansetron Odt 4 Mg Tab.Rapdis TRANSLINGU 10/07/24 04:22 4 mg ONCE ONE Administration Discharge Plan Discharge Clinical Impression: Gastritis Qualifiers: Gastritis type: unspecified gastritis Chronicity: acute Gastritis bleeding: without bleeding Qualified Code(s): K29.00 - Acute gastritis without bleeding Patient Disposition: Home, Self-Care Instructions: Gastritis (ED) Additional Instructions: please resume your antacid medications return for any worsening symptoms or concerns bland diet for 48 hours Prescriptions: New ondansetron 4 mg tablet,disintegrating 4 mg PO Q8H PRN (Reason: nausea and vomiting) Qty: 20 0RF No Action Lactobacillus acidophilus [Acidophilus] Capsule 300 mg PO DAILY 30 Days Qty: 30 4RF Rx Instructions: give 30 min before meal/food (DME) lancets [FreeStyle Lancets] 28 gauge misc See Rx Instructions .Route Rx Instructions: As directed (DME) blood-glucose meter [Freestyle [employer]x] Misc See Rx Instructions .Route Qty: 1 0RF Rx Instructions: bid testing (DME) Freestyle [employer]x Strip See Rx Instructions .Route Qty: 50 2RF Rx Instructions: bid (DME) Freestyle [employer] Test Strips Strip See Rx Instructions .Route Qty: 100 1RF Rx Instructions: bid ferrous sulfate 325 mg (65 mg iron) tablet 325 mg PO DAILY 90 Days Qty: 90 1RF cetirizine 10 mg tablet 10 mg PO BID Qty: 180 1RF hydrochlorothiazide 25 mg tablet 25 mg PO QAM Qty: 90 1RF ondansetron HCl 4 mg tablet 4 mg PO Q8H PRN (Reason: nausea and vomiting) 7 Days Qty: 14 0RF insulin aspart U-100 [Novolog FlexPen U-100 Insulin] 100 unit/mL (3 mL) insulin pen 2 - 14 unit subcut TID 30 Days Qty: 15 3RF losartan 25 mg tablet 25 mg PO DAILY Qty: 90 1RF riboflavin (vitamin B2) 400 mg tablet 400 mg PO DAILY Qty: 90 1RF albuterol sulfate 90 mcg/actuation HFA aerosol inhaler 2 puff inhalation Q6H PRN (Reason: shortness of breath or wheezing) Qty: 6.7 0RF lansoprazole 30 mg capsule,delayed release(DR/EC) 30 mg PO DAILY Qty: 90 1RF furosemide 40 mg tablet 40 mg PO DAILY PRN (Reason: edema) 90 Days Qty: 30 2RF potassium chloride 10 mEq tablet extended release 10 meq PO DAILY 30 Days Qty: 30 2RF ezetimibe 10 mg tablet 10 mg PO DAILY Qty: 90 0RF rosuvastatin 40 mg tablet 40 mg PO BEDTIME Qty: 90 0RF medroxyprogesterone [Provera] 10 mg tablet 10 mg PO DAILY 10 Days Qty: 30 0RF Rx Instructions: start Provera 1 tablet daily from day 15-24 cyclically every months, day 1 being 1st day of menses docusate sodium [Colace] 100 mg capsule 100 mg PO DAILY 90 Days Qty: 90 1RF magnesium oxide 400 mg magnesium capsule 400 mg PO DAILY Qty: 90 1RF cyclobenzaprine 10 mg tablet 10 mg PO BEDTIME PRN (Reason: muscle spasm) Qty: 14 0RF albuterol sulfate 2.5 mg/0.5 mL solution for nebulization 5 mg inhalation Q4H PRN (Reason: shortness of breath or wheezing) Qty: 30 0RF lidocaine 5 % adhesive patch,medicated 1 patch topical DAILY PRN (Reason: pain) Qty: 15 0RF Rx Instructions: leave on most painful area for up to 12 hrs (DME) FreeStyle Lite Strips Strip See Rx Instructions Not Applicable QID Qty: 10 Rx Instructions: As directed alprazolam 1 mg tablet 1 mg PO BEDTIME sumatriptan succinate 100 mg tablet 150 mg PO DAILY PRN (Reason: Headache) (DME) pen needle, diabetic 32 gauge x 1/4 needle See Rx Instructions subcut QID Qty: 100 2RF Rx Instructions: As directed cholecalciferol (vitamin D3) 50 mcg (2,000 unit) capsule 50 mcg PO DAILY 90 Days Qty: 90 8RF sertraline 100 mg tablet 100 mg PO QAM fluticasone propionate [Children's Flonase Allergy Rlf] 50 mcg/actuation spray,suspension 1 spray intranasal DAILY Qty: 16 0RF Rx Instructions: administer into each nostril magnesium oxide 400 mg magnesium tablet 400 mg PO DAILY hydroxyzine HCl 25 mg tablet 25 mg PO BID trazodone 100 mg tablet 100 mg PO BEDTIME acetaminophen [Tylenol] 325 mg tablet 650 mg PO QID PRN (Reason: pain) Qty: 60 0RF polyethylene glycol 3350 [Miralax] 17 gram powder in packet 17 g PO DAILY Qty: 30 5RF Citrucel 500 mg tablet 500 mg PO BID Qty: 60 5RF amoxicillin 875 mg tablet 875 mg PO Q12H Qty: 14 0RF prednisone 20 mg tablet 40 mg PO DAILY 3 Days Qty: 6 0RF Print Language: Guamanian
[2024-10-07] MEDS: Magnesium Hydrox/Alum Hydrox 30 ML ORAL.SUSP 15 ML PO (04:47)
[2024-10-07] MEDS: Lidocaine HCl Viscous 2 % 15 ML SOLUTION MUCOUS MEM (04:47)
[2024-10-07] MEDS: Omeprazole 20 MG CAPSULE.DR PO (04:48)
[2024-10-07] MEDS: Ondansetron ODT 4 MG TAB.RAPDIS TRANSLINGU (04:48)
[2024-10-07 04:53] VITALS: BP 133/97; PULSE 68; RESP 14; TEMP 36.4; O2SAT 97
[2024-10-07 05:06] LABS: Appearance Urine Clear; Color Urine Yellow; Glucose Urine UA Negative (Negative); Leukocyte Esterase Urine Negative (Negative); Nitrite Urine Negative (Negative); Urine Blood Negative (Negative); Urine Ketones Negative (Negative); Urine Protein Negative (Neg-Trace)
[2024-10-07 05:18] VITALS: BP 133/97; PULSE 68; RESP 14; TEMP 36.4; O2SAT 97
[2024-10-07 05:20] LABS: Amphetamine Screen Urine Not Detected (Not Detect); Barbiturates, Urine Not Detected (Not Detect); Benzodiazepines Screen Urine Not Detected (Not Detect); Buprenorphine Scr Not Detected (Not Detect); Cannabinoid Screen Urine Not Detected (Not Detect); Cocaine Screen Urine Not Detected (Not Detect); Fentanyl, urine Not Detected (Not Detect); Methadone Screen, Urine Not Detected (Not Detect); Opiate Screen Urine Not Detected (Not Detect); Oxycodone Screen Urine Not Detected (Not Detect); Phencyclidine Screen Urine Not Detected (Not Detect)
== END 2024-10-07 05:19 | disposition home or self-care (01) ==
PROVIDERS: Emergency Provider Emergency Medicine
DX: K29.00 Acute gastritis without bleeding (principal); E11.9 Type 2 diabetes mellitus without complications; I10 Essential (primary) hypertension; E78.5 Hyperlipidemia, unspecified; J45.909 Unspecified asthma, uncomplicated; Z79.4 Long term (current) use of insulin; Z79.02 Long term (current) use of antithrombotics/antiplatelets; Z79.899 Other long term (current) drug therapy
CPT/HCPCS: 36415; 80053; 80307; 81003; 82248; 83690; 83735; 84484; 85025; 93005; 99284; 99285

== ENCOUNTER → 2024-10-07 03:16 | Outpatient (BNV) | payer OTHER, SELFPAY | PROVIDERS: Emergency Provider Emergency Medicine; Visit Provider Internal Medicine | DX: R94.31 Abnormal electrocardiogram [ECG] [EKG] (principal); R10.9 Unspecified abdominal pain | CPT/HCPCS: 93010 ==

== ENCOUNTER → 2024-11-18 13:54 | Outpatient (BNVA) | payer OTHER, SELFPAY | PROVIDERS: PCP Nurse Practitioner Family; Visit Provider Internal Medicine | DX: R79.89 Other specified abnormal findings of blood chemistry (principal); E78.5 Hyperlipidemia, unspecified ==

== ENCOUNTER 2024-12-02 10:41 | Outpatient (AMB) | payer OTHER, SELFPAY ==
[2024-12-02 12:03] VITALS: BP 140/90; PULSE 78; TEMP 36.6; O2SAT 97; BMI 29.0
--- NOTE | 2024-12-02 12:03 | MHC.OFFWIV ---
Intake Vital Signs 12/02/24 12:03 Height 4 ft 10 in Weight 139 lb BMI 29.0 BP 140/90 H Blood Pressure Location Lt brachial Position Sitting Pulse 78 Pulse Source Pulse Oximeter Temp 97.8 F Temp Source Oral Pulse Oximetry (%) 97 Oxygen Delivery Method Room Air Intake Visit Reasons: EP pain on both hands Intake Note: Pt is here today c/o bilateral hand pain: stiff, no injury noted Patient Tobacco Use Status: Never used Tobacco Allergies mold Allergy (Severe, Verified 12/02/24 12:04) itchy throat blue cheese Allergy (Severe, Uncoded 12/02/24 12:04) itchy throat HPI HPI Comments History of Present Illness Details This is a 54-year-old female with a past medical history of [id number] diabetes, depression and hypertension presenting for evaluation of bilateral hand pain. Patient states that she crochets often and has noted recently that her left middle finger and right 4th finger will trigger in the morning and I have to pull it back . Patient has been taking Tylenol without relief of her comfort. Patient states she will wake up with this symptom and there is no recurrence of this symptom throughout the day. [facility] Medical History HTN (hypertension) Anxiety INGRID (obstructive sleep apnea) Neck pain Heart murmur Depression Esophagitis Hypokalemia Hyperlipidemia FH: HTN (hypertension) Diabetes mellitus Right sided sciatica Asthma Sacroiliac inflammation Surgical History S/p bilateral carpal tunnel release Hx of esophagogastroduodenoscopy Hx of colonoscopy History of back surgery History of bilateral tubal ligation Family History Father Cancer Alzheimer's disease Mother HTN (hypertension) Diabetes mellitus Asthma Depression Stroke Cancer Maternal Grandfather No problems noted. Maternal Grandmother No problems noted. Paternal Grandfather No problems noted. Paternal Grandmother No problems noted. Brother No problems noted. Brother No problems noted. Sister Asthma Son No problems noted. Son No problems noted. Daughter No problems noted. Social History Household Members: Spouse and Children Housing: House Are you a primary professional healthcare representative to a significant other at home: No Do you presently have visiting nurse or other home services: No Alcohol intake: current Alcohol intake frequency: does not drink Patient Tobacco Use Status: Never used Tobacco e-Cigarette/Vaping Use: Never Used Second Hand Smoke Exposure: No service: No Current occupational status: disabled Cognitive needs: No Hearing needs: No Vision needs: Yes Female Reproductive History Menstrual Age of Menarche: 10 Review of Systems Const All systems reviewed & are unremarkable except as noted in HPI and below Reports as per HPI Eyes Reports as per HPI and Reports no additional complaints ENT Reports no additional complaints Card Reports no additional complaints Resp Reports no additional complaints GI Reports no additional complaints Reports no additional complaints Musc Reports other (bilateral hand pain) Skin/Breast Reports system reviewed and no additional complaints, except as documented Neuro Reports no additional complaints Psych Reports no additional complaints Endo Reports no additional complaints Guero/Lymph Reports no additional complaints Aller/Immun Reports no additional complaints Physical Exam Vital Signs: Last Vital Signs Temp 97.8 F 12/02/24 12:03 Pulse 78 12/02/24 12:03 BP 140/90 H 12/02/24 12:03 Pulse Ox 97 12/02/24 12:03 Oxygen Delivery Method Room Air 12/02/24 12:03 BMI result Body Mass Index 29.0 Const General: cooperative, healthy appearing, comfortable, no acute distress, well developed, alert, awake and Physically active; No lethargic Orientation/consciousness: patient oriented x3 and No lethargic Skin General skin exam: no rashes or lesions noted Neuro Other: Sensation is intact throughout all digits of the hands bilaterally. General: patient oriented x3 Extrem Other: There is pain elicited with extension of the 4th right digit against resistance, no pain w flexion of the 4th right digit. There has pain elicited with extension of the left 3rd digit against resistance, no pain with flexion of the left 3rd digit. Break Out Worker strength is equal bilaterally. Psych Appearance: grossly normal Mental Status: mental status grossly normal Insight: Good insight present (Psych) Judgement: Good judgement present (Psych) Assessment & Plan Assessment & Plan (1) Trigger finger of left hand: Comment: Given this may be related to a tendinopathy, imaging is deferred at this time. Patient is declining a referral to [facility] and would instead like to be referred to [facility] in [place]. Patient will follow up with her primary care provider as an outpatient. Code(s): M65.30 - Trigger finger, unspecified finger Qualifiers: Trigger finger location: middle finger Qualified Code(s): M65.332 - Trigger finger, left middle finger Plan: Patient to follow up with PCP for outpatient referrals to [facility] as well as physical therapy. (2) Trigger finger of right hand: Comment: Given this may be related to a tendinopathy, imaging is deferred at this time. Patient is declining a referral to [facility] and would instead like to be referred to [facility] in [place]. Patient will follow up with her primary care provider as an outpatient. Code(s): M65.30 - Trigger finger, unspecified finger Qualifiers: Trigger finger location: ring finger Qualified Code(s): M65.341 - Trigger finger, right ring finger Plan: Patient to follow up with PCP for outpatient referrals to [facility] as well as physical therapy. Coding Level of Care Code Est Pt Level 3 (76632) Diagnoses Trigger middle finger of left hand M65.332 Trigger finger location: middle finger Trigger ring finger of right hand M65.341 Trigger finger location: ring finger Time Spent (min) 20
== END 2024-12-02 12:39 | disposition home or self-care (01) ==
PROVIDERS: PCP Nurse Practitioner Family; Visit Provider Physician Assistant
DX: M65.332 Trigger finger, left middle finger (principal); M65.341 Trigger finger, right ring finger

== ENCOUNTER → 2024-12-02 10:41 | Outpatient (BNVA) | payer OTHER, SELFPAY | PROVIDERS: PCP Nurse Practitioner Family; Visit Provider Physician Assistant | DX: M65.332 Trigger finger, left middle finger (principal); M65.341 Trigger finger, right ring finger | CPT/HCPCS: 99212 ==

== ENCOUNTER 2024-12-29 07:21 | Outpatient (REF) | payer OTHER, SELFPAY | END 2024-12-29 07:22 | disposition home or self-care (01) | LOC: HO.MAMMO 07:21 | PROVIDERS: PCP Nurse Practitioner Family; Visit Provider Nurse Practitioner Family | DX: Z12.31 Encounter for screening mammogram for malignant neoplasm of breast (principal) | CPT/HCPCS: 77063; 77067 ==

== ENCOUNTER → 2024-12-29 07:30 | Outpatient (BNV) | payer OTHER, SELFPAY | PROVIDERS: PCP Nurse Practitioner Family; Visit Provider Internal Medicine | DX: Z12.31 Encounter for screening mammogram for malignant neoplasm of breast (principal) | CPT/HCPCS: 77063; 77067 ==

== ENCOUNTER 2025-02-09 06:10 | Outpatient (REF) | payer OTHER, SELFPAY ==
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
[2025-02-09 07:15] LABS: Hematocrit 41.1 % (37.0-47.0); Hemoglobin 13.4 g/dl (12.0-16.0); Mean Corpuscular HGB Conc 32.6 g/dl (31.0-35.0); Mean Corpuscular Hemoglobin 27.2 pg (27.0-33.0); Mean Corpuscular Volume 83.5 fL (80.0-98.0); Mean Platelet Volume 10.4 fL (9.4-12.3); Platelet Count 265 X10*3/uL (160-400); Red Blood Count 4.92 X10*6/uL (4.20-5.50); Red Cell Distribution Width 12.9 % (11.0-16.0); White Blood Count 6.7 X10*3/uL (4.8-10.8)
[2025-02-09 07:20] LABS: INTERNATIONAL NORM RATIO 0.9 (0.9-1.1); Prothrombin Time 10.4 SEC (10.9-12.4)
[2025-02-09 07:49] LABS: Alanine Aminotransferase 40 U/L (0-31); Alkaline Phosphatase 195 U/L (39-117); Anion Gap 8 (12-20); Aspartate Amino Transferase 25 U/L (5-31); Bilirubin Direct 0.1 mg/dL (0.0-0.5); Bilirubin Total 0.4 mg/dL (0.0-1.0); Blood Urea Nitrogen 15 mg/dL (9-16); Calcium 9.4 mg/dL (8.4-10.2); Carbon Dioxide 28 mmol/L (22-29); Chloride 108 mmol/L (96-108); Cholesterol 259 mg/dL (<200); Estimated Glomerular Filt Rate > 60; Glucose Random 91 mg/dL (60-115); HDL Cholesterol 46 mg/dL (>40); Iron 71 mcg/dL (30-160); LDL Cholesterol Calculated 157 mg/dL (<100); Percent Iron Saturation 29 % (15-50); Potassium 4.1 mmol/L (3.3-5.1); Sodium 140 mmol/L (135-145); Total Iron Binding Capacity 248 mcg/dL (228-428); Total Protein 7.4 g/dL (6.5-8.0); Triglycerides 281 mg/dL (<150); Unsaturated Iron Binding 177 ug/dL
[2025-02-09 08:07] LABS: Ferritin 288 ng/mL (10-250); HIV AB/AG Nonreactive (Nonreactive); HIV Num 1 0.05 S/CO (0.00-0.99)
[2025-02-10 17:28] LABS: Alpha 1 Anti-trypsin 141 mg/dL (83-199)
[2025-02-10 21:53] LABS: Transglutaminase IgA <1.0 U/mL
[2025-02-11 12:18] LABS: Alpha Fetoprotein 1.4 ng/mL
[2025-02-11 18:29] LABS: Immunoglobulin A 234 mg/dL (47-310); Immunoglobulin G 1249 mg/dL (600-1640)
[2025-02-13 15:18] LABS: Alk.Phos Iso. Macrohepatic 21 % (<=0); Alk.Phos Isoenzymes Bone 21 % (28-66); Alk.Phos Isoenzymes Intest 17 % (1-24); Alk.Phos Isoenzymes Liver 41 % (25-69); Alk.Phos Isoenzymes Placental 0 % (<=0); Alk.Phos Isoenzymes Total 174 U/L (37-153)
[2025-02-13 23:49] LABS: Liver Kidney Microsomal Ab <=20.0 U (<=20.0)
[2025-02-14 05:04] LABS: Smooth Muscle Antibody <20 U (<20)
[2025-02-15 15:28] LABS: Mitochondrial Antibodies NEGATIVE (NEGATIVE)
[2025-02-16 09:04] LABS: Phosphatidylethanol 16:0-18:1 36; Phosphatidylethanol 16:0-18:2 37
== END 2025-02-09 06:11 | disposition home or self-care (01) ==
LOC: HO.LAB 06:10
PROVIDERS: Absent Provider Nurse Practitioner Family; PCP Nurse Practitioner Family; Visit Provider Internal Medicine
DX: R79.89 Other specified abnormal findings of blood chemistry (principal); E78.5 Hyperlipidemia, unspecified; Z11.59 Encounter for screening for other viral diseases; Z13.89 Encounter for screening for other disorder
CPT/HCPCS: 36415; 80053; 80061; 80321; 82103; 82105; 82248; 82728; 82784; 83540; 84080; 85027; 85610; 86015; 86364; 86376; 86381; 87389

== ENCOUNTER → 2025-03-15 07:13 | Outpatient (BNV) | payer OTHER, SELFPAY | PROVIDERS: PCP Nurse Practitioner Family; Visit Provider Radiology Diagnostic Radiology | DX: M75.31 Calcific tendinitis of right shoulder (principal); M19.011 Primary osteoarthritis, right shoulder | CPT/HCPCS: 73221 ==

== ENCOUNTER 2025-03-15 07:17 | Outpatient (REF) | payer OTHER, SELFPAY ==
--- NOTE | ~2025-03-15 | MR_ITS ---
CLINICAL HISTORY: M25.511 - Pain in right shoulder --- Additional Notes or Special Instructions: pbx supervisor olivia MR right shoulder without gadolinium Comparison: CR/SR - XR SHOULDER RT MIN 2V - 08/31/24 09:22 EDT Findings: No acute fractures. No pathologic bone lesions. Severe acromioclavicular degenerative change with capsular hypertrophy. Type I acromion without downsloping. Small amounts of fluid in the subdeltoid bursa, glenohumeral joint space, and subcoracoid/ subscapular bursa. Supraspinatus and infraspinatus tendinopathy. No definite tears. Subscapularis, and teres minor tendons intact. There is no definite tear of the long head of biceps tendon. No tears of the glenoid labrum. IMPRESSION: 1. Supraspinatus and infraspinatus tendinopathy. 2. Small amounts of bursal fluid and joint fluid. 3. Severe acromioclavicular degenerative change. This document has been electronically signed by: Jazmyne Friedman MD on 03/16/2025 05:12:54
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
== END 2025-03-15 07:18 | disposition home or self-care (01) ==
LOC: HO.MRI 07:17
PROVIDERS: PCP Nurse Practitioner Family; Visit Provider Nurse Practitioner Family
DX: M25.511 Pain in right shoulder (principal)
CPT/HCPCS: 73221

== ENCOUNTER 2025-03-15 10:29 | Outpatient (AMB) | payer OTHER, SELFPAY ==
--- NOTE | 2025-03-15 10:39 | MHC.PC.OV ---
Vital Signs 03/15/25 10:44 Height 4 ft 10 in Weight 140 lb BMI 29.3 BP 132/82 Blood Pressure Location Lt brachial Position Sitting Pulse 73 Pulse Source Pulse Oximeter Pulse Oximetry (%) 97 Oxygen Delivery Method Room Air Intake Visit Reasons: Annual PE Allergies mold Allergy (Severe, Verified 03/15/25 10:45) itchy throat blue cheese Allergy (Severe, Uncoded 12/02/24 12:04) itchy throat Tobacco use date assessed: 03/15/25 Dental Screening Dental Screen Date: 03/15/25 Did you have a dental visit in the last 12 months?: Yes Did you have a dental problem in the last 6 months where you did not have access to dental care?: No Was dental information given to patient?: Patient has dentist HPI Annual PE HPI Details History of Present Illness The patient is a 54-year-old female presenting for a physical examination. She has a diagnosis of Type 2 Diabetes Mellitus and reports no symptoms of neuropathy, polyuria, or polydipsia, with her foot sensation noted to be intact. She is experiencing weight loss, attributed to being active, maintaining a balanced diet, and incorporating a walking routine. Her A1c is well-managed at 5.3%. encouraged continued yearly eye exams. Additionally, the patient has hypercholesterolemia and is on a statin, though there was an inquiry into her cholesterol lab results. All relevant cancer screenings are up-to-date, and she maintains psychiatric support through regular visits with a therapist and psychiatrist. Health Maintenance - Mammogram: Up to date - Colonoscopy: Up to date - Encouraged regular statin intake for cholesterol management - Monitoring diabetes with an A1c of 5.3% - Engaged in regular physical activity and dietary management Social History - Exercise: Initiated a walking routine, indicating regular physical activity - Diet: Actively monitoring diet as part of diabetes management - Weight: Has been losing weight, linked to lifestyle changes - Mental Health: Under care of a therapist and psychiatrist on a regular basis Review of Systems - Endocrine: Denies polyuria, polydipsia - Neurological: Denies neuropathy; Reports intact foot sensation - General: Reports weight loss -denies any cp, sob, blurred vision, ABBASI, bowel/bladder issues. denies any si or hi Physical Exam General: Cooperative, healthy appearing, comfortable, no acute distress and well developed Orientation: Patient oriented x3 Limitations: No limitations Head: Normal to inspection Ears: Hearing grossly normal bilaterally Nose: Normal external nose present Face and sinus: Normal facial exam Eyes: Appearance normal, both eyes and all related structures Neck: Normal visual inspection and Yes full ROM Respiratory: Normal respiratory effort and able to speak in complete sentences. Clear to auscultation bilaterally Cardiovascular: Regular rate and rhythm. Normal S1 and S2 GI: Normal to inspection. Soft to palpation and nontender Skin: No rashes or lesions noted Neuro: Patient oriented x3 Extremities: Normal to inspection, feet are intact with positive sensation with use of monofilament Results - Labs: A1c is 5.3% Plan 1. 3%. The patient is advised to maintain regular physical activity and dietary vigilance. Adherence to her statin regimen was stressed for hypercholesterolemia management. Continued dietary and exercise efforts are encouraged due to successful weight loss. All screenings are current, and regular mental health care continues. A follow-up is planned in six months.: Discussion Notes I discussed with the patient the excellent control of Type 2 Diabetes Mellitus, as indicated by an A1c of 5.3%, and reinforced the importance of continued lifestyle modifications, including diet and regular exercise. The importance of statin adherence was emphasized for her hypercholesterolemia management. We reviewed her current weight management strategies, acknowledging her success with weight loss. We confirmed all screenings are current and noted her ongoing mental health support. Follow-up will occur in six months to reassess diabetes and cholesterol management. She was advised about the potential implications of non-adherence to her treatment regimen and encouraged to continue her health maintenance strategies. Patient Instructions - Continue taking your statin every night as prescribed. - Maintain your regular walking routine and balanced diet. - Keep monitoring your diabetes closely. - Follow up with any prescribed labs and continue regular check-ups. - Return for follow-up in about six months. - Contact us sooner if you experience any new symptoms or concerns. [facility] Medical History Hypertensive retinopathy Glaucoma HTN (hypertension) Anxiety INGRID (obstructive sleep apnea) Neck pain Heart murmur Depression Esophagitis Hypokalemia Hyperlipidemia FH: HTN (hypertension) Diabetes mellitus Right sided sciatica Asthma Sacroiliac inflammation Surgical History S/p bilateral carpal tunnel release Hx of esophagogastroduodenoscopy Hx of colonoscopy History of back surgery History of bilateral tubal ligation Family History Father Cancer Alzheimer's disease Mother HTN (hypertension) Diabetes mellitus Asthma Depression Stroke Cancer Maternal Grandfather No problems noted. Maternal Grandmother No problems noted. Paternal Grandfather No problems noted. Paternal Grandmother No problems noted. Brother No problems noted. Brother No problems noted. Sister Asthma Son No problems noted. Son No problems noted. Daughter No problems noted. Social History Household Members: Spouse and Children Housing: House Are you a primary administrator health care facility to a significant other at home: No Do you presently have visiting nurse or other home services: No Alcohol intake: current Alcohol intake frequency: does not drink Patient Tobacco Use Status: Never used Tobacco e-Cigarette/Vaping Use: Never Used Second Hand Smoke Exposure: No service: No Current occupational status: disabled Cognitive needs: No Hearing needs: No Vision needs: Yes Female Reproductive History Menstrual Age of Menarche: 10 Questionnaire PHQ-9 Over the last 2 weeks, how often have you been bothered by any of the following problems? 1. Little interest or pleasure in doing things: nearly every day 2. Feeling down, depressed, or hopeless: nearly every day 3. Trouble falling or staying asleep, or sleeping too much: nearly every day 4. Feeling tired or having little energy: nearly every day 5. Poor appetite or overeating: nearly every day 6. Feeling bad about yourself - or that you are a failure or have let yourself or your family down: more than half the days 7. Trouble concentrating on things, such as reading the newspaper or watching television: nearly every day 8. Moving or speaking so slowly that other people could have noticed. Or the opposite - being so fidgety or restless that you have been moving around a lot more than usual: not at all 9. Thoughts that you would be better off or of hurting yourself in some way: not at all Total score: 20 Depression Screening Interpretation: Positive (therapist and psychiatrist, denies any SI or HI) Depression Screening Follow-up: Existing condition Depression Screening Done: Yes 52111 - PHQ-9 Billing: Yes Source: Developed by Drs. Jaylen Johns, Cary Chavez, Omar Olmedo and colleagues, with an educational orlando from [employer]. Thrive Questionnaire Date Thrive assessed: 03/15/25 I am a: Patient What is your living situation today?: I have a steady place to live Within the past 12 months, did the food you bought not last and you didn't have the money to get more?: Often true Within the past 12 months, did you worry whether your food would run out before you got money to buy more?: Often true Do you have trouble paying for medicines?: No Do you have trouble getting transportation to medical appointments?: No Do you have trouble paying your heating and electricity bill?: Yes Do you have trouble taking care of your child, family member or friend?: No Do you have trouble with day-to-day activities such as bathing, preparing meals, shopping, managing finances, etc.?: I choose not to answer this question Are you currently unemployed and looking for a job?: No Are you interested in more education?: No Please select the resources that you would like help with: Utilities Currently or been in a relationship where the following occur: I choose not to answer THRIVE Score: 3 AUDIT C Alcohol Use Questionnaire (AUDIT-C) 1. How often do you have a drink containing alcohol?: 2-4 times a month 2. How many drinks containing alcohol do you have on a typical day when you are drinking?: 1 or 2 3. How often do you have six or more drinks on one occasion?: Never Total Score: 2 Score Reviewed/Action Taken: Yes JESSI-7 AMB Questionnaire JESSI-7 Date JESSI - 7 assessed: 03/15/25 Feeling nervous, anxious, or on edge: 1 = Several days Not being able to stop or control worryin = Several days Worrying too much about different things: 1 = Several days Trouble relaxin = More than half the days Being so restless that it is hard to sit still: 2 = More than half the days Becoming easily annoyed or irritable: 2 = More than half the days Feeling afraid as if something awful might happen: 2 = More than half the days Total JESSI-7 score (0-4 normal; 5-9 mild; 10-14 moderate; 15-21 severe): 11 Source: Developed by Drs. Jaylen Johns, Cary Chavez, Omar Olmedo and colleagues, with an educational orlando from [employer]. JESSI-7 Assessment Billing JESSI-7 Assessment Tool: JESSI-7 Assessment 33863 Physical exam (Primary Care) Vital Signs: Last Vital Signs Pulse 73 03/15/25 10:44 BP 132/82 03/15/25 10:44 Pulse Ox 97 03/15/25 10:44 Oxygen Delivery Method Room Air 03/15/25 10:44 BMI result Body Mass Index 29.3 Tobacco/Smoking Status: Tobacco use Status Tobacco use date assessed 03/15/25 03/15/25 10:47 Patient Tobacco Use Status Never used Tobacco 03/15/25 10:40 e-Cigarette/Vaping Use Never Used 03/15/25 10:40 PHQ-9: PHQ-9 Score PHQ-9: Total score 20 03/15/25 10:47 Depression Screening Interpretation: Positive (therapist and psychiatrist, denies any SI or HI) Depression Screening Follow-up: Existing condition Thrive Assessment: Date of Thrive Assessment Date Thrive assessed 03/15/25 03/15/25 10:47 Currently or been in a relationship where the following occur: I choose not to answer Results AMB Hemoglobin A1c AMB Hemoglobin A1c 5.3 % Last Edit by Matty Farris CMA on 03/15/25 11:00 Results Reviewed Results Reviewed: Laboratory Last Values Hgb A1c (Clinic) 5.3 % (4.0-6.0) 03/15/25 10:59 Coding Level of Care Code Est Pt Level 3 (80680) Est Pt Prev Care 40-64y(66677) Diagnoses Diabetes mellitus E11.9 Encounter for routine adult physical exam with abnormal findings Z00.01 Additional Codes JESSI-7 Assessment Billing - JESSI-7 Assessment Tool: JESSI-7 Assessment 25049 ([id number]) PHQ-9 - 02598 - PHQ-9 Billing: Yes ([id number]) Assessment & Plan Assessment & Plan (1) Diabetes mellitus: Comment: taking novolog insulin TID w/meals Code(s): E11.9 - Type 2 diabetes mellitus without complications Category: Medical (2) Encounter for routine adult physical exam with abnormal findings: Code(s): Z00.01 - Encounter for general adult medical examination with abnormal findings Category: Medical Plan . Orders: Orders AMB Hemoglobin A1c Today Z13.9 - Encounter for screening, unspecified Complete Blood Count Auto Diff Today E11.9 - Type 2 diabetes mellitus without complications, Z00.01 - Encounter for general adult medical examination with abnormal findings TSH reflex Free T4 Today E11.9 - Type 2 diabetes mellitus without complications, Z00.01 - Encounter for general adult medical examination with abnormal findings UA CC w/rflx Micro + Cult Today E11.9 - Type 2 diabetes mellitus without complications, Z00.01 - Encounter for general adult medical examination with abnormal findings Comprehensive [place]. Panel Fast Today E11.9 - Type 2 diabetes mellitus without complications, Z00.01 - Encounter for general adult medical examination with abnormal findings Lipid Panel Today E11.9 - Type 2 diabetes mellitus without complications, Z00.01 - Encounter for general adult medical examination with abnormal findings Microalbumin, Random (w Creat) Today E11.9 - Type 2 diabetes mellitus without complications
[2025-03-15 10:44] VITALS: BP 132/82; PULSE 73; O2SAT 97; BMI 29.3
== END 2025-03-15 11:18 | disposition home or self-care (01) ==
LOC: HO.HMCC 10:30
PROVIDERS: PCP Nurse Practitioner Family; Visit Provider Nurse Practitioner Family
DX: Z00.00 Encounter for general adult medical examination without abnormal findings (principal); E11.9 Type 2 diabetes mellitus without complications

== ENCOUNTER 2025-03-22 10:12 | Outpatient (REF) | payer OTHER, SELFPAY ==
--- NOTE | ~2025-03-22 | US_ITS ---
CLINICAL HISTORY: R79.89 - Other specified abnormal findings of blood chemistry US abdomen complete Comparison: Not retrievable Findings: Small echogenic foci noted along gallbladder wall. Question adenomyomatosis and/or tiny polyps. Adherent sludge could mimic same appearance. No stones or wall thickening. Common duct measures 3.9 mm. No sonographic Smyth sign. Liver is homogeneous and normal in size and echogenicity. Main portal vein patent with normal direction of flow. Pancreas is unremarkable. Aorta and IVC patent and normal in caliber. The right kidney is normal, 9.9 cm in length. 2 mm nonobstructing lower pole stone noted. No significant hydronephrosis. The left kidney is normal, 10.3 cm in length. No focal abnormality or hydronephrosis. The spleen is normal, 10.5 cm in length. No focal abnormality. Impression: Gallbladder adenomyomatosis versus polyps No acute process This document has been electronically signed by: Jono Meng MD on 03/22/2025 19:44:35
== END 2025-03-22 10:13 | disposition home or self-care (01) ==
LOC: HO.US 10:12
PROVIDERS: PCP Nurse Practitioner Family; Visit Provider Internal Medicine
DX: R79.89 Other specified abnormal findings of blood chemistry (principal)
CPT/HCPCS: 76700

== ENCOUNTER → 2025-03-22 10:13 | Outpatient (BNV) | payer OTHER, SELFPAY | PROVIDERS: PCP Nurse Practitioner Family; Visit Provider Radiology Diagnostic Radiology | DX: R79.89 Other specified abnormal findings of blood chemistry (principal); N20.0 Calculus of kidney | CPT/HCPCS: 76700 ==

== ENCOUNTER 2025-04-14 08:02 | Outpatient (AMB) | payer OTHER, SELFPAY ==
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
[2025-04-14 08:12] VITALS: BP 110/70; PULSE 82; TEMP 36.8; O2SAT 98; BMI 29.7
--- NOTE | 2025-04-14 08:12 | AM.OFFWIN_ITS ---
Intake Vital Signs 04/14/25 08:12 Height 4 ft 10 in Weight 142 lb BMI 29.7 BP 110/70 Blood Pressure Location Lt brachial Position Sitting Pulse 82 Pulse Source Pulse Oximeter Temp 98.3 F Temp Source Oral Pulse Oximetry (%) 98 Oxygen Delivery Method Room Air Intake Visit Reasons: EP-sore throat, earache Intake Note: Pt is here today c/o sore throat and bilateral ear pain x1week Patient Tobacco Use Status: Never used Tobacco Allergies mold Allergy (Severe, Verified 03/15/25 10:45) itchy throat blue cheese Allergy (Severe, Uncoded 12/02/24 12:04) itchy throat HPI HPI Comments History of Present Illness Details History of Present Illness - The patient is a 54-year-old female pr esenting with bilateral ear discomfort and echoic sensation. - Symptoms include echoic perception and general ear discomfort, particularly in the left ear, and have been persistent but not specified in duration. - Mild throat discomfort and chills were mentioned in conjunction with the ear issues. - The patient has a history of frequent ear infections and manages her allergies with daily Cetirizine. - There is no reported shortness of lara th, wheezing, asthma, COPD, or severe cough. - Uses a nasal spray occasionally for na sakina symptoms. Physical Exam General: Cooperative, healthy appearing, comfortable, no acute distress and well developed Orientation: Patient oriented x3 Limitations: No limitations Head: Normal to inspection Ears: Left TM with erythema and loss of landmarks, right TM with erythema, hearing grossly normal bilaterally Mouth: normal oral mucosa, posterior oropharynx erythema Nose: Normal External nose present Face and sinus: Normal facial exam Eyes: Appearance normal, both eyes and all related structures Neck: Normal visual inspection and Yes full ROM Respiratory: Normal respiratory effort and able to speak in complete sentences. Skin: No rashes or lesions noted Neuro: Patient oriented x3 Extremities: Normal to inspection [facility] Medical History Hypertensive retinopathy Glaucoma HTN (hypertension) Anxiety INGRID (obstructive sleep apnea) Neck pain Heart murmur Depression Esophagitis Hypokalemia Hyperlipidemia FH: HTN (hypertension) Diabetes mellitus Right sided sciatica Asthma Sacroiliac inflammation Surgical History S/p bilateral carpal tunnel release Hx of esophagogastroduodenoscopy Hx of colonoscopy History of back surgery History of bilateral tubal ligation Family History Father Cancer Alzheimer's disease Mother HTN (hypertension) Diabetes mellitus Asthma Depression Stroke Cancer Maternal Grandfather No problems noted. Maternal Grandmother No problems noted. Paternal Grandfather No problems noted. Paternal Grandmother No problems noted. Brother No problems noted. Brother No problems noted. Sister Asthma Son No problems noted. Son No problems noted. Daughter No problems noted. Social History Household Members: Spouse and Children Housing: House Are you a primary continuum of care manager to a significant other at home: No Do you presently have visiting nurse or other home services: No Alcohol intake: current Alcohol intake frequency: does not drink Patient Tobacco Use Status: Never used Tobacco e-Cigarette/Vaping Use: Never Used Second Hand Smoke Exposure: No service: No Current occupational status: disabled Cognitive needs: No Hearing needs: No Vision needs: Yes Female Reproductive History Menstrual Age of Menarche: 10 Review of Systems Const All systems reviewed & are unremarkable except as noted in HPI and below Physical Exam Vital Signs: Last Vital Signs Temp 98.3 F 04/14/25 08:12 Pulse 82 04/14/25 08:12 BP 110/70 04/14/25 08:12 Pulse Ox 98 04/14/25 08:12 Oxygen Delivery Method Room Air 04/14/25 08:12 BMI result Body Mass Index 29.7 Results AMB Rapid Strep AMB Rapid Strep Negative Last Edit by Quiana Graham CMA on 04/14/25 08:29 Assessment & Plan Assessment & Plan (1) Otitis media: Code(s): H66.90 - Otitis media, unspecified, unspecified ear Qualifiers: Otitis media type: suppurative Chronicity: acute Laterality: left Recurrence: non-recurrent Spontaneous tympanic membrane rupture: without spontaneous rupture Qualified Code(s): H66.002 - Acute suppurative otitis media without spontaneous rupture of ear drum, left ear Plan: Rapid strep negative. The patient was prescribed Amoxicillin to be taken twice daily for five days to address the mild infection noted in the left ear. She should continue her daily use of Cetirizine and was given detailed instructions on applying Flonase nasal spray twice a day in each nostril to alleviate her nasal symptoms and potentially reduce the echoic sensation in the ears. This multidimensional approach aims to address both the allergy management and the ear infection comprehensively. The provided treatment plan considers the mild nature of her symptoms, requiring modest intervention and monitoring for resolution without immediate follow-up necessity. Patient was informed and verbally consented to the use of an ambient scribe for clinic note documentation during this visit. Orders: Orders AMB Rapid Strep Screen Today Z13.9 - Encounter for screening, unspecified Medications: New amoxicillin 875 mg PO Q12H 10 tabs 0RF Coding Level of Care Code Est Pt Level 3 (30346) Diagnoses Non-recurrent acute suppurative otitis media of left ear without spontaneous ru pture of tympanic membrane H66.002 Otitis media type: suppurative Chronicity: acute Laterality: left Recurrence: non-recurrent Spontaneous tympanic membrane rupture: without spontaneous rupture
== END 2025-04-14 08:31 | disposition home or self-care (01) ==
PROVIDERS: PCP Nurse Practitioner Family; Visit Provider Physician Assistant
DX: H66.002 Acute suppurative otitis media without spontaneous rupture of ear drum, left ear (principal); Z13.9 Encounter for screening, unspecified

== ENCOUNTER → 2025-04-14 08:02 | Outpatient (BNVA) | payer OTHER, SELFPAY | PROVIDERS: PCP Nurse Practitioner Family; Visit Provider Physician Assistant | DX: H66.002 Acute suppurative otitis media without spontaneous rupture of ear drum, left ear (principal) | CPT/HCPCS: 87880; 99212 ==

== ENCOUNTER 2025-05-13 08:02 | Outpatient (AMB) | payer OTHER, SELFPAY ==
[2025-05-13 08:03] VITALS: BP 132/90; PULSE 77; TEMP 37.2; O2SAT 97; BMI 29.9
--- NOTE | 2025-05-13 08:03 | AM.OFFWIN_ITS ---
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 She does have h/o Seasonal allergies and uses Flonase and Cetirizine sometimes. [facility] Medical History Hypertensive retinopathy Glaucoma HTN (hypertension) Anxiety INGRID (obstructive sleep apnea) Neck pain Heart murmur Depression Esophagitis Hypokalemia Hyperlipidemia FH: HTN (hypertension) Diabetes mellitus Right sided sciatica Asthma Sacroiliac inflammation Surgical History S/p bilateral carpal tunnel release Hx of esophagogastroduodenoscopy Hx of colonoscopy History of back surgery History of bilateral tubal ligation Family History Father Cancer Alzheimer's disease Mother HTN (hypertension) Diabetes mellitus Asthma Depression Stroke Cancer Maternal Grandfather No problems noted. Maternal Grandmother No problems noted. Paternal Grandfather No problems noted. Paternal Grandmother No problems noted. Brother No problems noted. Brother No problems noted. Sister Asthma Son No problems noted. Son No problems noted. Daughter No problems noted. Social History Household Members: Spouse and Children Housing: House Are you a primary healthcare account manager to a significant other at home: No Do you presently have visiting nurse or other home services: No Alcohol intake: current Alcohol intake frequency: does not drink Patient Tobacco Use Status: Never used Tobacco e-Cigarette/Vaping Use: Never Used Second Hand Smoke Exposure: No Patient : No service: No Current occupational status: disabled Cognitive needs: No Hearing needs: No Vision needs: Yes Female Reproductive History Menstrual Age of Menarche: 10 Review of Systems Const All systems reviewed & are unremarkable except as noted in HPI and below Physical Exam Vital Signs: Last Vital Signs Temp 99.0 F 05/13/25 08:03 Pulse 77 05/13/25 08:03 BP 132/90 H 05/13/25 08:03 Pulse Ox 97 05/13/25 08:03 Oxygen Delivery Method Room Air 05/13/25 08:03 BMI result Body Mass Index 29.9 Const General: no acute distress Nutritional Appearance: overweight Orientation/consciousness: patient oriented x3 HEENT Head: Yes normocephalic Ears: external ears normal and TM abnormal bulging and with fluid behind the TM bilateral; not erythematous, not perforated and not retracted General nose exam: Abnormal mucous membranes and turbinates present boggy and Nasal discharge present Face and sinus: Yes sinuses nontender Mouth: moist mucous membranes Throat: Yes uvula midline Resp Effort & Inspection: normal respiratory effort, able to speak in complete sentences, no audible wheezes and no cough Auscultation: clear to auscultation bilaterally, no crackles, no rales, no rhonchi and no wheezes Neuro General: patient oriented x3 Assessment & Plan Assessment & Plan (1) Environmental allergies: Code(s): Z91.09 - Other allergy status, other than to drugs and biological substances Plan: Advised to take Zrytec BID Advised to continue using Flonase. B/L TM intact and clear Medications: Changed From cetirizine 10 mg PO BID 180 tabs 1RF Z91.09 - Other allergy status, other than to drugs and biological substances To cetirizine TAKE DIRECTED 10 mg PO DAILY 90 tabs 0RF Z91.09 - Other allergy status, other than to drugs and biological substances Discontinued amoxicillin Discontinued Reason: Patient Completed Course 875 mg PO Q12H 10 tabs 0RF Coding Level of Care Code Est Pt Level 4 (44054) Diagnoses Environmental allergies Z91.09 Time Spent (min) 20
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
== END 2025-05-13 08:36 | disposition home or self-care (01) ==
PROVIDERS: PCP Nurse Practitioner Family; Visit Provider Nurse Practitioner Family
DX: Z91.09 Other allergy status, other than to drugs and biological substances (principal)

== ENCOUNTER → 2025-05-13 08:02 | Outpatient (BNVA) | payer OTHER, SELFPAY | PROVIDERS: PCP Nurse Practitioner Family; Visit Provider Nurse Practitioner Family | DX: Z91.09 Other allergy status, other than to drugs and biological substances (principal) | CPT/HCPCS: 99212 ==

== ENCOUNTER 2025-05-24 10:47 | Outpatient (REF) | payer OTHER, SELFPAY ==
--- NOTE | ~2025-05-24 | XR_ITS ---
EXAMINATION: XR SHOULDER, RIGHT CLINICAL INFORMATION: M25.519 - Pain in unspecified shoulder COMPARISON: August 31, 2024. TECHNIQUE: AP external rotation, Grashey, scapular Y, and axillary views of the right shoulder. FINDINGS: No acute cortical disruption or malalignment. No lytic or blastic lesions. Minimal sclerosis along the articular surface of the acromioclavicular joint. XR/XR shoulder RT min 2V IMPRESSION: Degenerative changes, acromioclavicular joint. Electronically signed by: Cesar Castro MD 05/24/2025 01:02 PM EDT
== END 2025-05-24 10:48 | disposition home or self-care (01) ==
LOC: HO.HOSX 10:47
PROVIDERS: Visit Provider Physician Assistant
DX: M25.511 Pain in right shoulder (principal); M75.101 Unspecified rotator cuff tear or rupture of right shoulder, not specified as traumatic; E11.9 Type 2 diabetes mellitus without complications; G89.29 Other chronic pain; Z79.4 Long term (current) use of insulin
CPT/HCPCS: 20610; 73030; 99202; J1010; J2003

== ENCOUNTER 2025-05-24 11:06 | Outpatient (AMB) | payer OTHER, SELFPAY ==
--- NOTE | 2025-05-24 11:14 | MHC.OFFVIS ---
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 Patient reports ongoing pain for 1 + years. No hx of injury. Patient informed me that she had neck surgery back on 2012. She states that her pain is worse when she is doing over head reaching, laying on her side and wiping herself. Patient was prescribe by her PCP tramadol which gave her relief. IMPRESSION MRI (03/16/25): 1. Supraspinatus and infraspinatus tendinopathy. 2. Small amounts of bursal fluid and joint fluid. 3. Severe acromioclavicular degenerative change. 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 Babcock is a 54-year-old right-hand dominant female who presents to the office today for chronic right shoulder pain. She reports the pain has been present for greater than a year and has had difficulty with range of motion. She denies any injury or trauma to the right shoulder. This report that she had a history of 3 cervical spine procedures. Two out of those 3 surgeries were due to infection. Patient reports that the pain in her right shoulder worsens with overhead reaching or reaching behind her back for hygiene. She is also unable to lay on her right side due to shoulder pain. [facility] Medical History (Updated 05/24/25 @ 11:45 by Elaine Figueredo PA-C) Hypertensive retinopathy Glaucoma HTN (hypertension) Anxiety INGRID (obstructive sleep apnea) Neck pain Heart murmur Depression Esophagitis Hypokalemia Hyperlipidemia FH: HTN (hypertension) Diabetes mellitus Right sided sciatica Asthma Sacroiliac inflammation Surgical History (Updated 05/24/25 @ 11:23 by Gabriela Buitrago) S/p bilateral carpal tunnel release Hx of esophagogastroduodenoscopy Hx of colonoscopy History of back surgery History of bilateral tubal ligation Family History Father Cancer Alzheimer's disease Mother HTN (hypertension) Diabetes mellitus Asthma Depression Stroke Cancer Maternal Grandfather No problems noted. Maternal Grandmother No problems noted. Paternal Grandfather No problems noted. Paternal Grandmother No problems noted. Brother No problems noted. Brother No problems noted. Sister Asthma Son No problems noted. Son No problems noted. Daughter No problems noted. Social History Household Members: Spouse and Children Housing: House Are you a primary doggy daycare activities director to a significant other at home: No Do you presently have visiting nurse or other home services: No Alcohol intake: current Alcohol intake frequency: does not drink Patient Tobacco Use Status: Never used Tobacco e-Cigarette/Vaping Use: Never Used Second Hand Smoke Exposure: No service: No Current occupational status: disabled Cognitive needs: No Hearing needs: No Vision needs: Yes Female Reproductive History Menstrual Age of Menarche: 10 Review of Systems Const All systems reviewed & are unremarkable except as noted in HPI and below Physical Exam Vital Signs: BMI result Body Mass Index 29.9 Const General: cooperative, healthy appearing and no acute distress Resp Effort & Inspection: normal respiratory effort and able to speak in complete sentences Extrem Other: Right shoulder: Forward flexion to 90 degrees. Abduction to 45 degrees. Pain with cross-body reach. 3/5 strength with empty can. Negative drop arm. NVI. Office Procedures AMB Joint Injection/Aspiration Joint Injection/Aspiration Primary Site: right shoulder Prep: site was prepped using aseptic technique, ethochloride spray was applied and injection warnings given Injected: 40 mg of, DepoMedrol, with 8 mL of (2% plain lidocaine) and in the subcromial space Procedure: The patient tolerated the procedure well, but had some pain with the injection and there was some relief with the local anesthesia Coding 69381 - Large joint Procedure code (CPT) selection complete Assessment & Plan Assessment & Plan (1) Painful arc syndrome of right shoulder: Code(s): M75.101 - Unspecified rotator cuff tear or rupture of right shoulder, not specified as traumatic Category: Medical (2) Diabetes mellitus: Comment: taking novolog insulin TID w/meals Code(s): E11.9 - Type 2 diabetes mellitus without complications Category: Medical Plan The patient was offered a cortisone injection in the right shoulder with 40 mg of DepoMedrol. The patient was explained the risks, benefits, and alternatives to receiving this injection. After receiving consent for the injection, the patient had the procedure done while in the office today. The patient tolerated the procedure well with no complications. Due to the patient?s history of diabetes, they were instructed to monitor their blood glucose level. The patient was informed that they could see a rise in their numbers and if the numbers became too high, they were instructed to call their PCP. The patient was also informed that they could have facial flushing as a side effect of the injection, but this will pass. Follow-up will be PRN, or sooner if needed If the patient continues to experience pain after the subacromial injection the next step would be to try an AC joint injection with Dr. Morocho. MRI of the right shoulder obtained on 03/15/25: IMPRESSION: 1. Supraspinatus and infraspinatus tendinopathy. 2. Small amounts of bursal fluid and joint fluid. 3. Severe acromioclavicular degenerative change. Orders: Orders XR shoulder RT min 2V Today M25.519 - Pain in unspecified shoulder Coding Level of Care Code New Pt Level 4 (73101) Diagnoses Painful arc syndrome of right shoulder M75.101 Diabetes mellitus E11.9 CPT Codes Coding - 60950 Large joint: 84217 - Large joint ([id number])
[2025-05-24 11:24] VITALS: BMI 29.9
== END 2025-05-24 11:52 | disposition home or self-care (01) ==
LOC: HO.HOS 11:06
PROVIDERS: PCP Nurse Practitioner Family; Visit Provider Physician Assistant
DX: M75.101 Unspecified rotator cuff tear or rupture of right shoulder, not specified as traumatic (principal); E11.9 Type 2 diabetes mellitus without complications
CPT/HCPCS: 20610; 99204

== ENCOUNTER → 2025-05-24 11:08 | Outpatient (BNV) | payer OTHER, SELFPAY | PROVIDERS: Visit Provider Radiology Diagnostic Radiology | DX: M19.011 Primary osteoarthritis, right shoulder (principal) | CPT/HCPCS: 73030 ==

== ENCOUNTER 2025-07-05 10:26 | Outpatient (AMB) | payer OTHER, SELFPAY ==
--- OUTSIDE RECORDS SUMMARY | 2013-12-23 01:00 | XMS_ITS | Encounter Summary ---
Author Organization [facility] Address [address] [place] [address] Phone Care Team Providers Care Customer Support Analyst Name Role Phone Unavailable Primary Care Provider Unavailabl e Reason for Visit * MRI/CAT Scan - Closed Specialty Diagnoses / Procedures Referred By Contac t Referred To Contact Procedures MRI Spine (Neuro) Outside (No Interpretation) Denny Riggs MD [address] [place] [address] Phone: tel: fax: mailto:[email or web address] Referral ID Status Reason Start Date Expiration Date Visits Re quested Visits Authorized [id number] Closed 01/23/2017 01/23/2018 1 1 Encounter Details Date Type Department Care Team ([facility] st Contact Info) Description 12/23/2013 Hospital Encounter [facility] General Imaging [address] [place] [address] Denny Riggs MD [address] [place], [place] [phone] [email or web address] Social History Tobacco Use Types Packs/Day Years [...] (No Interpretation) (12/23/2013 12:00 AM EST) Narrative [facility] IMG INTERFACES - 01/23/2017 5:55 PM EDT This study is for PACS storage only and not for interpretation. us Denny Riggs MD IMG OUTSIDE IMAGING W /OUT INTERPRETATION Final Result [facility] IMG INTERFACES documented in this encounter Visit Diagnoses Not on filedocumented in this encounter Additional Source Comments The information contained in this document represents components of the legal health record. It is not the complete legal health record.[facility]
[2025-07-05 10:39] VITALS: BP 112/84; PULSE 68; TEMP 36.4; O2SAT 99; BMI 30.3
--- NOTE | 2025-07-05 10:39 | AM.OFFWIN_ITS ---
Intake Vital Signs 07/05/25 10:39 Height 4 ft 10 in Weight 145 lb BMI 30.3 BP 112/84 Blood Pressure Location Lt brachial Position Sitting Pulse 68 Pulse Source Pulse Oximeter Temp 97.6 F Temp Source Oral Pulse Oximetry (%) 99 Oxygen Delivery Method Room Air Intake Visit Reasons: EP painful spot on lt side of nose Intake Note: pt presents with painful lesion on left side of noise, present for 1 month Patient Tobacco Use Status: Never used Tobacco Allergies mold Allergy (Severe, Verified 07/05/25 10:42) itchy throat blue cheese Allergy (Severe, Uncoded 12/02/24 12:04) itchy throat Do you need a note to return to daycare/school/sports/work: No HPI HPI Comments History of Present Illness Details History of Present Illness - The patient is a 54-year-old female pr esenting with a nasal lesion. - The lesion has been present for about a month and is located on the nose. - The lesion is painful and has not villagran ged in size, color, or border since its appearance. - There are no other lesions present on the body. - The patient has not been referred to d ermatology yet - She does not have a PCP appt until Sep and would like a referral to derm. Physical Exam General: Cooperative, healthy appearing, comfortable, no acute distress and well developed Nose: Normal external nose present with a lesion noted. Respiratory: Normal respiratory effort and able to speak in complete sentences. Clear to auscultation bilaterally Cardiovascular: Regular rate and rhythm. Normal S1 and S2 Skin: No rashes. Single, hyperpigmented round, raised, tender papule noted on the left side of the nose. No erythema noted. No discharge noted. Patient was informed and verbally consented to the use of an ambient scribe for clinic note documentation during this visit. [facility] Medical History (Updated 05/24/25 @ 11:45 by Elaine Figueredo PA-C) Hypertensive retinopathy Glaucoma HTN (hypertension) Anxiety INGRID (obstructive sleep apnea) Neck pain Heart murmur Depression Esophagitis Hypokalemia Hyperlipidemia FH: HTN (hypertension) Diabetes mellitus Right sided sciatica Asthma Sacroiliac inflammation Surgical History (Updated 05/24/25 @ 11:23 by Gabriela Buitrago) S/p bilateral carpal tunnel release Hx of esophagogastroduodenoscopy Hx of colonoscopy History of back surgery History of bilateral tubal ligation Family History Father Cancer Alzheimer's disease Mother HTN (hypertension) Diabetes mellitus Asthma Depression Stroke Cancer Maternal Grandfather No problems noted. Maternal Grandmother No problems noted. Paternal Grandfather No problems noted. Paternal Grandmother No problems noted. Brother No problems noted. Brother No problems noted. Sister Asthma Son No problems noted. Son No problems noted. Daughter No problems noted. Social History Household Members: Spouse and Children Housing: House Are you a primary care transitions manager to a significant other at home: No Do you presently have visiting nurse or other home services: No Alcohol intake: current Alcohol intake frequency: does not drink Patient Tobacco Use Status: Never used Tobacco e-Cigarette/Vaping Use: Never Used Second Hand Smoke Exposure: No service: No Current occupational status: disabled Cognitive needs: No Hearing needs: No Vision needs: Yes Female Reproductive History Menstrual Age of Menarche: 10 Review of Systems Const All systems reviewed & are unremarkable except as noted in HPI and below Physical Exam Vital Signs: Last Vital Signs Temp 97.6 F 07/05/25 10:39 Pulse 68 07/05/25 10:39 BP 112/84 07/05/25 10:39 Pulse Ox 99 07/05/25 10:39 Oxygen Delivery Method Room Air 07/05/25 10:39 BMI result Body Mass Index 30.3 Assessment & Plan Assessment & Plan (1) Lesion of nose: Code(s): J34.89 - Other specified disorders of nose and nasal sinuses Plan Most likely a cyst vs mole Plan - The patient will be referred to dermatology for further evaluation of the nasal lesion. - follow up with PCP Orders: Referrals Dermatology Referral J34.89 - Other specified disorders of nose and nasal sinuses Coding Level of Care Code Est Pt Level 3 (69389) Diagnoses Lesion of nose J34.89
== END 2025-07-05 11:08 | disposition home or self-care (01) ==
PROVIDERS: PCP Nurse Practitioner Family; Visit Provider Physician Assistant Medical
DX: J34.89 Other specified disorders of nose and nasal sinuses (principal)

== ENCOUNTER → 2025-07-05 10:26 | Outpatient (BNVA) | payer OTHER, SELFPAY | PROVIDERS: PCP Nurse Practitioner Family; Visit Provider Physician Assistant Medical | DX: J34.89 Other specified disorders of nose and nasal sinuses (principal) | CPT/HCPCS: 99212 ==

== ENCOUNTER 2025-07-16 09:04 | Outpatient (REF) | payer OTHER, SELFPAY ==
[2025-07-16 14:35] LABS: Resp Syncy Virus RNA Qual PCR NEGATIVE (Negative); SARS COV2 PCR INHOUSE NEGATIVE (Negative)
== END 2025-07-16 09:05 | disposition home or self-care (01) ==
LOC: HO.LAB 09:04
PROVIDERS: PCP Nurse Practitioner Family; Visit Provider Physician Assistant
DX: J01.90 Acute sinusitis, unspecified (principal); H92.03 Otalgia, bilateral; R09.89 Other specified symptoms and signs involving the circulatory and respiratory systems
CPT/HCPCS: 87637; 99212

== ENCOUNTER 2025-07-16 09:04 | Outpatient (AMB) | payer OTHER, SELFPAY ==
--- OUTSIDE RECORDS SUMMARY | 2012-08-08 | XMS_ITS | Encounter Summary ---
Author Organization [facility] Address [address] [place] [address] Phone Care Team Providers Care Landscaping Supervisor Name Role Phone Unavailable Primary Care Provider Unavailabl e Reason for Visit * MRI/CAT Scan - Closed Specialty Diagnoses / Procedures Referred By Contac t Referred To Contact Procedures MRI Spine (Neuro) Outside (No Interpretation) Denny Riggs MD [address] [place] [address] Phone: tel: fax: mailto:[email or web address] Referral ID Status Reason Start Date Expiration Date Visits Re quested Visits Authorized [id number] Closed 01/23/2017 01/23/2018 1 1 Encounter Details Date Type Department Care Team ([facility] st Contact Info) Description 08/08/2012 Hospital Encounter [facility] General Imaging [address] [place] [address] Denny Riggs MD [address] [place], [place] [phone] [email or web address] Social History Tobacco Use Types Packs/Day Years [...] (No Interpretation) (08/08/2012 12:00 AM EDT) Narrative [facility]G INTERFACES - 01/23/2017 5:51 PM EDT This study is for PACS storage only and not for interpretation. Denny Riggs MD IMG OUTSIDE IMAGING W /OUT INTERPRETATION Final Result [facility]G INTERFAC[facility] documented in this encounter Visit Diagnoses Not on filedocumented in this encounter Additional Source Comments The information contained in this document represents components of the legal health record. It is not the complete legal health record.[facility]
--- OUTSIDE RECORDS SUMMARY | 2012-08-08 00:15 | XMS_ITS | Encounter Summary ---
Author Organization [facility] Address [address] [place] [address] Phone Care Team Providers Care Deaf/Hard Of Hearing Specialist Name Role Phone Unavailable Primary Care Provider Unavailabl e Reason for Visit * MRI/CAT Scan - Closed Specialty Diagnoses / Procedures Referred By Contac t Referred To Contact Procedures MRI Spine (Neuro) Outside (No Interpretation) Denny Riggs MD [address] [place] [address] Phone: tel: fax: mailto:[email or web address] Referral ID Status Reason Start Date Expiration Date Visits Re quested Visits Authorized [id number] Closed 01/23/2017 01/23/2018 1 1 Encounter Details Date Type Department Care Team ([facility] st Contact Info) Description 08/08/2012 12:15 AM EDT Hospital Encounter [facility] General Imaging [address] [place] [address] Denny Riggs MD [address] [place], [place] [phone] [email or web address] Social History Tobacco Use Types Packs/Day Years [...] (No Interpretation) (08/08/2012 12:15 AM EDT) Narrative [facility] IMG INTERFACES - 01/23/2017 5:52 PM EDT This study is for PACS storage only and not for interpretation. us Denny Riggs MD IMG OUTSIDE IMAGING W /OUT INTERPRETATION Final Result [facility] IMG INTERFACES documented in this encounter Visit Diagnoses Not on filedocumented in this encounter Additional Source Comments The information contained in this document represents components of the legal health record. It is not the complete legal health record.[facility]
--- OUTSIDE RECORDS SUMMARY | 2013-09-29 01:00 | XMS_ITS | Encounter Summary ---
Author Organization [facility] Address [address] [place] [address] Phone Care Team Providers Care Information Services Consultant Name Role Phone Unavailable Primary Care Provider Unavailabl e Reason for Visit * MRI/CAT Scan - Closed Specialty Diagnoses / Procedures Referred By Contac t Referred To Contact Procedures MRI Spine (Neuro) Outside (No Interpretation) Denny Riggs MD [address] [place] [address] Phone: tel: fax: mailto:[email or web address] Referral ID Status Reason Start Date Expiration Date Visits Re quested Visits Authorized [id number] Closed 01/23/2017 01/23/2018 1 1 Encounter Details Date Type Department Care Team ([facility] st Contact Info) Description 09/29/2013 Hospital Encounter [facility] General Imaging [address] [place] [address] Denny Riggs MD [address] [place], [place] [phone] [email or web address] Social History Tobacco Use Types Packs/Day Years [...] (No Interpretation) (09/29/2013 12:00 AM EST) Narrative [facility] IMG INTERFACES - 01/23/2017 5:52 PM EDT This study is for PACS storage only and not for interpretation. us Denny Riggs MD IMG OUTSIDE IMAGING W /OUT INTERPRETATION Final Result [facility] IMG INTERFACES documented in this encounter Visit Diagnoses Not on filedocumented in this encounter Additional Source Comments The information contained in this document represents components of the legal health record. It is not the complete legal health record.[facility]
--- OUTSIDE RECORDS SUMMARY | 2013-09-29 01:15 | XMS_ITS | Encounter Summary ---
Author Organization [facility] Address [address] [facility] [address] [place] [address] Phone Care Team Providers Care Carbonizer Tester Name Role Phone Unavailable Primary Care Provider Unavailabl e Reason for Visit * MRI/CAT Scan - Closed Specialty Diagnoses / Procedures Referred By Contac t Referred To Contact Procedures MRI Spine (Neuro) Outside (No Interpretation) Denny Riggs MD [address] [place] [address] Phone: tel: fax: mailto:[email or web address] Referral ID Status Reason Start Date Expiration Date Visits Re quested Visits Authorized [id number] Closed 01/23/2017 01/23/2018 1 1 Encounter Details Date Type Department Care Team ([facility] st Contact Info) Description 09/29/2013 12:15 AM [facility] Hospital Encounter [facility] General Imaging [address] [place] [address] Denny Riggs MD [address] [place], [place] [phone] [email or web address] Social History Tobacco Use Types Packs/Day Years [...] (No Interpretation) (09/29/2013 12:15 AM EST) Narrative [facility] IMG INTERFACES - 01/23/2017 5:52 PM EDT This study is for PACS storage only and not for interpretation. us Denny Riggs MD IMG OUTSIDE IMAGING W /OUT INTERPRETATION Final Result [facility] IMG INTERFACES documented in this encounter Visit Diagnoses Not on filedocumented in this encounter Additional Source Comments The information contained in this document represents components of the legal health record. It is not the complete legal health record.[facility]
--- OUTSIDE RECORDS SUMMARY | 2013-10-05 01:00 | XMS_ITS | Encounter Summary ---
Author Organization [facility] Address [address] [place] [address] Phone Care Team Providers Care Ground Wood Supervisor Name Role Phone Unavailable Primary Care Provider Unavailabl e Reason for Visit * MRI/CAT Scan - Closed Specialty Diagnoses / Procedures Referred By Contac t Referred To Contact Procedures MRI Spine (Neuro) Outside (No Interpretation) Denny Riggs MD [address] [place] [address] Phone: tel: fax: mailto:[email or web address] Referral ID Status Reason Start Date Expiration Date Visits Re quested Visits Authorized [id number] Closed 01/23/2017 01/23/2018 1 1 Encounter Details Date Type Department Care Team ([facility] st Contact Info) Description 10/05/2013 Hospital Encounter [facility] General Imaging [address] [place] [address] Denny Riggs MD [address] [place] [address] [email or web address] Social History Tobacco Use Types Packs/Day Years Used Date Smoking Tobacco: Never Education Answer Date Recorded Are you interested in more education? Not on haong e 03/10/2023 Are you concerned about learning? [...] (No Interpretation) (10/05/2013 12:00 AM EST) Narrative [facility] [place] [place] - 01/23/2017 5:53 PM EDT This study is for PACS storage only and not for interpretation. us Denny Riggs MD IMG OUTSIDE IMAGING W /OUT INTERPRETATION Final Result [facility] [place] documented in this encounter Visit Diagnoses Not on filedocumented in this encounter Additional Source Comments The information contained in this document represents components of the legal health record. It is not the complete legal health record.[facility]
--- OUTSIDE RECORDS SUMMARY | 2013-10-05 01:15 | XMS_ITS | Encounter Summary ---
Author Organization [facility] Address [address] [facility] [address] [place] [address] Phone Care Team Providers Care Bread Slicer Machine Name Role Phone Unavailable Primary Care Provider Unavailabl e Reason for Visit * MRI/CAT Scan - Closed Specialty Diagnoses / Procedures Referred By Contac t Referred To Contact Procedures MRI Spine (Neuro) Outside (No Interpretation) Denny Riggs MD [address] [place] [address] Phone: tel: fax: mailto:[email or web address] Referral ID Status Reason Start Date Expiration Date Visits Re quested Visits Authorized [id number] Closed 01/23/2017 01/23/2018 1 1 Encounter Details Date Type Department Care Team ([facility] st Contact Info) Description 10/05/2013 12:15 AM [facility] Hospital Encounter [facility] General Imaging [address] [place] [address] Denny Riggs MD [address] [place], [place] [phone] [email or web address] Social History Tobacco Use Types Packs/Day Years [...] (No Interpretation) (10/05/2013 12:15 AM EST) Narrative [facility] [place] IMG INTERFACES - 01/23/2017 5:53 PM EDT This study is for PACS storage only and not for interpretation. us Denny Riggs MD IMG OUTSIDE IMAGING W /OUT INTERPRETATION Final Result [facility] [place] IMG INTERFACES documented in this encounter Visit Diagnoses Not on filedocumented in this encounter Additional Source Comments The information contained in this document represents components of the legal health record. It is not the complete legal health record.[facility]
--- OUTSIDE RECORDS SUMMARY | 2013-10-05 01:30 | XMS_ITS | Encounter Summary ---
Author Organization [facility] Address [address] [facility] [address] [place] [address] Phone Care Team Providers Care Procurement Engineer Name Role Phone Unavailable Primary Care Provider Unavailabl e Reason for Visit * MRI/CAT Scan - Closed Specialty Diagnoses / Procedures Referred By Contac t Referred To Contact Procedures MRI Spine (Neuro) Outside (No Interpretation) Denny Riggs MD [address] [place] [address] Phone: tel: fax: mailto:[email or web address] Referral ID Status Reason Start Date Expiration Date Visits Re quested Visits Authorized [id number] Closed 01/23/2017 01/23/2018 1 1 Encounter Details Date Type Department Care Team ([facility] st Contact Info) Description 10/05/2013 12:30 AM [facility] Hospital Encounter [facility] General Imaging [address] [place] [address] Denny Riggs MD [address] [place], [place] [phone] [email or web address] Social History Tobacco Use Types Packs/Day Years [...] (No Interpretation) (10/05/2013 12:30 AM EST) Narrative [facility] [place] - 01/23/2017 5:54 PM EDT This study is for PACS storage only and not for interpretation. us Denny Riggs MD IMG OUTSIDE IMAGING W /OUT INTERPRETATION Final Result [facility] [place] documented in this encounter Visit Diagnoses Not on filedocumented in this encounter Additional Source Comments The information contained in this document represents components of the legal health record. It is not the complete legal health record.[facility]
--- OUTSIDE RECORDS SUMMARY | 2013-10-05 01:45 | XMS_ITS | Encounter Summary ---
Author Organization [facility] Address [address] [facility] [address] [place] [address] Phone Care Team Providers Care Onshore Diver Name Role Phone Unavailable Primary Care Provider Unavailabl e Reason for Visit * MRI/CAT Scan - Closed Specialty Diagnoses / Procedures Referred By Contac t Referred To Contact Procedures MRI Spine (Neuro) Outside (No Interpretation) Denny Riggs MD [address] [place] [address] Phone: tel: fax: mailto:[email or web address] Referral ID Status Reason Start Date Expiration Date Visits Re quested Visits Authorized [id number] Closed 01/23/2017 01/23/2018 1 1 Encounter Details Date Type Department Care Team ([facility] st Contact Info) Description 10/05/2013 12:45 AM [facility] Hospital Encounter [facility] General Imaging [address] [place] [address] Denny Riggs MD [address] [place], [place] [phone] [email or web address] Social History Tobacco Use Types Packs/Day Years [...] (No Interpretation) (10/05/2013 12:45 AM EST) Narrative [facility] [place] IMG INTERFACES - 01/23/2017 5:54 PM EDT This study is for PACS storage only and not for interpretation. us Denny Riggs MD IMG OUTSIDE IMAGING W /OUT INTERPRETATION Final Result [facility] [place] IMG INTERFACES documented in this encounter Visit Diagnoses Not on filedocumented in this encounter Additional Source Comments The information contained in this document represents components of the legal health record. It is not the complete legal health record.[facility]
--- OUTSIDE RECORDS SUMMARY | 2013-11-10 01:00 | XMS_ITS | Encounter Summary ---
Author Organization [facility] Address [address] [place] [address] Phone Care Team Providers Care Wire Twister Name Role Phone Unavailable Primary Care Provider Unavailabl e Reason for Visit * MRI/CAT Scan - Closed Specialty Diagnoses / Procedures Referred By Contac t Referred To Contact Procedures MRI Spine (Neuro) Outside (No Interpretation) Denny Riggs MD [address] [place] [address] Phone: tel: fax: mailto: Referral ID Status Reason Start Date Expiration Date Visits Re quested Visits Authorized [id number] Closed 01/23/2017 01/23/2018 1 1 Encounter Details Date Type Department Care Team ([facility] st Contact Info) Description 11/10/2013 Hospital Encounter [facility] General Imaging [address] [place] [address] Denny Riggs MD [address] [place], [place] [phone] [email or web address] Social History Tobacco Use Types Packs/Day [...] Interpretation) (11/10/2013 12:00 AM EST) Narrative [facility] [place]G INTERFACES - 01/23/2017 5:54 PM EDT This study is for PACS storage only and not for interpretation. us Denny Riggs MD IMG OUTSIDE IMAGING W /OUT INTERPRETATION Final Result [facility] [place]FAC[place] documented in this encounter Visit Diagnoses Not on filedocumented in this encounter Additional Source Comments The information contained in this document represents components of the legal health record. It is not the complete legal health record.[facility]
--- OUTSIDE RECORDS SUMMARY | 2013-12-23 01:00 | XMS_ITS | Encounter Summary ---
Author Organization [facility] Address [address] [place] [address] Phone Care Team Providers Care Sample Card Maker Name Role Phone Unavailable Primary Care Provider Unavailabl e Reason for Visit * MRI/CAT Scan - Closed Specialty Diagnoses / Procedures Referred By Contac t Referred To Contact Procedures MRI Spine (Neuro) Outside (No Interpretation) Denny Riggs MD [address] [place] [address] Phone: tel: fax: mailto:[email or web address] Referral ID Status Reason Start Date Expiration Date Visits Re quested Visits Authorized [id number] Closed 01/23/2017 01/23/2018 1 1 Encounter Details Date Type Department Care Team ([facility] st Contact Info) Description 12/23/2013 Hospital Encounter [facility] General Imaging [address] [place] [address] Denny Riggs MD [address] [place], [place] [phone] [email or web address] Social History Tobacco Use Types Packs/Day Years [...] (No Interpretation) (12/23/2013 12:00 AM EST) Narrative [facility]G INTERFACES - 01/23/2017 5:55 PM EDT This study is for PACS storage only and not for interpretation. us Denny Riggs MD IMG OUTSIDE IMAGING W /OUT INTERPRETATION Final Result [facility]G INTERFACES documented in this encounter Visit Diagnoses Not on filedocumented in this encounter Additional Source Comments The information contained in this document represents components of the legal health record. It is not the complete legal health record.[facility]
--- OUTSIDE RECORDS SUMMARY | 2013-12-23 01:15 | XMS_ITS | Encounter Summary ---
Author Organization [facility] Address [address] [place] [address] Phone Care Team Providers Care Assisted Living Executive Director Name Role Phone Unavailable Primary Care Provider Unavailabl e Reason for Visit * MRI/CAT Scan - Closed Specialty Diagnoses / Procedures Referred By Contac t Referred To Contact Procedures MRI Spine (Neuro) Outside (No Interpretation) Denny Riggs MD [address] [place] [address] Phone: tel: fax: mailto:[email or web address] Referral ID Status Reason Start Date Expiration Date Visits Re quested Visits Authorized [id number] Closed 01/23/2017 01/23/2018 1 1 Encounter Details Date Type Department Care Team ([facility] st Contact Info) Description 12/23/2013 12:15 AM [facility] Hospital Encounter [facility] General Imaging [address] [place] [address] Denny Riggs MD [address] [place], [place] [phone] [email or web address] Social History Tobacco Use Types Packs/Day Years [...] (No Interpretation) (12/23/2013 12:15 AM EST) Narrative [facility] [place]ES - 01/23/2017 5:56 PM EDT This study is for PACS storage only and not for interpretation. us Denny Riggs MD IMG OUTSIDE IMAGING W /OUT INTERPRETATION Final Result [facility] documented in this encounter Visit Diagnoses Not on filedocumented in this encounter Additional Source Comments The information contained in this document represents components of the legal health record. It is not the complete legal health record.[facility]
--- OUTSIDE RECORDS SUMMARY | 2014-05-18 | XMS_ITS | Encounter Summary ---
Author Organization [facility] Address [address] [place] [address] Phone Care Team Providers Care Train Caller Name Role Phone Unavailable Primary Care Provider Unavailabl e Reason for Visit * MRI/CAT Scan - Closed Specialty Diagnoses / Procedures Referred By Contac t Referred To Contact Procedures MRI Spine (Neuro) Outside (No Interpretation) Denny Rigsg MD [address] [place] [address] Phone: tel: fax: mailto:[email or web address] Referral ID Status Reason Start Date Expiration Date Visits Re quested Visits Authorized [id number] Closed 01/23/2017 01/23/2018 1 1 Encounter Details Date Type Department Care Team ([facility] st Contact Info) Description 05/18/2014 Hospital Encounter [facility] General Imaging [address] [place] [address] Denny Riggs MD [address] [place], [place] [phone] [email or web address] Social History Tobacco Use Types Packs/Day Years [...] (No Interpretation) (05/18/2014 12:00 AM EDT) Narrative [facility] IMG INTERFACES - 01/23/2017 5:42 PM EDT This study is for PACS storage only and not for interpretation. Denny Riggs MD IMG OUTSIDE IMAGING W /OUT INTERPRETATION Final Result [facility] IMG INTERFACES documented in this encounter Visit Diagnoses Not on filedocumented in this encounter Additional Source Comments The information contained in this document represents components of the legal health record. It is not the complete legal health record.[facility]
--- OUTSIDE RECORDS SUMMARY | 2014-05-18 00:15 | XMS_ITS | Encounter Summary ---
Author Organization [facility] Address [address] [place] [address] Phone Care Team Providers Care Cable Cutter And Swager Name Role Phone Unavailable Primary Care Provider Unavailabl e Reason for Visit * MRI/CAT Scan - Closed Specialty Diagnoses / Procedures Referred By Contac t Referred To Contact Procedures MRI Spine (Neuro) Outside (No Interpretation) Denny Riggs MD [address] [place] [address] Phone: tel: fax: mailto:[email or web address] Referral ID Status Reason Start Date Expiration Date Visits Re quested Visits Authorized [id number] Closed 01/23/2017 01/23/2018 1 1 Encounter Details Date Type Department Care Team ([facility] st Contact Info) Description 05/18/2014 12:15 AM EDT Hospital Encounter [facility] General Imaging [address] [place] [address] Denny Riggs MD [address] [place], [place] [phone] [email or web address] [email or web address] Radio Networks Social History Tobacco Use Types Packs/Day [...] (No Interpretation) (05/18/2014 12:15 AM EDT) Narrative [facility] [...] It is not the complete legal health record.[facility]
--- OUTSIDE RECORDS SUMMARY | 2014-12-05 01:00 | XMS_ITS | Encounter Summary ---
Author Organization [facility] Address [address] [place] [address] Phone Care Team Providers Care Spinning Frame Tender Name Role Phone Unavailable Primary Care Provider Unavailabl e Reason for Visit * MRI/CAT Scan - Closed Specialty Diagnoses / Procedures Referred By Contac t Referred To Contact Procedures MRI Spine (Neuro) Outside (No Interpretation) Denny Riggs MD [address] [place] [address] Phone: tel: fax: mailto:[email or web address] Referral ID Status Reason Start Date Expiration Date Visits Re quested Visits Authorized [id number] Closed 01/23/2017 01/23/2018 1 1 Encounter Details Date Type Department Care Team ([facility] st Contact Info) Description 12/05/2014 Hospital Encounter [facility] General Imaging [address] [place] [address] Denny Riggs MD [address] [place] [address] [email or web address] Social History Tobacco Use Types Packs/Day Years [...] (No Interpretation) (12/05/2014 12:00 AM EST) Narrative [facility] [place] IMG INTERFACES - 01/23/2017 5:42 PM EDT [...] is not the complete legal health record.[facility]
--- OUTSIDE RECORDS SUMMARY | 2015-04-27 | XMS_ITS | Encounter Summary ---
Author Organization [facility] Address [address] [place] [address] Phone Care Team Providers Care Facilities Maintenance Supervisor Name Role Phone Unavailable Primary Care Provider Unavailabl e Reason for Visit * MRI/CAT Scan - Closed Specialty Diagnoses / Procedures Referred By Contac t Referred To Contact Procedures MRI Spine (Neuro) Outside (No Interpretation) Denny Riggs MD [address] [place] [address] Phone: tel: fax: mailto:[email or web address] Referral ID Status Reason Start Date Expiration Date Visits Re quested Visits Authorized [id number] Closed 01/23/2017 01/23/2018 1 1 Encounter Details Date Type Department Care Team ([facility] st Contact Info) Description 04/27/2015 Hospital Encounter [facility] General Imaging [address] [place] [address] Denny Riggs MD [address] [place], [place] [phone] [email or web address] Social History Tobacco Use Types Packs/Day Years [...] Interpretation) (04/27/2015 12:00 AM EDT) Narrative [facility] IMG INTERFACES - 01/23/2017 5:43 PM EDT This study is for PACS storage only and not for interpretation. Denny Riggs MD IMG OUTSIDE IMAGING W /OUT INTERPRETATION Final Result [facility] IMG INTERFACES documented in this encounter Visit Diagnoses Not on filedocumented in this encounter Additional Source Comments The information contained in this document represents components of the legal health record. It is not the complete legal health record.[facility]
--- OUTSIDE RECORDS SUMMARY | 2015-10-28 01:00 | XMS_ITS | Encounter Summary ---
Author Organization [facility] Address [address] [place] [address] Phone Care Team Providers Care Criminal Justice Program Director Name Role Phone Unavailable Primary Care Provider Unavailabl e Reason for Visit * MRI/CAT Scan - Closed Specialty Diagnoses / Procedures Referred By Contac t Referred To Contact Procedures MRI Spine (Neuro) Outside (No Interpretation) Denny Riggs MD [address] [place] [address] Phone: tel: fax: mailto:[email or web address] Referral ID Status Reason Start Date Expiration Date Visits Re quested Visits Authorized [id number] Closed 01/23/2017 01/23/2018 1 1 Encounter Details Date Type Department Care Team ([facility] st Contact Info) Description 10/28/2015 Hospital Encounter [facility] General Imaging [address] [place] [address] Denny Riggs MD [address] [place], [place] [phone] [email or web address] Social History Tobacco Use Types Packs/Day Years [...] (No Interpretation) (10/28/2015 12:00 AM EST) Narrative [facility] [place]G INTERFACES - 01/23/2017 5:43 PM EDT This study is for PACS storage only and not for interpretation. us Denny Riggs MD IMG OUTSIDE IMAGING W /OUT INTERPRETATION Final Result [facility]G INTERFACES documented in this encounter Visit Diagnoses Not on filedocumented in this encounter Additional Source Comments The information contained in this document represents components of the legal health record. It is not the complete legal health record.[facility]
--- OUTSIDE RECORDS SUMMARY | 2015-10-28 01:15 | XMS_ITS | Encounter Summary ---
Author Organization [facility] Address [address] [place] [address] Phone Care Team Providers Care Film Processor Name Role Phone Unavailable Primary Care Provider Unavailabl e Reason for Visit * MRI/CAT Scan - Closed Specialty Diagnoses / Procedures Referred By Contac t Referred To Contact Procedures MRI Spine (Neuro) Outside (No Interpretation) Denny Riggs MD [address] [place] [address] Phone: tel: fax: mailto:[email or web address] Referral ID Status Reason Start Date Expiration Date Visits Re quested Visits Authorized [id number] Closed 01/23/2017 01/23/2018 1 1 Encounter Details Date Type Department Care Team ([facility] st Contact Info) Description 10/28/2015 12:15 AM [facility] Hospital Encounter [facility] General Imaging [address] [place] [address] Denny Riggs MD [address] [place], [place] [phone] [email or web address] Social History Tobacco Use Types Packs/Day Years [...] (No Interpretation) (10/28/2015 12:15 AM EST) Narrative [facility] IMG INTERFACES - 01/23/2017 5:44 PM EDT [...] is not the complete legal health record.[facility]
--- OUTSIDE RECORDS SUMMARY | 2016-09-14 | XMS_ITS | Encounter Summary ---
Author Organization [facility] Address [address] [place] [address] Phone Care Team Providers Care Agile Scrum Coach Name Role Phone Bassem Drew MD Primary Care Provider +1- [phone] Reason for Visit * MRI/CAT Scan - Closed Specialty Diagnoses / Procedures Referred By Contac t Referred To Contact Procedures MRI Spine (Neuro) Focus Outside With Interpretation Or Consult Ewa Richmond MD [address] [place] [address] Phone: tel: Referral ID Status Reason Start Date Expiration Date Visits Re quested Visits Authorized [id number] Closed 10/03/2016 10/03/2017 1 1 Encounter Details Date Type Department Care Team (Late st Contact Info) Description 09/14/2016 Hospital Encounter [facility] Imaging [address] [place] [address] Ewa Richmond MD [address] [place] [address] Social History Tobacco Use Types Packs/Day Years [...] AM EDT) 10/03/2016 1:34 PM EST Impressions [facility] - 10/03/2016 1:55 PM EST Postsurgical [...] with the referring clinician, EWA RICHMOND. Narrative [facility] - 10/03/2016 1:55 PM EST Interpretation [...] Ewa Richmond MD IMG OUTSIDE IMAGING W/ INTERPRETATION Final Result [facility] [address] [facility] [place] [address] documented in this encounter Visit Diagnoses Not on filedocumented in this encounter Care Teams Agile Scrum Coach Relationship Specialty Start Date End Date Bassem Drew MD [email or web address] PCP - General Internal Medicine 05/09/16 documented as of this encounter Additional Source Comments The information contained in this document represents components of the legal health record. It is not the complete legal health record.[facility]
--- OUTSIDE RECORDS SUMMARY | 2016-09-14 00:15 | XMS_ITS | Encounter Summary ---
Author Organization [facility] Address [address] [place] [address] Phone Care Team Providers Care Training Program Manager Name Role Phone Bassem Drew MD Primary Care Provider +1- [phone] Reason for Visit * MRI/CAT Scan - Closed Specialty Diagnoses / Procedures Referred By Contac t Referred To Contact Procedures MRI Spine (Neuro) Focus Outside With Interpretation Or Consult Ewa Richmond MD [address] [place] [address] Phone: tel: Referral ID Status Reason Start Date Expiration Date Visits Re quested Visits Authorized [id number] Closed 10/03/2016 10/03/2017 1 1 Encounter Details Date Type Department Care Team (Late st Contact Info) Description 09/14/2016 12:15 AM EDT Hospital Encounter [facility] Imaging [address] [place] [address] Ewa Richmond MD [address] [place] [address] Social History Tobacco Use Types Packs/Day Years [...] AM EDT) 10/03/2016 1:34 PM EST Impressions [facility] - 10/03/2016 1:55 PM EST Postsurgical [...] with the referring clinician, EWA RICHMOND. Narrative [facility] - 10/03/2016 1:55 PM EST Interpretation [...] IMG OUTSIDE IMAGING W/ INTERPRETATION Final Result Performing Organization Address City/State/[facility] Co de Phone Number [facility] [address] [facility] [place] [address] documented in this encounter Visit Diagnoses Not on filedocumented in this encounter Care Teams Training Program Manager Relationship Specialty Start Date End Date Bassem Drew MD PCP - General Internal Medicine 05/09/16 documented as of this encounter Additional Source Comments The information contained in this document represents components of the legal health record. It is not the complete legal health record.[facility]
--- OUTSIDE RECORDS SUMMARY | 2016-09-14 00:30 | XMS_ITS | Encounter Summary ---
Author Organization [facility] Address [address] [place] [address] Phone Care Team Providers Care Electrical Calibrator Name Role Phone Bassem Drew MD Primary Care Provider +1- [phone] Reason for Visit * MRI/CAT Scan - Closed Specialty Diagnoses / Procedures Referred By Contac t Referred To Contact Procedures MRI Spine (Neuro) Focus Outside With Interpretation Or Consult Ewa Richmond MD [address] [place] [address] Phone: tel: Referral ID Status Reason Start Date Expiration Date Visits Re quested Visits Authorized [id number] Closed 10/03/2016 10/03/2017 1 1 Encounter Details Date Type Department Care Team (Late st Contact Info) Description 09/14/2016 12:30 AM EDT Hospital Encounter [facility] [address] [place] [address] Ewa Richmond MD [address] [place] [address] Social History Tobacco Use Types Packs/Day Years [...] AM EDT) 10/03/2016 1:34 PM EST Impressions [facility] - 10/03/2016 1:55 PM EST Postsurgical [...] with the referring clinician, EWA RICHMOND. Narrative [facility] - 10/03/2016 1:55 PM EST Interpretation [...] W/ INTERPRETATION Final Result Performing Organization Address City/State/[facility] Co de Phone Number [facility] [address] [facility] [place] [address] documented in this encounter Visit Diagnoses Not on filedocumented in this encounter Care Teams Electrical Calibrator Relationship Specialty Start Date End Date Bassem Drew MD PCP - General Internal Medicine 05/09/16 documented as of this encounter Additional Source Comments The information contained in this document represents components of the legal health record. It is not the complete legal health record.[facility]
--- OUTSIDE RECORDS SUMMARY | 2017-01-16 01:00 | XMS_ITS | Encounter Summary ---
Author Organization [facility] Address [address] [facility] [address] [place] [address] Phone Care Team Providers Care Marketing Development Representative Name Role Phone Bassem Drew MD Primary Care Provider +1- [phone] Reason for Visit * MRI/CAT Scan - Closed Specialty Diagnoses / Procedures Referred By Contac t Referred To Contact Procedures MRI Spine (Neuro) Outside (No Interpretation) Denny Riggs MD [address] [place] [address] Phone: tel: fax: mailto:[email or web address] Referral ID Status Reason Start Date Expiration Date Visits Re quested Visits Authorized [id number] Closed 01/23/2017 01/23/2018 1 1 Encounter Details Date Type Department Care Team ([facility] st Contact Info) Description 01/16/2017 Hospital Encounter [facility] General Imaging [address] [place] [address] Denny Riggs MD [address] [place] [address] Social History Tobacco Use Types Packs/Day Years [...] (No Interpretation) (01/16/2017 12:00 AM EST) Narrative [facility] IMG INTERFACES - 01/23/2017 11:23 AM EDT This study is for PACS storage only and not for interpretation. us Denny Riggs MD IMG OUTSIDE IMAGING W /OUT INTERPRETATION Final Result [facility] INTERFACES documented in this encounter Visit Diagnoses Not on filedocumented in this encounter Care Teams Marketing Development Representative Relationship Specialty Start Date End Date Bassem Drew MD [email or web address] PCP - General Internal Medicine 05/09/16 documented as of this encounter Additional Source Comments The information contained in this document represents components of the legal health record. It is not the complete legal health record.[facility]
[2025-07-16 09:08] VITALS: BP 106/64; PULSE 86; TEMP 36.6; O2SAT 95; BMI 30.3
--- NOTE | 2025-07-16 09:08 | AM.OFFWIN_ITS ---
Intake Vital Signs 07/16/25 09:08 Height 4 ft 10 in Weight 145 lb BMI 30.3 BP 106/64 Blood Pressure Location Rt brachial Position Sitting Pulse 86 Pulse Source Pulse Oximeter Temp 97.9 F Temp Source Oral Pulse Oximetry (%) 95 Oxygen Delivery Method Room Air Intake Visit Reasons: EP Bilat ear pain Intake Note: pt presents with sinus pain and bilateral ear pain LT > RT for a week Patient Tobacco Use Status: Never used Tobacco Allergies mold Allergy (Severe, Verified 07/16/25 09:11) itchy throat blue cheese Allergy (Severe, Uncoded 12/02/24 12:04) itchy throat Do you need a note to return to daycare/school/sports/work: No HPI HPI Comments History of Present Illness Details History - The patient is a 54-year-old female pr esenting with ear discomfort and sinus congestion. - Symptoms have persisted for one week, with associated cough and sputum production, but no fever or shortness of breath. - She has a history of frequent ear infe ctions and has been using ibuprofen and Benadryl for relief. Physical Exam General: Cooperative, healthy appearing, comfortable and no acute distress Orientation/consciousness: Patient oriented x3 Limitations: No limitations Head: Normal to inspection Ears: Hearing grossly normal bilaterally, external ears normal, TM's with erythema and scant fluid present but no infection Nose: Normal external nose present, Normal nares present, No nasal discharge present, but patient reports blowing nose constantly Face and sinus: Normal facial exam, frontal sinuses tender to palpation Mouth: Normal oral and palatal mucosa present and moist mucous membranes Throat: Yes tonsils normal, Yes uvula midline. Posterior oropharynx erythema, no exudates Eyes: Appearance normal, both eyes and all related structures Neck: Normal visual inspection, full ROM Respiratory: Normal respiratory effort, able to speak in complete sentences, No active coughing, no respiratory distress, not tachypneic, no tripod positioning and no use of accessory muscles Skin: No rashes or lesions noted Neuro: Patient oriented x3 Extremities: Normal to inspection and Yes no clubbing, cyanosis or edema [facility] Medical History (Updated 07/16/25 @ 09:42 by Laura Don PA-C) Hypertensive retinopathy Glaucoma HTN (hypertension) Anxiety INGRID (obstructive sleep apnea) Neck pain Heart murmur Depression Esophagitis Hypokalemia Hyperlipidemia FH: HTN (hypertension) Diabetes mellitus Right sided sciatica Asthma Sacroiliac inflammation Surgical History (Updated 05/24/25 @ 11:23 by Gabriela Buitrago) S/p bilateral carpal tunnel release Hx of esophagogastroduodenoscopy Hx of colonoscopy History of back surgery History of bilateral tubal ligation Family History Father Cancer Alzheimer's disease Mother HTN (hypertension) Diabetes mellitus Asthma Depression Stroke Cancer Maternal Grandfather No problems noted. Maternal Grandmother No problems noted. Paternal Grandfather No problems noted. Paternal Grandmother No problems noted. Brother No problems noted. Brother No problems noted. Sister Asthma Son No problems noted. Son No problems noted. Daughter No problems noted. Social History Household Members: Spouse and Children Housing: House Are you a primary director critical care to a significant other at home: No Do you presently have visiting nurse or other home services: No Alcohol intake: current Alcohol intake frequency: does not drink Patient Tobacco Use Status: Never used Tobacco e-Cigarette/Vaping Use: Never Used Second Hand Smoke Exposure: No service: No Current occupational status: disabled Cognitive needs: No Hearing needs: No Vision needs: Yes Female Reproductive History Menstrual Age of Menarche: 10 Review of Systems Const All systems reviewed & are unremarkable except as noted in HPI and below Physical Exam Vital Signs: Last Vital Signs Temp 97.9 F 07/16/25 09:08 Pulse 86 07/16/25 09:08 BP 106/64 07/16/25 09:08 Pulse Ox 95 07/16/25 09:08 Oxygen Delivery Method Room Air 07/16/25 09:08 BMI result Body Mass Index 30.3 Assessment & Plan Assessment & Plan (1) Acute sinusitis: Code(s): J01.90 - Acute sinusitis, unspecified Qualifiers: Sinusitis location: unspecified location Recurrence: not specified as recurrent Qualified Code(s): J01.90 - Acute sinusitis, unspecified Plan: Patient was informed and verbally consented to the use of an ambient scribe for clinic note documentation during this visit - Flonase nasal spray and daily allergy pill recommended for nasal congestion relief. - Tests for Flu, COVID-19, and RSV conducted to rule out viral infections. - sent abx for otitis media as likely to develop, recommended patient use above treatments and if pain is worse or fever develops, can pickling operator antibiotics, with her history. (2) Otalgia of both ears: Code(s): H92.03 - Otalgia, bilateral Plan: as above Orders: Orders SARS-CoV2/FLU/RSV Today R09.89 - Other specified symptoms and signs involving the circulatory and respiratory systems Medications: New amoxicillin 875 mg PO Q12H 14 tabs 0RF Coding Level of Care Code Est Pt Level 3 (30773) Diagnoses Acute sinusitis, recurrence not specified, unspecified location J01.90 Sinusitis location: unspecified location Recurrence: not specified as recurrent Otalgia of both ears H92.03
--- OUTSIDE RECORDS SUMMARY | 2025-07-16 09:49 | XMS_ITS | Encounter Summary ---
Author Organization [facility] Address [address] [place] [address] Phone Care Team Providers Care Senior Chemist Name Role Phone Bassem Drew MD Primary Care Provider +1- [phone] Encounter Details Date Type Department Care Team (Late st Contact Info) Description 01/23/2017 Procedure Pass [facility] [address] [place] [address] Social History Tobacco Use Types Packs/Day Years Used Date Smoking Tobacco: Never Comments Unknown Sex and Gender Information Value Date Recorded Sex Assigned at Not on file Legal Sex Female 5:13 PM EST Gender Identity Not on file Sexual Orientation Not on file documented as of this encounter Plan of Treatment Not on file documented as of this encounter Visit Diagnoses Not on filedocumented in this encounter Care Teams Senior Chemist Relationship Specialty Start Date End Date Bassem Drew MD PCP - General Internal Medicine 05/09/16 documented as of this encounter Additional Source Comments The information contained in this document represents components of the legal health record. It is not the complete legal health record.[facility]
--- OUTSIDE RECORDS SUMMARY | 2025-07-16 09:49 | XMS_ITS | Encounter Summary ---
Author Organization [facility] Address [address] [place] [address] Phone Care Team Providers Care Underwater Photographer Name Role Phone Bassem Drew MD Primary Care Provider +1- [phone] Encounter Details Date Type Department Care Team (Late st Contact Info) Description 01/23/[address] [facility] [address] [place] [address] Social History Tobacco Use Types Packs/Day Years [...] on filedocumented in this encounter Care Teams Underwater Photographer Relationship Specialty Start Date End Date Bassem Drew MD PCP - General Internal Medicine 05/09/16 documented as of this encounter Additional Source Comments The information contained in this document represents components of the legal health record. It is not the complete legal health record.[facility]
--- OUTSIDE RECORDS SUMMARY | 2025-07-16 09:49 | XMS_ITS | Encounter Summary ---
Author Organization [facility] Address [address] [place] [address] Phone Care Team Providers Care Cylinder Tester Name Role Phone Bassem Drew MD Primary Care Provider +1- [phone] Encounter Details Date Type Department Care Team (Late st Contact Info) Description 01/23/2017 Procedure Pass [facility] [address] [place] [address] Social History Tobacco Use Types Packs/Day Years [...] on filedocumented in this encounter Care Teams Cylinder Tester Relationship Specialty Start Date End Date Bassem Drew MD PCP - General Internal Medicine 05/09/16 documented as of this encounter Additional Source Comments The information contained in this document represents components of the legal health record. It is not the complete legal health record.[facility]
--- OUTSIDE RECORDS SUMMARY | 2025-07-16 09:49 | XMS_ITS | Encounter Summary ---
Author Organization [facility] Address [address] [place] [address] Phone Care Team Providers Care Reservations Manager Name Role Phone Bassem Drew MD Primary Care Provider +1- [phone] Encounter Details Date Type Department Care Team (Late st Contact Info) Description 01/23/2017 Procedure Pass [facility] [address] [place] [address] Social History Tobacco Use Types Packs/Day Years [...] on filedocumented in this encounter Care Teams Reservations Manager Relationship Specialty Start Date End Date Bassem Drew MD PCP - General Internal Medicine 05/09/16 documented as of this encounter Additional Source Comments The information contained in this document represents components of the legal health record. It is not the complete legal health record.[facility]
--- OUTSIDE RECORDS SUMMARY | 2025-07-16 09:50 | XMS_ITS | Encounter Summary ---
Author Organization [facility] Address [address] [place] [address] Phone Care Team Providers Care Colors Custodian Name Role Phone Bassem Drew MD Primary Care Provider +1- [phone] Encounter Details Date Type Department Care Team (Late st Contact Info) Description 01/23/[address] [facility] [address] [place] [address] Social History Tobacco Use Types Packs/Day Years [...] on filedocumented in this encounter Care Teams Colors Custodian Relationship Specialty Start Date End Date Bassem Drew MD PCP - General Internal Medicine 05/09/16 documented as of this encounter Additional Source Comments The information contained in this document represents components of the legal health record. It is not the complete legal health record.[facility]
--- OUTSIDE RECORDS SUMMARY | 2025-07-16 09:50 | XMS_ITS | Encounter Summary ---
Author Organization [facility] Address [address] [place] [address] Phone Care Team Providers Care Assembly Operator Name Role Phone Bassem Drew MD Primary Care Provider +1- [phone] Encounter Details Date Type Department Care Team (Late st Contact Info) Description 01/23/2017 Procedure Pass [facility] [address] [place] [address] Social History Tobacco Use Types Packs/Day Years [...] on filedocumented in this encounter Care Teams Assembly Operator Relationship Specialty Start Date End Date Bassem Drew MD PCP - General Internal Medicine 05/09/16 documented as of this encounter Additional Source Comments The information contained in this document represents components of the legal health record. It is not the complete legal health record.[facility]
--- OUTSIDE RECORDS SUMMARY | 2025-07-16 09:50 | XMS_ITS | Encounter Summary ---
Author Organization [facility] Address [address] [place] [address] Phone Care Team Providers Care Location Worker Name Role Phone Bassem Drew MD Primary Care Provider +1- [phone] Encounter Details Date Type Department Care Team (Late st Contact Info) Description 01/23/2017 Procedure Pass [facility] [address] [place] [address] Social History Tobacco Use Types Packs/Day Years [...] on filedocumented in this encounter Care Teams Location Worker Relationship Specialty Start Date End Date Bassem Drew MD PCP - General Internal Medicine 05/09/16 documented as of this encounter Additional Source Comments The information contained in this document represents components of the legal health record. It is not the complete legal health record.[facility]
--- OUTSIDE RECORDS SUMMARY | 2025-07-16 09:50 | XMS_ITS | Encounter Summary ---
Author Organization [facility] Address [address] [place] [address] Phone Care Team Providers Care House Piping Inspector Name Role Phone Bassem Drew MD Primary Care Provider +1- [phone] Encounter Details Date Type Department Care Team (Late st Contact Info) Description 01/23/2017 Procedure Pass [facility] [address] [place] [address] Social History Tobacco Use Types Packs/Day Years [...] on filedocumented in this encounter Care Teams House Piping Inspector Relationship Specialty Start Date End Date Bassem Drew MD PCP - General Internal Medicine 05/09/16 documented as of this encounter Additional Source Comments The information contained in this document represents components of the legal health record. It is not the complete legal health record.[facility]
--- OUTSIDE RECORDS SUMMARY | 2025-07-16 09:50 | XMS_ITS | Encounter Summary ---
Author Organization [facility] Address [address] [place] [address] Phone Care Team Providers Care Blueprint Maker Name Role Phone Bassem Drew MD Primary Care Provider +1- [phone] Encounter Details Date Type Department Care Team (Late st Contact Info) Description 01/23/2017 Procedure Pass [facility] [address] [place] [address] Social History Tobacco Use Types Packs/Day Years [...] on filedocumented in this encounter Care Teams Blueprint Maker Relationship Specialty Start Date End Date Bassem Drew MD PCP - General Internal Medicine 05/09/16 documented as of this encounter Additional Source Comments The information contained in this document represents components of the legal health record. It is not the complete legal health record.[facility]
--- OUTSIDE RECORDS SUMMARY | 2025-07-16 09:50 | XMS_ITS | Encounter Summary ---
Author Organization [facility] Address [address] [place] [address] Phone Care Team Providers Care Tire Bagger Name Role Phone Bassem Drew MD Primary Care Provider +1- [phone] Encounter Details Date Type Department Care Team (Late st Contact Info) Description 01/23/2017 Procedure Pass [facility] [address] [place] [address] Social History Tobacco Use Types Packs/Day Years [...] on filedocumented in this encounter Care Teams Tire Bagger Relationship Specialty Start Date End Date Bassem Drew MD PCP - General Internal Medicine 05/09/16 documented as of this encounter Additional Source Comments The information contained in this document represents components of the legal health record. It is not the complete legal health record.[facility]
--- OUTSIDE RECORDS SUMMARY | 2025-07-16 09:50 | XMS_ITS | Encounter Summary ---
Author Organization [facility] Address [address] [place] [address] Phone Care Team Providers Care Analytics Manager Name Role Phone Bassem Drew MD Primary Care Provider +1- [phone] Encounter Details Date Type Department Care Team (Late st Contact Info) Description 01/23/2017 Procedure Pass [facility] [address] [place] [address] Social History Tobacco Use Types Packs/Day Years [...] on filedocumented in this encounter Care Teams Analytics Manager Relationship Specialty Start Date End Date Bassem Drew MD PCP - General Internal Medicine 05/09/16 documented as of this encounter Additional Source Comments The information contained in this document represents components of the legal health record. It is not the complete legal health record.[facility]
--- OUTSIDE RECORDS SUMMARY | 2025-07-16 09:51 | XMS_ITS | Encounter Summary ---
Author Organization [facility] Address [address] [place] [address] Phone Care Team Providers Care Loader Operator Supervisor Name Role Phone Bassem Drew MD Primary Care Provider +1- [phone] Encounter Details Date Type Department Care Team (Late st Contact Info) Description 10/03/2016 Procedure Pass [facility] [address] [place] [address] Social History Tobacco Use Types Packs/Day Years [...] on filedocumented in this encounter Care Teams Loader Operator Supervisor Relationship Specialty Start Date End Date Bassem Drew MD PCP - General Internal Medicine 05/09/16 documented as of this encounter Additional Source Comments The information contained in this document represents components of the legal health record. It is not the complete legal health record.[facility]
--- OUTSIDE RECORDS SUMMARY | 2025-07-16 09:51 | XMS_ITS | Encounter Summary ---
Author Organization [facility] Address [address] [place] [address] Phone Care Team Providers Care Horticultural Farm Manager Name Role Phone Bassem Drew MD Primary Care Provider +1- [phone] Encounter Details Date Type Department Care Team (Late st Contact Info) Description 10/03/2016 Procedure Pass [facility] [address] [place] [address] Social History Tobacco Use Types Packs/Day Years [...] on filedocumented in this encounter Care Teams Horticultural Farm Manager Relationship Specialty Start Date End Date Bassem Drew MD PCP - General Internal Medicine 05/09/16 documented as of this encounter Additional Source Comments The information contained in this document represents components of the legal health record. It is not the complete legal health record.[facility]
--- OUTSIDE RECORDS SUMMARY | 2025-07-16 09:51 | XMS_ITS | Encounter Summary ---
Author Organization [facility] Address [address] [place] [address] Phone Care Team Providers Care Pathology Secretary Name Role Phone Bassem Drew MD Primary Care Provider +1- [phone] Encounter Details Date Type Department Care Team (Late st Contact Info) Description 10/03/2016 Procedure Pass [facility] [address] [place] [address] Social History Tobacco Use Types Packs/Day Years [...] on filedocumented in this encounter Care Teams Pathology Secretary Relationship Specialty Start Date End Date Bassem Drew MD PCP - General Internal Medicine 05/09/16 documented as of this encounter Additional Source Comments The information contained in this document represents components of the legal health record. It is not the complete legal health record.[facility]
--- OUTSIDE RECORDS SUMMARY | 2025-07-16 09:52 | XMS_ITS | Encounter Summary ---
Author Organization [facility] Address [address] [place] [address] Phone Care Team Providers Care Business Solutions Architect Name Role Phone Bassem Drew MD Primary Care Provider +1- [phone] Encounter Details Date Type Department Care Team (Late st Contact Info) Description 01/23/2017 Procedure Pass [facility] [address] [place] [address] Social History Tobacco Use Types Packs/Day Years [...] on filedocumented in this encounter Care Teams Business Solutions Architect Relationship Specialty Start Date End Date Bassem Drew MD PCP - General Internal Medicine 05/09/16 documented as of this encounter Additional Source Comments The information contained in this document represents components of the legal health record. It is not the complete legal health record.[facility]
--- OUTSIDE RECORDS SUMMARY | 2025-07-16 09:52 | XMS_ITS | Encounter Summary ---
Author Organization [facility] Address [address] [place] [address] Phone Care Team Providers Care Assistant Professor Of Music Name Role Phone Bassem Drew MD Primary Care Provider +1- [phone] Encounter Details Date Type Department Care Team (Late st Contact Info) Description 01/23/2017 Procedure Pass [facility] [address] [place] [address] Social History Tobacco Use Types Packs/Day Years [...] on filedocumented in this encounter Care Teams Assistant Professor Of Music Relationship Specialty Start Date End Date Bassem Drew MD PCP - General Internal Medicine 05/09/16 documented as of this encounter Additional Source Comments The information contained in this document represents components of the legal health record. It is not the complete legal health record.[facility]
--- OUTSIDE RECORDS SUMMARY | 2025-07-16 09:52 | XMS_ITS | Encounter Summary ---
Author Organization [facility] Address [address] [place] [address] Phone Care Team Providers Care Carbide Grinder Name Role Phone Bassem Drew MD Primary Care Provider +1- [phone] Encounter Details Date Type Department Care Team (Late st Contact Info) Description 01/23/2017 Procedure Pass [facility] [address] [place] [address] Social History Tobacco Use Types Packs/Day Years [...] on filedocumented in this encounter Care Teams Carbide Grinder Relationship Specialty Start Date End Date Bassem Drew MD PCP - General Internal Medicine 05/09/16 documented as of this encounter Additional Source Comments The information contained in this document represents components of the legal health record. It is not the complete legal health record.[facility]
--- OUTSIDE RECORDS SUMMARY | 2025-07-16 09:52 | XMS_ITS | Encounter Summary ---
Author Organization [facility] Address [address] [place] [address] Phone Care Team Providers Care Personal Property Assessor Name Role Phone Bassem Drew MD Primary Care Provider +1- [phone] Encounter Details Date Type Department Care Team (Late st Contact Info) Description 01/23/2017 Procedure Pass [facility] [address] [place] [address] Social History Tobacco Use Types Packs/Day Years [...] on filedocumented in this encounter Care Teams Personal Property Assessor Relationship Specialty Start Date End Date Bassem Drew MD PCP - General Internal Medicine 05/09/16 documented as of this encounter Additional Source Comments The information contained in this document represents components of the legal health record. It is not the complete legal health record.[facility]
--- OUTSIDE RECORDS SUMMARY | 2025-07-16 09:52 | XMS_ITS | Encounter Summary ---
Author Organization [facility] Address [address] [place] [address] Phone Care Team Providers Care Air Bag Buffer Name Role Phone Bassem Drew MD Primary Care Provider +1- [phone] Encounter Details Date Type Department Care Team (Late st Contact Info) Description 01/23/2017 Procedure Pass [facility] [address] [place] [address] Social History Tobacco Use Types Packs/Day Years [...] on filedocumented in this encounter Care Teams Air Bag Buffer Relationship Specialty Start Date End Date Bassem Drew MD PCP - General Internal Medicine 05/09/16 documented as of this encounter Additional Source Comments The information contained in this document represents components of the legal health record. It is not the complete legal health record.[facility]
--- OUTSIDE RECORDS SUMMARY | 2025-07-16 09:52 | XMS_ITS | Encounter Summary ---
Author Organization [facility] Address [address] [place] [address] Phone Care Team Providers Care Tube Winder Hand Name Role Phone Bassem Drew MD Primary Care Provider +1- [phone] Encounter Details Date Type Department Care Team (Late st Contact Info) Description 01/23/2017 Procedure Pass [facility] [address] [place] [address] Social History Tobacco Use Types Packs/Day Years [...] on filedocumented in this encounter Care Teams Tube Winder Hand Relationship Specialty Start Date End Date Bassem Drew MD PCP - General Internal Medicine 05/09/16 documented as of this encounter Additional Source Comments The information contained in this document represents components of the legal health record. It is not the complete legal health record.[facility]
--- OUTSIDE RECORDS SUMMARY | 2025-07-16 09:52 | XMS_ITS | Clinical Summary ---
Author Organization [facility] Address [address] [address] Phone Care Team Providers Care Chief Resource Officer Name Role Phone Bassem Drew MD Primary Care Provider +1- [phone] Allergies No known active allergies Medications spironolactone (ALDACTONE) 50 MG tablet Take 50 mg by mouth daily. Active gabapentin (NEURONTIN) 600 MG tablet Take 600 mg by mouth 3 (three) times a day. Active amLODIPine (NORVASC) 5 MG tablet Take 5 mg by mouth daily. Active QUEtiapine (SEROQUEL) 50 MG tablet Take 50 mg by mouth nightly. Active cyclobenzaprine (FLEXERIL) 5 MG tablet Take 5 mg by mouth 3 (three) times a day as needed for muscle spasms. Active clonazePAM (KLONOPIN) 1 MG tablet Take 1 mg by mouth nightly. Active PANTOPRAZOLE SODIUM (PANTOPRAZOLE ORAL) Take 40 mg by mouth. Active LACTOBAC CMB #3/FOS/PANTETHI NE (PROBIOTIC AND ACIDOPHILUS ORAL) Take 300 mg by mouth daily. Active PREDNISONE ORAL Take 30 mg by mouth daily. Active insulin lispro (HUMALOG) 100 unit/mL injection vial Inject under the skin 3 (three) times a day before meals. Active fluticasone propionate (FLONASE) 50 mcg/actuation nasal spray 1 spray by Nasal route daily. Active sertraline (ZOLOFT) 100 MG tablet Take 100 mg by mouth daily. Active simvastatin (ZOCOR) 40 MG tablet Take 40 mg by mouth nightly. Active FLUTICASONE/GOOD METEROL (ADVAIR DISKUS INHL) Inhale 2 puffs into the lungs. Active hydroCHLOROthia zide (HYDRODIURIL) 25 MG tablet Take 25 mg by mouth daily. Active furosemide (LASIX) 40 MG tablet Take 40 mg by mouth. Active cholecalciferol (VITAMIN D3) 2,000 unit tablet Take 1,000 Units by mouth daily. Active loratadine (CLARITIN) 10 mg tablet Take 10 mg by mouth daily. Active CALCIUM CARBONATE (CALCIUM 500 ORAL) Take by mouth. Activ e albuterol 2.5 mg/0.5 mL nebulizer solution Take 2.5 mg by nebulization 3 (three) times a day. Active ibuprofen (ADVIL,MOTRIN) 600 MG tablet Take 600 mg by mouth every 6 (six) hours as needed for pain (specific location in comments). Active prednisoLONE acetate (PRED FORTE) 1 % ophthalmic suspension Place 1 drop into each eye 4 (four) times a day. Active Social History Tobacco Use Types Packs/Day Years [...] on file Sexual Orientation Not on file Last Filed Vital Signs Vital Sign Reading Time Taken Comments Blood Pressure 113/78 10/03/2016 1:05 PM EST Pulse 97 10/03/2016 1:05 PM EST Temperature 36.2 C (97.2 F) 10/03/2016 1:05 PM EST Respiratory Rate 16 12/26/2010 1:05 PM EST Oxygen Saturation 96% 10/03/2016 1:05 PM EST Inhaled Oxygen Concentration - - Weight 71.5 kg (157 lb 9.6 oz) 10/03/2016 1:05 P M EST Height 147.3 cm (4' 10 ) 10/03/2016 1:05 PM EST Body Mass Index 32.94 10/03/2016 1:05 PM EST Plan of Treatment Health Maintenance Due Date Last Done Comments Adult Td,Tdap Booster 1969 LIPID PANEL 1969 POTASSIUM LEVEL 1969 DEPRESSION SCREENING 1981 HEPATITIS C SCREENING 1987 HIV ONE-TIME SCREENING (18-6 5 YEARS) 1987 PAP SMEAR 1990 MAMMOGRAM 2009 COLOGUARD 2014 COLONOSCOPY 2014 COLORECTAL CANCER SCREENING 2014 FIT TEST 2014 FOBT 2014 SIGMOIDOSCOPY 2014 VIRTUAL COLONOSCOPY 2014 PNEUMOCOCCAL VACCINES (50+ years) (1 of 1 - PCV) 2019 ZOSTER VACCINES (1 of 2) 2019 COVID-19 VACCINE (3 - 2023-2 5 season) 2024 08/22/2021, 07/25/2021 SMOKING STATUS SCREENING (On ce After 26 Yrs) Completed 10/03/2016 HEPATITIS A VACCINES Aged Out No long er eligible based on patient's age to complete this topic HIB VACCINES Aged Out No longer eligi ble based on patient's age to complete this topic MENINGOCOCCAL VACCINES (ACWY) Aged Out No longer eligible based on patient's age to complete this topic MENINGOCOCCAL VACCINES (B) Aged Out N o longer eligible based on patient's age to complete this topic Medical Devices Not on file Insurance MEDICARE PART A & B MEDICARE PART A & B MEDICARE PART A & B MEDICARE PART A & B MEDICARE PART A & B MEDICARE PART A & B MEDICARE PART A & B MEDICARE PART A & B MEDICARE PART A & B Care Teams Chief Resource Officer Relationship Specialty Start Date End Date Bassem Drew MD [email or web address] PCP - General Internal Medicine 05/09/16 Additional Source Comments The information contained in this document represents components of the legal health record. It is not the complete legal health record.[facility]
--- OUTSIDE RECORDS SUMMARY | 2025-07-16 09:52 | XMS_ITS | Encounter Summary ---
Author Organization [facility] Address [address] [place] [address] Phone Care Team Providers Care Sewing Line Baler Name Role Phone Bassem Drew MD Primary Care Provider +1- [phone] Reason for Referral * Consultation (Elective) - Closed Specialty Diagnoses / Procedures Referred By Conttami t Referred To Contact Neurology Diagnoses Encounter for consultation System, Provider Not In, [facility] Laurie [address] [place] [address] Referral ID Status Reason Start Date Expiration Date Visits Re quested Visits Authorized [id number] Closed 05/31/2016 05/31/2017 1 1 Encounter Details Date Type Department Care Team (Late st Contact Info) Description 05/31/2016 Transcribe Orders [facility] Department of Neurology [address] [place] [address], [address] Floor, [address] [place] [address] System, Provider Not In, [facility] [address] [address] Encounter for consultation (Primary Dx) Social History Tobacco Use Types Packs/Day Years Used Date Smoking Tobacco: Never Assessed Comments Unknown Sex and Gender Information Value Date Recorded Sex Assigned at Not on file Legal Sex Female 5:13 PM EST Gender Identity Not on file Sexual Orientation Not on file documented as of this encounter Plan of Treatment Scheduled Referrals Name Type Priority Associated Diagnoses Orde r Schedule Ambulatory referral to [facility] Neurology Outpatient Referral Routine Encounter for consultation Ordered: 05/31/2016 documented as of this encounter Visit Diagnoses Diagnosis Encounter for consultation- Primary documented in this encounter Care Teams Sewing Line Baler Relationship Specialty Start Date End Date Bassem Drew MD [email or web address] PCP - General Internal Medicine 05/09/16 documented as of this encounter Additional Source Comments The information contained in this document represents components of the legal health record. It is not the complete legal health record.[facility]
--- OUTSIDE RECORDS SUMMARY | 2025-07-16 09:52 | XMS_ITS | Encounter Summary ---
Author Organization [facility] Address [address] [place] [address] Phone Care Team Providers Care Payroll And Benefits Coordinator Name Role Phone Bassem Drew MD Primary Care Provider +1- [phone] Encounter Details Date Type Department Care Team (Late st Contact Info) Description 01/23/2017 Procedure Pass [facility] [address] [place] [address] Social History Tobacco Use Types Packs/Day Years [...] on filedocumented in this encounter Care Teams Payroll And Benefits Coordinator Relationship Specialty Start Date End Date Bassem Drew MD PCP - General Internal Medicine 05/09/16 documented as of this encounter Additional Source Comments The information contained in this document represents components of the legal health record. It is not the complete legal health record.[facility]
== END 2025-07-16 09:51 | disposition home or self-care (01) ==
PROVIDERS: PCP Nurse Practitioner Family; Visit Provider Physician Assistant
DX: J01.90 Acute sinusitis, unspecified (principal); H92.03 Otalgia, bilateral

== ENCOUNTER 2025-08-11 07:56 | Outpatient (AMB) | payer OTHER, SELFPAY ==
--- OUTSIDE RECORDS SUMMARY | 2012-08-08 | XMS_ITS | Encounter Summary ---
Author Organization [facility] Address [address] [place] [phone] Phone Care Team Providers Care Inclined Railway Operator Name Role Phone Unavailable Primary Care Provider Unavailabl e Reason for Visit * MRI/CAT Scan - Closed Specialty Diagnoses / Procedures Referred By Contac t Referred To Contact Procedures MRI Spine (Neuro) Outside (No Interpretation) Denny Riggs MD [address] [place] [address] Phone: tel: fax: mailto:[email or web address] Referral ID Status Reason Start Date Expiration Date Visits Re quested Visits Authorized [id number] Closed 01/23/2017 01/23/2018 1 1 Encounter Details Date Type Department Care Team ([facility] st Contact Info) Description 08/08/2012 Hospital Encounter [facility] General Imaging [address] [place] [address] Denny Riggs MD [address] [place] [address] [email or web address] Social History Tobacco Use Types Packs/Day Years [...] (No Interpretation) (08/08/2012 12:00 AM EDT) Narrative [facility] IMG INTERFACES - 01/23/2017 5:51 PM EDT This study is for PACS storage only and not for interpretation. Denny Riggs MD IMG OUTSIDE IMAGING W /OUT INTERPRETATION Final Result [facility] IMG INTERFACES documented in this encounter Visit Diagnoses Not on filedocumented in this encounter Additional Source Comments The information contained in this document represents components of the legal health record. It is not the complete legal health record.[facility]
--- OUTSIDE RECORDS SUMMARY | 2012-08-08 00:15 | XMS_ITS | Encounter Summary ---
Author Organization [facility] Address [address] [place] [address] Phone Care Team Providers Care Professor Of Vegetable Science Name Role Phone Unavailable Primary Care Provider Unavailabl e Reason for Visit * MRI/CAT Scan - Closed Specialty Diagnoses / Procedures Referred By Contac t Referred To Contact Procedures MRI Spine (Neuro) Outside (No Interpretation) Denny Riggs MD [address] [place] [address] Phone: tel: fax: mailto:[email or web address] Referral ID Status Reason Start Date Expiration Date Visits Re quested Visits Authorized [id number] Closed 01/23/2017 01/23/2018 1 1 Encounter Details Date Type Department Care Team ([facility] st Contact Info) Description 08/08/2012 12:15 AM EDT Hospital Encounter [facility] General Imaging [address] [place] [address] Denny Riggs MD [address] [place], [place] [address] [email or web address] Social History Tobacco Use Types Packs/Day Years [...] (No Interpretation) (08/08/2012 12:15 AM EDT) Narrative [facility] INTERFACES - 01/23/2017 5:52 PM EDT This study is for PACS storage only and not for interpretation. us Denny Riggs MD IMG OUTSIDE IMAGING W /OUT INTERPRETATION Final Result [facility] documented in this encounter Visit Diagnoses Not on filedocumented in this encounter Additional Source Comments The information contained in this document represents components of the legal health record. It is not the complete legal health record.[facility]
--- OUTSIDE RECORDS SUMMARY | 2013-09-29 01:00 | XMS_ITS | Encounter Summary ---
Author Organization [facility] Address [address] [place] [address] Phone Care Team Providers Care Oil Filters Inspector Name Role Phone Unavailable Primary Care Provider Unavailabl e Reason for Visit * MRI/CAT Scan - Closed Specialty Diagnoses / Procedures Referred By Contac t Referred To Contact Procedures MRI Spine (Neuro) Outside (No Interpretation) Denny Riggs MD [address] [place] [address] Phone: tel: fax: mailto:[email or web address] Referral ID Status Reason Start Date Expiration Date Visits Re quested Visits Authorized [id number] Closed 01/23/2017 01/23/2018 1 1 Encounter Details Date Type Department Care Team ([facility] st Contact Info) Description 09/29/2013 Hospital Encounter [facility] General Imaging [address] [place] [address] Denny Riggs MD [address] [place], [place] [phone] [email or web address] Social History Tobacco Use Types Packs/Day Years [...] (No Interpretation) (09/29/2013 12:00 AM EST) Narrative [facility] IMG INTERFACES - 01/23/2017 5:52 PM EDT This study is for PACS storage only and not for interpretation. us Denny Riggs MD IMG OUTSIDE IMAGING W /OUT INTERPRETATION Final Result [facility] IMG INTERFACES documented in this encounter Visit Diagnoses Not on filedocumented in this encounter Additional Source Comments The information contained in this document represents components of the legal health record. It is not the complete legal health record.[facility]
--- OUTSIDE RECORDS SUMMARY | 2013-09-29 01:15 | XMS_ITS | Encounter Summary ---
Author Organization [facility] Address [address] [facility] [address] [place] [address] Phone Care Team Providers Care Account Assistant Name Role Phone Unavailable Primary Care Provider Unavailabl e Reason for Visit * MRI/CAT Scan - Closed Specialty Diagnoses / Procedures Referred By Contac t Referred To Contact Procedures MRI Spine (Neuro) Outside (No Interpretation) Denny Riggs MD [address] [place] [address] Phone: tel: fax: mailto:[email or web address] Referral ID Status Reason Start Date Expiration Date Visits Re quested Visits Authorized [id number] Closed 01/23/2017 01/23/2018 1 1 Encounter Details Date Type Department Care Team ([facility] st Contact Info) Description 09/29/2013 12:15 AM [facility] Hospital Encounter [facility] General Imaging [address] [place] [address] Denny Riggs MD [address] [place], [place] [phone] [email or web address] Social History Tobacco Use Types Packs/Day Years [...] (No Interpretation) (09/29/2013 12:15 AM EST) Narrative [facility] IMG INTERFACES - 01/23/2017 5:52 PM EDT This study is for PACS storage only and not for interpretation. us Denny Riggs MD IMG OUTSIDE IMAGING W /OUT INTERPRETATION Final Result [facility] IMG INTERFACES documented in this encounter Visit Diagnoses Not on filedocumented in this encounter Additional Source Comments The information contained in this document represents components of the legal health record. It is not the complete legal health record.[facility]
--- OUTSIDE RECORDS SUMMARY | 2013-10-05 01:00 | XMS_ITS | Encounter Summary ---
Author Organization [facility] Address [address] [place] [address] Phone Care Team Providers Care Diagnostic Imaging Manager Name Role Phone Unavailable Primary Care Provider Unavailabl e Reason for Visit * MRI/CAT Scan - Closed Specialty Diagnoses / Procedures Referred By Contac t Referred To Contact Procedures MRI Spine (Neuro) Outside (No Interpretation) Denny Riggs MD [address] [place] [address] Phone: tel: fax: mailto:[email or web address] Referral ID Status Reason Start Date Expiration Date Visits Re quested Visits Authorized [id number] Closed 01/23/2017 01/23/2018 1 1 Encounter Details Date Type Department Care Team ([facility] st Contact Info) Description 10/05/2013 Hospital Encounter [facility] General Imaging [address] [place] [address] Denny Riggs MD [address] [place] [address] [email or web address] Social History Tobacco Use Types Packs/Day [...] (No Interpretation) (10/05/2013 12:00 AM EST) Narrative [facility] IMG INTERFACES - 01/23/2017 5:53 PM EDT [...] It is not the complete legal health record.[facility]
--- OUTSIDE RECORDS SUMMARY | 2013-10-05 01:15 | XMS_ITS | Encounter Summary ---
Author Organization [facility] Address [address] [facility] [address] [place] [address] Phone Care Team Providers Care Licensing Director Name Role Phone Unavailable Primary Care Provider Unavailabl e Reason for Visit * MRI/CAT Scan - Closed Specialty Diagnoses / Procedures Referred By Contac t Referred To Contact Procedures MRI Spine (Neuro) Outside (No Interpretation) Denny Riggs MD [address] [place] [address] Phone: tel: fax: mailto:[email or web address] Referral ID Status Reason Start Date Expiration Date Visits Re quested Visits Authorized [id number] Closed 01/23/2017 01/23/2018 1 1 Encounter Details Date Type Department Care Team ([facility] st Contact Info) Description 10/05/2013 12:15 AM [facility] Hospital Encounter [facility] General Imaging [address] [place] [address] Denny Riggs MD [address] [place], [place] [phone] [email or web address] Social History Tobacco Use Types Packs/Day Years [...] (No Interpretation) (10/05/2013 12:15 AM EST) Narrative [facility] [place] IMG INTERFACES - 01/23/2017 5:53 PM EDT This study is for PACS storage only and not for interpretation. us Denny Riggs MD IMG OUTSIDE IMAGING W /OUT INTERPRETATION Final Result [facility] [place] IMG INTERFACES documented in this encounter Visit Diagnoses Not on filedocumented in this encounter Additional Source Comments The information contained in this document represents components of the legal health record. It is not the complete legal health record.[facility]
--- OUTSIDE RECORDS SUMMARY | 2013-10-05 01:30 | XMS_ITS | Encounter Summary ---
Author Organization [facility] Address [address] [facility] [address] [place] [address] Phone Care Team Providers Care Sales Project Administrator Name Role Phone Unavailable Primary Care Provider Unavailabl e Reason for Visit * MRI/CAT Scan - Closed Specialty Diagnoses / Procedures Referred By Contac t Referred To Contact Procedures MRI Spine (Neuro) Outside (No Interpretation) Denny Riggs MD [address] [place] [address] Phone: tel: fax: mailto:[email or web address] Referral ID Status Reason Start Date Expiration Date Visits Re quested Visits Authorized [id number] Closed 01/23/2017 01/23/2018 1 1 Encounter Details Date Type Department Care Team ([facility] st Contact Info) Description 10/05/2013 12:30 AM [email or web address] Hospital Encounter [facility] General Imaging [address] [place] [address] Denny Riggs MD [address] [place], [place] [phone] [email or web address] Social History Tobacco Use Types Packs/Day Years [...] (No Interpretation) (10/05/2013 12:30 AM EST) Narrative [facility] - 01/23/2017 5:54 PM EDT This study is for PACS storage only and not for interpretation. us Denny Riggs MD IMG OUTSIDE IMAGING W /OUT INTERPRETATION Final Result [facility] [facility] [place] documented in this encounter Visit Diagnoses Not on filedocumented in this encounter Additional Source Comments The information contained in this document represents components of the legal health record. It is not the complete legal health record.[facility]
--- OUTSIDE RECORDS SUMMARY | 2013-10-05 01:45 | XMS_ITS | Encounter Summary ---
Author Organization [facility] Address [address] [facility] [address] [place] [address] Phone Care Team Providers Care Fortune Cookie Maker Name Role Phone Unavailable Primary Care Provider Unavailabl e Reason for Visit * MRI/CAT Scan - Closed Specialty Diagnoses / Procedures Referred By Contac t Referred To Contact Procedures MRI Spine (Neuro) Outside (No Interpretation) Denny Riggs MD [address] [place] [address] Phone: tel: fax: mailto:[email or web address] Referral ID Status Reason Start Date Expiration Date Visits Re quested Visits Authorized [id number] Closed 01/23/2017 01/23/2018 1 1 Encounter Details Date Type Department Care Team ([facility] st Contact Info) Description 10/05/2013 12:45 AM [facility] Hospital Encounter [facility] General Imaging [address] [place] [address] Denny Riggs MD [address] [place], [place] [phone] [email or web address] Social History Tobacco Use Types Packs/Day Years [...] (No Interpretation) (10/05/2013 12:45 AM EST) Narrative [facility] [place] - 01/23/2017 5:54 PM EDT This study is for PACS storage only and not for interpretation. us Denny Riggs MD IMG OUTSIDE IMAGING W /OUT INTERPRETATION Final Result [facility] [place] documented in this encounter Visit Diagnoses Not on filedocumented in this encounter Additional Source Comments The information contained in this document represents components of the legal health record. It is not the complete legal health record.[facility]
--- OUTSIDE RECORDS SUMMARY | 2013-11-10 01:00 | XMS_ITS | Encounter Summary ---
Author Organization [facility] Address [address] [facility] [address] [place] [address] Phone Care Team Providers Care Pilot Teacher Name Role Phone Unavailable Primary Care Provider Unavailabl e Reason for Visit * MRI/CAT Scan - Closed Specialty Diagnoses / Procedures Referred By Contac t Referred To Contact Procedures MRI Spine (Neuro) Outside (No Interpretation) Denny Riggs MD [address] [place] [address] Phone: tel: fax: mailto:[email or web address] Referral ID Status Reason Start Date Expiration Date Visits Re quested Visits Authorized [id number] Closed 01/23/2017 01/23/2018 1 1 Encounter Details Date Type Department Care Team ([facility] st Contact Info) Description 11/10/2013 Hospital Encounter [facility] General Imaging [address] [place] [address] Denny Riggs MD [address] [place], [place] [phone] [email or web address] Social History Tobacco Use Types Packs/Day Years [...] (No Interpretation) (11/10/2013 12:00 AM EST) Narrative [facility] [...] It is not the complete legal health record.[facility]
--- OUTSIDE RECORDS SUMMARY | 2013-12-23 01:00 | XMS_ITS | Encounter Summary ---
Author Organization [facility] Address [address] [place] [address] Phone Care Team Providers Care Stage Electrician Helper Name Role Phone Unavailable Primary Care Provider Unavailabl e Reason for Visit * MRI/CAT Scan - Closed Specialty Diagnoses / Procedures Referred By Contac t Referred To Contact Procedures MRI Spine (Neuro) Outside (No Interpretation) Denny Riggs MD [address] [place] [address] Phone: tel: fax: mailto:[email or web address] Referral ID Status Reason Start Date Expiration Date Visits Re quested Visits Authorized [id number] Closed 01/23/2017 01/23/2018 1 1 Encounter Details Date Type Department Care Team ([facility] st Contact Info) Description 12/23/2013 Hospital Encounter [facility] General Imaging [address] [place] [address] Denny Riggs MD [address] [place], [place] [phone] Social History Tobacco Use Types Packs/Day Years [...] Interpretation) (12/23/2013 12:00 AM EST) Narrative [facility] [place] - 01/23/2017 5:55 PM EDT This study is for PACS storage only and not for interpretation. us Denny Riggs MD IMG OUTSIDE IMAGING W /OUT INTERPRETATION Final Result [facility] documented in this encounter Visit Diagnoses Not on filedocumented in this encounter Additional Source Comments The information contained in this document represents components of the legal health record. It is not the complete legal health record.[facility]
--- OUTSIDE RECORDS SUMMARY | 2013-12-23 01:15 | XMS_ITS | Encounter Summary ---
Author Organization [facility] Address [address] [place] [address] Phone Care Team Providers Care Progressive Care Manager Name Role Phone Unavailable Primary Care Provider Unavailabl e Reason for Visit * MRI/CAT Scan - Closed Specialty Diagnoses / Procedures Referred By Contac t Referred To Contact Procedures MRI Spine (Neuro) Outside (No Interpretation) Denny Riggs MD [address] [place] [address] Phone: tel: fax: mailto:[email or web address] Referral ID Status Reason Start Date Expiration Date Visits Re quested Visits Authorized [id number] Closed 01/23/2017 01/23/2018 1 1 Encounter Details Date Type Department Care Team ([facility] st Contact Info) Description 12/23/2013 12:15 AM [facility] Hospital Encounter [facility] General Imaging [address] [place] [address] Denny Riggs MD [address] [place], [place] [phone] [email or web address] Social History Tobacco Use Types Packs/Day Years [...] (No Interpretation) (12/23/2013 12:15 AM EST) Narrative [facility] IMG INTERFACES - 01/23/2017 5:56 PM EDT This study is for PACS storage only and not for interpretation. us Denny Riggs MD IMG OUTSIDE IMAGING W /OUT INTERPRETATION Final Result [facility] IMG INTERFACES documented in this encounter Visit Diagnoses Not on filedocumented in this encounter Additional Source Comments The information contained in this document represents components of the legal health record. It is not the complete legal health record.[facility]
--- OUTSIDE RECORDS SUMMARY | 2014-05-18 | XMS_ITS | Encounter Summary ---
Author Organization [facility] Address [address] [place] [address] Phone Care Team Providers Care Head Men'S Tennis Coach Name Role Phone Unavailable Primary Care Provider Unavailabl e Reason for Visit * MRI/CAT Scan - Closed Specialty Diagnoses / Procedures Referred By Contac t Referred To Contact Procedures MRI Spine (Neuro) Outside (No Interpretation) Denny Riggs MD [address] [place] [address] Phone: tel: fax: mailto:[email or web address] Referral ID Status Reason Start Date Expiration Date Visits Re quested Visits Authorized [id number] Closed 01/23/2017 01/23/2018 1 1 Encounter Details Date Type Department Care Team ([facility] st Contact Info) Description 05/18/2014 Hospital Encounter [facility] General Imaging [address] [place] [address] Denny Riggs MD [address] [place], [place] [phone] [email or web address] Social History Tobacco Use Types Packs/Day Years [...] (No Interpretation) (05/18/2014 12:00 AM EDT) Narrative [facility] IMG INTERFACES - 01/23/2017 5:42 PM EDT [...] It is not the complete legal health record.[facility]
--- OUTSIDE RECORDS SUMMARY | 2014-05-18 00:15 | XMS_ITS | Encounter Summary ---
Author Organization [facility] Address [address] [place] [address] Phone Care Team Providers Care Systems Trainer Name Role Phone Unavailable Primary Care Provider Unavailabl e Reason for Visit * MRI/CAT Scan - Closed Specialty Diagnoses / Procedures Referred By Contac t Referred To Contact Procedures MRI Spine (Neuro) Outside (No Interpretation) Denny Riggs MD [address] [place] [address] Phone: tel: fax: mailto:[email or web address] Referral ID Status Reason Start Date Expiration Date Visits Re quested Visits Authorized [id number] Closed 01/23/2017 01/23/2018 1 1 Encounter Details Date Type Department Care Team ([facility] st Contact Info) Description 05/18/2014 12:15 AM EDT Hospital Encounter [facility] General Imaging [address] [place] [address] Denny Riggs MD [address] [place], [place] [phone] [email or web address] Social History Tobacco Use Types Packs/Day Years [...] (No Interpretation) (05/18/2014 12:15 AM EDT) Narrative [facility] IMG INTERFACES - 01/23/2017 5:56 PM EDT This study is for PACS storage only and not for interpretation. us Denny Riggs MD IMG OUTSIDE IMAGING W /OUT INTERPRETATION Final Result [facility] IMG INTERFACES documented in this encounter Visit Diagnoses Not on filedocumented in this encounter Additional Source Comments The information contained in this document represents components of the legal health record. It is not the complete legal health record.[facility]
--- OUTSIDE RECORDS SUMMARY | 2014-12-05 01:00 | XMS_ITS | Encounter Summary ---
Author Organization [facility] Address [address] [place] [address] Phone Care Team Providers Care Manager Work Name Role Phone Unavailable Primary Care Provider Unavailabl e Reason for Visit * MRI/CAT Scan - Closed Specialty Diagnoses / Procedures Referred By Contac t Referred To Contact Procedures MRI Spine (Neuro) Outside (No Interpretation) Denny Riggs MD [address] [place] [address] Phone: tel: fax: mailto:[email or web address] Referral ID Status Reason Start Date Expiration Date Visits Re quested Visits Authorized [id number] Closed 01/23/2017 01/23/2018 1 1 Encounter Details Date Type Department Care Team ([facility] st Contact Info) Description 12/05/2014 Hospital Encounter [facility] General Imaging [address] [place] [address] Denny Riggs MD [address] [place] [address] [email or web address] Social History Tobacco Use Types Packs/Day Years [...] (No Interpretation) (12/05/2014 12:00 AM EST) Narrative [facility] IMG INTERFACES - 01/23/2017 5:42 PM EDT This study is for PACS storage only and not for interpretation. us Denny Riggs MD IMG OUTSIDE IMAGING W /OUT INTERPRETATION Final Result [facility] IMG INTERFACES documented in this encounter Visit Diagnoses Not on filedocumented in this encounter Additional Source Comments The information contained in this document represents components of the legal health record. It is not the complete legal health record.[facility]
--- OUTSIDE RECORDS SUMMARY | 2015-04-27 | XMS_ITS | Encounter Summary ---
Author Organization [facility] Address [address] [place] [address] Phone Care Team Providers Care Clam Picker Name Role Phone Unavailable Primary Care Provider Unavailabl e Reason for Visit * MRI/CAT Scan - Closed Specialty Diagnoses / Procedures Referred By Contac t Referred To Contact Procedures MRI Spine (Neuro) Outside (No Interpretation) Denny Riggs MD [address] [place] [address] Phone: tel: fax: mailto:[email or web address] Referral ID Status Reason Start Date Expiration Date Visits Re quested Visits Authorized [id number] Closed 01/23/2017 01/23/2018 1 1 Encounter Details Date Type Department Care Team ([facility] st Contact Info) Description 04/27/2015 Hospital Encounter [facility] General Imaging [address] [place] [address] Denny Riggs MD [address] [place], [place] [phone] [email or web address] Social History Tobacco Use Types Packs/Day Years [...] (No Interpretation) (04/27/2015 12:00 AM EDT) Narrative [facility] IMG INTERFACES - 01/23/2017 5:43 PM [...] is not the complete legal health record.[facility]
--- OUTSIDE RECORDS SUMMARY | 2015-10-28 01:00 | XMS_ITS | Encounter Summary ---
Author Organization [facility] Address [address] [place] [address] Phone Care Team Providers Care Public Health Assistant Name Role Phone Unavailable Primary Care Provider Unavailabl e Reason for Visit * MRI/CAT Scan - Closed Specialty Diagnoses / Procedures Referred By Contac t Referred To Contact Procedures MRI Spine (Neuro) Outside (No Interpretation) Denny Riggs MD [address] [place] [address] Phone: tel: fax: mailto:[email or web address] Referral ID Status Reason Start Date Expiration Date Visits Re quested Visits Authorized [id number] Closed 01/23/2017 01/23/2018 1 1 Encounter Details Date Type Department Care Team ([facility] st Contact Info) Description 10/28/2015 Hospital Encounter [facility] General Imaging [address] [place] [address] Denny Riggs MD [address] [place], [place] [address] [email or web address] Social History Tobacco Use Types Packs/Day Years [...] (No Interpretation) (10/28/2015 12:00 AM EST) Narrative [facility] [place]G INTERFACES - 01/23/2017 5:43 PM EDT This study is for PACS storage only and not for interpretation. us Denny Riggs MD IMG OUTSIDE IMAGING W /OUT INTERPRETATION Final Result [facility] [place] documented in this encounter Visit Diagnoses Not on filedocumented in this encounter Additional Source Comments The information contained in this document represents components of the legal health record. It is not the complete legal health record.[facility]
--- OUTSIDE RECORDS SUMMARY | 2015-10-28 01:15 | XMS_ITS | Encounter Summary ---
Author Organization [facility] Address [address] [place] [address] Phone Care Team Providers Care Industrial Engineering Director Name Role Phone Unavailable Primary Care Provider Unavailabl e Reason for Visit * MRI/CAT Scan - Closed Specialty Diagnoses / Procedures Referred By Contac t Referred To Contact Procedures MRI Spine (Neuro) Outside (No Interpretation) Denny Riggs MD [address] [place] [address] Phone: tel: fax: mailto:[email or web address] Referral ID Status Reason Start Date Expiration Date Visits Re quested Visits Authorized [id number] Closed 01/23/2017 01/23/2018 1 1 Encounter Details Date Type Department Care Team ([facility] st Contact Info) Description 10/28/2015 12:15 AM [facility] Hospital Encounter [facility] General Imaging [address] [place] [address] Denny Riggs MD [address] [place], [place] [phone] [email or web address] Social History Tobacco Use Types Packs/Day Years [...] (No Interpretation) (10/28/2015 12:15 AM EST) Narrative [facility] IMG INTERFACES - 01/23/2017 5:44 PM EDT This study is for PACS storage only and not for interpretation. us Denny Riggs MD IMG OUTSIDE IMAGING W /OUT INTERPRETATION Final Result [facility] IMG INTERFACES documented in this encounter Visit Diagnoses Not on filedocumented in this encounter Additional Source Comments The information contained in this document represents components of the legal health record. It is not the complete legal health record.[facility]
--- OUTSIDE RECORDS SUMMARY | 2016-09-14 | XMS_ITS | Encounter Summary ---
Author Organization [facility] Address [address] [facility] [address] [place] [address] Phone Care Team Providers Care Leaflet Distributor Name Role Phone Bassem Drew MD Primary Care Provider +1- [phone] Reason for Visit * MRI/CAT Scan - Closed Specialty Diagnoses / Procedures Referred By Contac t Referred To Contact Procedures MRI Spine (Neuro) Focus Outside With Interpretation Or Consult Ewa Richmond MD [address] [place] [address] Phone: tel: fax: mailto:[email or web address] Referral ID Status Reason Start Date Expiration Date Visits Re quested Visits Authorized [id number] Closed 10/03/2016 10/03/2017 1 1 Encounter Details Date Type Department Care Team ([facility] st Contact Info) Description 09/14/2016 Hospital Encounter [facility] General Imaging [address] [place] [address] Ewa Richmond MD [address] [place] [address] [email or web address] Social History Tobacco Use Types Packs/Day [...] AM EDT) 10/03/2016 1:34 PM EST Impressions [facility] - 10/03/2016 1:55 PM EST Postsurgical [...] with the referring clinician, EWA RICHMOND. Narrative [facility] - 10/03/2016 1:55 PM EST Interpretation [...] RETATION Final Result Performing Organization Address City/State/[facility] [place] Phone Number [facility] [address] [facility] [place] [address] documented in this encounter Visit Diagnoses Not on filedocumented in this encounter Care Teams Leaflet Distributor Relationship Specialty Start Date End Date Bassem Drew MD [email or web address] PCP - General Internal Medicine 05/09/16 documented as of this encounter Additional Source Comments The information contained in this document represents components of the legal health record. It is not the complete legal health record.[facility]
--- OUTSIDE RECORDS SUMMARY | 2016-09-14 00:15 | XMS_ITS | Encounter Summary ---
Author Organization [facility] Address [address] [facility] [address] [place] [address] Phone Care Team Providers Care Loading Dock Helper Name Role Phone Bassem Drew MD Primary Care Provider +1- [phone] Reason for Visit * MRI/CAT Scan - Closed Specialty Diagnoses / Procedures Referred By Contac t Referred To Contact Procedures MRI Spine (Neuro) Focus Outside With Interpretation Or Consult Ewa Richmond MD [address] [place] [address] Phone: tel: fax: mailto:[email or web address] Referral ID Status Reason Start Date Expiration Date Visits Re quested Visits Authorized [id number] Closed 10/03/2016 10/03/2017 1 1 Encounter Details Date Type Department Care Team ([facility] st Contact Info) Description 09/14/2016 12:15 AM EDT Hospital Encounter [facility] General Imaging [address] [place] [address] Ewa Richmond MD [address] [place], [place] [id number] [email or web address] Social History Tobacco Use Types Packs/Day Years [...] AM EDT) 10/03/2016 1:34 PM EST Impressions [facility] - 10/03/2016 1:55 PM EST Postsurgical [...] with the referring clinician, EWA RICHMOND. Narrative [facility] - 10/03/2016 1:55 PM EST Interpretation [...] INTERP RETATION Final Result Performing Organization Address City/State/[facility] Co la Phone Number [facility] [address] [facility] [place] [address] documented in this encounter Visit Diagnoses Not on filedocumented in this encounter Care Teams Loading Dock Helper Relationship Specialty Start Date End Date Bassem Drew MD [email or web address] PCP - General Internal Medicine 05/09/16 documented as of this encounter Additional Source Comments The information contained in this document represents components of the legal health record. It is not the complete legal health record.[facility]
--- OUTSIDE RECORDS SUMMARY | 2016-09-14 00:30 | XMS_ITS | Encounter Summary ---
Author Organization [facility] Address [address] [facility] [address] [place] [address] Phone Care Team Providers Care Micro Photographer Name Role Phone Bassem Drew MD Primary Care Provider +1- [phone] Reason for Visit * MRI/CAT Scan - Closed Specialty Diagnoses / Procedures Referred By Contac t Referred To Contact Procedures MRI Spine (Neuro) Focus Outside With Interpretation Or Consult Ewa Richmond MD [address] [place] [address] Phone: tel: fax: mailto:[email or web address] Referral ID Status Reason Start Date Expiration Date Visits Re quested Visits Authorized [id number] Closed 10/03/2016 10/03/2017 1 1 Encounter Details Date Type Department Care Team ([facility] st Contact Info) Description 09/14/2016 12:30 AM EDT Hospital Encounter [facility] General Imaging [address] [place] [address] Ewa Richmond MD [address] [place], [place] [id number] [email or web address] Social History Tobacco Use Types Packs/Day [...] AM EDT) 10/03/2016 1:34 PM EST Impressions [facility] - 10/03/2016 1:55 PM EST Postsurgical [...] with the referring clinician, EWA RICHMOND. Narrative [facility] - 10/03/2016 1:55 PM EST Interpretation [...] INTERP RETATION Final Result Performing Organization Address City/State/[facility] Co pa Phone Number [facility] [address] [facility] [place] [address] documented in this encounter Visit Diagnoses Not on filedocumented in this encounter Care Teams Micro Photographer Relationship Specialty Start Date End Date Bassem Drew MD [email or web address] PCP - General Internal Medicine 05/09/16 documented as of this encounter Additional Source Comments The information contained in this document represents components of the legal health record. It is not the complete legal health record.[facility]
--- OUTSIDE RECORDS SUMMARY | 2017-01-16 01:00 | XMS_ITS | Encounter Summary ---
Author Organization [facility] Address [address] [facility] [address] [place] [address] Phone Care Team Providers Care Deboning Team Leader Name Role Phone Bassem Drew MD Primary Care Provider +1- [phone] Reason for Visit * MRI/CAT Scan - Closed Specialty Diagnoses / Procedures Referred By Contac t Referred To Contact Procedures MRI Spine (Neuro) Outside (No Interpretation) Denny Riggs MD [address] [place] [address] Phone: tel: fax: mailto:[email or web address]) Referral ID Status Reason Start Date Expiration Date Visits Re quested Visits Authorized [id number] Closed 01/23/2017 01/23/2018 1 1 Encounter Details Date Type Department Care Team ([facility] st Contact Info) Description 01/16/2017 Hospital Encounter [facility] General Imaging [address] [place] [address] Denny Riggs MD [address] [place] [address] [email or web address] Social History Tobacco Use Types Packs/Day Years [...] (No Interpretation) (01/16/2017 12:00 AM EST) Narrative [facility]G INTERFACES - 01/23/2017 11:23 AM EDT This study is for PACS storage only and not for interpretation. us Denny Riggs MD IMG OUTSIDE IMAGING W /OUT INTERPRETATION Final Result [facility] INTER[facility]ACES documented in this encounter Visit Diagnoses Not on filedocumented in this encounter Care Teams Deboning Team Leader Relationship Specialty Start Date End Date Bassem Drew MD [email or web address] PCP - General Internal Medicine 05/09/16 documented as of this encounter Additional Source Comments The information contained in this document represents components of the legal health record. It is not the complete legal health record.[facility]
--- NOTE | 2025-08-11 07:58 | MHC.OFFWIV ---
Intake Vital Signs 08/11/25 07:59 Height 4 ft 11 in Weight 147 lb BMI 29.7 BP 128/82 Blood Pressure Location Lt brachial Position Sitting Respiration 16 Pulse 79 Pulse Source Pulse Oximeter Temp 98.8 F Temp Source Oral Pulse Oximetry (%) 97 Oxygen Delivery Method Room Air Intake Visit Reasons: ep coughing and headache chills Intake Note: Pt is here today c/o cough,chills and h/a x5days Patient Tobacco Use Status: Never used Tobacco Allergies mold Allergy (Severe, Verified 08/11/25 08:02) itchy throat blue cheese Allergy (Severe, Uncoded 08/11/25 08:02) itchy throat HPI HPI Comments History of Present Illness Details History - The patient is a 54-year-old female presenting with headaches and cough. - She states that she has been having a headache since Saturday, with severity increasing during coughing episodes. - She has a cough that was initially dry, now productive, associated with throat discomfort and chills. - History of asthma, currently using an inhaler as needed. - She has mild discomfort noted, with a previous ear infection last fall. - She denies CP, SOB, abd pain, n/v/d, sore throat, loss of taste or smell. - She denies fever, chills, or fatigue. Physical Exam General: Cooperative, healthy appearing, comfortable and no acute distress Orientation/consciousness: Patient oriented x3 Limitations: No limitations Head: Normal to inspection Ears: Hearing grossly normal bilaterally, external ears normal, slight redness noted, and TM's normal bilaterally Nose: Normal external nose present, normal nares present, and no nasal discharge present. Face and sinus: Sinuses nontender to palpation. Mouth: Normal oral and palatal mucosa present and moist mucous membranes noted. Throat: Tonsils normal. Uvula is midline. Posterior oropharynx with erythema and no exudates. Eyes: Appearance normal, both eyes and all related structures, watery eyes noted Neck: Normal visual inspection, full ROM. No lymphadenopathy noted. Respiratory: Clear to auscultation bilaterally. Normal respiratory effort, able to speak in complete sentences. No respiratory distress, not tachypneic, no tripod positioning and no use of accessory muscles. Cardiovascular: Regular rate and rhythm. Normal S1 and S2 Skin: No rashes or lesions noted Patient was informed and verbally consented to the use of an ambient scribe for clinic note documentation during this visit [facility] Medical History (Updated 07/16/25 @ 09:42 by Laura Don PA-C) Hypertensive retinopathy Glaucoma HTN (hypertension) Anxiety INGRID (obstructive sleep apnea) Neck pain Heart murmur Depression Esophagitis Hypokalemia Hyperlipidemia FH: HTN (hypertension) Diabetes mellitus Right sided sciatica Asthma Sacroiliac inflammation Surgical History (Updated 05/24/25 @ 11:23 by Gabriela Buitrago) S/p bilateral carpal tunnel release Hx of esophagogastroduodenoscopy Hx of colonoscopy History of back surgery History of bilateral tubal ligation Family History Father Cancer Alzheimer's disease Mother HTN (hypertension) Diabetes mellitus Asthma Depression Stroke Cancer Maternal Grandfather No problems noted. Maternal Grandmother No problems noted. Paternal Grandfather No problems noted. Paternal Grandmother No problems noted. Brother No problems noted. Brother No problems noted. Sister Asthma Son No problems noted. Son No problems noted. Daughter No problems noted. Social History Household Members: Spouse and Children Housing: House Are you a primary care process manager to a significant other at home: No Do you presently have visiting nurse or other home services: No Alcohol intake: current Alcohol intake frequency: does not drink Patient Tobacco Use Status: Never used Tobacco e-Cigarette/Vaping Use: Never Used Second Hand Smoke Exposure: No service: No Current occupational status: disabled Cognitive needs: No Hearing needs: No Vision needs: Yes Female Reproductive History Menstrual Age of Menarche: 10 Review of Systems Const All systems reviewed & are unremarkable except as noted in HPI and below Physical Exam Vital Signs: Last Vital Signs Temp 98.8 F 08/11/25 07:59 Pulse 79 08/11/25 07:59 Resp 16 08/11/25 07:59 BP 128/82 08/11/25 07:59 Pulse Ox 97 08/11/25 07:59 Oxygen Delivery Method Room Air 08/11/25 07:59 BMI result Body Mass Index 29.7 Assessment & Plan Assessment & Plan (1) URI with cough and congestion: Code(s): J06.9 - Acute upper respiratory infection, unspecified Plan Most likely plan - will order resp panel in the office today - albuterol as needed - Prescribed cough medicine and decongestant for symptomatic relief. - etelvinateja epps daily - will call with the results - follow up with PCP Orders: Orders Resp Pathogen Panel - [facility] Today J06.9 - Acute upper respiratory infection, unspecified Medications: New prednisone 40 mg (2 x 20 mg) PO DAILY 10 tabs 0RF 5 days cetirizine-pseudoephedrine 5-120 mg ER 1 tab PO BID 14 tabs 0RF 7 days benzonatate 100 mg PO bid-tid PRN 21 caps 0RF Cough 7 days Coding Level of Care Code Est Pt Level 3 (81705) Diagnoses URI with cough and congestion J06.9
[2025-08-11 07:59] VITALS: BP 128/82; PULSE 79; RESP 16; TEMP 37.1; O2SAT 97; BMI 29.7
--- OUTSIDE RECORDS SUMMARY | 2025-08-11 08:01 | XMS_ITS | Encounter Summary ---
Author Organization [facility] Address [address] [place] [address] Phone Care Team Providers Care Oven Operator Name Role Phone Bassem Drew MD Primary Care Provider +1- [phone] Encounter Details Date Type Department Care Team (Late st Contact Info) Description 01/23/2017 Procedure Pass [facility] [address] [place] [address] Social History Tobacco Use Types Packs/Day Years [...] on filedocumented in this encounter Care Teams Oven Operator Relationship Specialty Start Date End Date Bassem Drew MD PCP - General Internal Medicine 05/09/16 documented as of this encounter Additional Source Comments The information contained in this document represents components of the legal health record. It is not the complete legal health record.[facility]
--- OUTSIDE RECORDS SUMMARY | 2025-08-11 08:01 | XMS_ITS | Encounter Summary ---
Author Organization [facility] Address [address] [place] [address] Phone Care Team Providers Care Bumper Machine Operator Name Role Phone Bassem Drew MD Primary Care Provider +1- [phone] Reason for Referral * Consultation (Elective) - Closed Specialty Diagnoses / Procedures Referred By Conttami t Referred To Contact Neurology Diagnoses Encounter for consultation System, Provider Not In, [facility] Laurie [address] [place] [address] Referral ID Status Reason Start Date Expiration Date Visits Re quested Visits Authorized [id number] Closed 05/31/2016 05/31/2017 1 1 Encounter Details Date Type Department Care Team (Late st Contact Info) Description 05/31/2016 Transcribe Orders [facility] Department of Neurology [address] [place] [address], [address] Floor, [address] [place] [address] System, Provider Not In, [facility] [address] [address] Encounter for consultation (Primary Dx) Social History [...] Diagnoses Orde r Schedule Ambulatory referral to [facility] Neurology Outpatient Referral Routine Encounter for consultation Ordered: 05/31/2016 documented as of this encounter Visit Diagnoses Diagnosis Encounter for consultation- Primary documented in this encounter Care Teams Bumper Machine Operator Relationship Specialty Start Date End Date Bassem Drew MD [email or web address] PCP - General Internal Medicine 05/09/16 documented as of this encounter Additional Source Comments The information contained in this document represents components of the legal health record. It is not the complete legal health record.[facility]
--- OUTSIDE RECORDS SUMMARY | 2025-08-11 08:01 | XMS_ITS | Encounter Summary ---
Author Organization [facility] Address [address] [place] [address] Phone Care Team Providers Care Purchasing Administrator Name Role Phone Bassem Drew MD Primary Care Provider +1- [phone] Encounter Details Date Type Department Care Team (Late st Contact Info) Description 01/23/2017 Procedure Pass [facility] [address] [place] [address] Social History Tobacco Use Types Packs/Day Years [...] on filedocumented in this encounter Care Teams Purchasing Administrator Relationship Specialty Start Date End Date Bassem Drew MD PCP - General Internal Medicine 05/09/16 documented as of this encounter Additional Source Comments The information contained in this document represents components of the legal health record. It is not the complete legal health record.[facility]
--- OUTSIDE RECORDS SUMMARY | 2025-08-11 08:01 | XMS_ITS | Encounter Summary ---
Author Organization [facility] Address [address] [place] [address] Phone Care Team Providers Care Utility Manager Name Role Phone Bassem Drew MD Primary Care Provider +1- [phone] Encounter Details Date Type Department Care Team (Late st Contact Info) Description 01/23/2017 Procedure Pass [facility] [address] [place] [address] Social History Tobacco Use Types Packs/Day Years [...] on filedocumented in this encounter Care Teams Utility Manager Relationship Specialty Start Date End Date Bassem Drew MD PCP - General Internal Medicine 05/09/16 documented as of this encounter Additional Source Comments The information contained in this document represents components of the legal health record. It is not the complete legal health record.[facility]
--- OUTSIDE RECORDS SUMMARY | 2025-08-11 08:01 | XMS_ITS | Encounter Summary ---
Author Organization [facility] Address [address] [place] [address] Phone Care Team Providers Care Market Maker Name Role Phone Bassem Drew MD Primary Care Provider +1- [phone] Encounter Details Date Type Department Care Team (Late st Contact Info) Description 01/23/[address] [facility] [address] [place] [address] Social History Tobacco Use Types Packs/Day Years [...] on filedocumented in this encounter Care Teams Market Maker Relationship Specialty Start Date End Date Bassem Drew MD PCP - General Internal Medicine 05/09/16 documented as of this encounter Additional Source Comments The information contained in this document represents components of the legal health record. It is not the complete legal health record.[facility]
--- OUTSIDE RECORDS SUMMARY | 2025-08-11 08:01 | XMS_ITS | Encounter Summary ---
Author Organization [facility] Address [address] [place] [address] Phone Care Team Providers Care Telegraphic Typewriter Repairer Name Role Phone Bassem Drew MD Primary Care Provider +1- [phone] Encounter Details Date Type Department Care Team (Late st Contact Info) Description 01/23/2017 Procedure Pass [facility] [address] [place] [address] Social History Tobacco Use Types Packs/Day Years [...] on filedocumented in this encounter Care Teams Telegraphic Typewriter Repairer Relationship Specialty Start Date End Date Bassem Drew MD PCP - General Internal Medicine 05/09/16 documented as of this encounter Additional Source Comments The information contained in this document represents components of the legal health record. It is not the complete legal health record.[facility]
--- OUTSIDE RECORDS SUMMARY | 2025-08-11 08:01 | XMS_ITS | Encounter Summary ---
Author Organization [facility] Address [address] [place] [address] Phone Care Team Providers Care Bag Tester Name Role Phone Bassem Drew MD Primary Care Provider +1- [phone] Encounter Details Date Type Department Care Team (Late st Contact Info) Description 01/23/[address] [facility] Imaging [address] [place] [address] Social History Tobacco Use Types Packs/Day Years [...] on filedocumented in this encounter Care Teams Bag Tester Relationship Specialty Start Date End Date Bassem Drew MD PCP - General Internal Medicine 05/09/16 documented as of this encounter Additional Source Comments The information contained in this document represents components of the legal health record. It is not the complete legal health record.[facility]
--- OUTSIDE RECORDS SUMMARY | 2025-08-11 08:01 | XMS_ITS | Encounter Summary ---
Author Organization [facility] Address [address] [place] [address] Phone Care Team Providers Care Front Counter Attendant Name Role Phone Bassem Drew MD Primary Care Provider +1- [phone] Encounter Details Date Type Department Care Team (Late st Contact Info) Description 01/23/2017 Procedure Pass [facility] [address] [place] [address] Social History Tobacco Use Types Packs/Day Years [...] on filedocumented in this encounter Care Teams Front Counter Attendant Relationship Specialty Start Date End Date Bassem Drew MD PCP - General Internal Medicine 05/09/16 documented as of this encounter Additional Source Comments The information contained in this document represents components of the legal health record. It is not the complete legal health record.[facility]
--- OUTSIDE RECORDS SUMMARY | 2025-08-11 08:01 | XMS_ITS | Encounter Summary ---
Author Organization [facility] Address [address] [place] [address] Phone Care Team Providers Care Director Bioinformatics Name Role Phone Bassem Drew MD Primary Care Provider +1- [phone] Encounter Details Date Type Department Care Team (Late st Contact Info) Description 10/03/2016 Procedure Pass [facility] Imaging [address] [place] [address] Social History Tobacco Use Types Packs/Day Years [...] on filedocumented in this encounter Care Teams Director Bioinformatics Relationship Specialty Start Date End Date Bassem Drew MD PCP - General Internal Medicine 05/09/16 documented as of this encounter Additional Source Comments The information contained in this document represents components of the legal health record. It is not the complete legal health record.[facility]
--- OUTSIDE RECORDS SUMMARY | 2025-08-11 08:01 | XMS_ITS | Encounter Summary ---
Author Organization [facility] Address [address] [place] [address] Phone Care Team Providers Care Rating Examiner Name Role Phone Bassem Drew MD Primary Care Provider +1- [phone] Encounter Details Date Type Department Care Team (Late st Contact Info) Description 01/23/[address] [facility] Imaging [address] [place] [address] Social History Tobacco Use Types Packs/Day Years [...] on filedocumented in this encounter Care Teams Rating Examiner Relationship Specialty Start Date End Date Bassem Drew MD PCP - General Internal Medicine 05/09/16 documented as of this encounter Additional Source Comments The information contained in this document represents components of the legal health record. It is not the complete legal health record.[facility]
--- OUTSIDE RECORDS SUMMARY | 2025-08-11 08:01 | XMS_ITS | Encounter Summary ---
Author Organization [facility] Address [address] [place] [address] Phone Care Team Providers Care Customer Leader Name Role Phone Bassem Drew MD Primary Care Provider +1- [phone] Encounter Details Date Type Department Care Team (Late st Contact Info) Description 10/03/2016 Procedure Pass [facility] Imaging [address] [place] [address] Social History Tobacco Use Types Packs/Day Years [...] on filedocumented in this encounter Care Teams Customer Leader Relationship Specialty Start Date End Date Bassem Drew MD PCP - General Internal Medicine 05/09/16 documented as of this encounter Additional Source Comments The information contained in this document represents components of the legal health record. It is not the complete legal health record.[facility]
--- OUTSIDE RECORDS SUMMARY | 2025-08-11 08:01 | XMS_ITS | Encounter Summary ---
Author Organization [facility] Address [address] [place] [address] Phone Care Team Providers Care Metal Finish Inspector Name Role Phone Bassem Drew MD Primary Care Provider +1- [phone] Encounter Details Date Type Department Care Team (Late st Contact Info) Description 01/23/2017 Procedure Pass [facility] [address] [place] [address] Social History Tobacco Use Types Packs/Day Years [...] on filedocumented in this encounter Care Teams Metal Finish Inspector Relationship Specialty Start Date End Date Bassem Drew MD PCP - General Internal Medicine 05/09/16 documented as of this encounter Additional Source Comments The information contained in this document represents components of the legal health record. It is not the complete legal health record.[facility]
--- OUTSIDE RECORDS SUMMARY | 2025-08-11 08:01 | XMS_ITS | Encounter Summary ---
Author Organization [facility] Address [address] [place] [address] Phone Care Team Providers Care Radio Sportscaster Name Role Phone Bassem Drew MD Primary Care Provider +1- [phone] Encounter Details Date Type Department Care Team (Late st Contact Info) Description 01/23/2017 Procedure Pass [facility] Imaging [address] [place] [address] Social History Tobacco Use Types Packs/Day Years [...] on filedocumented in this encounter Care Teams Radio Sportscaster Relationship Specialty Start Date End Date Bassem Drew MD PCP - General Internal Medicine 05/09/16 documented as of this encounter Additional Source Comments The information contained in this document represents components of the legal health record. It is not the complete legal health record.[facility]
--- OUTSIDE RECORDS SUMMARY | 2025-08-11 08:01 | XMS_ITS | Encounter Summary ---
Author Organization [facility] Address [address] [place] [address] Phone Care Team Providers Care Dressage Instructor Name Role Phone Bassem Drew MD Primary Care Provider +1- [phone] Encounter Details Date Type Department Care Team (Late st Contact Info) Description 01/23/2017 Procedure Pass [facility] Imaging [address] [place] [address] Social History Tobacco Use Types Packs/Day Years [...] on filedocumented in this encounter Care Teams Dressage Instructor Relationship Specialty Start Date End Date Bassem Drew MD PCP - General Internal Medicine 05/09/16 documented as of this encounter Additional Source Comments The information contained in this document represents components of the legal health record. It is not the complete legal health record.[facility]
--- OUTSIDE RECORDS SUMMARY | 2025-08-11 08:01 | XMS_ITS | Clinical Summary ---
Author Organization [facility] Address [address] [address] Phone Care Team Providers Care Account Resolution Specialist Name Role Phone Bassem Drew MD Primary Care Provider +1- [phone] Allergies No known active allergies Medications spironolactone [...] 2019 ZOSTER VACCINES (1 of 2) 2019 INFLUENZA VACCINE (#1) 2025 COVID-19 VACCINE (3 - 2024-2 6 season) 2025 08/22/2021, 07/25/2021 SMOKING STATUS SCREENING (On ce [...] MEDICARE PART A & B Care Teams Account Resolution Specialist Relationship Specialty Start Date End Date Bassem Drew MD [email or web address] PCP - General Internal Medicine 05/09/16 Additional Source Comments The information contained in this document represents components of the legal health record. It is not the complete legal health record.[facility]
--- OUTSIDE RECORDS SUMMARY | 2025-08-11 08:01 | XMS_ITS | Encounter Summary ---
Author Organization [facility] Address [address] [place] [address] Phone Care Team Providers Care Information Security Name Role Phone Bassem Drew MD Primary Care Provider +1- [phone] Encounter Details Date Type Department Care Team (Late st Contact Info) Description 01/23/2017 Procedure Pass [facility] Imaging [address] [place] [address] Social History Tobacco Use Types Packs/Day Years [...] on filedocumented in this encounter Care Teams Information Security Relationship Specialty Start Date End Date Bassem Drew MD PCP - General Internal Medicine 05/09/16 documented as of this encounter Additional Source Comments The information contained in this document represents components of the legal health record. It is not the complete legal health record.[facility]
--- OUTSIDE RECORDS SUMMARY | 2025-08-11 08:01 | XMS_ITS | Encounter Summary ---
Author Organization [facility] Address [address] [place] [address] Phone Care Team Providers Care Agricultural Equipment Sales Manager Name Role Phone Bassem Drew MD Primary Care Provider +1- [phone] Encounter Details Date Type Department Care Team (Late st Contact Info) Description 10/03/2016 Procedure Pass [facility] Imaging [address] [place] [address] Social History Tobacco Use Types Packs/Day Years [...] on filedocumented in this encounter Care Teams Agricultural Equipment Sales Manager Relationship Specialty Start Date End Date Bassem Drew MD PCP - General Internal Medicine 05/09/16 documented as of this encounter Additional Source Comments The information contained in this document represents components of the legal health record. It is not the complete legal health record.[facility]
--- OUTSIDE RECORDS SUMMARY | 2025-08-11 08:01 | XMS_ITS | Encounter Summary ---
Author Organization [facility] Address [address] [place] [address] Phone Care Team Providers Care Process Camera Operator Name Role Phone Bassem Drew MD Primary Care Provider +1- [phone] Encounter Details Date Type Department Care Team (Late st Contact Info) Description 01/23/[address] [facility] Imaging [address] [place] [address] Social History Tobacco Use Types Packs/Day Years [...] on filedocumented in this encounter Care Teams Process Camera Operator Relationship Specialty Start Date End Date Bassem Drew MD PCP - General Internal Medicine 05/09/16 documented as of this encounter Additional Source Comments The information contained in this document represents components of the legal health record. It is not the complete legal health record.[facility]
--- OUTSIDE RECORDS SUMMARY | 2025-08-11 08:01 | XMS_ITS | Encounter Summary ---
Author Organization [facility] Address [address] [place] [address] Phone Care Team Providers Care Education Reviewer Name Role Phone Bassem Drew MD Primary Care Provider +1- [phone] Encounter Details Date Type Department Care Team (Late st Contact Info) Description 01/23/[address] [facility] Imaging [address] [place] [address] Social History Tobacco Use Types Packs/Day Years [...] on filedocumented in this encounter Care Teams Education Reviewer Relationship Specialty Start Date End Date Bassem Drew MD PCP - General Internal Medicine 05/09/16 documented as of this encounter Additional Source Comments The information contained in this document represents components of the legal health record. It is not the complete legal health record.[facility]
--- OUTSIDE RECORDS SUMMARY | 2025-08-11 08:02 | XMS_ITS | Encounter Summary ---
Author Organization [facility] Address [address] [place] [address] Phone Care Team Providers Care Tissue Coordinator Name Role Phone Bassem Drew MD Primary Care Provider +1- [phone] Encounter Details Date Type Department Care Team (Late st Contact Info) Description 01/23/2017 Procedure Pass [facility] [address] [place] [address] Social History Tobacco Use Types Packs/Day Years [...] on filedocumented in this encounter Care Teams Tissue Coordinator Relationship Specialty Start Date End Date Bassem Drew MD PCP - General Internal Medicine 05/09/16 documented as of this encounter Additional Source Comments The information contained in this document represents components of the legal health record. It is not the complete legal health record.[facility]
--- OUTSIDE RECORDS SUMMARY | 2025-08-11 08:02 | XMS_ITS | Encounter Summary ---
Author Organization [facility] Address [address] [place] [address] Phone Care Team Providers Care Pediatric Physician Assistant Name Role Phone Bassem Drew MD Primary Care Provider +1- [phone] Encounter Details Date Type Department Care Team (Late st Contact Info) Description 01/23/2017 Procedure Pass [facility] Imaging [address] [place] [address] Social History Tobacco Use Types Packs/Day Years [...] on filedocumented in this encounter Care Teams Pediatric Physician Assistant Relationship Specialty Start Date End Date Bassem Drew MD PCP - General Internal Medicine 05/09/16 documented as of this encounter Additional Source Comments The information contained in this document represents components of the legal health record. It is not the complete legal health record.[facility]
--- OUTSIDE RECORDS SUMMARY | 2025-08-11 08:02 | XMS_ITS | Encounter Summary ---
Author Organization [facility] Address [address] [place] [address] Phone Care Team Providers Care Electronic Development Technician Name Role Phone Bassem Drew MD Primary Care Provider +1- [phone] Encounter Details Date Type Department Care Team (Late st Contact Info) Description 01/23/2017 Procedure Pass [facility] Imaging [address] [place] [address] Social History Tobacco Use Types Packs/Day Years [...] on filedocumented in this encounter Care Teams Electronic Development Technician Relationship Specialty Start Date End Date Bassem Drew MD PCP - General Internal Medicine 05/09/16 documented as of this encounter Additional Source Comments The information contained in this document represents components of the legal health record. It is not the complete legal health record.[facility]
--- OUTSIDE RECORDS SUMMARY | 2025-08-11 08:02 | XMS_ITS | Encounter Summary ---
Author Organization [facility] Address [address] [place] [address] Phone Care Team Providers Care Plywood Matcher Name Role Phone Bassem Drew MD Primary Care Provider +1- [phone] Encounter Details Date Type Department Care Team (Late st Contact Info) Description 01/23/2017 Procedure Pass [facility] Imaging [address] [place] [address] Social History Tobacco Use Types Packs/Day Years [...] on filedocumented in this encounter Care Teams Plywood Matcher Relationship Specialty Start Date End Date Bassem Drew MD PCP - General Internal Medicine 05/09/16 documented as of this encounter Additional Source Comments The information contained in this document represents components of the legal health record. It is not the complete legal health record.[facility]
== END 2025-08-11 08:39 | disposition home or self-care (01) ==
PROVIDERS: PCP Nurse Practitioner Family; Visit Provider Physician Assistant Medical
DX: J06.9 Acute upper respiratory infection, unspecified (principal)

== ENCOUNTER 2025-08-11 07:56 | Outpatient (REF) | payer OTHER, SELFPAY ==
[2025-08-11 11:54] LABS: Chlamydia pneumoniae PCR Not Detected (Not Detect.); Coronavirus 229E PCR Not Detected (Not Detect.); Coronavirus HKU1 PCR Not Detected (Not Detect.); Coronavirus NL63 PCR Not Detected (Not Detect.); Coronavirus OC43 PCR Not Detected (Not Detect.); RSV PCR Not Detected (Not Detect.); Rhino/Enterovirus PCR Not Detected (Not Detect.)
[2025-08-11 11:58] LABS: Influenza A H1 PCR Not Detected (Not Detect.); Influenza A H1-2009 PCR Not Detected (Not Detect.); Influenza A H3 PCR Not Detected (Not Detect.); SARS-CoV-2 PCR Not Detected (Not Detect.)
== END 2025-08-11 07:57 | disposition home or self-care (01) ==
LOC: HO.LNP 07:56
PROVIDERS: PCP Nurse Practitioner Family; Visit Provider Physician Assistant Medical
DX: J06.9 Acute upper respiratory infection, unspecified (principal); J45.909 Unspecified asthma, uncomplicated; R05.9 Cough, unspecified; R51.9 Headache, unspecified; R68.83 Chills (without fever); R07.0 Pain in throat; Z79.899 Other long term (current) drug therapy
CPT/HCPCS: 87633; 99212

== ENCOUNTER 2025-09-14 08:14 | Outpatient (AMB) | payer OTHER, SELFPAY ==
--- OUTSIDE RECORDS SUMMARY | 2012-08-07 23:00 | XMS_ITS | Encounter Summary ---
Author Organization [facility] Address [address] [place] [address] Phone Care Team Providers Care Wrapping Clerk Name Role Phone Unavailable Primary Care Provider Unavailabl e Reason for Visit * MRI/CAT Scan - Closed Specialty Diagnoses / Procedures Referred By Contac t Referred To Contact Procedures MRI Spine (Neuro) Outside (No Interpretation) Denny Riggs MD [address] [place] [address] Phone: tel: fax: mailto:[email or web address] Referral ID Status Reason Start Date Expiration Date Visits Re quested Visits Authorized [id number] Closed 01/23/2017 01/23/2018 1 1 Encounter Details Date Type Department Care Team ([facility] st Contact Info) Description 08/08/2012 Hospital Encounter [facility] General Imaging [address] [place] [address] Denny Riggs MD [address] [place] [address] [email or web address] Social History Tobacco Use Types Packs/Day Years Used Date Smoking Tobacco: Never Education Answer Date Recorded Are you interested in more education? Not on hoang e 03/10/2023 Are you concerned about learning? Not on file 03/10/2023 No 03/10/2023 No 03/10/2023 Digital Access Answer Date Recorded No 04/07/2023 No 04/07/2023 No 04/07/2023 Reliable internet access at home? Not on file 04/07/2023 Device with a working camera? Not on file Comments Unknown Sex and Gender Information Value Date Recorded Sex Assigned at Not on file Legal Sex Female 5:13 PM EST Gender Identity Not on file Sexual Orientation Not on file documented as of this encounter Plan of Treatment Not on file documented as of this encounter Procedures Procedure Name Priority Date/Time Associated Diagnosis Comments MRI SPINE NEUROLOGIC FOCUS OUTSIDE (NO INTERPRETATION) Routine 08/08/2012 12:00 AM EDT documented in this encounter Results * MRI Spine (Neuro) Outside (No Interpretation) (08/08/2012 12:00 AM EDT) Narrative [facility] IMG INTERFACES - 01/23/2017 5:51 PM EDT This study is for PACS storage only and not for interpretation. Denny Riggs MD IMG OUTSIDE IMAGING W /OUT INTERPRETATION Final Result [facility] IMG INTERFACES documented in this encounter Visit Diagnoses Not on filedocumented in this encounter Additional Source Comments The information contained in this document represents components of the legal health record. It is not the complete legal health record.[facility]
--- OUTSIDE RECORDS SUMMARY | 2012-08-07 23:15 | XMS_ITS | Encounter Summary ---
Author Organization [facility] Address [address] [place] [address] Phone Care Team Providers Care Food Service Worker [facility] Name Role Phone Unavailable Primary Care Provider Unavailabl e Reason for Visit * MRI/CAT Scan - Closed Specialty Diagnoses / Procedures Referred By Contac t Referred To Contact Procedures MRI Spine (Neuro) Outside (No Interpretation) Denny Riggs MD [address] [place] [address] Phone: tel: fax: mailto:[email or web address] Referral ID Status Reason Start Date Expiration Date Visits Re quested Visits Authorized [id number] Closed 01/23/2017 01/23/2018 1 1 Encounter Details Date Type Department Care Team ([facility] st Contact Info) Description 08/08/2012 12:15 AM EDT Hospital Encounter [facility] General Imaging [address] [place] [address] Denny Riggs MD [address] [place], [place] [phone] [email or web address] Social History Tobacco Use Types Packs/Day Years [...] (No Interpretation) (08/08/2012 12:15 AM EDT) Narrative [facility] IMG INTERFACES - 01/23/2017 5:52 PM EDT This study is for PACS storage only and not for interpretation. us Denny Riggs MD IMG OUTSIDE IMAGING W /OUT INTERPRETATION Final Result [facility] IMG INTERFACES documented in this encounter Visit Diagnoses Not on filedocumented in this encounter Additional Source Comments The information contained in this document represents components of the legal health record. It is not the complete legal health record.[facility]
--- OUTSIDE RECORDS SUMMARY | 2013-09-29 | XMS_ITS | Encounter Summary ---
Author Organization [facility] Address [address] [place] [address] Phone Care Team Providers Care Medical Service Representative Name Role Phone Unavailable Primary Care Provider Unavailabl e Reason for Visit * MRI/CAT Scan - Closed Specialty Diagnoses / Procedures Referred By Contac t Referred To Contact Procedures MRI Spine (Neuro) Outside (No Interpretation) Denny Riggs MD [address] [place] [address] Phone: tel: fax: mailto:[email or web address] Referral ID Status Reason Start Date Expiration Date Visits Re quested Visits Authorized [id number] Closed 01/23/2017 01/23/2018 1 1 Encounter Details Date Type Department Care Team ([facility] st Contact Info) Description 09/29/2013 Hospital Encounter [facility] General Imaging [address] [place] [address] Denny Riggs MD [address] [place], [place] [phone] [email or web address] Social History Tobacco Use Types Packs/Day Years [...] (No Interpretation) (09/29/2013 12:00 AM EST) Narrative [facility] IMG INTERFACES - 01/23/2017 5:52 PM EDT This study is for PACS storage only and not for interpretation. us Denny Riggs MD IMG OUTSIDE IMAGING W /OUT INTERPRETATION Final Result [facility] IMG INTERFACES documented in this encounter Visit Diagnoses Not on filedocumented in this encounter Additional Source Comments The information contained in this document represents components of the legal health record. It is not the complete legal health record.[facility]
--- OUTSIDE RECORDS SUMMARY | 2013-09-29 00:15 | XMS_ITS | Encounter Summary ---
Author Organization [facility] Address [address] [place] [address] Phone Care Team Providers Care Greenskeeper Name Role Phone Unavailable Primary Care Provider Unavailabl e Reason for Visit * MRI/CAT Scan - Closed Specialty Diagnoses / Procedures Referred By Contac t Referred To Contact Procedures MRI Spine (Neuro) Outside (No Interpretation) Denny Riggs MD [address] [place] [address] Phone: tel: fax: mailto:[email or web address] Referral ID Status Reason Start Date Expiration Date Visits Re quested Visits Authorized [id number] Closed 01/23/2017 01/23/2018 1 1 Encounter Details Date Type Department Care Team ([facility] st Contact Info) Description 09/29/2013 12:15 AM [facility] Hospital Encounter [facility] General Imaging [address] [place] [address] Denny Riggs MD [address] [place], [place] [phone] [email or web address] Social History Tobacco Use Types Packs/Day Years [...] (No Interpretation) (09/29/2013 12:15 AM EST) Narrative [facility] [place] [place] - 01/23/2017 5:52 PM EDT This study is for PACS storage only and not for interpretation. us Denny Riggs MD IMG OUTSIDE IMAGING W /OUT INTERPRETATION Final Result [facility] [place] documented in this encounter Visit Diagnoses Not on filedocumented in this encounter Additional Source Comments The information contained in this document represents components of the legal health record. It is not the complete legal health record.[facility]
--- OUTSIDE RECORDS SUMMARY | 2013-10-05 | XMS_ITS | Encounter Summary ---
Author Organization [facility] Address [address] [place] [address] Phone Care Team Providers Care Solar Thermal Installer Name Role Phone Unavailable Primary Care Provider Unavailabl e Reason for Visit * MRI/CAT Scan - Closed Specialty Diagnoses / Procedures Referred By Contac t Referred To Contact Procedures MRI Spine (Neuro) Outside (No Interpretation) Denny Riggs MD [address] [place] [address] Phone: tel: fax: mailto:[email or web address] Referral ID Status Reason Start Date Expiration Date Visits Re quested Visits Authorized [id number] Closed 01/23/2017 01/23/2018 1 1 Encounter Details Date Type Department Care Team ([facility] st Contact Info) Description 10/05/2013 Hospital Encounter [facility] General Imaging [address] [place] [address] Denny Riggs MD [address] [place] [address] [email or web address] Social History Tobacco Use Types Packs/Day Years [...] (No Interpretation) (10/05/2013 12:00 AM EST) Narrative [facility]G INTERFACES - 01/23/2017 5:53 PM EDT This study is for PACS storage only and not for interpretation. us Denny Riggs MD IMG OUTSIDE IMAGING W /OUT INTERPRETATION Final Result [facility] documented in this encounter Visit Diagnoses Not on filedocumented in this encounter Additional Source Comments The information contained in this document represents components of the legal health record. It is not the complete legal health record.[facility]
--- OUTSIDE RECORDS SUMMARY | 2013-10-05 00:15 | XMS_ITS | Encounter Summary ---
Author Organization [facility] Address [address] [facility] [address] [place] [address] Phone Care Team Providers Care Machine Feller Name Role Phone Unavailable Primary Care Provider Unavailabl e Reason for Visit * MRI/CAT Scan - Closed Specialty Diagnoses / Procedures Referred By Contac t Referred To Contact Procedures MRI Spine (Neuro) Outside (No Interpretation) Denny Riggs MD [address] [place] [address] Phone: tel: fax: mailto:[email or web address] Referral ID Status Reason Start Date Expiration Date Visits Re quested Visits Authorized [id number] Closed 01/23/2017 01/23/2018 1 1 Encounter Details Date Type Department Care Team ([facility] st Contact Info) Description 10/05/2013 12:15 AM [facility] Hospital Encounter [facility] General Imaging [address] [place] [address] Denny Riggs MD [address] [place], [place] [phone] [email or web address] Social History Tobacco Use Types Packs/Day Years [...] NEUROLOGIC FOCUS OUTSIDE (NO INTERPRETATION) Routine 10/05/2013 12:15 AM EST documented in this encounter Results * MRI Spine (Neuro) Outside (No Interpretation) (10/05/2013 12:15 AM EST) Narrative [facility] IMG INTERFACES - 01/23/2017 5:53 PM EDT This study is for PACS storage only and not for interpretation. us Denny Riggs MD IMG OUTSIDE IMAGING W /OUT INTERPRETATION Final Result [facility] IMG INTERFACES documented in this encounter Visit Diagnoses Not on filedocumented in this encounter Additional Source Comments The information contained in this document represents components of the legal health record. It is not the complete legal health record.[facility]
--- OUTSIDE RECORDS SUMMARY | 2013-10-05 00:30 | XMS_ITS | Encounter Summary ---
Author Organization [facility] Address [address] [facility] [address] [place] [address] Phone Care Team Providers Care Senior Fund Accountant Name Role Phone Unavailable Primary Care Provider Unavailabl e Reason for Visit * MRI/CAT Scan - Closed Specialty Diagnoses / Procedures Referred By Contac t Referred To Contact Procedures MRI Spine (Neuro) Outside (No Interpretation) Denny Riggs MD [address] [place] [address] Phone: tel: fax: mailto: Referral ID Status Reason Start Date Expiration Date Visits Re quested Visits Authorized [id number] Closed 01/23/2017 01/23/2018 1 1 Encounter Details Date Type Department Care Team ([facility] st Contact Info) Description 10/05/2013 12:30 AM [facility] Hospital Encounter [facility] General Imaging [address] [place] [address] Denny Riggs MD [address] [place], [place] [phone] Social History Tobacco Use Types Packs/Day Years [...] NEUROLOGIC FOCUS OUTSIDE (NO INTERPRETATION) Routine 10/05/2013 12:30 AM EST documented in this encounter Results * MRI Spine (Neuro) Outside (No Interpretation) (10/05/2013 12:30 AM EST) Narrative [facility] IMG INTERFACES - 01/23/2017 5:54 PM EDT This study is for PACS storage only and not for interpretation. us Denny Riggs MD IMG OUTSIDE IMAGING W /OUT INTERPRETATION Final Result [facility]G INTERFACES documented in this encounter Visit Diagnoses Not on filedocumented in this encounter Additional Source Comments The information contained in this document represents components of the legal health record. It is not the complete legal health record.[facility]
--- OUTSIDE RECORDS SUMMARY | 2013-10-05 00:45 | XMS_ITS | Encounter Summary ---
Author Organization [facility] Address [address] [facility] [address] [place] [address] Phone Care Team Providers Care Dude Wrangler Name Role Phone Unavailable Primary Care Provider Unavailabl e Reason for Visit * MRI/CAT Scan - Closed Specialty Diagnoses / Procedures Referred By Contac t Referred To Contact Procedures MRI Spine (Neuro) Outside (No Interpretation) Denny Riggs MD [address] [place] [address] Phone: tel: fax: mailto:[email or web address] Referral ID Status Reason Start Date Expiration Date Visits Re quested Visits Authorized [id number] Closed 01/23/2017 01/23/2018 1 1 Encounter Details Date Type Department Care Team ([facility] st Contact Info) Description 10/05/2013 12:45 AM [facility] Hospital Encounter [facility] General Imaging [address] [place] [address] Denny Riggs MD [address] [place], [place] [phone] [email or web address] Social History Tobacco Use Types Packs/Day Years [...] (No Interpretation) (10/05/2013 12:45 AM EST) Narrative [facility] [place] [place] - 01/23/2017 5:54 PM EDT This study is for PACS storage only and not for interpretation. us Denny Riggs MD IMG OUTSIDE IMAGING W /OUT INTERPRETATION Final Result [facility] documented in this encounter Visit Diagnoses Not on filedocumented in this encounter Additional Source Comments The information contained in this document represents components of the legal health record. It is not the complete legal health record.[facility]
--- OUTSIDE RECORDS SUMMARY | 2013-11-10 | XMS_ITS | Encounter Summary ---
Author Organization [facility] Address [address] [facility] [address] [place] [address] Phone Care Team Providers Care Senior Sql Server Dba Name Role Phone Unavailable Primary Care Provider Unavailabl e Reason for Visit * MRI/CAT Scan - Closed Specialty Diagnoses / Procedures Referred By Contac t Referred To Contact Procedures MRI Spine (Neuro) Outside (No Interpretation) Denny Riggs MD [address] [place] [address] Phone: tel: fax: mailto:[email or web address] Referral ID Status Reason Start Date Expiration Date Visits Re quested Visits Authorized [id number] Closed 01/23/2017 01/23/2018 1 1 Encounter Details Date Type Department Care Team ([facility] st Contact Info) Description 11/10/2013 Hospital Encounter [facility] General Imaging [address] [place] [address] Denny Riggs MD [address] [place], [place] [phone] [email or web address] Social History Tobacco Use Types Packs/Day Years [...] (No Interpretation) (11/10/2013 12:00 AM EST) Narrative [facility] IMG INTERFACES - 01/23/2017 5:54 PM EDT This study is for PACS storage only and not for interpretation. us Denny Riggs MD IMG OUTSIDE IMAGING W /OUT INTERPRETATION Final Result [facility] IMG INTERFACES documented in this encounter Visit Diagnoses Not on filedocumented in this encounter Additional Source Comments The information contained in this document represents components of the legal health record. It is not the complete legal health record.[facility]
--- OUTSIDE RECORDS SUMMARY | 2013-12-23 | XMS_ITS | Encounter Summary ---
Author Organization [facility] Address [address] [place] [address] Phone Care Team Providers Care Stove Carriage Operator Name Role Phone Unavailable Primary Care Provider Unavailabl e Reason for Visit * MRI/CAT Scan - Closed Specialty Diagnoses / Procedures Referred By Contac t Referred To Contact Procedures MRI Spine (Neuro) Outside (No Interpretation) Denny Riggs MD [address] [place] [address] Phone: tel: fax: mailto:[email or web address] Referral ID Status Reason Start Date Expiration Date Visits Re quested Visits Authorized [id number] Closed 01/23/2017 01/23/2018 1 1 Encounter Details Date Type Department Care Team ([facility] st Contact Info) Description 12/23/2013 Hospital Encounter [facility] General Imaging [address] [place] [address] Denny Riggs MD [address] [place], [place] [phone] [email or web address] Social History Tobacco Use Types Packs/Day Years [...] SPINE NEUROLOGIC FOCUS OUTSIDE (NO INTERPRETATION) Routine 12/23/2013 12:00 AM EST documented in this encounter Results * MRI Spine (Neuro) Outside (No Interpretation) (12/23/2013 12:00 AM EST) Narrative [facility] [place] - 01/23/2017 5:55 PM EDT This study is for PACS storage only and not for interpretation. us Denny Riggs MD IMG OUTSIDE IMAGING W /OUT INTERPRETATION Final Result [facility] [place] [facility] [place] documented in this encounter Visit Diagnoses Not on filedocumented in this encounter Additional Source Comments The information contained in this document represents components of the legal health record. It is not the complete legal health record.[facility]
--- OUTSIDE RECORDS SUMMARY | 2013-12-23 00:15 | XMS_ITS | Encounter Summary ---
Author Organization [facility] Address [address] [facility] [address] [place] [address] Phone Care Team Providers Care It Service Continuity Supervisor Name Role Phone Unavailable Primary Care Provider Unavailabl e Reason for Visit * MRI/CAT Scan - Closed Specialty Diagnoses / Procedures Referred By Contac t Referred To Contact Procedures MRI Spine (Neuro) Outside (No Interpretation) Denyn Riggs MD [address] [place] [address] Phone: tel: fax: mailto:[email or web address] Referral ID Status Reason Start Date Expiration Date Visits Re quested Visits Authorized [id number] Closed 01/23/2017 01/23/2018 1 1 Encounter Details Date Type Department Care Team ([facility] st Contact Info) Description 12/23/2013 12:15 AM [facility] Hospital Encounter [facility] General Imaging [address] [place] [address] Denny Riggs MD [address] [place], [place] [phone] [email or web address] Social History Tobacco Use Types Packs/Day Years [...] (No Interpretation) (12/23/2013 12:15 AM EST) Narrative [facility] [place] - 01/23/2017 5:56 PM EDT This study is for PACS storage only and not for interpretation. us Denny Riggs MD IMG OUTSIDE IMAGING W /OUT INTERPRETATION Final Result [facility] [place] documented in this encounter Visit Diagnoses Not on filedocumented in this encounter Additional Source Comments The information contained in this document represents components of the legal health record. It is not the complete legal health record.[facility]
--- OUTSIDE RECORDS SUMMARY | 2014-05-17 23:00 | XMS_ITS | Encounter Summary ---
Author Organization [facility] Address [address] [place] [address] Phone Care Team Providers Care Textile Slitting Machine Operator Name Role Phone Unavailable Primary Care Provider Unavailabl e Reason for Visit * MRI/CAT Scan - Closed Specialty Diagnoses / Procedures Referred By Contac t Referred To Contact Procedures MRI Spine (Neuro) Outside (No Interpretation) Denny Riggs MD [address] [place] [address] Phone: tel: fax: mailto:[email or web address] Referral ID Status Reason Start Date Expiration Date Visits Re quested Visits Authorized [id number] Closed 01/23/2017 01/23/2018 1 1 Encounter Details Date Type Department Care Team ([facility] st Contact Info) Description 05/18/2014 Hospital Encounter [facility] General Imaging [address] [place] [address] Denny Riggs MD [address] [place], [place] [phone] [email or web address] Social History Tobacco Use Types Packs/Day Years [...] SPINE NEUROLOGIC FOCUS OUTSIDE (NO INTERPRETATION) Routine 05/18/2014 12:00 AM EDT documented in this encounter Results * MRI Spine (Neuro) Outside (No Interpretation) (05/18/2014 12:00 AM EDT) Narrative [facility] IMG INTERFACES - 01/23/2017 5:42 PM EDT This study is for PACS [...] It is not the complete legal health record.[facility]
--- OUTSIDE RECORDS SUMMARY | 2014-05-17 23:15 | XMS_ITS | Encounter Summary ---
Author Organization [facility] Address [address] [place] [address] Phone Care Team Providers Care Field Evidence Technician Name Role Phone Unavailable Primary Care Provider Unavailabl e Reason for Visit * MRI/CAT Scan - Closed Specialty Diagnoses / Procedures Referred By Contac t Referred To Contact Procedures MRI Spine (Neuro) Outside (No Interpretation) Denny Riggs MD [address] [place] [address] Phone: tel: fax: mailto:[email or web address] Referral ID Status Reason Start Date Expiration Date Visits Re quested Visits Authorized [id number] Closed 01/23/2017 01/23/2018 1 1 Encounter Details Date Type Department Care Team ([facility] st Contact Info) Description 05/18/2014 12:15 AM EDT Hospital Encounter [facility] General Imaging [address] [place] [address] Denny Riggs MD [address] [place], [place] [phone] [email or web address] Social History Tobacco Use Types Packs/Day Years [...] (No Interpretation) (05/18/2014 12:15 AM EDT) Narrative [facility] [place] - 01/23/2017 5:56 PM EDT This study is for PACS storage only and not for interpretation. us Denny Riggs MD IMG OUTSIDE IMAGING W /OUT INTERPRETATION Final Result [facility] documented in this encounter Visit Diagnoses Not on filedocumented in this encounter Additional Source Comments The information contained in this document represents components of the legal health record. It is not the complete legal health record.[facility]
--- OUTSIDE RECORDS SUMMARY | 2014-12-05 | XMS_ITS | Encounter Summary ---
Author Organization [facility] Address [address] [place] [address] Phone Care Team Providers Care Optometrist Name Role Phone Unavailable Primary Care Provider Unavailabl e Reason for Visit * MRI/CAT Scan - Closed Specialty Diagnoses / Procedures Referred By Contac t Referred To Contact Procedures MRI Spine (Neuro) Outside (No Interpretation) Denny Riggs MD [address] [place] [address] Phone: tel: fax: mailto:[email or web address] Referral ID Status Reason Start Date Expiration Date Visits Re quested Visits Authorized [id number] Closed 01/23/2017 01/23/2018 1 1 Encounter Details Date Type Department Care Team ([facility] st Contact Info) Description 12/05/[address] [facility] General Imaging [address] [place] [address] Denny Riggs MD [address] [place] [address] [email or web address] Social History Tobacco Use Types Packs/Day Years [...] SPINE NEUROLOGIC FOCUS OUTSIDE (NO INTERPRETATION) Routine 12/05/2014 12:00 AM EST documented in this encounter Results * MRI Spine (Neuro) Outside (No Interpretation) (12/05/2014 12:00 AM EST) Narrative [facility] [place] - 01/23/2017 5:42 PM EDT This study is for PACS storage only and not for interpretation. us Denny Riggs MD IMG OUTSIDE IMAGING W /OUT INTERPRETATION Final Result [facility] documented in this encounter Visit Diagnoses Not on filedocumented in this encounter Additional Source Comments The information contained in this document represents components of the legal health record. It is not the complete legal health record.[facility]
--- OUTSIDE RECORDS SUMMARY | 2015-04-26 23:00 | XMS_ITS | Encounter Summary ---
Author Organization [facility] Address [address] [place] [address] Phone Care Team Providers Care Whey Department Operator Name Role Phone Unavailable Primary Care Provider Unavailabl e Reason for Visit * MRI/CAT Scan - Closed Specialty Diagnoses / Procedures Referred By Contac t Referred To Contact Procedures MRI Spine (Neuro) Outside (No Interpretation) Denny Riggs MD [address] [place] [address] Phone: tel: fax: mailto:[email or web address] Referral ID Status Reason Start Date Expiration Date Visits Re quested Visits Authorized [id number] Closed 01/23/2017 01/23/2018 1 1 Encounter Details Date Type Department Care Team ([facility] st Contact Info) Description 04/27/2015 Hospital Encounter [facility] General Imaging [address] [place] [address] Denny Riggs MD [address] [place], [place] [phone] [email or web address] Social History Tobacco Use Types Packs/Day Years [...] SPINE NEUROLOGIC FOCUS OUTSIDE (NO INTERPRETATION) Routine 04/27/2015 12:00 AM EDT documented in this encounter Results * MRI Spine (Neuro) Outside (No Interpretation) (04/27/2015 12:00 AM EDT) Narrative [facility] [place]G INTERFACES - 01/23/2017 5:43 PM EDT This study is for PACS storage only and not for interpretation. Denny Riggs MD IMG OUTSIDE IMAGING W /OUT INTERPRETATION Final Result [facility]G INTERFACES documented in this encounter Visit Diagnoses Not on filedocumented in this encounter Additional Source Comments The information contained in this document represents components of the legal health record. It is not the complete legal health record.[facility]
--- OUTSIDE RECORDS SUMMARY | 2015-10-28 | XMS_ITS | Encounter Summary ---
Author Organization [facility] Address [address] [place] [address] Phone Care Team Providers Care Fiberglass Insulation Installer Name Role Phone Unavailable Primary Care Provider Unavailabl e Reason for Visit * MRI/CAT Scan - Closed Specialty Diagnoses / Procedures Referred By Contac t Referred To Contact Procedures MRI Spine (Neuro) Outside (No Interpretation) Denny Riggs MD [address] [place] [address] Phone: tel: fax: mailto:[email or web address] Referral ID Status Reason Start Date Expiration Date Visits Re quested Visits Authorized [id number] Closed 01/23/2017 01/23/2018 1 1 Encounter Details Date Type Department Care Team ([facility] st Contact Info) Description 10/28/2015 Hospital Encounter [facility] General Imaging [address] [place] [address] Denny Riggs MD [address] [place], [place] [phone] [email or web address] Social History Tobacco Use Types Packs/Day Years [...] SPINE NEUROLOGIC FOCUS OUTSIDE (NO INTERPRETATION) Routine 10/28/2015 12:00 AM EST documented in this encounter Results * MRI Spine (Neuro) Outside (No Interpretation) (10/28/2015 12:00 AM EST) Narrative [facility] IMG INTERFACES - 01/23/2017 5:43 PM EDT This study is for PACS storage only and not for interpretation. us Denny Riggs MD IMG OUTSIDE IMAGING W /OUT INTERPRETATION Final Result [facility] IMG INTERFACES documented in this encounter Visit Diagnoses Not on filedocumented in this encounter Additional Source Comments The information contained in this document represents components of the legal health record. It is not the complete legal health record.[facility]
--- OUTSIDE RECORDS SUMMARY | 2015-10-28 00:15 | XMS_ITS | Encounter Summary ---
Author Organization [facility] Address [address] [place] [address] Phone Care Team Providers Care Cigar Brander Name Role Phone Unavailable Primary Care Provider Unavailabl e Reason for Visit * MRI/CAT Scan - Closed Specialty Diagnoses / Procedures Referred By Contac t Referred To Contact Procedures MRI Spine (Neuro) Outside (No Interpretation) Denny Riggs MD [address] [place] [address] Phone: tel: fax: mailto:[email or web address] Referral ID Status Reason Start Date Expiration Date Visits Re quested Visits Authorized [id number] Closed 01/23/2017 01/23/2018 1 1 Encounter Details Date Type Department Care Team ([facility] st Contact Info) Description 10/28/2015 12:15 AM [facility] Hospital Encounter [facility] General Imaging [address] [place] [address] Denny Riggs MD [address] [place], [place] [phone] [email or web address] Social History Tobacco Use Types Packs/Day Years [...] (No Interpretation) (10/28/2015 12:15 AM EST) Narrative [facility] [place] [place] - 01/23/2017 5:44 PM EDT [...] It is not the complete legal health record.[facility]
--- OUTSIDE RECORDS SUMMARY | 2016-09-13 23:00 | XMS_ITS | Encounter Summary ---
Author Organization [facility] Address [address] [facility] [address] [place] [address] Phone Care Team Providers Care Bottom Worker Name Role Phone Bassem Drew MD Primary Care Provider +1- [phone] Reason for Visit * MRI/CAT Scan - Closed Specialty Diagnoses / Procedures Referred By Contac t Referred To Contact Procedures MRI Spine (Neuro) Focus Outside With Interpretation Or Consult Ewa Richmond MD [address] [place] [address] Phone: tel: fax: mailto:[email or web address] Referral ID Status Reason Start Date Expiration Date Visits Re quested Visits Authorized [id number] Closed 10/03/2016 10/03/2017 1 1 Encounter Details Date Type Department Care Team ([facility] st Contact Info) Description 09/14/2016 Hospital Encounter [facility] General Imaging [address] [place] [address] Ewa Richmond MD [address] [place] [address] [email or web address] Social History Tobacco Use Types Packs/Day Years [...] AM EDT) 10/03/2016 1:34 PM EST Impressions [facility] - 10/03/2016 1:55 PM EST Postsurgical [...] with the referring clinician, EWA RICHMOND. Narrative [facility] - 10/03/2016 1:55 PM EST Interpretation [...] INTERP RETATION Final Result Performing Organization Address City/State/[facility] [place] Phone Number [facility] [address] [facility] [place] [address] documented in this encounter Visit Diagnoses Not on filedocumented in this encounter Care Teams Bottom Worker Relationship Specialty Start Date End Date Bassem Drew MD [email or web address] PCP - General Internal Medicine 05/09/16 documented as of this encounter Additional Source Comments The information contained in this document represents components of the legal health record. It is not the complete legal health record.[facility]
--- OUTSIDE RECORDS SUMMARY | 2016-09-13 23:15 | XMS_ITS | Encounter Summary ---
Author Organization [facility] Address [address] [facility] [address] [place] [address] Phone Care Team Providers Care Epidemiology Internship Name Role Phone Bassem Drew MD Primary Care Provider +1- [phone] Reason for Visit * MRI/CAT Scan - Closed Specialty Diagnoses / Procedures Referred By Contac t Referred To Contact Procedures MRI Spine (Neuro) Focus Outside With Interpretation Or Consult Ewa Richmond MD [address] [place] [address] Phone: tel: fax: mailto:[email or web address] Referral ID Status Reason Start Date Expiration Date Visits Re quested Visits Authorized [id number] Closed 10/03/2016 10/03/2017 1 1 Encounter Details Date Type Department Care Team ([facility] st Contact Info) Description 09/14/2016 12:15 AM EDT Hospital Encounter [facility] General Imaging [address] [place] [address] Ewa Richmond MD [address] [place], [place] [id number] [email or web address] Social History Tobacco Use Types Packs/Day Years [...] OUTSIDE WITH INTERPRETATION OR CONSULT Routine 09/14/2016 12:15 AM EDT documented in this encounter Results * MRI Spine (Neuro) Focus Outside With Interpretation Or Consult (09/14/2016 12:15 AM EDT) 10/03/2016 1:34 PM EST Impressions [facility] - 10/03/2016 1:55 PM EST Postsurgical [...] with the referring clinician, EWA RICHMOND. Narrative [facility] - 10/03/2016 1:55 PM EST Interpretation [...] INTERP RETATION Final Result Performing Organization Address City/State/[facility] Co id Phone Number [facility] [address] [facility] [address] documented in this encounter Visit Diagnoses Not on filedocumented in this encounter Care Teams Epidemiology Internship Relationship Specialty Start Date End Date Bassem Drew MD [email or web address] PCP - General Internal Medicine 05/09/16 documented as of this encounter Additional Source Comments The information contained in this document represents components of the legal health record. It is not the complete legal health record.[facility]
--- OUTSIDE RECORDS SUMMARY | 2016-09-13 23:30 | XMS_ITS | Encounter Summary ---
Author Organization [facility] Address [address] [facility] [address] [place] [address] Phone Care Team Providers Care Pcb Designer Name Role Phone Bassem Drew MD Primary Care Provider +1- [phone] Reason for Visit * MRI/CAT Scan - Closed Specialty Diagnoses / Procedures Referred By Contac t Referred To Contact Procedures MRI Spine (Neuro) Focus Outside With Interpretation Or Consult Ewa Richmond MD [address] [place] [address] Phone: tel: fax: mailto:[email or web address] Referral ID Status Reason Start Date Expiration Date Visits Re quested Visits Authorized [id number] Closed 10/03/2016 10/03/2017 1 1 Encounter Details Date Type Department Care Team ([facility] st Contact Info) Description 09/14/2016 12:30 AM EDT Hospital Encounter [facility] General Imaging [address] [place] [address] Ewa Richmond MD [address] [place], [place] [id number] [email or web address] Social History Tobacco Use Types Packs/Day [...] AM EDT) 10/03/2016 1:34 PM EST Impressions [facility] - 10/03/2016 1:55 PM EST Postsurgical [...] with the referring clinician, EWA RICHMOND. Narrative [facility] - 10/03/2016 1:55 PM EST Interpretation [...] INTERP RETATION Final Result Performing Organization Address City/State/[facility] [place] Phone Number [facility] [address] [place] [address] documented in this encounter Visit Diagnoses Not on filedocumented in this encounter Care Teams Pcb Designer Relationship Specialty Start Date End Date Bassem Drew MD [email or web address] PCP - General Internal Medicine 05/09/16 documented as of this encounter Additional Source Comments The information contained in this document represents components of the legal health record. It is not the complete legal health record.[facility]
--- OUTSIDE RECORDS SUMMARY | 2017-01-16 | XMS_ITS | Encounter Summary ---
Author Organization [facility] Address [address] [facility] [address] [place] [address] Phone Care Team Providers Care Acquisition Cost Estimator Name Role Phone Bassem Drew MD Primary Care Provider +1- [phone] Reason for Visit * MRI/CAT Scan - Closed Specialty Diagnoses / Procedures Referred By Contac t Referred To Contact Procedures MRI Spine (Neuro) Outside (No Interpretation) Denny Riggs MD [address] [place] [address] Phone: tel: fax: mailto:[email or web address] Referral ID Status Reason Start Date Expiration Date Visits Re quested Visits Authorized [id number] Closed 01/23/2017 01/23/2018 1 1 Encounter Details Date Type Department Care Team ([facility] st Contact Info) Description 01/16/2017 Hospital Encounter [facility] General Imaging [address] [place] [address] Denny Riggs MD [address] [place] [address] Social History Tobacco Use Types Packs/Day Years [...] (No Interpretation) (01/16/2017 12:00 AM EST) Narrative [facility] [place] [place]G INTERFACES - 01/23/2017 11:23 AM EDT This study is for PACS storage only and not for interpretation. us Denny Riggs MD IMG OUTSIDE IMAGING W /OUT INTERPRETATION Final Result [facility] [place] [place] [facility] documented in this encounter Visit Diagnoses Not on filedocumented in this encounter Care Teams Acquisition Cost Estimator Relationship Specialty Start Date End Date Bassem Drew MD [email or web address] PCP - General Internal Medicine 05/09/16 documented as of this encounter Additional Source Comments The information contained in this document represents components of the legal health record. It is not the complete legal health record.[facility]
--- OUTSIDE RECORDS SUMMARY | 2025-09-14 08:33 | XMS_ITS | Encounter Summary ---
Author Organization [facility] Address [address] [place] [address] Phone Care Team Providers Care Core Java Software Engineer Name Role Phone Bassem Drew MD Primary Care Provider +1- [phone] Encounter Details Date Type Department Care Team (Late st Contact Info) Description 01/23/2017 Procedure Pass [facility] [address] [place] [address] Social History Tobacco Use Types Packs/Day Years [...] on filedocumented in this encounter Care Teams Core Java Software Engineer Relationship Specialty Start Date End Date Bassem Drew MD PCP - General Internal Medicine 05/09/16 documented as of this encounter Additional Source Comments The information contained in this document represents components of the legal health record. It is not the complete legal health record.[facility]
--- OUTSIDE RECORDS SUMMARY | 2025-09-14 08:33 | XMS_ITS | Encounter Summary ---
Author Organization [facility] Address [address] [place] [address] Phone Care Team Providers Care Meal Room Hand Name Role Phone Bassem Drew MD Primary Care Provider +1- [phone] Encounter Details Date Type Department Care Team (Late st Contact Info) Description 01/23/2017 Procedure Pass [facility] Imaging [address] [place] [address] Social History Tobacco Use Types Packs/Day Years [...] on filedocumented in this encounter Care Teams Meal Room Hand Relationship Specialty Start Date End Date Bassem Drew MD PCP - General Internal Medicine 05/09/16 documented as of this encounter Additional Source Comments The information contained in this document represents components of the legal health record. It is not the complete legal health record.[facility]
--- OUTSIDE RECORDS SUMMARY | 2025-09-14 08:33 | XMS_ITS | Encounter Summary ---
Author Organization [facility] Address [address] [place] [address] Phone Care Team Providers Care Director Of Partner Marketing Name Role Phone Bassem Drew MD Primary Care Provider +1- [phone] Encounter Details Date Type Department Care Team (Late st Contact Info) Description 01/23/2017 Procedure Pass [facility] Imaging [address] [place] [address] Social History Tobacco Use Types Packs/Day Years [...] filedocumented in this encounter Care Teams Director Of Partner Marketing Relationship Specialty Start Date End Date Bassem Drew MD PCP - General Internal Medicine 05/09/16 documented as of this encounter Additional Source Comments The information contained in this document represents components of the legal health record. It is not the complete legal health record.[facility]
--- OUTSIDE RECORDS SUMMARY | 2025-09-14 08:33 | XMS_ITS | Encounter Summary ---
Author Organization [facility] Address [address] [place] [address] Phone Care Team Providers Care Milk Bottling Machine Operator Name Role Phone Bassem Drew MD Primary Care Provider +1- [phone] Encounter Details Date Type Department Care Team (Late st Contact Info) Description 01/23/2017 Procedure Pass [facility] [address] [place] [address] Social History Tobacco Use Types Packs/Day Years [...] on filedocumented in this encounter Care Teams Milk Bottling Machine Operator Relationship Specialty Start Date End Date Bassem Drew MD PCP - General Internal Medicine 05/09/16 documented as of this encounter Additional Source Comments The information contained in this document represents components of the legal health record. It is not the complete legal health record.[facility]
--- OUTSIDE RECORDS SUMMARY | 2025-09-14 08:33 | XMS_ITS | Encounter Summary ---
Author Organization [facility] Address [address] [place] [address] Phone Care Team Providers Care Special Trackwork Blacksmith Name Role Phone Bassem Drew MD Primary Care Provider +1- [phone] Encounter Details Date Type Department Care Team (Late st Contact Info) Description 01/23/2017 Procedure Pass [facility] Imaging [address] [place] [address] Social History Tobacco Use Types Packs/Day Years [...] on filedocumented in this encounter Care Teams Special Trackwork Blacksmith Relationship Specialty Start Date End Date Bassem Drew MD PCP - General Internal Medicine 05/09/16 documented as of this encounter Additional Source Comments The information contained in this document represents components of the legal health record. It is not the complete legal health record.[facility]
--- OUTSIDE RECORDS SUMMARY | 2025-09-14 08:33 | XMS_ITS | Encounter Summary ---
Author Organization [facility] Address [address] [place] [address] Phone Care Team Providers Care Coronary Care Unit Nurse Name Role Phone Bassem Drew MD Primary Care Provider +1- [phone] Encounter Details Date Type Department Care Team (Late st Contact Info) Description 01/23/2017 Procedure Pass [facility] [address] [place] [address] Social History Tobacco Use Types Packs/Day Years [...] on filedocumented in this encounter Care Teams Coronary Care Unit Nurse Relationship Specialty Start Date End Date Bassem Drew MD PCP - General Internal Medicine 05/09/16 documented as of this encounter Additional Source Comments The information contained in this document represents components of the legal health record. It is not the complete legal health record.[facility]
--- OUTSIDE RECORDS SUMMARY | 2025-09-14 08:33 | XMS_ITS | Encounter Summary ---
Author Organization [facility] Address [address] [place] [address] Phone Care Team Providers Care Space And Storage Clerk Name Role Phone Bassem Drew MD Primary Care Provider +1- [phone] Encounter Details Date Type Department Care Team (Late st Contact Info) Description 01/23/2017 Procedure Pass [facility] [address] [place] [address] Social History Tobacco Use Types Packs/Day Years [...] on filedocumented in this encounter Care Teams Space And Storage Clerk Relationship Specialty Start Date End Date Bassem Drew MD PCP - General Internal Medicine 05/09/16 documented as of this encounter Additional Source Comments The information contained in this document represents components of the legal health record. It is not the complete legal health record.[facility]
--- OUTSIDE RECORDS SUMMARY | 2025-09-14 08:34 | XMS_ITS | Encounter Summary ---
Author Organization [facility] Address [address] [place] [address] Phone Care Team Providers Care Newspaper Deliverer Name Role Phone Bassem Drew MD Primary Care Provider +1- [phone] Encounter Details Date Type Department Care Team (Late st Contact Info) Description 01/23/2017 Procedure Pass [facility] [address] [place] [address] Social History Tobacco Use Types Packs/Day Years [...] on filedocumented in this encounter Care Teams Newspaper Deliverer Relationship Specialty Start Date End Date Bassem Drew MD PCP - General Internal Medicine 05/09/16 documented as of this encounter Additional Source Comments The information contained in this document represents components of the legal health record. It is not the complete legal health record.[facility]
--- OUTSIDE RECORDS SUMMARY | 2025-09-14 08:34 | XMS_ITS | Encounter Summary ---
Author Organization [facility] Address [address] [place] [address] Phone Care Team Providers Care Facility Assistant Name Role Phone Bassme Drew MD Primary Care Provider +1- [phone] Encounter Details Date Type Department Care Team (Late st Contact Info) Description 01/23/2017 Procedure Pass [facility] [address] [place] [address] Social History Tobacco Use Types Packs/Day Years [...] on filedocumented in this encounter Care Teams Facility Assistant Relationship Specialty Start Date End Date Bassem Drew MD PCP - General Internal Medicine 05/09/16 documented as of this encounter Additional Source Comments The information contained in this document represents components of the legal health record. It is not the complete legal health record.[facility]
--- OUTSIDE RECORDS SUMMARY | 2025-09-14 08:34 | XMS_ITS | Encounter Summary ---
Author Organization [facility] Address [address] [place] [address] Phone Care Team Providers Care Clinical Psychologist Private Practice Name Role Phone Bassem Drew MD Primary Care Provider +1- [phone] Encounter Details Date Type Department Care Team (Late st Contact Info) Description 01/23/2017 Procedure Pass [facility] [address] [place] [address] Social History Tobacco Use Types Packs/Day Years [...] on filedocumented in this encounter Care Teams Clinical Psychologist Private Practice Relationship Specialty Start Date End Date Bassem Drew MD PCP - General Internal Medicine 05/09/16 documented as of this encounter Additional Source Comments The information contained in this document represents components of the legal health record. It is not the complete legal health record.[facility]
--- OUTSIDE RECORDS SUMMARY | 2025-09-14 08:34 | XMS_ITS | Encounter Summary ---
Author Organization [facility] Address [address] [place] [address] Phone Care Team Providers Care Sr. Merchandise Planner Name Role Phone Bassem Drew MD Primary Care Provider +1- [phone] Encounter Details Date Type Department Care Team (Late st Contact Info) Description 01/23/2017 Procedure Pass [facility] [address] [place] [address] Social History Tobacco Use Types Packs/Day Years [...] on filedocumented in this encounter Care Teams Sr. Merchandise Planner Relationship Specialty Start Date End Date Bassem Drew MD PCP - General Internal Medicine 05/09/16 documented as of this encounter Additional Source Comments The information contained in this document represents components of the legal health record. It is not the complete legal health record.[facility]
--- OUTSIDE RECORDS SUMMARY | 2025-09-14 08:35 | XMS_ITS | Clinical Summary ---
Author Organization [facility] Address [address] [address] Phone Care Team Providers Care Rolloff Driver Name Role Phone Bassem Drew MD Primary Care Provider +1- [phone] Allergies No known active allergies Medications spironolactone [...] - 2024-2 6 season) 2025 08/22/2021, 07/25/2021 RSV VACCINE (1 - 1-dose 75+ series) 2044 SMOKING STATUS SCREENING (On ce After 26 [...] MEDICARE PART A & B Care Teams Rolloff Driver Relationship Specialty Start Date End Date Bassem Drew MD PCP - General Internal Medicine 05/09/16 Additional Source Comments The information contained in this document represents components of the legal health record. It is not the complete legal health record.[facility]
--- OUTSIDE RECORDS SUMMARY | 2025-09-14 08:35 | XMS_ITS | Encounter Summary ---
Author Organization [facility] Address [address] [place] [address] Phone Care Team Providers Care Forest Botany Instructor Name Role Phone Bassem Drew MD Primary Care Provider +1- [phone] Encounter Details Date Type Department Care Team (Late st Contact Info) Description 01/23/2017 Procedure Pass [facility] [address] [place] [address] Social History Tobacco Use Types Packs/Day Years [...] on filedocumented in this encounter Care Teams Forest Botany Instructor Relationship Specialty Start Date End Date Bassem Drew MD PCP - General Internal Medicine 05/09/16 documented as of this encounter Additional Source Comments The information contained in this document represents components of the legal health record. It is not the complete legal health record.[facility]
--- OUTSIDE RECORDS SUMMARY | 2025-09-14 08:35 | XMS_ITS | Encounter Summary ---
Author Organization [facility] Address [address] [place] [address] Phone Care Team Providers Care Combustion Engineer Name Role Phone Bassem Drew MD Primary Care Provider +1- [phone] Encounter Details Date Type Department Care Team (Late st Contact Info) Description 01/23/2017 Procedure Pass [facility] [address] [place] [address] Social History Tobacco Use Types Packs/Day Years [...] on filedocumented in this encounter Care Teams Combustion Engineer Relationship Specialty Start Date End Date Bassem Drew MD PCP - General Internal Medicine 05/09/16 documented as of this encounter Additional Source Comments The information contained in this document represents components of the legal health record. It is not the complete legal health record.[facility]
--- OUTSIDE RECORDS SUMMARY | 2025-09-14 08:35 | XMS_ITS | Encounter Summary ---
Author Organization [facility] Address [address] [place] [address] Phone Care Team Providers Care Delphi Programmer Name Role Phone Bassem Drew MD Primary Care Provider +1- [phone] Encounter Details Date Type Department Care Team (Late st Contact Info) Description 01/23/2017 Procedure Pass [facility] [address] [place] [address] Social History Tobacco Use Types Packs/Day Years [...] on filedocumented in this encounter Care Teams Delphi Programmer Relationship Specialty Start Date End Date Bassem Drew MD PCP - General Internal Medicine 05/09/16 documented as of this encounter Additional Source Comments The information contained in this document represents components of the legal health record. It is not the complete legal health record.[facility]
--- OUTSIDE RECORDS SUMMARY | 2025-09-14 08:35 | XMS_ITS | Encounter Summary ---
Author Organization [facility] Address [address] [place] [address] Phone Care Team Providers Care Machine Tool Designer Name Role Phone Bassem Drew MD Primary Care Provider +1- [phone] Encounter Details Date Type Department Care Team (Late st Contact Info) Description 10/03/2016 Procedure Pass [facility] [address] [place] [address] Social History Tobacco Use Types Packs/Day Years [...] on filedocumented in this encounter Care Teams Machine Tool Designer Relationship Specialty Start Date End Date Bassem Drew MD PCP - General Internal Medicine 05/09/16 documented as of this encounter Additional Source Comments The information contained in this document represents components of the legal health record. It is not the complete legal health record.[facility]
--- OUTSIDE RECORDS SUMMARY | 2025-09-14 08:35 | XMS_ITS | Encounter Summary ---
Author Organization [facility] Address [address] [place] [address] Phone Care Team Providers Care Ballistic Technician Name Role Phone Bassem Drew MD Primary Care Provider +1- [phone] Encounter Details Date Type Department Care Team (Late st Contact Info) Description 01/23/2017 Procedure Pass [facility] [address] [place] [address] Social History Tobacco Use Types Packs/Day Years [...] on filedocumented in this encounter Care Teams Ballistic Technician Relationship Specialty Start Date End Date Bassem Drew MD PCP - General Internal Medicine 05/09/16 documented as of this encounter Additional Source Comments The information contained in this document represents components of the legal health record. It is not the complete legal health record.[facility]
--- OUTSIDE RECORDS SUMMARY | 2025-09-14 08:35 | XMS_ITS | Encounter Summary ---
Author Organization [facility] Address [address] [place] [address] Phone Care Team Providers Care Bolt Sawyer Name Role Phone Bassem Drew MD Primary Care Provider +1- [phone] Encounter Details Date Type Department Care Team (Late st Contact Info) Description 10/03/2016 Procedure Pass [facility] [address] [place] [address] Social History Tobacco Use Types Packs/Day Years [...] on filedocumented in this encounter Care Teams Bolt Sawyer Relationship Specialty Start Date End Date Bassem Drew MD PCP - General Internal Medicine 05/09/16 documented as of this encounter Additional Source Comments The information contained in this document represents components of the legal health record. It is not the complete legal health record.[facility]
--- OUTSIDE RECORDS SUMMARY | 2025-09-14 08:35 | XMS_ITS | Encounter Summary ---
Author Organization [facility] Address [address] [place] [address] Phone Care Team Providers Care Vulnerability Researcher Name Role Phone Bassem Drew MD Primary Care Provider +1- [phone] Encounter Details Date Type Department Care Team (Late st Contact Info) Description 01/23/2017 Procedure Pass [facility] [address] [place] [address] Social History Tobacco Use Types Packs/Day Years [...] on filedocumented in this encounter Care Teams Vulnerability Researcher Relationship Specialty Start Date End Date Bassem Drew MD PCP - General Internal Medicine 05/09/16 documented as of this encounter Additional Source Comments The information contained in this document represents components of the legal health record. It is not the complete legal health record.[facility]
--- OUTSIDE RECORDS SUMMARY | 2025-09-14 08:35 | XMS_ITS | Encounter Summary ---
Author Organization [facility] Address [address] [place] [address] Phone Care Team Providers Care Maintenance Planning Clerk Name Role Phone Bassem Drew MD Primary Care Provider +1- [phone] Encounter Details Date Type Department Care Team (Late st Contact Info) Description 01/23/[address] [facility] [address] [place] [address] Social History Tobacco Use Types Packs/Day Years [...] on filedocumented in this encounter Care Teams Maintenance Planning Clerk Relationship Specialty Start Date End Date Bassem Drew MD PCP - General Internal Medicine 05/09/16 documented as of this encounter Additional Source Comments The information contained in this document represents components of the legal health record. It is not the complete legal health record.[facility]
--- OUTSIDE RECORDS SUMMARY | 2025-09-14 08:35 | XMS_ITS | Encounter Summary ---
Author Organization [facility] Address [address] [place] [address] Phone Care Team Providers Care Bulk Pallet Builder Name Role Phone Bassem Drew MD Primary Care Provider +1- [phone] Encounter Details Date Type Department Care Team (Late st Contact Info) Description 10/03/2016 Procedure Pass [facility] [address] [place] [address] Social History Tobacco Use Types Packs/Day Years [...] on filedocumented in this encounter Care Teams Bulk Pallet Builder Relationship Specialty Start Date End Date Bassem Drew MD PCP - General Internal Medicine 05/09/16 documented as of this encounter Additional Source Comments The information contained in this document represents components of the legal health record. It is not the complete legal health record.[facility]
--- OUTSIDE RECORDS SUMMARY | 2025-09-14 08:35 | XMS_ITS | Encounter Summary ---
Author Organization [facility] Address [address] [place] [address] Phone Care Team Providers Care Piercing Specialist Name Role Phone Bassem Drew MD Primary Care Provider +1- [phone] Reason for Referral * Consultation (Elective) - Closed Specialty Diagnoses / Procedures Referred By Conttami t Referred To Contact Neurology Diagnoses Encounter for consultation System, Provider Not In, [facility] Laurie [address] [place] [address] Referral ID Status Reason Start Date Expiration Date Visits Re quested Visits Authorized [id number] Closed 05/31/2016 05/31/2017 1 1 Encounter Details Date Type Department Care Team (Late st Contact Info) Description 05/31/[address] [facility] Department of Neurology [address] [place] [address], [address] Floor, [address] [place] [address] System, Provider Not In, [facility] [address] [address] Encounter for consultation (Primary Dx) Social History [...] Diagnoses Orde r Schedule Ambulatory referral to [facility] Outpatient Referral Routine Encounter for consultation Ordered: 05/31/2016 documented as of this encounter Visit Diagnoses Diagnosis Encounter for consultation- Primary documented in this encounter Care Teams Piercing Specialist Relationship Specialty Start Date End Date Bassem Drew MD [email or web address] PCP - General Internal Medicine 05/09/16 documented as of this encounter Additional Source Comments The information contained in this document represents components of the legal health record. It is not the complete legal health record.[facility]
--- OUTSIDE RECORDS SUMMARY | 2025-09-14 08:36 | XMS_ITS | Encounter Summary ---
Author Organization [facility] Address [address] [place] [address] Phone Care Team Providers Care Advertising Rep Name Role Phone Bassem Drew MD Primary Care Provider +1- [phone] Encounter Details Date Type Department Care Team (Late st Contact Info) Description 01/23/2017 Procedure Pass [facility] [address] [place] [address] Social History Tobacco Use Types Packs/Day Years [...] on filedocumented in this encounter Care Teams Advertising Rep Relationship Specialty Start Date End Date Bassem Drew MD PCP - General Internal Medicine 05/09/16 documented as of this encounter Additional Source Comments The information contained in this document represents components of the legal health record. It is not the complete legal health record.[facility]
[2025-09-14 08:43] VITALS: BP 124/80; PULSE 88; TEMP 36.6; O2SAT 97; BMI 29.5
--- NOTE | 2025-09-14 08:43 | AM.OFFWIN_ITS ---
Intake Vital Signs 09/14/25 08:43 Height 4 ft 11 in Weight 146 lb BMI 29.5 BP 124/80 Blood Pressure Location Lt brachial Position Sitting Pulse 88 Pulse Source Pulse Oximeter Temp 97.8 F Temp Source Oral Pulse Oximetry (%) 97 Oxygen Delivery Method Room Air Intake Visit Reasons: ep ear and throat hurts , cough Intake Note: Patient presents with c/o bilateral ear pain/itching, sore throat, cough, fatigue, body aches x3 days. Patient Tobacco Use Status: Never used Tobacco Allergies mold Allergy (Severe, Verified 09/14/25 08:46) itchy throat blue cheese Allergy (Severe, Uncoded 09/14/25 08:46) itchy throat HPI HPI Comments History of Present Illness Details History - The patient is a 54-year-old female pr esenting with symptoms of cough, nasal congestion, nausea, itchy ears, and shortness of breath. - The cough began three days ago without fever or chills, and there is no phlegm production. - Nasal congestion is being treated with pseudoephedrine. - The patient experiences nausea but den ies diarrhea. - Shortness of breath is present when sh e coughs. - The patient reports itchy ears. - She denies fever, chills, CP, abd pain , n/v/d, dizziness, weakness, sick contacts, or travel. Physical Exam General: Cooperative, healthy appearing, comfortable and no acute distress Orientation/consciousness: Patient oriented x3 Limitations: No limitations Head: Normal to inspection Ears: Itchy inside her ears Nose: Normal external nose present, normal nares present, and no nasal discharge present. Face and sinus: Sinuses nontender to palpation. Mouth: Normal oral and palatal mucosa present and moist mucous membranes noted. Throat: Tonsils normal. Uvula is midline. Posterior oropharynx with erythema and no exudates. Eyes: Appearance normal, both eyes and all related structures Neck: Normal visual inspection, full ROM. No lymphadenopathy noted. Respiratory: Clear to auscultation bilaterally. Normal respiratory effort, able to speak in complete sentences. No respiratory distress, not tachypneic, no tripod positioning and no use of accessory muscles. Cardiovascular: Regular rate and rhythm. Normal S1 and S2 Skin: No rashes or lesions noted Plan VSS, pt well appearing and PE remarkable for . Patient was informed and verbally consented to the use of an ambient scribe for clinic note documentation during this visit [facility] Medical History (Updated 07/16/25 @ 09:42 by Laura Don PA-C) Hypertensive retinopathy Glaucoma HTN (hypertension) Anxiety INGRID (obstructive sleep apnea) Neck pain Heart murmur Depression Esophagitis Hypokalemia Hyperlipidemia FH: HTN (hypertension) Diabetes mellitus Right sided sciatica Asthma Sacroiliac inflammation Surgical History (Updated 05/24/25 @ 11:23 by Gabriela Buitrago) S/p bilateral carpal tunnel release Hx of esophagogastroduodenoscopy Hx of colonoscopy History of back surgery History of bilateral tubal ligation Family History Father Cancer Alzheimer's disease Mother HTN (hypertension) Diabetes mellitus Asthma Depression Stroke Cancer Maternal Grandfather No problems noted. Maternal Grandmother No problems noted. Paternal Grandfather No problems noted. Paternal Grandmother No problems noted. Brother No problems noted. Brother No problems noted. Sister Asthma Son No problems noted. Son No problems noted. Daughter No problems noted. Social History Household Members: Spouse and Children Housing: House Are you a primary administrator health care facility to a significant other at home: No Do you presently have visiting nurse or other home services: No Alcohol intake: current Alcohol intake frequency: does not drink Patient Tobacco Use Status: Never used Tobacco e-Cigarette/Vaping Use: Never Used Second Hand Smoke Exposure: No service: No Current occupational status: disabled Cognitive needs: No Hearing needs: No Vision needs: Yes Female Reproductive History Menstrual Age of Menarche: 10 Review of Systems Const All systems reviewed & are unremarkable except as noted in HPI and below Physical Exam Vital Signs: Last Vital Signs Temp 97.8 F 09/14/25 08:43 Pulse 88 09/14/25 08:43 BP 124/80 09/14/25 08:43 Pulse Ox 97 09/14/25 08:43 Oxygen Delivery Method Room Air 09/14/25 08:43 BMI result Body Mass Index 29.5 Assessment & Plan Assessment & Plan (1) Upper respiratory infection with cough and congestion: Code(s): J06.9 - Acute upper respiratory infection, unspecified Plan Most likely URI vs covid vs RSV vs flu rapid strep was negative plan - Monitor symptoms and use prescribed cough medicine. - Swab test ordered to rule out COVID-19, influenza, and RSV. - Continue using pseudoephedrine and fluticasone nasal spray. - Use albuterol inhaler as needed for relief. - tylenol or motrin as needed for pain or fever - will call with the results - follow up with PCP Orders: Orders SARS-CoV2/FLU/RSV Today R09.89 - Other specified symptoms and signs involving the circulatory and respiratory systems AMB Rapid Strep Screen Today Z13.9 - Encounter for screening, unspecified Medications: New benzonatate 100 mg PO bid-tid PRN 21 caps 0RF Cough 7 days Coding Level of Care Code Est Pt Level 3 (80581) Diagnoses Upper respiratory infection with cough and congestion J06.9
== END 2025-09-14 09:20 | disposition home or self-care (01) ==
PROVIDERS: PCP Nurse Practitioner Family; Visit Provider Physician Assistant Medical
DX: J06.9 Acute upper respiratory infection, unspecified (principal)

== ENCOUNTER 2025-09-14 08:14 | Outpatient (REF) | payer OTHER, SELFPAY ==
[2025-09-14 12:14] LABS: Resp Syncy Virus RNA Qual PCR NEGATIVE (Negative); SARS COV2 PCR INHOUSE NEGATIVE (Negative)
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
== END 2025-09-14 08:15 | disposition home or self-care (01) ==
LOC: HO.LNP 08:14
PROVIDERS: PCP Nurse Practitioner Family; Visit Provider Physician Assistant Medical
DX: R09.81 Nasal congestion (principal); R05.9 Cough, unspecified; R06.02 Shortness of breath; R11.0 Nausea
CPT/HCPCS: 87637; 99212

== ENCOUNTER 2025-09-16 09:52 | Outpatient (AMB) | payer OTHER, SELFPAY ==
--- OUTSIDE RECORDS SUMMARY | 2012-08-07 23:00 | XMS_ITS | Encounter Summary ---
Author Organization [facility] Address [address] [place] [address] Phone Care Team Providers Care Assembler Surgical Garment Name Role Phone Unavailable Primary Care Provider Unavailabl e Reason for Visit * MRI/CAT Scan - Closed Specialty Diagnoses / Procedures Referred By Contac t Referred To Contact Procedures MRI Spine (Neuro) Outside (No Interpretation) Denny Riggs MD [address] [place] [address] Phone: tel: fax: mailto:[email or web address] Referral ID Status Reason Start Date Expiration Date Visits Re quested Visits Authorized [id number] Closed 01/23/2017 01/23/2018 1 1 Encounter Details Date Type Department Care Team ([facility] st Contact Info) Description 08/08/2012 Hospital Encounter [facility] General Imaging [address] [place] [address] Denny Riggs MD [address] [place] [address] [email or web address] Social History Tobacco Use Types Packs/Day Years [...] (No Interpretation) (08/08/2012 12:00 AM EDT) Narrative [facility] IMG INTERFACES - 01/23/2017 5:51 PM EDT This study is for PACS storage only and not for interpretation. Denny Riggs MD IMG OUTSIDE IMAGING W /OUT INTERPRETATION Final Result [facility] IMG INTERFACES documented in this encounter Visit Diagnoses Not on filedocumented in this encounter Additional Source Comments The information contained in this document represents components of the legal health record. It is not the complete legal health record.[facility]
--- OUTSIDE RECORDS SUMMARY | 2012-08-07 23:15 | XMS_ITS | Encounter Summary ---
Author Organization [facility] Address [address] [place] [address] Phone Care Team Providers Care Transcriber Name Role Phone Unavailable Primary Care Provider Unavailabl e Reason for Visit * MRI/CAT Scan - Closed Specialty Diagnoses / Procedures Referred By Contac t Referred To Contact Procedures MRI Spine (Neuro) Outside (No Interpretation) Denny Riggs MD [address] [place] [address] Phone: tel: fax: mailto:[email or web address] Referral ID Status Reason Start Date Expiration Date Visits Re quested Visits Authorized [id number] Closed 01/23/2017 01/23/2018 1 1 Encounter Details Date Type Department Care Team ([facility] st Contact Info) Description 08/08/2012 12:15 AM EDT Hospital Encounter [facility] General Imaging [address] [place] [address] Denny Riggs MD [address] [place], [place] [id number] [email or web address] Social History Tobacco Use Types Packs/Day Years [...] NEUROLOGIC FOCUS OUTSIDE (NO INTERPRETATION) Routine 08/08/2012 12:15 AM EDT documented in this encounter Results * MRI Spine (Neuro) Outside (No Interpretation) (08/08/2012 12:15 AM EDT) Narrative [facility] IMG INTERFACES - 01/23/2017 5:52 PM EDT This study is for PACS storage only and not for interpretation. us Denny Riggs MD IMG OUTSIDE IMAGING W /OUT INTERPRETATION Final Result [facility] IMG INTERFACES documented in this encounter Visit Diagnoses Not on filedocumented in this encounter Additional Source Comments The information contained in this document represents components of the legal health record. It is not the complete legal health record.[facility]
--- OUTSIDE RECORDS SUMMARY | 2013-09-29 | XMS_ITS | Encounter Summary ---
Author Organization [facility] Address [address] [place] [address] Phone Care Team Providers Care Civil Manager Name Role Phone Unavailable Primary Care Provider Unavailabl e Reason for Visit * MRI/CAT Scan - Closed Specialty Diagnoses / Procedures Referred By Contac t Referred To Contact Procedures MRI Spine (Neuro) Outside (No Interpretation) Denny Riggs MD [address] [place] [address] Phone: tel: fax: mailto:[email or web address] Referral ID Status Reason Start Date Expiration Date Visits Re quested Visits Authorized [id number] Closed 01/23/2017 01/23/2018 1 1 Encounter Details Date Type Department Care Team ([facility] st Contact Info) Description 09/29/[address] [facility] General Imaging [address] [place] [address] Denny Riggs MD [address] [place], [place] [id number] [email or web address] Social History Tobacco Use Types Packs/Day [...] SPINE NEUROLOGIC FOCUS OUTSIDE (NO INTERPRETATION) Routine 09/29/2013 12:00 AM EST documented in this encounter Results * MRI Spine (Neuro) Outside (No Interpretation) (09/29/2013 12:00 AM EST) Narrative [facility] [place]G INTERFACES - 01/23/2017 5:52 PM EDT This study is for PACS storage only and not for interpretation. us Denny Riggs MD IMG OUTSIDE IMAGING W /OUT INTERPRETATION Final Result [facility] documented in this encounter Visit Diagnoses Not on filedocumented in this encounter Additional Source Comments The information contained in this document represents components of the legal health record. It is not the complete legal health record.[facility]
--- OUTSIDE RECORDS SUMMARY | 2013-09-29 00:15 | XMS_ITS | Encounter Summary ---
Author Organization [facility] Address [address] [place] [address] Phone Care Team Providers Care Test Conductor Name Role Phone Unavailable Primary Care Provider Unavailabl e Reason for Visit * MRI/CAT Scan - Closed Specialty Diagnoses / Procedures Referred By Contac t Referred To Contact Procedures MRI Spine (Neuro) Outside (No Interpretation) Denny Riggs MD [address] [place] [address] Phone: tel: fax: mailto:[email or web address] Referral ID Status Reason Start Date Expiration Date Visits Re quested Visits Authorized [id number] Closed 01/23/2017 01/23/2018 1 1 Encounter Details Date Type Department Care Team ([facility] st Contact Info) Description 09/29/2013 12:15 AM [facility] Hospital Encounter [facility] General Imaging [address] [place] [address] Denny Riggs MD [address] [place], [place] [phone] [email or web address] Social History Tobacco Use Types Packs/Day Years [...] NEUROLOGIC FOCUS OUTSIDE (NO INTERPRETATION) Routine 09/29/2013 12:15 AM EST documented in this encounter Results * MRI Spine (Neuro) Outside (No Interpretation) (09/29/2013 12:15 AM EST) Narrative [facility]G INTERFACES - 01/23/2017 5:52 PM EDT This study is for PACS storage only and not for interpretation. us Denny Riggs MD IMG OUTSIDE IMAGING W /OUT INTERPRETATION Final Result [facility] INTER[facility]AC[facility] documented in this encounter Visit Diagnoses Not on filedocumented in this encounter Additional Source Comments The information contained in this document represents components of the legal health record. It is not the complete legal health record.[facility]
--- OUTSIDE RECORDS SUMMARY | 2013-10-05 | XMS_ITS | Encounter Summary ---
Author Organization [facility] Address [address] [place] [address] Phone Care Team Providers Care Air Twist Operator Name Role Phone Unavailable Primary Care Provider Unavailabl e Reason for Visit * MRI/CAT Scan - Closed Specialty Diagnoses / Procedures Referred By Contac t Referred To Contact Procedures MRI Spine (Neuro) Outside (No Interpretation) Denny Riggs MD [address] [place] [address] Phone: tel: fax: mailto:[email or web address] Referral ID Status Reason Start Date Expiration Date Visits Re quested Visits Authorized [id number] Closed 01/23/2017 01/23/2018 1 1 Encounter Details Date Type Department Care Team ([facility] st Contact Info) Description 10/05/2013 Hospital Encounter [facility] General Imaging [address] [place] [address] Denny Riggs MD [address] [place] [address] [email or web address] Social History Tobacco Use Types Packs/Day Years [...] SPINE NEUROLOGIC FOCUS OUTSIDE (NO INTERPRETATION) Routine 10/05/2013 12:00 AM EST documented in this encounter Results * MRI Spine (Neuro) Outside (No Interpretation) (10/05/2013 12:00 AM EST) Narrative [facility] [place] [place] - 01/23/2017 5:53 PM EDT This study is for PACS storage only and not for interpretation. us Denny Riggs MD IMG OUTSIDE IMAGING W /OUT INTERPRETATION Final Result [facility] [place] documented in this encounter Visit Diagnoses Not on filedocumented in this encounter Additional Source Comments The information contained in this document represents components of the legal health record. It is not the complete legal health record.[facility]
--- OUTSIDE RECORDS SUMMARY | 2013-10-05 00:15 | XMS_ITS | Encounter Summary ---
Author Organization [facility] Address [address] [facility] [address] [place] [address] Phone Care Team Providers Care Commissioning Agent Name Role Phone Unavailable Primary Care Provider Unavailabl e Reason for Visit * MRI/CAT Scan - Closed Specialty Diagnoses / Procedures Referred By Contac t Referred To Contact Procedures MRI Spine (Neuro) Outside (No Interpretation) Denny Riggs MD [address] [place] [address] Phone: tel: fax: mailto:[email or web address] Referral ID Status Reason Start Date Expiration Date Visits Re quested Visits Authorized [id number] Closed 01/23/2017 01/23/2018 1 1 Encounter Details Date Type Department Care Team ([facility] st Contact Info) Description 10/05/2013 12:15 AM [facility] Hospital Encounter [facility] General Imaging [address] [place] [address] Denny Rigsg MD [address] [place], [place] [phone] [email or web address] Social History Tobacco Use Types Packs/Day Years [...] (No Interpretation) (10/05/2013 12:15 AM EST) Narrative [facility] IMG INTERFACES - 01/23/2017 5:53 PM EDT This study is for PACS storage only and not for interpretation. us Denny Riggs MD IMG OUTSIDE IMAGING W /OUT INTERPRETATION Final Result [facility] IMG INTERFACES documented in this encounter Visit Diagnoses Not on filedocumented in this encounter Additional Source Comments The information contained in this document represents components of the legal health record. It is not the complete legal health record.[facility]
--- OUTSIDE RECORDS SUMMARY | 2013-10-05 00:30 | XMS_ITS | Encounter Summary ---
Author Organization [facility] Address [address] [facility] [address] [place] [address] Phone Care Team Providers Care Technology And Engineering Teacher Name Role Phone Unavailable Primary Care Provider Unavailabl e Reason for Visit * MRI/CAT Scan - Closed Specialty Diagnoses / Procedures Referred By Contac t Referred To Contact Procedures MRI Spine (Neuro) Outside (No Interpretation) Denny Riggs MD [address] [place] [address] Phone: tel: fax: mailto:[email or web address] Referral ID Status Reason Start Date Expiration Date Visits Re quested Visits Authorized [id number] Closed 01/23/2017 01/23/2018 1 1 Encounter Details Date Type Department Care Team ([facility] st Contact Info) Description 10/05/2013 12:30 AM [facility] Hospital Encounter [facility] General Imaging [address] [place] [address] Denny Riggs MD [address] [place], [place] [phone] [email or web address] Social History Tobacco Use Types Packs/Day Years [...] (No Interpretation) (10/05/2013 12:30 AM EST) Narrative [facility] [place] - 01/23/2017 5:54 PM EDT This study is for PACS storage only and not for interpretation. us Denny Riggs MD IMG OUTSIDE IMAGING W /OUT INTERPRETATION Final Result [facility] documented in this encounter Visit Diagnoses Not on filedocumented in this encounter Additional Source Comments The information contained in this document represents components of the legal health record. It is not the complete legal health record.[facility]
--- OUTSIDE RECORDS SUMMARY | 2013-10-05 00:45 | XMS_ITS | Encounter Summary ---
Author Organization [facility] Address [address] [facility] [address] [place] [address] Phone Care Team Providers Care Assembler Truck Trailer Name Role Phone Unavailable Primary Care Provider Unavailabl e Reason for Visit * MRI/CAT Scan - Closed Specialty Diagnoses / Procedures Referred By Contac t Referred To Contact Procedures MRI Spine (Neuro) Outside (No Interpretation) Denny Riggs MD [address] [place] [address] Phone: tel: fax: mailto:[email or web address] Referral ID Status Reason Start Date Expiration Date Visits Re quested Visits Authorized [id number] Closed 01/23/2017 01/23/2018 1 1 Encounter Details Date Type Department Care Team ([facility] st Contact Info) Description 10/05/2013 12:45 AM [facility] Hospital Encounter [facility] General Imaging [address] [place] [address] Denny Riggs MD [address] [place], [place] [phone] [email or web address] Social History Tobacco Use Types Packs/Day Years [...] NEUROLOGIC FOCUS OUTSIDE (NO INTERPRETATION) Routine 10/05/2013 12:45 AM EST documented in this encounter Results * MRI Spine (Neuro) Outside (No Interpretation) (10/05/2013 12:45 AM EST) Narrative [facility] IMG INTERFACES - 01/23/2017 5:54 PM EDT This study is for PACS storage only and not for interpretation. us Denny Riggs MD IMG OUTSIDE IMAGING W /OUT INTERPRETATION Final Result [facility] IMG INTERFACES documented in this encounter Visit Diagnoses Not on filedocumented in this encounter Additional Source Comments The information contained in this document represents components of the legal health record. It is not the complete legal health record.[facility]
--- OUTSIDE RECORDS SUMMARY | 2013-11-10 | XMS_ITS | Encounter Summary ---
Author Organization [facility] Address [address] [facility] [address] [place] [address] Phone Care Team Providers Care Talcer Name Role Phone Unavailable Primary Care Provider Unavailabl e Reason for Visit * MRI/CAT Scan - Closed Specialty Diagnoses / Procedures Referred By Contac t Referred To Contact Procedures MRI Spine (Neuro) Outside (No Interpretation) Denny Riggs MD [address] [place] [address] Phone: tel: fax: mailto:[email or web address] Referral ID Status Reason Start Date Expiration Date Visits Re quested Visits Authorized [id number] Closed 01/23/2017 01/23/2018 1 1 Encounter Details Date Type Department Care Team ([facility] st Contact Info) Description 11/10/2013 Hospital Encounter [facility] General Imaging [address] [place] [address] Denny Riggs MD [address] [place], [place] [phone] [email or web address] Social History Tobacco Use Types Packs/Day Years [...] SPINE NEUROLOGIC FOCUS OUTSIDE (NO INTERPRETATION) Routine 11/10/2013 12:00 AM EST documented in this encounter Results * MRI Spine (Neuro) Outside (No Interpretation) (11/10/2013 12:00 AM EST) Narrative [facility] [place] IMG INTERFACES - 01/23/2017 5:54 PM EDT This study is for PACS storage only and not for interpretation. us Denny Riggs MD IMG OUTSIDE IMAGING W /OUT INTERPRETATION Final Result [facility] [place] IMG INTERFACES documented in this encounter Visit Diagnoses Not on filedocumented in this encounter Additional Source Comments The information contained in this document represents components of the legal health record. It is not the complete legal health record.[facility]
--- OUTSIDE RECORDS SUMMARY | 2013-12-23 | XMS_ITS | Encounter Summary ---
Author Organization [facility] Address [address] [place] [address] Phone Care Team Providers Care Motor Vehicle Lecturer Name Role Phone Unavailable Primary Care Provider Unavailabl e Reason for Visit * MRI/CAT Scan - Closed Specialty Diagnoses / Procedures Referred By Contac t Referred To Contact Procedures MRI Spine (Neuro) Outside (No Interpretation) Denny Riggs MD [address] [place] [address] Phone: tel: fax: mailto:[email or web address] Referral ID Status Reason Start Date Expiration Date Visits Re quested Visits Authorized [id number] Closed 01/23/2017 01/23/2018 1 1 Encounter Details Date Type Department Care Team ([facility] st Contact Info) Description 12/23/2013 Hospital Encounter [facility] General Imaging [address] [place] [address] Denny Riggs MD [address] [place], [place] [phone] [email or web address] Social History Tobacco Use Types Packs/Day Years [...] (No Interpretation) (12/23/2013 12:00 AM EST) Narrative [facility] [place]G INTERFACES - 01/23/2017 5:55 PM EDT This study is for PACS storage only and not for interpretation. us Denny Riggs MD IMG OUTSIDE IMAGING W /OUT INTERPRETATION Final Result [facility] [place] [place]ACES documented in this encounter Visit Diagnoses Not on filedocumented in this encounter Additional Source Comments The information contained in this document represents components of the legal health record. It is not the complete legal health record.[facility]
--- OUTSIDE RECORDS SUMMARY | 2013-12-23 00:15 | XMS_ITS | Encounter Summary ---
Author Organization [facility] Address [address] [facility] [address] [place] [address] Phone Care Team Providers Care Glass Enamel Mixer Name Role Phone Unavailable Primary Care Provider Unavailabl e Reason for Visit * MRI/CAT Scan - Closed Specialty Diagnoses / Procedures Referred By Contac t Referred To Contact Procedures MRI Spine (Neuro) Outside (No Interpretation) Denny Riggs MD [address] [place] [address] Phone: tel: fax: mailto:[email or web address] Referral ID Status Reason Start Date Expiration Date Visits Re quested Visits Authorized [id number] Closed 01/23/2017 01/23/2018 1 1 Encounter Details Date Type Department Care Team ([facility] st Contact Info) Description 12/23/2013 12:15 AM [facility] [address] [place] [address] Denny Riggs MD [address] [place], [place] [phone] [email or web address] Social History Tobacco Use Types Packs/Day Years [...] NEUROLOGIC FOCUS OUTSIDE (NO INTERPRETATION) Routine 12/23/2013 12:15 AM EST documented in this encounter Results * MRI Spine (Neuro) Outside (No Interpretation) (12/23/2013 12:15 AM EST) Narrative [facility] [place] - 01/23/2017 5:56 PM EDT This study is for PACS [...] It is not the complete legal health record.[facility]
--- OUTSIDE RECORDS SUMMARY | 2014-05-17 23:00 | XMS_ITS | Encounter Summary ---
Author Organization [facility] Address [address] [place] [address] Phone Care Team Providers Care Custom Stock Maker Name Role Phone Unavailable Primary Care Provider Unavailabl e Reason for Visit * MRI/CAT Scan - Closed Specialty Diagnoses / Procedures Referred By Contac t Referred To Contact Procedures MRI Spine (Neuro) Outside (No Interpretation) Denny Riggs MD [address] [place] [address] Phone: tel: fax: mailto:[email or web address] Referral ID Status Reason Start Date Expiration Date Visits Re quested Visits Authorized [id number] Closed 01/23/2017 01/23/2018 1 1 Encounter Details Date Type Department Care Team ([facility] st Contact Info) Description 05/18/2014 Hospital Encounter [facility] General Imaging [address] [place] [address] Denny Riggs MD [address] [place], [place] [phone] [email or web address] Social History Tobacco Use Types Packs/Day Years [...] (No Interpretation) (05/18/2014 12:00 AM EDT) Narrative [facility] IMG INTERFACES - 01/23/2017 5:42 PM EDT This study is for PACS storage only and not for interpretation. Denny Riggs MD IMG OUTSIDE IMAGING W /OUT INTERPRETATION Final Result [facility] IMG INTERFACES documented in this encounter Visit Diagnoses Not on filedocumented in this encounter Additional Source Comments The information contained in this document represents components of the legal health record. It is not the complete legal health record.[facility]
--- OUTSIDE RECORDS SUMMARY | 2014-05-17 23:15 | XMS_ITS | Encounter Summary ---
Author Organization [facility] Address [address] [place] [address] Phone Care Team Providers Care Director For Beauty School Name Role Phone Unavailable Primary Care Provider Unavailabl e Reason for Visit * MRI/CAT Scan - Closed Specialty Diagnoses / Procedures Referred By Contac t Referred To Contact Procedures MRI Spine (Neuro) Outside (No Interpretation) Denny Riggs MD [address] [place] [address] Phone: tel: fax: mailto:[email or web address] Referral ID Status Reason Start Date Expiration Date Visits Re quested Visits Authorized [id number] Closed 01/23/2017 01/23/2018 1 1 Encounter Details Date Type Department Care Team ([facility] st Contact Info) Description 05/18/2014 12:15 AM EDT Hospital Encounter [facility] General Imaging [address] [place] [address] Denny Riggs MD [address] [place], [place] [phone] [email or web address] Social History Tobacco Use Types Packs/Day Years [...] NEUROLOGIC FOCUS OUTSIDE (NO INTERPRETATION) Routine 05/18/2014 12:15 AM EDT documented in this encounter Results * MRI Spine (Neuro) Outside (No Interpretation) (05/18/2014 12:15 AM EDT) Narrative [facility] IMG INTERFACES - 01/23/2017 5:56 PM EDT This study is for PACS storage only and not for interpretation. us Denny Riggs MD IMG OUTSIDE IMAGING W /OUT INTERPRETATION Final Result [facility]G INTERFACES documented in this encounter Visit Diagnoses Not on filedocumented in this encounter Additional Source Comments The information contained in this document represents components of the legal health record. It is not the complete legal health record.[facility]
--- OUTSIDE RECORDS SUMMARY | 2014-12-05 | XMS_ITS | Encounter Summary ---
Author Organization [facility] Address [address] [place] [address] Phone Care Team Providers Care Carry Out Clerk Name Role Phone Unavailable Primary Care Provider Unavailabl e Reason for Visit * MRI/CAT Scan - Closed Specialty Diagnoses / Procedures Referred By Contac t Referred To Contact Procedures MRI Spine (Neuro) Outside (No Interpretation) Denny Riggs MD [address] [place] [address] Phone: tel: fax: mailto:[email or web address] Referral ID Status Reason Start Date Expiration Date Visits Re quested Visits Authorized [id number] Closed 01/23/2017 01/23/2018 1 1 Encounter Details Date Type Department Care Team ([facility] st Contact Info) Description 12/05/2014 Hospital Encounter [facility] General Imaging [address] [place] [address] Denny Riggs MD [address] [place] [address] [email or web address] Social History Tobacco Use Types Packs/Day Years [...] (No Interpretation) (12/05/2014 12:00 AM EST) Narrative [facility] IMG INTERFACES - 01/23/2017 5:42 PM EDT [...]
--- OUTSIDE RECORDS SUMMARY | 2015-04-26 23:00 | XMS_ITS | Encounter Summary ---
Author Organization [facility] Address [address] [place] [address] Phone Care Team Providers Care Sizing End Bander Name Role Phone Unavailable Primary Care Provider Unavailabl e Reason for Visit * MRI/CAT Scan - Closed Specialty Diagnoses / Procedures Referred By Contac t Referred To Contact Procedures MRI Spine (Neuro) Outside (No Interpretation) Denny Riggs MD [address] [place] [address] Phone: tel: fax: mailto:[email or web address] Referral ID Status Reason Start Date Expiration Date Visits Re quested Visits Authorized [id number] Closed 01/23/2017 01/23/2018 1 1 Encounter Details Date Type Department Care Team ([facility] st Contact Info) Description 04/27/2015 Hospital Encounter [facility] General Imaging [address] [place] [address] Denny Riggs MD [address] [place], [place] [phone] [email or web address] Social History Tobacco Use Types Packs/Day Years [...] (No Interpretation) (04/27/2015 12:00 AM EDT) Narrative [facility] IMG INTERFACES - 01/23/2017 5:43 PM EDT [...]
--- OUTSIDE RECORDS SUMMARY | 2015-10-28 | XMS_ITS | Encounter Summary ---
Author Organization [facility] Address [address] [place] [address] Phone Care Team Providers Care Retail Training Manager Name Role Phone Unavailable Primary Care Provider Unavailabl e Reason for Visit * MRI/CAT Scan - Closed Specialty Diagnoses / Procedures Referred By Contac t Referred To Contact Procedures MRI Spine (Neuro) Outside (No Interpretation) Denny Riggs MD [address] [place] [address] Phone: tel: fax: mailto:[email or web address] Referral ID Status Reason Start Date Expiration Date Visits Re quested Visits Authorized [id number] Closed 01/23/2017 01/23/2018 1 1 Encounter Details Date Type Department Care Team ([facility] st Contact Info) Description 10/28/2015 Hospital Encounter [facility] General Imaging [address] [place] [address] Denny Riggs MD [address] [place], [place] [phone] [email or web address] Social History Tobacco Use Types Packs/Day Years [...] (No Interpretation) (10/28/2015 12:00 AM EST) Narrative [facility] IMG INTERFACES - 01/23/2017 5:43 PM EDT This study is for PACS storage only and not for interpretation. us Denny Riggs MD IMG OUTSIDE IMAGING W /OUT INTERPRETATION Final Result [facility] IMG INTERFACES documented in this encounter Visit Diagnoses Not on filedocumented in this encounter Additional Source Comments The information contained in this document represents components of the legal health record. It is not the complete legal health record.[facility]
--- OUTSIDE RECORDS SUMMARY | 2015-10-28 00:15 | XMS_ITS | Encounter Summary ---
Author Organization [facility] Address [address] [place] [address] Phone Care Team Providers Care Men'S Furnishings Salesperson Name Role Phone Unavailable Primary Care Provider Unavailabl e Reason for Visit * MRI/CAT Scan - Closed Specialty Diagnoses / Procedures Referred By Contac t Referred To Contact Procedures MRI Spine (Neuro) Outside (No Interpretation) Denny Riggs MD [address] [place] [address] Phone: tel: fax: mailto:[email or web address] Referral ID Status Reason Start Date Expiration Date Visits Re quested Visits Authorized [id number] Closed 01/23/2017 01/23/2018 1 1 Encounter Details Date Type Department Care Team ([facility] st Contact Info) Description 10/28/2015 12:15 AM [facility] Hospital Encounter [facility] General Imaging [address] [place] [address] Denny Riggs MD [address] [place], [place] [phone] [email or web address] Social History Tobacco Use Types Packs/Day Years [...] NEUROLOGIC FOCUS OUTSIDE (NO INTERPRETATION) Routine 10/28/2015 12:15 AM EST documented in this encounter Results * MRI Spine (Neuro) Outside (No Interpretation) (10/28/2015 12:15 AM EST) Narrative [facility] IMG INTERFACES - 01/23/2017 5:44 PM EDT This study is for PACS storage only and not for interpretation. us Denny Riggs MD IMG OUTSIDE IMAGING W /OUT INTERPRETATION Final Result [facility] IMG INTERFACES documented in this encounter Visit Diagnoses Not on filedocumented in this encounter Additional Source Comments The information contained in this document represents components of the legal health record. It is not the complete legal health record.[facility]
--- OUTSIDE RECORDS SUMMARY | 2016-09-13 23:00 | XMS_ITS | Encounter Summary ---
Author Organization [facility] Address [address] [facility] [address] [place] [address] Phone Care Team Providers Care Neuro Psych Sales Specialist Name Role Phone Bassem Drew MD Primary Care Provider +1- [phone] Reason for Visit * MRI/CAT Scan - Closed Specialty Diagnoses / Procedures Referred By Contac t Referred To Contact Procedures MRI Spine (Neuro) Focus Outside With Interpretation Or Consult Ewa Richmond MD [address] [place] [address] Phone: tel: fax: mailto:[email or web address] Referral ID Status Reason Start Date Expiration Date Visits Re quested Visits Authorized [id number] Closed 10/03/2016 10/03/2017 1 1 Encounter Details Date Type Department Care Team ([facility] st Contact Info) Description 09/14/2016 Hospital Encounter [facility] General Imaging [address] [place] [address] Ewa Richmond MD [address] [place] [address] [email or web address] Social History Tobacco Use Types Packs/Day Years [...] Diagnosis Comments MRI SPINE NEUROLOGIC FOCUS OUTSIDE WITH INTERPRETATION OR CONSULT Routine 09/14/2016 12:00 AM EDT documented in this encounter Results * MRI Spine (Neuro) Focus Outside With Interpretation Or Consult (09/14/2016 12:00 AM EDT) 10/03/2016 1:34 PM EST Impressions [facility] - 10/03/2016 1:55 PM EST Postsurgical changes related to laminectomies at T1-T3 with a crescentic T1/T2 hypointense, peripherally enhancing mass within the dorsal aspect of the thoracic spinal canal extending from T3 through T5, which appears to be subdural in location. The differential diagnosis includes, a densely calcified meningioma, subdural hematoma or dystrophic calcification. This mass results in complete effacement of the CSF space with intramedullary T2 hyperintense signal in the thoracic spinal cord at T3-T4, which may represent edema or myelomalacia. Apparent pachymeningeal enhancement within the posterior fossa, which may represent infectious or inflammatory meningitis, carcinomatous meningitis or venous engorgement from CSF hypotension. RECOMMENDATION: Recommend dedicated CT of the thoracic spine to further characterize the extra medullary lesion extending from T3 through T5. Recommend dedicated MRI of the brain for further evaluation of pachymeningeal enhancement within the posterior fossa. This report is limited to the body part and modality requested, regardless of which images were uploaded. If additional reports are required, please contact the appropriate division of the Radiology Department. Findings were discussed on Oct 03 2016 at 1:55 PM with the referring clinician, EWA RICHMOND. Narrative [facility] - 10/03/2016 1:55 PM EST Interpretation of outside MR scan of the spine. TECHNIQUE: MRI of the cervical spine spine without and with intravenous contrast. HISTORY: As in header. COMPARISON: CT chest from 12/26/2010. FINDINGS: There is a mild (2 mm) anterolisthesis of C2 on C3. The cervical alignment is otherwise within normal limits. There postsurgical findings related to posterior laminectomies at the T1-T3 levels. The vertebral body heights are preserved. There is mild loss of normal intervertebral disc signal with preservation of disc space height compatible with disc desiccation throughout the cervical spine. The bone marrow signal is within normal limits. There is apparent packing meningeal enhancement within the posterior fossa, which is incompletely imaged. The visualized posterior fossa structures appear otherwise normal. The cervical spinal cord is normal in signal and morphology. There is a crescentic T2 hypointense extra medullary mass with peripheral enhancement within the dorsal thoracic spinal canal extending from from the T3-T5 level, which appears to be subdural in location based on the axial images. This mass results in complete effacement of the thecal sac with flattening of the thoracic spinal cord. There is intramedullary T2 hyperintense signal within the thoracic spinal cord at the T3-T4 level, which may represent edema or myelomalacia. Within the cervical spine, there is no significant posterior disc herniation, spinal canal stenosis or neural foraminal narrowing. Procedure Note Eren Gould MD, JANETH - 10/03/2016 Interpretation of outside MR scan of the spine. TECHNIQUE: MRI of the cervical spine spine without and with intravenous contrast. HISTORY: As in header. COMPARISON: CT chest from 12/26/2010. FINDINGS: There is a mild (2 mm) anterolisthesis of C2 on C3. The cervical alignmentis otherwise within normal limits. There postsurgical findings related to posterior laminectomies at theT1-T3 levels. The vertebral body heights are preserved. There is mild loss of normal intervertebral disc signal with preservation of disc space heightcompatible with disc desiccation throughout the cervical spine. The bone marrowsignal is within normal limits. There is apparent packing meningeal enhancement within the posteriorfossa, which is incompletely imaged. The visualized posterior fossa structuresappear otherwise normal. The cervical spinal cord is normal in signal andmorphology. There is a crescentic T2 hypointense extra medullary mass withperipheral enhancement within the dorsal thoracic spinal canal extending from fromthe T3-T5 level, which appears to be subdural in location based on the axialimages. This mass results in complete effacement of the thecal sac with flatteningof the thoracic spinal cord. There is intramedullary T2 hyperintense signalwithin the thoracic spinal cord at the T3-T4 level, which may represent edemaor myelomalacia. Within the cervical spine, there is no significant posterior discherniation, spinal canal stenosis or neural foraminal narrowing. IMPRESSION: Postsurgical changes related to laminectomies at T1-T3 with a crescenticT1/T2 hypointense, peripherally enhancing mass within the dorsal aspect of the thoracic spinal canal extending from T3 through T5, which appears to besubdural in location. The differential diagnosis includes, a densely calcified meningioma, subdural hematoma or dystrophic calcification. This massresults in complete effacement of the CSF space with intramedullary T2 hyperintensesignal in the thoracic spinal cord at T3-T4, which may represent edema ormyelomalacia. Apparent pachymeningeal enhancement within the posterior fossa, whichmay represent infectious or inflammatory meningitis, carcinomatous meningitisor venous engorgement from CSF hypotension. RECOMMENDATION: Recommend dedicated CT of the thoracic spine to further characterize theextra medullary lesion extending from T3 through T5. Recommend dedicated MRI of the brain for further evaluation ofpachymeningeal enhancement within the posterior fossa. This report is limited to the body part and modality requested, regardlessof which images were uploaded. If additional reports are required, pleasecontact the appropriate division of the Radiology Department. Findings were discussed on Oct 03 2016 at 1:55 PM with thereferring clinician, EWA RICHMOND. us Ewa Richmond MD IMG OUTSIDE IMAGING W/ INTERP RETATION Final Result Performing Organization Address City/State/[facility] [place] Phone Number [facility] [address] [facility] [place] [address] documented in this encounter Visit Diagnoses Not on filedocumented in this encounter Care Teams Neuro Psych Sales Specialist Relationship Specialty Start Date End Date Bassem Drew MD [email or web address] PCP - General Internal Medicine 05/09/16 documented as of this encounter Additional Source Comments The information contained in this document represents components of the legal health record. It is not the complete legal health record.[facility]
--- OUTSIDE RECORDS SUMMARY | 2016-09-13 23:15 | XMS_ITS | Encounter Summary ---
Author Organization [facility] Address [address] [facility] [address] [place] [address] Phone Care Team Providers Care Veterans' Coordinator Name Role Phone Bassem Drew MD Primary Care Provider +1- [phone] Reason for Visit * MRI/CAT Scan - Closed Specialty Diagnoses / Procedures Referred By Contac t Referred To Contact Procedures MRI Spine (Neuro) Focus Outside With Interpretation Or Consult Ewa Richmond MD [address] [place] [address] Phone: tel: fax: mailto:[email or web address] Referral ID Status Reason Start Date Expiration Date Visits Re quested Visits Authorized [id number] Closed 10/03/2016 10/03/2017 1 1 Encounter Details Date Type Department Care Team ([facility] st Contact Info) Description 09/14/2016 12:15 AM EDT Hospital Encounter [facility] General Imaging [address] [place] [address] Ewa Richmond MD [address] [place], [place] [id number] [email or web address] Social History Tobacco Use Types Packs/Day [...] AM EDT) 10/03/2016 1:34 PM EST Impressions [facility] [place] [place] [facility] - 10/03/2016 1:55 PM EST Postsurgical [...] with the referring clinician, EWA RICHMOND. Narrative [facility] [place] [place] [facility] - 10/03/2016 1:55 PM EST Interpretation [...] INTERP RETATION Final Result Performing Organization Address City/State/[facility] [place] Phone Number [facility] [place] [place] [facility] [address] [facility] [place] [address] documented in this encounter Visit Diagnoses Not on filedocumented in this encounter Care Teams Veterans' Coordinator Relationship Specialty Start Date End Date Bassem Drew MD PCP - General Internal Medicine 05/09/16 documented as of this encounter Additional Source Comments The information contained in this document represents components of the legal health record. It is not the complete legal health record.[facility]
--- OUTSIDE RECORDS SUMMARY | 2016-09-13 23:30 | XMS_ITS | Encounter Summary ---
Author Organization [facility] Address [address] [facility] [address] [place] [address] Phone Care Team Providers Care Medical Front Desk Coordinator Name Role Phone Bassem Drew MD Primary Care Provider +1- [phone] Reason for Visit * MRI/CAT Scan - Closed Specialty Diagnoses / Procedures Referred By Contac t Referred To Contact Procedures MRI Spine (Neuro) Focus Outside With Interpretation Or Consult Ewa Richmond MD [address] [place] [address] Phone: tel: fax: mailto:[email or web address] Referral ID Status Reason Start Date Expiration Date Visits Re quested Visits Authorized [id number] Closed 10/03/2016 10/03/2017 1 1 Encounter Details Date Type Department Care Team ([facility] st Contact Info) Description 09/14/2016 12:30 AM EDT Hospital Encounter [facility] General Imaging [address] [place] [address] Ewa Richmond MD [address] [place], [place] [id number] [email or web address] Social History Tobacco Use Types Packs/Day [...] OUTSIDE WITH INTERPRETATION OR CONSULT Routine 09/14/2016 12:30 AM EDT documented in this encounter Results * MRI Spine (Neuro) Focus Outside With Interpretation Or Consult (09/14/2016 12:30 AM EDT) 10/03/2016 1:34 PM EST Impressions [facility] - 10/03/2016 1:55 PM EST Postsurgical [...] with the referring clinician, EWA RICHMOND. Narrative [facility] - 10/03/2016 1:55 PM EST Interpretation [...] INTERP RETATION Final Result Performing Organization Address City/State/[facility] Co ar Phone Number [facility] [address] [facility] [place] [address] documented in this encounter Visit Diagnoses Not on filedocumented in this encounter Care Teams Medical Front Desk Coordinator Relationship Specialty Start Date End Date Bassem Drew MD [email or web address] PCP - General Internal Medicine 05/09/16 documented as of this encounter Additional Source Comments The information contained in this document represents components of the legal health record. It is not the complete legal health record.[facility]
--- OUTSIDE RECORDS SUMMARY | 2017-01-16 | XMS_ITS | Encounter Summary ---
Author Organization [facility] Address [address] [facility] [address] [place] [address] Phone Care Team Providers Care Tower Helper Name Role Phone Bassem Drew MD Primary Care Provider +1- [phone] Reason for Visit * MRI/CAT Scan - Closed Specialty Diagnoses / Procedures Referred By Contac t Referred To Contact Procedures MRI Spine (Neuro) Outside (No Interpretation) Denny Riggs MD [address] [place] [address] Phone: tel: fax: mailto:[email or web address] Referral ID Status Reason Start Date Expiration Date Visits Re quested Visits Authorized [id number] Closed 01/23/2017 01/23/2018 1 1 Encounter Details Date Type Department Care Team ([facility] st Contact Info) Description 01/16/2017 Hospital Encounter [facility] General Imaging [address] [place] [address] Denny Riggs MD [address] [place] [address] [email or web address] Social History Tobacco Use Types Packs/Day Years [...] SPINE NEUROLOGIC FOCUS OUTSIDE (NO INTERPRETATION) Routine 01/16/2017 12:00 AM EST documented in this encounter Results * MRI Spine (Neuro) Outside (No Interpretation) (01/16/2017 12:00 AM EST) Narrative [facility] [place] [facility]G INTERFACES - 01/23/2017 11:23 AM EDT This study is for PACS storage only and not for interpretation. us Denny Riggs MD IMG OUTSIDE IMAGING W /OUT INTERPRETATION Final Result [facility] [place] [facility]G INTERFACES documented in this encounter Visit Diagnoses Not on filedocumented in this encounter Care Teams Tower Helper Relationship Specialty Start Date End Date Bassem Drew MD [email or web address] PCP - General Internal Medicine 05/09/16 documented as of this encounter Additional Source Comments The information contained in this document represents components of the legal health record. It is not the complete legal health record.[facility]
[2025-09-16 10:04] VITALS: BP 108/70; PULSE 74; RESP 16; TEMP 36.7; O2SAT 98
--- NOTE | 2025-09-16 10:04 | A.OFFPC_ITS ---
Vital Signs 09/16/25 10:04 Weight 143 lb BP 108/70 Blood Pressure Location Lt brachial Position Sitting Respiration 16 Pulse 74 Pulse Source Pulse Oximeter Temp 98.1 F Temp Source Oral Pulse Oximetry (%) 98 Oxygen Delivery Method Room Air Intake Visit Reasons: 6m f/u Batch Plant Operator Required: No Allergies mold Allergy (Severe, Verified 09/16/25 10:06) itchy throat blue cheese Allergy (Severe, Uncoded 09/16/25 10:06) itchy throat Tobacco use date assessed: 09/16/25 Dental Screening Dental Screen Date: 09/16/25 Did you have a dental visit in the last 12 months?: Yes Did you have a dental problem in the last 6 months where you did not have access to dental care?: No Was dental information given to patient?: Patient has dentist HPI 6m f/u HPI Details Chief Complaint Patient presents for a follow-up visit for management of diabetes. History of Present Illness The patient is a 54-year-old female presenting for a diabetes follow-up. Her hemoglobin A1c is 6.0%. She reports some neuropathy in her right toes (intermittent/faint). She understands the signs and symptoms of hypoglycemia and how to manage it. Social History Health Maintenance - The patient will undergo a urine test for microalbumin to screen for diabetic nephropathy. - The patient understands the signs and symptoms of hypoglycemia and how to correct it. -declined all vaccinations Review of Systems - Neurological: Reports neuropathy in th e right toes. -denies any cp, sob, fevers, chills Physical Exam General: Cooperative, healthy appearing, comfortable, no acute distress and well developed Orientation: Patient oriented x3 Limitations: No limitations Head: Normal to inspection Ears: Hearing grossly normal bilaterally Nose: Normal external nose present Face and sinus: Normal facial exam Eyes: Appearance normal, both eyes and all related structures Neck: Normal visual inspection and Yes full ROM Respiratory: Normal respiratory effort and able to speak in complete sentences. Clear to auscultation bilaterally Cardiovascular: Regular rate and rhythm. Normal S1 and S2 GI: Normal to inspection. Soft to palpation and nontender Skin: No rashes or lesions noted Neuro: Patient oriented x3, reports a little bit of neuropathy in her right toes, positive sensation with use of monofilament to feet Extremities: Normal to inspection, feet were intact by lap Results - Labs: Hemoglobin A1c is 6.0%. Plan 1. Diabetes Mellitus The patient's diabetes is well-controlled with a recent hemoglobin A1c of 6.0%. The plan includes obtaining labs in the near future, including a urine test for microalbumin. The patient has demonstrated understanding of the signs of hypoglycemia and how to manage it. 2. Diabetic Neuropathy The patient reports experiencing some neuropathy in her right toes. Physical examination revealed positive sensation with monofilament testing to both feet. Discussion Notes I discussed with the patient that her diabetes is well-controlled, evidenced by her hemoglobin A1c of 6.0%. We reviewed her report of neuropathy in the right toes, noting that her physical exam showed intact sensation. I advised that she will need to get labs soon, including a urine microalbumin test, to continue monitoring her condition. We confirmed her understanding of how to recognize and manage hypoglycemia. Patient Instructions - Your lab results show that your diabet es is well-controlled with a hemoglobin A1c of 6.0%. - Please complete your follow-up lab wor k soon, which will include a urine test. - Continue to watch for signs of low blo od sugar (hypoglycemia) and know how to treat it if it happens. ON LICENSE OF [facility] Medical History Hypertensive retinopathy Glaucoma HTN (hypertension) Anxiety INGRID (obstructive sleep apnea) Neck pain Heart murmur Depression Esophagitis Hypokalemia Hyperlipidemia FH: HTN (hypertension) Diabetes mellitus Right sided sciatica Asthma Sacroiliac inflammation Surgical History S/p bilateral carpal tunnel release Hx of esophagogastroduodenoscopy Hx of colonoscopy History of back surgery History of bilateral tubal ligation Family History Father Cancer Alzheimer's disease Mother HTN (hypertension) Diabetes mellitus Asthma Depression Stroke Cancer Maternal Grandfather No problems noted. Maternal Grandmother No problems noted. Paternal Grandfather No problems noted. Paternal Grandmother No problems noted. Brother No problems noted. Brother No problems noted. Sister Asthma Son No problems noted. Son No problems noted. Daughter No problems noted. Social History Household Members: Spouse and Children Housing: House Are you a primary career specialist to a significant other at home: No Do you presently have visiting nurse or other home services: No Alcohol intake: current Alcohol intake frequency: does not drink Patient Tobacco Use Status: Never used Tobacco e-Cigarette/Vaping Use: Never Used Second Hand Smoke Exposure: No service: No Current occupational status: disabled Cognitive needs: No Hearing needs: No Vision needs: Yes Female Reproductive History Menstrual Age of Menarche: 10 Questionnaire Thrive Questionnaire Date Thrive assessed: 03/15/25 I am a: Patient What is your living situation today?: I have a steady place to live Within the past 12 months, did the food you bought not last and you didn't have the money to get more?: Often true Within the past 12 months, did you worry whether your food would run out before you got money to buy more?: Often true Do you have trouble paying for medicines?: No Do you have trouble getting transportation to medical appointments?: No Do you have trouble paying your heating and electricity bill?: Yes Do you have trouble taking care of your child, family member or friend?: No Do you have trouble with day-to-day activities such as bathing, preparing meals, shopping, managing finances, etc.?: I choose not to answer this question Are you currently unemployed and looking for a job?: No Are you interested in more education?: No Please select the resources that you would like help with: Utilities Currently or been in a relationship where the following occur: I choose not to answer THRIVE Score: 3 JESSI-7 AMB Questionnaire JESSI-7 Date JESSI - 7 assessed: 09/16/25 Feeling nervous, anxious, or on edge: 1 = Several days Not being able to stop or control worryin = Several days Worrying too much about different things: 1 = Several days Trouble relaxin = More than half the days Being so restless that it is hard to sit still: 2 = More than half the days Becoming easily annoyed or irritable: 2 = More than half the days Feeling afraid as if something awful might happen: 2 = More than half the days Total JESSI-7 score (0-4 normal; 5-9 mild; 10-14 moderate; 15-21 severe): 11 Source: Developed by Drs. Jaylen Johns, Cary Chavez, Omar Olmedo and colleagues, with an educational [place] from [employer]. Physical exam (Primary Care) Vital Signs: Last Vital Signs Temp 98.1 F 09/16/25 10:04 Pulse 74 09/16/25 10:04 Resp 16 09/16/25 10:04 BP 108/70 09/16/25 10:04 Pulse Ox 98 09/16/25 10:04 Oxygen Delivery Method Room Air 09/16/25 10:04 Tobacco/Smoking Status: Tobacco use Status Tobacco use date assessed 09/16/25 09/16/25 10:10 Patient Tobacco Use Status Never used Tobacco 09/16/25 10:10 e-Cigarette/Vaping Use Never Used 09/16/25 10:10 Thrive Assessment: Date of Thrive Assessment Date Thrive assessed 03/15/25 09/16/25 10:10 Currently or been in a relationship where the following occur: I choose not to answer Results AMB Hemoglobin A1c AMB Hemoglobin A1c 6.0 % Last Edit by Ashleigh Vega MA on 09/16/25 10:15 Results Reviewed Results Reviewed: Laboratory Last Values Hgb A1c (Clinic) 6.0 % (4.0-6.0) 09/16/25 10:11 Coding Level of Care Code Est Pt Level 3 (32368) Diagnoses Diabetes mellitus E11.9 Vitamin D deficiency E55.9 Assessment & Plan Assessment & Plan (1) Diabetes mellitus: Comment: taking novolog insulin TID w/meals Code(s): E11.9 - Type 2 diabetes mellitus without complications Category: Medical (2) Vitamin D deficiency: Code(s): E55.9 - Vitamin D deficiency, unspecified Category: Medical Plan . Orders: Orders Complete Blood Count Auto Diff Today E11.9 - Type 2 diabetes mellitus without complications UA CC w/rflx Micro + Cult Today E11.9 - Type 2 diabetes mellitus without complications Lipid Panel Today E11.9 - Type 2 diabetes mellitus without complications Vitamin D 25-OH Total Today E55.9 - Vitamin D deficiency, unspecified AMB Hemoglobin A1c Today E11.9 - Type 2 diabetes mellitus without complications Comprehensive [place]. Panel Fast Today E11.9 - Type 2 diabetes mellitus without complications TSH reflex Free T4 Today E11.9 - Type 2 diabetes mellitus without complications Microalbumin, Random (w Creat) Today E11.9 - Type 2 diabetes mellitus without complications
--- OUTSIDE RECORDS SUMMARY | 2025-09-16 11:14 | XMS_ITS | Encounter Summary ---
Author Organization [facility] Address [address] [place] [address] Phone Care Team Providers Care Boring Machine Set Up Operator Name Role Phone Bassem Drew MD Primary Care Provider +1- [phone] Encounter Details Date Type Department Care Team (Late st Contact Info) Description 01/23/2017 Procedure Pass [facility] [address] [place] [address] Social History Tobacco Use Types Packs/Day Years [...] on filedocumented in this encounter Care Teams Boring Machine Set Up Operator Relationship Specialty Start Date End Date Bassem Drew MD PCP - General Internal Medicine 05/09/16 documented as of this encounter Additional Source Comments The information contained in this document represents components of the legal health record. It is not the complete legal health record.[facility]
--- OUTSIDE RECORDS SUMMARY | 2025-09-16 11:14 | XMS_ITS | Encounter Summary ---
Author Organization [facility] Address [address] [place] [address] Phone Care Team Providers Care Divorce Mediator Name Role Phone Bassem Drew MD Primary Care Provider +1- [phone] Encounter Details Date Type Department Care Team (Late st Contact Info) Description 01/23/2017 Procedure Pass [facility] [address] [place] [address] Social History Tobacco Use Types Packs/Day Years [...] on filedocumented in this encounter Care Teams Divorce Mediator Relationship Specialty Start Date End Date Bassem Drew MD PCP - General Internal Medicine 05/09/16 documented as of this encounter Additional Source Comments The information contained in this document represents components of the legal health record. It is not the complete legal health record.[facility]
--- OUTSIDE RECORDS SUMMARY | 2025-09-16 11:14 | XMS_ITS | Encounter Summary ---
Author Organization [facility] Address [address] [place] [address] Phone Care Team Providers Care Tip Stretcher Name Role Phone Bassem Drew MD Primary Care Provider +1- [phone] Encounter Details Date Type Department Care Team (Late st Contact Info) Description 01/23/2017 Procedure Pass [facility] [address] [place] [address] Social History Tobacco Use Types Packs/Day Years [...] on filedocumented in this encounter Care Teams Tip Stretcher Relationship Specialty Start Date End Date Bassem Drew MD PCP - General Internal Medicine 05/09/16 documented as of this encounter Additional Source Comments The information contained in this document represents components of the legal health record. It is not the complete legal health record.[facility]
--- OUTSIDE RECORDS SUMMARY | 2025-09-16 11:14 | XMS_ITS | Encounter Summary ---
Author Organization [facility] Address [address] [place] [address] Phone Care Team Providers Care Micro Computer Data Processor Name Role Phone Bassem Drew MD Primary Care Provider +1- [phone] Encounter Details Date Type Department Care Team (Late st Contact Info) Description 01/23/2017 Procedure Pass [facility] [address] [place] [address] Social History Tobacco Use Types Packs/Day Years [...] filedocumented in this encounter Care Teams Micro Computer Data Processor Relationship Specialty Start Date End Date Bassem Drew MD PCP - General Internal Medicine 05/09/16 documented as of this encounter Additional Source Comments The information contained in this document represents components of the legal health record. It is not the complete legal health record.[facility]
--- OUTSIDE RECORDS SUMMARY | 2025-09-16 11:14 | XMS_ITS | Encounter Summary ---
Author Organization [facility] Address [address] [place] [address] Phone Care Team Providers Care Bag End Sewer Name Role Phone Bassem Drew MD Primary Care Provider +1- [phone] Encounter Details Date Type Department Care Team (Late st Contact Info) Description 01/23/2017 Procedure Pass [facility] [address] [place] [address] Social History Tobacco Use Types Packs/Day Years [...] filedocumented in this encounter Care Teams Bag End Sewer Relationship Specialty Start Date End Date Bassem Drew MD PCP - General Internal Medicine 05/09/16 documented as of this encounter Additional Source Comments The information contained in this document represents components of the legal health record. It is not the complete legal health record.[facility]
--- OUTSIDE RECORDS SUMMARY | 2025-09-16 11:14 | XMS_ITS | Encounter Summary ---
Author Organization [facility] Address [address] [place] [address] Phone Care Team Providers Care Import/Export Clerk Name Role Phone Bassem Drew MD Primary Care Provider +1- [phone] Encounter Details Date Type Department Care Team (Late st Contact Info) Description 01/23/2017 Procedure Pass [facility] [address] [place] [address] Social History Tobacco Use Types Packs/Day Years [...] on filedocumented in this encounter Care Teams Import/Export Clerk Relationship Specialty Start Date End Date Bassem Drew MD PCP - General Internal Medicine 05/09/16 documented as of this encounter Additional Source Comments The information contained in this document represents components of the legal health record. It is not the complete legal health record.[facility]
--- OUTSIDE RECORDS SUMMARY | 2025-09-16 11:14 | XMS_ITS | Encounter Summary ---
Author Organization [facility] Address [address] [place] [address] Phone Care Team Providers Care Forest Ecology Professor Name Role Phone Bassem Drew MD Primary Care Provider +1- [phone] Encounter Details Date Type Department Care Team (Late st Contact Info) Description 01/23/2017 Procedure Pass [facility] [address] [place] [address] Social History Tobacco Use Types Packs/Day Years [...] filedocumented in this encounter Care Teams Forest Ecology Professor Relationship Specialty Start Date End Date Bassem Drew MD PCP - General Internal Medicine 05/09/16 documented as of this encounter Additional Source Comments The information contained in this document represents components of the legal health record. It is not the complete legal health record.[facility]
--- OUTSIDE RECORDS SUMMARY | 2025-09-16 11:14 | XMS_ITS | Encounter Summary ---
Author Organization [facility] Address [address] [place] [address] Phone Care Team Providers Care Supervisor Front Name Role Phone Bassem Drew MD Primary Care Provider +1- [phone] Encounter Details Date Type Department Care Team (Late st Contact Info) Description 01/23/2017 Procedure Pass [facility] [address] [place] [address] Social History Tobacco Use Types Packs/Day Years [...] on filedocumented in this encounter Care Teams Supervisor Front Relationship Specialty Start Date End Date Bassem Drew MD PCP - General Internal Medicine 05/09/16 documented as of this encounter Additional Source Comments The information contained in this document represents components of the legal health record. It is not the complete legal health record.[facility]
--- OUTSIDE RECORDS SUMMARY | 2025-09-16 11:14 | XMS_ITS | Encounter Summary ---
Author Organization [facility] Address [address] [place] [address] Phone Care Team Providers Care Assistant Hall Director Name Role Phone Bassem Drew MD Primary Care Provider +1- [phone] Encounter Details Date Type Department Care Team (Late st Contact Info) Description 01/23/2017 Procedure Pass [facility] [address] [place] [address] Social History Tobacco Use Types Packs/Day Years [...] filedocumented in this encounter Care Teams Assistant Hall Director Relationship Specialty Start Date End Date Bassem Drew MD PCP - General Internal Medicine 05/09/16 documented as of this encounter Additional Source Comments The information contained in this document represents components of the legal health record. It is not the complete legal health record.[facility]
--- OUTSIDE RECORDS SUMMARY | 2025-09-16 11:14 | XMS_ITS | Encounter Summary ---
Author Organization [facility] Address [address] [place] [address] Phone Care Team Providers Care Software Integration Developer Name Role Phone Bassem Drew MD Primary Care Provider +1- [phone] Encounter Details Date Type Department Care Team (Late st Contact Info) Description 01/23/2017 Procedure Pass [facility] [address] [place] [address] Social History Tobacco Use Types Packs/Day Years [...] on filedocumented in this encounter Care Teams Software Integration Developer Relationship Specialty Start Date End Date Bassem Drew MD PCP - General Internal Medicine 05/09/16 documented as of this encounter Additional Source Comments The information contained in this document represents components of the legal health record. It is not the complete legal health record.[facility]
--- OUTSIDE RECORDS SUMMARY | 2025-09-16 11:14 | XMS_ITS | Encounter Summary ---
Author Organization [facility] Address [address] [place] [address] Phone Care Team Providers Care Indoor Landscape Architect Name Role Phone Bassem Drew MD Primary Care Provider +1- [phone] Encounter Details Date Type Department Care Team (Late st Contact Info) Description 10/03/2016 Procedure Pass [facility] [address] [place] [address] Social History Tobacco Use Types Packs/Day Years [...] on filedocumented in this encounter Care Teams Indoor Landscape Architect Relationship Specialty Start Date End Date Bassem Drew MD PCP - General Internal Medicine 05/09/16 documented as of this encounter Additional Source Comments The information contained in this document represents components of the legal health record. It is not the complete legal health record.[facility]
--- OUTSIDE RECORDS SUMMARY | 2025-09-16 11:14 | XMS_ITS | Encounter Summary ---
Author Organization [facility] Address [address] [place] [address] Phone Care Team Providers Care Photographic Lithographer Name Role Phone Bassem Drew MD Primary Care Provider +1- [phone] Encounter Details Date Type Department Care Team (Late st Contact Info) Description 01/23/2017 Procedure Pass [facility] [address] [place] [address] Social History Tobacco Use Types Packs/Day Years [...] on filedocumented in this encounter Care Teams Photographic Lithographer Relationship Specialty Start Date End Date Bassem Drew MD PCP - General Internal Medicine 05/09/16 documented as of this encounter Additional Source Comments The information contained in this document represents components of the legal health record. It is not the complete legal health record.[facility]
--- OUTSIDE RECORDS SUMMARY | 2025-09-16 11:14 | XMS_ITS | Encounter Summary ---
Author Organization [facility] Address [address] [place] [address] Phone Care Team Providers Care Stripper Soft Plastic Name Role Phone Bassem Drew MD Primary Care Provider +1- [phone] Encounter Details Date Type Department Care Team (Late st Contact Info) Description 10/03/2016 Procedure Pass [facility] [address] [place] [address] Social History Tobacco Use Types Packs/Day Years [...] on filedocumented in this encounter Care Teams Stripper Soft Plastic Relationship Specialty Start Date End Date Bassem Drew MD PCP - General Internal Medicine 05/09/16 documented as of this encounter Additional Source Comments The information contained in this document represents components of the legal health record. It is not the complete legal health record.[facility]
--- OUTSIDE RECORDS SUMMARY | 2025-09-16 11:15 | XMS_ITS | Clinical Summary ---
Author Organization [facility] Address [address] [address] Phone Care Team Providers Care Document Control Assistant Name Role Phone Bassem Drew MD Primary Care Provider +1- [phone] Allergies No known active allergies Medications spironolactone [...] MEDICARE PART A & B Care Teams Document Control Assistant Relationship Specialty Start Date End Date Bassem Drew MD PCP - General Internal Medicine 05/09/16 Additional Source Comments The information contained in this document represents components of the legal health record. It is not the complete legal health record.[facility]
--- OUTSIDE RECORDS SUMMARY | 2025-09-16 11:15 | XMS_ITS | Encounter Summary ---
Author Organization [facility] Address [address] [place] [address] Phone Care Team Providers Care Technical Support Engineer Name Role Phone Bassem Drew MD Primary Care Provider +1- [phone] Encounter Details Date Type Department Care Team (Late st Contact Info) Description 01/23/2017 Procedure Pass [facility] [address] [place] [address] Social History Tobacco Use Types Packs/Day Years [...] on filedocumented in this encounter Care Teams Technical Support Engineer Relationship Specialty Start Date End Date Bassem Drew MD PCP - General Internal Medicine 05/09/16 documented as of this encounter Additional Source Comments The information contained in this document represents components of the legal health record. It is not the complete legal health record.[facility]
--- OUTSIDE RECORDS SUMMARY | 2025-09-16 11:15 | XMS_ITS | Encounter Summary ---
Author Organization [facility] Address [address] [place] [address] Phone Care Team Providers Care Entertainment Director Name Role Phone Bassem Drew MD Primary Care Provider +1- [phone] Encounter Details Date Type Department Care Team (Late st Contact Info) Description 10/03/2016 Procedure Pass [facility] [address] [place] [address] Social History Tobacco Use Types Packs/Day Years [...] on filedocumented in this encounter Care Teams Entertainment Director Relationship Specialty Start Date End Date Bassem Drew MD PCP - General Internal Medicine 05/09/16 documented as of this encounter Additional Source Comments The information contained in this document represents components of the legal health record. It is not the complete legal health record.[facility]
--- OUTSIDE RECORDS SUMMARY | 2025-09-16 11:15 | XMS_ITS | Encounter Summary ---
Author Organization [facility] Address [address] [place] [address] Phone Care Team Providers Care Decal Applier Name Role Phone Bassem Drew MD Primary Care Provider +1- [phone] Encounter Details Date Type Department Care Team (Late st Contact Info) Description 01/23/2017 Procedure Pass [facility] [address] [place] [address] Social History Tobacco Use Types Packs/Day Years [...] on filedocumented in this encounter Care Teams Decal Applier Relationship Specialty Start Date End Date Bassem Drew MD PCP - General Internal Medicine 05/09/16 documented as of this encounter Additional Source Comments The information contained in this document represents components of the legal health record. It is not the complete legal health record.[facility]
--- OUTSIDE RECORDS SUMMARY | 2025-09-16 11:15 | XMS_ITS | Encounter Summary ---
Author Organization [facility] Address [address] [place] [address] Phone Care Team Providers Care Car Record Clerk Name Role Phone Bassem Drew MD Primary Care Provider +1- [phone] Reason for Referral * Consultation (Elective) - Closed Specialty Diagnoses / Procedures Referred By Conttami t Referred To Contact Neurology Diagnoses Encounter for consultation System, Provider Not In, [facility] [address] [place] [address] Referral ID Status Reason Start Date Expiration Date Visits Re quested Visits Authorized [id number] Closed 05/31/2016 05/31/2017 1 1 Encounter Details Date Type Department Care Team (Late st Contact Info) Description 05/31/2016 Transcribe Orders [facility] Department of Neurology [address] [place] [address], [address] Floor, [address] [place] [address] System, Provider Not In, [facility] [address] [address] Encounter for consultation (Primary Dx) Social History [...] Diagnoses Orde r Schedule Ambulatory referral to [facility] Neurology Outpatient Referral Routine Encounter for consultation Ordered: 05/31/2016 documented as of this encounter Visit Diagnoses Diagnosis Encounter for consultation- Primary documented in this encounter Care Teams Car Record Clerk Relationship Specialty Start Date End Date Bassem Drew MD [email or web address] PCP - General Internal Medicine 05/09/16 documented as of this encounter Additional Source Comments The information contained in this document represents components of the legal health record. It is not the complete legal health record.[facility]
--- OUTSIDE RECORDS SUMMARY | 2025-09-16 11:15 | XMS_ITS | Encounter Summary ---
Author Organization [facility] Address [address] [place] [address] Phone Care Team Providers Care Gear Straightener Name Role Phone Bassem Drew MD Primary Care Provider +1- [phone] Encounter Details Date Type Department Care Team (Late st Contact Info) Description 01/23/2017 Procedure Pass [facility] [address] [place] [address] Social History Tobacco Use Types Packs/Day Years [...] on filedocumented in this encounter Care Teams Gear Straightener Relationship Specialty Start Date End Date Bassem Drew MD PCP - General Internal Medicine 05/09/16 documented as of this encounter Additional Source Comments The information contained in this document represents components of the legal health record. It is not the complete legal health record.[facility]
--- OUTSIDE RECORDS SUMMARY | 2025-09-16 11:15 | XMS_ITS | Encounter Summary ---
Author Organization [facility] Address [address] [place] [address] Phone Care Team Providers Care Estate And Trust Tax Principal Name Role Phone Bassem Drew MD Primary Care Provider +1- [phone] Encounter Details Date Type Department Care Team (Late st Contact Info) Description 01/23/2017 Procedure Pass [facility] [address] [place] [address] Social History Tobacco Use Types Packs/Day Years [...] on filedocumented in this encounter Care Teams Estate And Trust Tax Principal Relationship Specialty Start Date End Date Bassem Drew MD PCP - General Internal Medicine 05/09/16 documented as of this encounter Additional Source Comments The information contained in this document represents components of the legal health record. It is not the complete legal health record.[facility]
--- OUTSIDE RECORDS SUMMARY | 2025-09-16 11:15 | XMS_ITS | Encounter Summary ---
Author Organization [facility] Address [address] [place] [address] Phone Care Team Providers Care Computer Programming Manager Name Role Phone Bassem Drew MD Primary Care Provider +1- [phone] Encounter Details Date Type Department Care Team (Late st Contact Info) Description 01/23/2017 Procedure Pass [facility] [address] [place] [address] Social History Tobacco Use Types Packs/Day Years [...] on filedocumented in this encounter Care Teams Computer Programming Manager Relationship Specialty Start Date End Date Bassem Drew MD PCP - General Internal Medicine 05/09/16 documented as of this encounter Additional Source Comments The information contained in this document represents components of the legal health record. It is not the complete legal health record.[facility]
--- OUTSIDE RECORDS SUMMARY | 2025-09-16 11:15 | XMS_ITS | Encounter Summary ---
Author Organization [facility] Address [address] [place] [address] Phone Care Team Providers Care [employer] Launch Commander Name Role Phone Bassem Drew MD Primary Care Provider +1- [phone] Encounter Details Date Type Department Care Team (Late st Contact Info) Description 01/23/2017 Procedure Pass [facility] [address] [place] [address] Social History Tobacco Use Types Packs/Day Years [...] on filedocumented in this encounter Care Teams [employer] Launch Commander Relationship Specialty Start Date End Date Bassem Drew MD PCP - General Internal Medicine 05/09/16 documented as of this encounter Additional Source Comments The information contained in this document represents components of the legal health record. It is not the complete legal health record.[facility]
--- OUTSIDE RECORDS SUMMARY | 2025-09-16 11:15 | XMS_ITS | Encounter Summary ---
Author Organization [facility] Address [address] [place] [address] Phone Care Team Providers Care Mask Former Name Role Phone Bassem Drew MD Primary Care Provider +1- [phone] Encounter Details Date Type Department Care Team (Late st Contact Info) Description 01/23/2017 Procedure Pass [facility] [address] [place] [address] Social History Tobacco Use Types Packs/Day Years [...] on filedocumented in this encounter Care Teams Mask Former Relationship Specialty Start Date End Date Bassem Drew MD PCP - General Internal Medicine 05/09/16 documented as of this encounter Additional Source Comments The information contained in this document represents components of the legal health record. It is not the complete legal health record.[facility]
== END 2025-09-16 13:35 | disposition home or self-care (01) ==
LOC: HO.HMCC 09:53
PROVIDERS: PCP Nurse Practitioner Family; Visit Provider Nurse Practitioner Family
DX: E11.9 Type 2 diabetes mellitus without complications (principal); E55.9 Vitamin D deficiency, unspecified

== ENCOUNTER → 2025-09-16 09:52 | Outpatient (BNVA) | payer OTHER, SELFPAY | PROVIDERS: PCP Nurse Practitioner Family; Visit Provider Nurse Practitioner Family | DX: I10 Essential (primary) hypertension (principal); E11.40 Type 2 diabetes mellitus with diabetic neuropathy, unspecified; E55.9 Vitamin D deficiency, unspecified | CPT/HCPCS: 83036; 96127; 99212 ==